=== PATIENT | male | born 1940 | race Caucasian/White ===

== ENCOUNTER 2019-04-24 19:21 | Inpatient (IN) | payer MEDICARE, BC ==
[~2019-04-24] VITALS: Ht 175.3 cm; Wt 87.0 kg
[~2019-04-24 19:21] MED LIST: ACETAMINOPHEN500 M1 PO; BAYER CHEWABLE81 MG PO; DEMADEX20 MG PO; FLOMAX0.4 MG PO; FLORASTOR250 MG PO; GABAPENTIN100 MG PO; HEPARIN SO1000 UNIT/ INJ; HEPARIN SO1000 UNIT/ IV; HYDROCODON-ACE1 EAC7 PO; IMODIUM2 MG PO; IPRAT-ALBUT 0.5-3 ML UPD; K-DUR20 MEQ PO; LOMOTIL TABLET1 TAB PO; LOPERAMIDE HCL2 MG PO; NEPHRO-VITE RX1 TAB PO; NEURONTIN 300300 MG PO; NEURONTIN600 MG PO; NORVASC5 MG PO; PHOSLO667 MG PO; PLAVIX75 MG PO; PRAVACHOL40 MG PO; PREDNISONE10 MG PO; PREDNISONE5 MG PO; PROCRIT/EP3000 UNITS SC; REMERON15 MG PO; RENVELA0.8 GM PO; SALINE FLUSH10 ML IV; SODIUM CL 0.91000 ML IV; TENORMIN100 MG PO; TENORMIN25 MG PO; VALTREX500 MG PO; XANAX0.25 MG PO; ZOVIRAX IV; ZOVIRAX400 MG PO; ZYLOPRIM100 MG PO
[2019-04-24 20:05] LABS: BASOPHILS 0.4 % (0-2); EOSINOPHILS 2.4 % (0-7); HEMATOCRIT 26.3 % (42.0-54.0); HEMOGLOBIN 8.2 g/dL (13.5-17.5); IMMATURE GRANULOCYTES 0.3 % (0-5); LYMPHOCYTES 16.7 % (15-50); MCH 30.6 pg (26.0-34.0); MCHC 31.2 g/dL (31.0-37.0); MCV 98.1 fL (80.0-100.0); MEAN PLATELET VOLUME 8.6 fL (7.4-10.4); MONOCYTES 11.5 % (2-11); NEUTROPHILS 68.7 % (40-80); RBC 2.68 10x6/uL (4.20-6.10); RDW 13.5 % (11.5-14.5); WBC 11.8 10x3/uL (4.8-10.8)
[2019-04-24 20:06] LABS: PLATELET COUNT 282 10x3/uL (130-400)
[2019-04-24 20:15] LABS: APTT 30.7 SECONDS (22.8-39.4); INR 1.21 (0.85-1.17); PROTIME 14.8 SECONDS (11.6-15.0)
[2019-04-24 20:24] VITALS: BP 169/86
[2019-04-24 20:35] LABS: CALC OSMOLALITY 288 mosm/kg (275-300); CALCIUM 9.4 mg/dL (8.5-10.1); CHLORIDE - SERUM 102 mmol/L (98-107); CREATININE - SERUM 8.4 mg/dL (0.6-1.3); GLUCOSE 111 mg/dL (74-106); POTASSIUM - SERUM 4.1 mmol/L (3.5-5.1); SODIUM 139 mmol/L (136-145); UREA NITROGEN 41 mg/dL (7-18); eGFR NON AFRICAN AMERICAN 6 mL/min (90-120)
[2019-04-24 20:52] LABS: ALBUMIN 2.4 g/dL (3.4-5.0); ALKALINE PHOSPHATASE 52 U/L (46-116); ALT (SGPT) 20 U/L (10-68); AMYLASE - SERUM 44 U/L (25-115); BILIRUBIN - TOTAL 0.44 mg/dL (0.2-1.3); CKMB 1.4 U/L (0.0-3.6); CREATINE KINASE 46 UL (21-232); LIPASE 92 U/L (73-393); MAGNESIUM - SERUM 1.8 mg/dL (1.8-2.4); PROTEIN - SERUM 6.2 g/dL (6.4-8.2); THYROID STIMULATING HORMONE 0.79 uIU/mL (0.36-3.74); TROPONIN-I < 0.017 ng/mL (0.000-0.060)
--- NOTE | 2019-04-24 21:05 | NUR ---
REPORT GIVEN TO EVERARDO ABARCA.
[2019-04-24 21:44] LABS: APPEARANCE CLEAR (CLEAR); BILIRUBIN NEGATIVE (NEGATIVE); COLOR YELLOW (YELLOW); GLUCOSE 50 mg/dL (NEGATIVE); KETONE NEGATIVE (NEGATIVE); NITRITE NEGATIVE (NEGATIVE); PROTEIN 1+ mg/dL (NEGATIVE); SPECIFIC GRAVITY 1.005 (1.005-1.020); UROBILINOGEN NORMAL (NORMAL)
[2019-04-24 21:46] LABS: BACTERIA FEW /hpf (NEGATIVE); RED CELLS - URINE 0-5 /hpf (0-5); WHITE CELLS - URINE 0-5 /hpf (NEGATIVE)
[2019-04-24 21:48] LABS: UDS - AMPHET NEGATIVE QUAL (NEGATIVE); UDS - BARB NEGATIVE QUAL (NEGATIVE); UDS - BENZO NEGATIVE QUAL (NEGATIVE); UDS - COCAINE NEGATIVE QUAL (NEGATIVE); UDS - OPIATE NEGATIVE QUAL (NEGATIVE); UDS - PCP NEGATIVE QUAL (NEGATIVE); UDS - THC NEGATIVE QUAL (NEGATIVE)
--- NOTE | 2019-04-24 22:20 | NUR ---
PT ARRIVED TO ROOM VIA STRETCHER. RR EVEN AND TACHYPNEIC AT TIMES. SPO2 93% ON 3L NC. FAMILY AT BEDSIDE. EDUCATED USE OF CALL LIGHT FOR ASSISTANCE. FALL PRECAUTIONS IN PLACE. WILL CTM.
[2019-04-24] MEDS ORDERED: MEGACE40 MG PO (23:16)
[2019-04-24] MEDS ORDERED: ADALAT CC90 MG (23:18)
[2019-04-24] MEDS ORDERED: PROCARDIA10 MG PO (23:20)
[2019-04-25 00:11] VITALS: BP 174/80; BMI 28.4
[2019-04-25 04:30] VITALS: BP 155/58
[2019-04-25 06:00] LABS: BASOPHILS 0.3 % (0-2); EOSINOPHILS 2.1 % (0-7); HEMATOCRIT 22.9 % (42.0-54.0); IMMATURE GRANULOCYTES 0.4 % (0-5); LYMPHOCYTES 14.1 % (15-50); MCH 31.5 pg (26.0-34.0); MCHC 32.8 g/dL (31.0-37.0); MCV 96.2 fL (80.0-100.0); MEAN PLATELET VOLUME 8.1 fL (7.4-10.4); MONOCYTES 11.7 % (2-11); NEUTROPHILS 71.4 % (40-80); PLATELET COUNT 242 10x3/uL (130-400); RBC 2.38 10x6/uL (4.20-6.10); RDW 13.4 % (11.5-14.5)
[2019-04-25 06:11] LABS: HEMOGLOBIN 7.5 g/dL (13.5-17.5)
[2019-04-25 06:50] LABS: ALBUMIN 2.2 g/dL (3.4-5.0); ANION GAP 16.1 mmol/L (8-16); BILIRUBIN - TOTAL 0.4 mg/dL (0.2-1.3); CALCIUM 9.1 mg/dL (8.5-10.1); CARBON DIOXIDE 24.1 mmol/L (21.0-32.0); CREATININE - SERUM 9.6 mg/dL (0.6-1.3); POTASSIUM - SERUM 4.2 mmol/L (3.5-5.1); PROTEIN - SERUM 6.2 g/dL (6.4-8.2)
--- NOTE | 2019-04-25 07:20 | NUR ---
RECIEVE REPORT. ALERT AND ORIENTED X4. MINIMAL ASSISTANCE TO RESTROOM. DENIES ANY OTHER NEEDS AT THIS TIME. CONTINUE PLAN OF CARE AND SAFETY PRECAUTIONS.
[2019-04-25 09:20] VITALS: BP 190/91
--- NOTE | 2019-04-25 13:40 | NUR ---
NOTIFY OF ELEVATED BP AND LOW HGB. DIALYSIS ORDERED. 2 UNITS PRBC ORDERED TO GIVE ON DIALYSIS.
[2019-04-25 13:41] VITALS: BP 195/103
[2019-04-25 14:01] LABS: % SATURATION 14 % (15-55); IRON 14 ug/dl (35-150); TOTAL IRON BIND CAPACITY 98 ug/dl (260-445); UNSAT IRON BIND CAPACITY 84 ug/dl (150-375)
[2019-04-25 14:40] LABS: FERRITIN 2033 ng/mL (3-244)
[2019-04-25 15:33] VITALS: Ht 175.3 cm; Wt 87.0 kg
[2019-04-25 16:32] VITALS: BP 175/86
--- NOTE | 2019-04-25 16:50 | NUR ---
TAKEN TO DIALYSIS VIA BED.
--- NOTE | 2019-04-25 19:00 | NUR ---
PT CURRENTLY IN DIALYSIS.
[2019-04-25 20:00] VITALS: BP 102/60
[2019-04-26] VITALS: BP 123/49
--- NOTE | 2019-04-26 01:01 | NUR ---
UP WITH ASSIST TO BR.
--- NOTE | 2019-04-26 02:13 | NUR ---
RESTING WITH EYES CLOSED, RESPERATOINS EVEN, NO S/S DISTRESS NOTED.
--- NOTE | 2019-04-26 02:43 | NUR ---
I have reviewed this patient and I concur with the Shift Assessment completed by the Licensed Practical Nurse today this shift.
[2019-04-26 04:00] VITALS: BP 125/50
[2019-04-26 05:02] LABS: BASOPHILS 0.3 % (0-2); EOSINOPHILS 1.9 % (0-7); HEMATOCRIT 27.4 % (42.0-54.0); HEMOGLOBIN 8.9 g/dL (13.5-17.5); IMMATURE GRANULOCYTES 0.4 % (0-5); LYMPHOCYTES 12.4 % (15-50); MCH 30.6 pg (26.0-34.0); MCHC 32.5 g/dL (31.0-37.0); MEAN PLATELET VOLUME 8.6 fL (7.4-10.4); MONOCYTES 11.4 % (2-11); NEUTROPHILS 73.6 % (40-80); PLATELET COUNT 250 10x3/uL (130-400); RDW 14.1 % (11.5-14.5); WBC 11.8 10x3/uL (4.8-10.8)
[2019-04-26 05:04] LABS: MCV 94.2 fL (80.0-100.0); RBC 2.91 10x6/uL (4.20-6.10)
[2019-04-26 05:09] LABS: ANION GAP 13.9 mmol/L (8-16); CARBON DIOXIDE 26.7 mmol/L (21.0-32.0); CREATININE - SERUM 7.8 mg/dL (0.6-1.3); PHOSPHOROUS 4.1 mg/dL (2.5-4.9); POTASSIUM - SERUM 3.6 mmol/L (3.5-5.1)
--- NOTE | 2019-04-26 07:20 | NUR ---
RECIEVE REPORT. ALERT AND ORIENTED. SITTING UP ON SIDE OF BED. NO SIGNS OF DISTRESS. CONTINUE PLAN OF CARE AND SAFETY PRECAUTIONS.
[2019-04-26 09:38] VITALS: BP 158/73
[2019-04-26 13:24] VITALS: BP 150/73
[2019-04-26 18:44] VITALS: BP 128/70
[2019-04-26 20:40] VITALS: BP 131/65
--- NOTE | 2019-04-26 20:55 | NUR ---
EVENING ROUNDS COMPLETED. VSS, ALERT WITH MINIMAL CONFUSION. PT STATES HE WANTS TO GET A BATH TONIGHT. GROUP MARKETING VP NOTIFIED. BED ALARM ON DUE TO PT'S OCCASIONAL CONFUSION. PT DENIES ANY FURTHER NEEDS AT THIS TIME. WILL CPOC. CL WITHIN REACH, BED IN LOWEST POSITON, SR X2.
[2019-04-27 00:20] VITALS: BP 134/66
--- NOTE | 2019-04-27 02:22 | NUR ---
PT CONFUSED. TRIE TO GET OOB TWICE. BED ALARM ON. HE STATES HE WANTS TO SIT AT BED EDGE OF THE BED AT THIS TIME. PT ALSO TOOK OFF HIS TELEMETRY. HE ALSO STATES HE DOES NOT NEED NOBODY IN HIS ROOM AT THIS TIME. WILL CTM.
[2019-04-27 04:47] VITALS: BP 123/60
[2019-04-27 05:41] LABS: BASOPHILS 0.2 % (0-2); EOSINOPHILS 2.5 % (0-7); HEMOGLOBIN 10.3 g/dL (13.5-17.5); IMMATURE GRANULOCYTES 0.3 % (0-5); LYMPHOCYTES 14.2 % (15-50); MCH 33.4 pg (26.0-34.0); MCHC 35.5 g/dL (31.0-37.0); MCV 94.2 fL (80.0-100.0); MEAN PLATELET VOLUME 8.3 fL (7.4-10.4); MONOCYTES 12.5 % (2-11); NEUTROPHILS 70.3 % (40-80); PLATELET COUNT 256 10x3/uL (130-400); RBC 3.08 10x6/uL (4.20-6.10); RDW 13.8 % (11.5-14.5); WBC 12.2 10x3/uL (4.8-10.8)
[2019-04-27 05:51] LABS: ANION GAP 16.2 mmol/L (8-16); CARBON DIOXIDE 24.7 mmol/L (21.0-32.0); CREATININE - SERUM 9.5 mg/dL (0.6-1.3); POTASSIUM - SERUM 3.9 mmol/L (3.5-5.1)
[2019-04-27 05:56] LABS: PHOSPHOROUS 5.2 mg/dL (2.5-4.9)
[2019-04-27 08:00] VITALS: BP 149/71
--- NOTE | 2019-04-27 09:32 | NUR ---
AM MEDS GIVEN AT THIS TIME. PT RESTING COMFORTABLY IN BED, A/O X3, RT WRIST IV SL. PT DENIES ANY NEEDS AT THIS TIME. CALL LIGHT IN REACH, NAD NOTED, WILL CONTINUE TO MONITOR.
[2019-04-27 12:16] VITALS: BP 153/77
--- NOTE | 2019-04-27 15:03 | NUR ---
GOT PT IN THE SHOWER, COMPLETE LINEN CHANGE DONE AT THIS TIME. PT DENIES ANY OTHER NEEDS AT THIS TIME. CALL LIGHT IN REACH, NAD NOTED,W ILL CONTINUE TO MONITOR.
--- NOTE | 2019-04-27 17:02 | NUR ---
PT TO DIALYSIS VIA BED, NAD NOTED.
[2019-04-27 17:16] VITALS: BP 148/73
--- NOTE | 2019-04-27 19:26 | NUR ---
PT OUT [facility] AT THIS TIME.
[2019-04-27 20:00] VITALS: BP 153/72
[2019-04-28] VITALS: BP 133/52
[2019-04-28 04:00] VITALS: BP 131/65
[2019-04-28 06:38] LABS: BASOPHILS 0.4 % (0-2); EOSINOPHILS 2.6 % (0-7); HEMATOCRIT 33.6 % (42.0-54.0); IMMATURE GRANULOCYTES 0.6 % (0-5); LYMPHOCYTES 16.3 % (15-50); MCH 31.4 pg (26.0-34.0); MCHC 32.7 g/dL (31.0-37.0); MEAN PLATELET VOLUME 9.1 fL (7.4-10.4); MONOCYTES 12.4 % (2-11); NEUTROPHILS 67.7 % (40-80); RDW 13.9 % (11.5-14.5)
[2019-04-28 06:48] LABS: PLATELET COUNT 370 10x3/uL (130-400)
[2019-04-28 06:49] LABS: ANION GAP 18.4 mmol/L (8-16); CARBON DIOXIDE 25.5 mmol/L (21.0-32.0); CREATININE - SERUM 7.2 mg/dL (0.6-1.3); PHOSPHOROUS 4.3 mg/dL (2.5-4.9); POTASSIUM - SERUM 3.9 mmol/L (3.5-5.1)
--- NOTE | 2019-04-28 07:37 | NUR ---
ALERT AND ORIENTED. NO CONFUSION NOTED AT PRESENT TIME. 02 AT 5 L/M PER NC. RIGHT HAND SL. LEFT ARM AVF. DENIES ANY NEEDS. WILL MONITOR
[2019-04-28 08:50] VITALS: BP 161/84
--- NOTE | 2019-04-28 12:27 | NUR ---
Nutrition Follow-up: Pt reports good appetite and that he is eating more here than he does at home. Drinking some Nepro. HD yesterday. Diet: Renal PO intake: 50-75% Wt: 191# (191.8# on 04/25) Last BM: 04/27 per pt Labs noted: K+ 3.9, PO4 4.3, Ca 10.0 Meds noted: Nephrovite, Phoslo -Continue current diet as tolerated. -Monitor wt. -RD following.
--- NOTE | 2019-04-28 14:13 | NUR ---
UP ON SIDE OF BED. DENIES ANY NEEDS. SR UP WITH CALL LIGHT IN REACH
[2019-04-28 14:17] VITALS: BP 139/76
[2019-04-28 16:00] VITALS: BP 131/65
--- NOTE | 2019-04-28 16:34 | NUR ---
Rehab Note- Acute Inpatient Rehab prescreen order received. The patient is a good inpatient rehab candidate. Spoke with CLAUDE Fisher and the patient is requesting to discharge home at this time. Will follow at this time. Thank you for this referral! Natividad Bardales RN Clinical Liaision, [facility] Re[facility]
--- NOTE | 2019-04-28 17:58 | MORECARE ---
CASE MANAGEMENT DISCHARGE SUMMARY PATIENT: JOHN CARDONA UNIT: [id number] ADM DATE: 04/24/19 AGE: 78 : 39 SEX: M ROOM/BED: D.2124 AUTHOR: ADY IVEY PHYSICIAN: REFERRING PHYSICIAN: ELIZA AUSTIN MD DATE OF SERVICE: 04/28/19 Discharge Plan Patient Name: JOHN CARDONA [facility] [facility] 1940 Planned Disposition: Home Anticipated Discharge Date: 04/29/19 Discharge Date: Expected LOS: 5 Initial Reviewer: [id number] Initial Review Date: 04/29/2019 Generated: 04/28/19 6:57 pm Coverage Notice Reviewer: [email or web address] Liz Albarran Notice Issued Date-Time: 04/28/2019 13:30 Notice Type: Patient Choice Letter Notice Delivered To: Patient Relationship to Patient: Gang Sawyer Name: Delivery Method: HAND - Hand Delivered Malinda Days: Prior Verbal Notification: Recipient Understood Notice: Yes Recipient Signature: Yes Med Rec Note Co-signed by Attending: Coverage Notice Comment: DECLINED REHAB, DECLINED C Reviewer: [id number] Liz Albarran Notice Issued Date-Time: 04/28/2019 13:30 Notice Type: IM Discharge Notice Notice Delivered To: Patient Relationship to Patient: Gang Sawyer Name: Delivery Method: HAND - Hand Delivered Malinda Days: Prior Verbal Notification: Recipient Understood Notice: Yes Recipient Signature: Yes Med Rec Note Co-signed by Attending: Coverage Notice Comment: Patient Name: JOHN CARDONA Page [phone] at 1758 All edits/amendments must be made on the electronic document DICTATION DATE: 04/28/191756 TRANSPLANT CASE MANAGER: PRESTON 04/28/191756 RPT#: [id number] [place] DATE: STATUS: ADM IN [facility] [address] [place] [address] END OF REPORT
--- NOTE | 2019-04-28 18:08 | MORECARE ---
CASE MANAGEMENT DISCHARGE SUMMARY PATIENT: JOHN CARDONA UNIT: [id number] ADM DATE: 04/24/19 AGE: 78 : 39 SEX: M ROOM/BED: D.3747 AUTHOR: UCHEDOC PHYSICIAN: REFERRING PHYSICIAN: ELIZA AUSTIN MD DATE OF SERVICE: 04/28/19 Discharge Plan Patient Name: JOHN CARDONA Facility: [facility]:[place] : 1940 Planned Disposition: Home Anticipated Discharge Date: 04/29/19 Discharge Date: Expected LOS: 5 Initial Reviewer: [id number] Initial Review Date: 04/29/2019 Generated: 04/28/19 7:07 pm Comments DCP- Discharge Planning Updated by [email or web address]: Paulino Albarran on 04/28/19 5:[address] Patient Name: JOHN CARDONA Admission Status: ER Accout number: [id number] Admission Date: 04-24-2019 : 1940 Admission Diagnosis: Attending: ELIZA AUSTIN Current LOS: 4 Anticipated DC Date: 04-29-2019 Planned Disposition: Home Primary Insurance: MEDICARE A & B Discharge Planning Comments: CM RECEIVED ORDER FOR INPATIENT REHAB PRESCREENING AND DISCHARGE PLANNING. CM MET WITH PT IN ROOM TO DISCUSS DISCHARGE PLANNING AND NEEDS. PT REPORTS LIVING AT HOME DEPENDENTLY ON SON WHO ASSISTS WITH MEDICATION MANAGEMENT, PT'S SON AND DAUGHTER IN LAW WHO GROCERY SHOP, DISPATCHER SERVICE CHIEF MEDICATIONS AND CLEAN HOUSE FOR PT. PT STATES THEY LIVE 3 DOORS DOWN. PT HAS CANE, HOME OXYGEN, ROLLATOR WALKER AND WALKER FROM UNKNOWN PROVIDER, PT DOES NOT USE HIS HOME OXYGEN. PT HAS NO OUTSIDE SERVICES ASSISTING IN THE HOME. PT'S SON DRIVES PT TO [facility], [facility] SCHEDULE AT 1100AM. CM DISCUSSED AVAILABILITY OF HOME HEALTH, REHAB SERVICES AND MEDICAL EQUIPMENT. PT DENIES DISCHARGE NEEDS STATING THAT HIS SON AND DAUGHTER IN LAW "ARE CONSTANTLY IN AND OUT" OF PT'S HOME TO ASSIST HIM AND PT REPORTS FEELING SAFE THERE. PT STATES HE IS STRONG ENOUGH TO RETURN HOME. REPORTS HIS SON WILL PICK HIM UP FOR DISCHARGE HOME. IMPORTANT MESSAGE FROM MEDICARE PROVIDED AND EXPLAINED. PT SIGNED REFUSAL. PT DOES NOT WANT CM TO CALL HIS SON AND PT STATES HE WILL TALK TO HIS FAMLY HIMSELF. PT REFUSED REHAB SERVICES, REFUSED HOME HEALTH. PT PLANS TO RETURN HOME ALONE WITH ASSISTANCE OF SON AND DAUGHTER IN LAW THAT LIVE "THREE DOORS DOWN" AND "ARE CONSTANTLY IN AND OUT" OF PT'S HOME. CM TO CONTINUE TO FOLLOW AND ASSIST NEEDED. Transportation Agent: Paulino Albarran DCPIA - Discharge Planning Initial Assessment Updated by FLORENCE: Paulino Albarran on 04/28/19 5:58 pm * Is the patient Alert and Oriented? Yes * How many steps to enter\\exit or inside your home? * PCP JULIO C FRY * Pharmacy [facility], PT'S SON PICKS UP ALL MEDICATIONS * Preadmission Environment Home Alone * ADLs Partial Dependent * Partial ADLs (Assistance needed) Medication Management * Equipment Cane Oxygen Rolling Walker * Other Equipment ROLLATOR WALKER HOME OXYGEN THAT HE DOES NOT USE FROM UNKNOWN PROVIDER * List name and contact numbers for known caregivers / representatives who currently or will assist patient after discharge: CRYSTAL CARDONA, LORRIE, * Verbal permission to speak to the caregivers and representatives has been obtained from the patient. No * Community resources currently utilized Other * Please name any agencies selected above. [facility], [place], [facility], [place], 1100, [facility] * Additional services required to return to the preadmission environment? No * Can the patient safely return to the preadmission environment? Yes * Has this patient been hospitalized within the prior 30 days at any hospital? No Coverage Notice Reviewer: [id number] Albarran Notice Issued Date-Time: 04/28/2019 13:30 Notice Type: Patient Choice Letter Notice Delivered To: Patient Relationship to Patient: Account Service Representative Name: Delivery Method: HAND - Hand Delivered Malinda Days: Prior Verbal Notification: Recipient Understood Notice: Yes Recipient Signature: Yes Med Rec Note Co-signed by Attending: Coverage Notice Comment: DECLINED REHAB, DECLINED C Reviewer: [id number] Liz Albarran Notice Issued Date-Time: 04/28/2019 13:30 Notice Type: IM Discharge Notice Notice Delivered To: Patient Relationship to Patient: Account Service Representative Name: Delivery Method: HAND - Hand Delivered Malinda Days: Prior Verbal Notification: Recipient Understood Notice: Yes Recipient Signature: Yes Med Rec Note Co-signed by Attending: Coverage Notice Comment: Last DP export: 04/28/19 4:58 Patient Name: JOHN CARDONA Page [phone] at 1808 All edits/amendments must be made on the electronic document DICTATION DATE: 04/28/191806 HEAT TREATMENT TECHNICIAN: PRESTON 04/28/191806 RPT#: [id number] DC DATE: STATUS: ADM IN [facility] [address] [place] [address] END OF REPORT
[2019-04-28 20:00] VITALS: BP 127/58
[2019-04-29] VITALS: BP 118/52
[2019-04-29 04:00] VITALS: BP 146/66
[2019-04-29 05:24] LABS: BASOPHILS 0.6 % (0-2); EOSINOPHILS 2.8 % (0-7); HEMATOCRIT 31.5 % (42.0-54.0); HEMOGLOBIN 10.1 g/dL (13.5-17.5); IMMATURE GRANULOCYTES 0.8 % (0-5); MCH 30.8 pg (26.0-34.0); MCHC 32.1 g/dL (31.0-37.0); MEAN PLATELET VOLUME 8.7 fL (7.4-10.4); MONOCYTES 12.8 % (2-11); PLATELET COUNT 350 10x3/uL (130-400); RBC 3.28 10x6/uL (4.20-6.10); RDW 13.5 % (11.5-14.5); WBC 14.1 10x3/uL (4.8-10.8)
[2019-04-29 05:52] LABS: ANION GAP 18.2 mmol/L (8-16); CALCIUM 9.9 mg/dL (8.5-10.1); CARBON DIOXIDE 26.5 mmol/L (21.0-32.0); POTASSIUM - SERUM 3.7 mmol/L (3.5-5.1)
[2019-04-29 05:56] LABS: CREATININE - SERUM 9.3 mg/dL (0.6-1.3)
--- NOTE | 2019-04-29 07:49 | NUR ---
ALERT BUT CONFUSED. TELEMERTY SHOWS SR 72. ON O2 AT 5 L/M PER NC. LEFT AV FISTULA. RIGHT HAND SL. BED ALARM ON. WILL MONITOR
[2019-04-29 09:48] VITALS: BP 159/75
--- NOTE | 2019-04-29 10:07 | NUR ---
I have reviewed this patient and I concur with the Shift Assessment completed by the Licensed Practical Nurse today this shift.
--- NOTE | 2019-04-29 11:16 | MORECARE ---
CASE MANAGEMENT DISCHARGE SUMMARY PATIENT: JOHN CARDONA UNIT: [id number] ADM DATE: 04/24/19 AGE: 78 : 39 SEX: M ROOM/BED: D.3184 AUTHOR: UCHEDOC PHYSICIAN: REFERRING PHYSICIAN: ELIZA AUSTIN MD DATE OF SERVICE: 04/29/19 Discharge Plan Patient Name: JOHN CARDONA [facility]:[place] : 1940 Planned Disposition: Inpatient Rehab Anticipated Discharge Date: 04/29/19 Discharge Date: Expected LOS: 5 Initial Reviewer: [id number] Initial Review Date: 04/29/2019 Generated: 04/29/19 12:15 pm Comments DCP- Discharge Planning Updated by [id number]: Paulino Albarran on 04/28/19 5:[address] Patient Name: JOHN CARDONA Admission Status: ER Accout number: [id number] Admission Date: 04-24-2019 : 1940 Admission Diagnosis: Attending: ELIZA AUSTIN Current LOS: 4 Anticipated DC Date: 04-29-2019 Planned Disposition: Home Primary Insurance: MEDICARE A & B Discharge Planning Comments: CM RECEIVED ORDER FOR INPATIENT REHAB PRESCREENING AND DISCHARGE PLANNING. CM MET WITH PT IN ROOM TO DISCUSS DISCHARGE PLANNING AND NEEDS. PT REPORTS LIVING AT HOME DEPENDENTLY ON SON WHO ASSISTS WITH MEDICATION MANAGEMENT, PT'S SON AND DAUGHTER IN LAW WHO GROCERY SHOP, CLAY PIGEON LOADER MEDICATIONS AND CLEAN HOUSE FOR PT. PT STATES THEY LIVE 3 DO[address] DOWN. PT HAS CANE, HOME OXYGEN, ROLLATOR WALKER AND WALKER FROM UNKNOWN PROVIDER, PT DOES NOT USE HIS HOME OXYGEN. PT HAS NO OUTSIDE SERVICES ASSISTING IN THE HOME. PT'S SON DRIVES PT TO [facility], [facility] SCHEDULE AT 1100AM. CM DISCUSSED AVAILABILITY OF HOME HEALTH, REHAB SERVICES AND MEDICAL EQUIPMENT. PT DENIES DISCHARGE NEEDS STATING THAT HIS SON AND DAUGHTER IN LAW "ARE CONSTANTLY IN AND OUT" OF PT'S HOME TO ASSIST HIM AND PT REPORTS FEELING SAFE THERE. PT STATES HE IS STRONG ENOUGH TO RETURN HOME. REPORTS HIS SON WILL PICK HIM UP FOR DISCHARGE HOME. IMPORTANT MESSAGE FROM MEDICARE PROVIDED AND EXPLAINED. PT SIGNED REFUSAL. PT DOES NOT WANT CM TO CALL HIS SON AND PT STATES HE WILL TALK TO HIS FAMLY HIMSELF. PT REFUSED REHAB SERVICES, REFUSED HOME HEALTH. PT PLANS TO RETURN HOME ALONE WITH ASSISTANCE OF SON AND DAUGHTER IN LAW THAT LIVE "THREE DOORS DOWN" AND "ARE CONSTANTLY IN AND OUT" OF PT'S HOME. CM TO CONTINUE TO FOLLOW AND ASSIST NEEDED. Clinical Laboratory Medical Director: Paulino Albarran DCPIA - Discharge Planning Initial Assessment Updated by FLORENCE: Paulino Albarran on 04/28/19 5:58 pm * Is the patient Alert and Oriented? Yes * How many steps to enter\\exit or inside your home? * PCP JULIO C FRY * Pharmacy [facility], PT'S SON PICKS UP ALL MEDICATIONS * Preadmission Environment Home Alone * ADLs Partial Dependent * Partial ADLs (Assistance needed) Medication Management * Equipment Cane Oxygen Rolling Walker * Other Equipment ROLLATOR WALKER HOME OXYGEN THAT HE DOES NOT USE FROM UNKNOWN PROVIDER * List name and contact numbers for known caregivers / representatives who currently or will assist patient after discharge: CRYSTAL CARDONA, LORRIE, * Verbal permission to speak to the caregivers and representatives has been obtained from the patient. No * Community resources currently utilized Other * Please name any agencies selected above. OUTPATIENT DIALYSIS, [place], [facility], [facility], [place], [facility] * Additional services required to return to the preadmission environment? No * Can the patient safely return to the preadmission environment? Yes * Has this patient been hospitalized within the prior 30 days at any hospital? No Coverage Notice Reviewer: FLORENCE Albarran Notice Issued Date-Time: 04/28/2019 13:30 Notice Type: Patient Choice Letter Notice Delivered To: Patient Relationship to Patient: Assistant Research Scientist Name: Delivery Method: HAND - Hand Delivered Malinda Days: Prior Verbal Notification: Recipient Understood Notice: Yes Recipient Signature: Yes Med Rec Note Co-signed by Attending: Coverage Notice Comment: DECLINED REHAB, DECLINED [facility] Reviewer: FLORENCE Albarran Notice Issued Date-Time: 04/28/2019 13:30 Notice Type: IM Discharge Notice Notice Delivered To: Patient Relationship to Patient: Assistant Research Scientist Name: Delivery Method: HAND - Hand Delivered Malinda Days: Prior Verbal Notification: Recipient Understood Notice: Yes Recipient Signature: Yes Med Rec Note Co-signed by Attending: Coverage Notice Comment: Reviewer: FLORENCE Albarran Notice Issued Date-Time: 04/29/2019 9:35 Notice Type: Patient Choice Letter Notice Delivered To: Patient Relationship to Patient: Assistant Research Scientist Name: Delivery Method: HAND - Hand Delivered Malinda Days: Prior Verbal Notification: Recipient Understood Notice: Yes Recipient Signature: Yes Med Rec Note Co-signed by Attending: Coverage Notice Comment: [facility] inpatient rehab or [facility] in [place] Last DP export: 04/28/19 5:07 Patient Name: JOHN CARDONA Page [phone] at 1116 All edits/amendments must be made on the electronic document DICTATION DATE: 04/29/19 111 [place] OR LUNCHROOM CHECKER: PRESTON 04/29/19 1115 RPT#: [id number] PA DATE: STATUS: ADM IN [facility] [address] [place] [address] END OF REPORT
--- NOTE | 2019-04-29 11:26 | MORECARE ---
CASE MANAGEMENT DISCHARGE SUMMARY PATIENT: JOHN CARDONA UNIT: [id number] ADM DATE: 04/24/19 AGE: 78 : 39 SEX: M ROOM/BED: D.5584 AUTHOR: ADY IVEY PHYSICIAN: REFERRING PHYSICIAN: ELIZA AUSTIN MD DATE OF SERVICE: 04/29/19 Discharge Plan Patient Name: JOHN CARDONA [facility] [facility] 1940 Planned Disposition: Inpatient Rehab Anticipated Discharge Date: 04/29/19 Discharge Date: Expected LOS: 5 Initial Reviewer: [id number] Initial Review Date: 04/29/2019 Generated: 04/29/19 12:25 pm Comments DCP- Discharge Planning Updated by [id number]: Paulino Albarran on 04/29/19 10:[address] Patient Name: JOHN CARDONA Encounter No: [id number] : 1940 Primary Insurance: MEDICARE A & B Anticipated DC Date: 04-29-2019 Planned Disposition: Inpatient Rehab External Planned Provider: [facility] INPATIENT REHAB DCP follow-up note: CM RECEIVED ORDER THAT PT IS OK TO DISCHARGE TO INPATIENT REHAB WHEN PT AGREES AFTER SPEAKING TO SON WHO IS ON HIS WAY TO SPEAK TO PT. CM MET WITH PT IN ROOM, PT HAS DISCUSSED REHAB WITH HIS SON AND IS IN AGREEMENT WITH REHAB AT [facility] AND IF DECLINED, [facility] IN [place]. CHOICE SIGNED. CM SPOKE TO SANIA POSEY WHO IS AWARE, PT TO DISCHARGE TO REHAB TODAY. CM SPOKE TO [facility] OF INPATIENT REHAB, THEY PLAN TO ACCEPT PT TODAY FOR REHAB. PT NOTIFIED, IN AGREEMENT WITH DISCHARGE TO INPATIENT REHAB. [facility] INPATIENT REHAB TO CONTACT MED 2 NURSE WITH ROOM NUMBER WHEN READY TO ACCEPT PT AND NURSE REPORT. MAILE Medel DCP- Discharge Planning Updated by [id number]: Paulino Albarran on 04/28/19 5:[address] Patient Name: JOHN CARDONA Admission Status: ER Accout number: [id number] Admission Date: 04-24-2019 : 1940 Admission Diagnosis: Attending: ELIZA AUSTIN Current LOS: 4 Anticipated DC Date: 04-29-2019 Planned Disposition: Home Primary Insurance: MEDICARE A & B Discharge Planning Comments: CM RECEIVED ORDER FOR INPATIENT REHAB PRESCREENING AND DISCHARGE PLANNING. CM MET WITH PT IN ROOM TO DISCUSS DISCHARGE PLANNING AND NEEDS. PT REPORTS LIVING AT HOME DEPENDENTLY ON SON WHO ASSISTS WITH MEDICATION MANAGEMENT, PT'S SON AND DAUGHTER IN LAW WHO GROCERY SHOP, SCALE MECHANIC MEDICATIONS AND CLEAN HOUSE FOR PT. PT STATES THEY LIVE [address] DO[address] DOWN. PT HAS CANE, HOME OXYGEN, ROLLATOR WALKER AND WALKER FROM UNKNOWN PROVIDER, PT DOES NOT USE HIS HOME OXYGEN. PT HAS NO OUTSIDE SERVICES ASSISTING IN THE HOME. PT'S SON DRIVES PT TO [facility], [facility] SCHEDULE AT 1100AM. CM DISCUSSED AVAILABILITY OF HOME HEALTH, REHAB SERVICES AND MEDICAL EQUIPMENT. PT DENIES DISCHARGE NEEDS STATING THAT HIS SON AND DAUGHTER IN LAW "ARE CONSTANTLY IN AND OUT" OF PT'S HOME TO ASSIST HIM AND PT REPORTS FEELING SAFE THERE. PT STATES HE IS STRONG ENOUGH TO RETURN HOME. REPORTS HIS SON WILL PICK HIM UP FOR DISCHARGE HOME. IMPORTANT MESSAGE FROM MEDICARE PROVIDED AND EXPLAINED. PT SIGNED REFUSAL. PT DOES NOT WANT CM TO CALL HIS SON AND PT STATES HE WILL TALK TO HIS FAMLY HIMSELF. PT REFUSED REHAB SERVICES, REFUSED HOME HEALTH. PT PLANS TO RETURN HOME ALONE WITH ASSISTANCE OF SON AND DAUGHTER IN LAW THAT LIVE "THREE DOORS DOWN" AND "ARE CONSTANTLY IN AND OUT" OF PT'S HOME. CM TO CONTINUE TO FOLLOW AND ASSIST NEEDED. Electrician Helper Automotive: Paulino Albarran DCPIA - Discharge Planning Initial Assessment Updated by [id number]: Paulino Albarran on 04/28/19 5:58 pm * Is the patient Alert and Oriented? Yes * How many steps to enter\\exit or inside your home? * PCP DR. VERGARA [place] * Pharmacy [facility], PT'S SON PICKS UP ALL MEDICATIONS * Preadmission Environment Home Alone * ADLs Partial Dependent * Partial ADLs (Assistance needed) Medication Management * Equipment Cane Oxygen Rolling Walker * Other Equipment ROLLATOR WALKER HOME OXYGEN THAT HE DOES NOT USE FROM UNKNOWN PROVIDER * List name and contact numbers for known caregivers / representatives who currently or will assist patient after discharge: CRYSTAL CARDONA, SON, * Verbal permission to speak to the caregivers and representatives has been obtained from the patient. No * Community resources currently utilized Other * Please name any agencies selected above. OUTPATIENT DIALYSIS, [place], [facility], [place], 1100, [facility] * Additional services required to return to the preadmission environment? No * Can the patient safely return to the preadmission environment? Yes * Has this patient been hospitalized within the prior 30 days at any hospital? No Coverage Notice Reviewer: FLORENCE Albarran Notice Issued Date-Time: 04/28/2019 13:30 Notice Type: Patient Choice Letter Notice Delivered To: Patient Relationship to Patient: Metal Neutralizer Name: Delivery Method: HAND - Hand Delivered Malinda Days: Prior Verbal Notification: Recipient Understood Notice: Yes Recipient Signature: Yes Med Rec Note Co-signed by Attending: Coverage Notice Comment: DECLINED REHAB, DECLINED HHC Reviewer: FLORENCE Albarran Notice Issued Date-Time: 04/28/2019 13:30 Notice Type: IM Discharge Notice Notice Delivered To: Patient Relationship to Patient: Metal Neutralizer Name: Delivery Method: HAND - Hand Delivered Malinda Days: Prior Verbal Notification: Recipient Understood Notice: Yes Recipient Signature: Yes Med Rec Note Co-signed by Attending: Coverage Notice Comment: Reviewer: FLORENCE Albarran Notice Issued Date-Time: 04/29/2019 9:35 Notice Type: Patient Choice Letter Notice Delivered To: Patient Relationship to Patient: Metal Neutralizer Name: Delivery Method: HAND - Hand Delivered Malinda Days: Prior Verbal Notification: Recipient Understood Notice: Yes Recipient Signature: Yes Med Rec Note Co-signed by Attending: Coverage Notice Comment: [facility] inpatient rehab or [facility]-way rehab in [place] Last DP export: 04/29/19 10:16 Patient Name: JOHN CARDONA Page [phone] at 1126 All edits/amendments must be made on the electronic document DICTATION DATE: 04/29/19 1125 FARMWORKER FUR: PRESTON 04/29/19 1125 RPT#: [id number] DC DATE: STATUS: ADM IN [facility] [address] [place] [address] END OF REPORT
--- NOTE | 2019-04-29 11:34 | MORECARE ---
CASE MANAGEMENT DISCHARGE SUMMARY PATIENT: JOHN CARDONA UNIT: [id number] ADM DATE: 04/24/19 AGE: 78 : 39 SEX: M ROOM/BED: D.5074 AUTHOR: ADY IVEY PHYSICIAN: REFERRING PHYSICIAN: ELIZA AUSTIN MD DATE OF SERVICE: 04/29/19 Discharge Plan Patient Name: JOHN CARDONA [facility] [facility] 1940 Planned Disposition: Inpatient Rehab Anticipated Discharge Date: 04/29/19 Discharge Date: Expected LOS: 5 Initial Reviewer: [email or web address] Initial Review Date: 04/29/2019 Generated: 04/29/19 12:34 pm Comments DCP- Discharge Planning Updated by [id number]: Paulino Albarran on 04/29/19 10:[address] Patient Name: JOHN CARDONA Encounter No: [id number] : 1940 Primary Insurance: MEDICARE A & B Anticipated DC Date: 04-29-2019 Planned Disposition: Inpatient Rehab External Planned Provider: [facility] INPATIENT REHAB DCP follow-up note: CM RECEIVED ORDER THAT PT IS OK TO DISCHARGE TO INPATIENT REHAB WHEN PT AGREES AFTER SPEAKING TO SON WHO IS ON HIS WAY TO SPEAK TO PT. CM MET WITH PT IN ROOM, PT HAS DISCUSSED REHAB WITH HIS SON AND IS IN AGREEMENT WITH REHAB AT [facility] AND IF DECLINED, [facility] IN [place]. CHOICE SIGNED. CM SPOKE TO SANIA POSEY WHO IS AWARE, PT TO DISCHARGE TO REHAB TODAY. CM SPOKE TO [facility] OF INPATIENT REHAB, THEY PLAN TO ACCEPT PT TODAY FOR REHAB. PT NOTIFIED, IN AGREEMENT WITH DISCHARGE TO INPATIENT REHAB. [facility] INPATIENT REHAB TO CONTACT MED 2 NURSE WITH ROOM NUMBER WHEN READY TO ACCEPT PT AND NURSE REPORT. MAILE Medel DCP- Discharge Planning Updated by [email or web address]: Paulino Albarran on 04/28/19 5:[address] Patient Name: JOHN CARDONA Admission Status: ER Accout number: [id number] Admission Date: 04-24-2019 : 1940 Admission Diagnosis: Attending: ELIZA AUSTIN Current LOS: 4 Anticipated DC Date: 04-29-2019 Planned Disposition: Home Primary Insurance: MEDICARE A & B Discharge Planning Comments: CM RECEIVED ORDER FOR INPATIENT REHAB PRESCREENING AND DISCHARGE PLANNING. CM MET WITH PT IN ROOM TO DISCUSS DISCHARGE PLANNING AND NEEDS. PT REPORTS LIVING AT HOME DEPENDENTLY ON SON WHO ASSISTS WITH MEDICATION MANAGEMENT, PT'S SON AND DAUGHTER IN LAW WHO GROCERY SHOP, DUMP TRUCK DRIVER MEDICATIONS AND CLEAN HOUSE FOR PT. PT STATES THEY LIVE [address] DOORS DOWN. PT HAS CANE, HOME OXYGEN, ROLLATOR WALKER AND WALKER FROM UNKNOWN PROVIDER, PT DOES NOT USE HIS HOME OXYGEN. PT HAS NO OUTSIDE SERVICES ASSISTING IN THE HOME. PT'S SON DRIVES PT TO [facility] AT 1100AM. CM DISCUSSED AVAILABILITY OF HOME HEALTH, REHAB SERVICES AND MEDICAL EQUIPMENT. PT DENIES DISCHARGE NEEDS STATING THAT HIS SON AND DAUGHTER IN LAW "ARE CONSTANTLY IN AND OUT" OF PT'S HOME TO ASSIST HIM AND PT REPORTS FEELING SAFE THERE. PT STATES HE IS STRONG ENOUGH TO RETURN HOME. REPORTS HIS SON WILL PICK HIM UP FOR DISCHARGE HOME. IMPORTANT MESSAGE FROM MEDICARE PROVIDED AND EXPLAINED. PT SIGNED REFUSAL. PT DOES NOT WANT CM TO CALL HIS SON AND PT STATES HE WILL TALK TO HIS FAMLY HIMSELF. PT REFUSED REHAB SERVICES, REFUSED HOME HEALTH. PT PLANS TO RETURN HOME ALONE WITH ASSISTANCE OF SON AND DAUGHTER IN LAW THAT LIVE "THREE DOORS DOWN" AND "ARE CONSTANTLY IN AND OUT" OF PT'S HOME. CM TO CONTINUE TO FOLLOW AND ASSIST NEEDED. Applications Manager: Paulino Albarran DCPIA - Discharge Planning Initial Assessment Updated by [id number]: Paulino Albarran on 04/28/19 5:58 pm * Is the patient Alert and Oriented? Yes * How many steps to enter\\exit or inside your home? * PCP DR. VERGARA [place] * Pharmacy [facility], PT'S SON PICKS UP ALL MEDICATIONS * Preadmission Environment Home Alone * ADLs Partial Dependent * Partial ADLs (Assistance needed) Medication Management * Equipment Cane Oxygen Rolling Walker * Other Equipment ROLLATOR WALKER HOME OXYGEN THAT HE DOES NOT USE FROM UNKNOWN PROVIDER * List name and contact numbers for known caregivers / representatives who currently or will assist patient after discharge: CRYSTAL CARDONA, SON, * Verbal permission to speak to the caregivers and representatives has been obtained from the patient. No * Community resources currently utilized Other * Please name any agencies selected above. [facility], [facility], MWF, [place], 1100, SON DRIVES * Additional services required to return to the preadmission environment? No * Can the patient safely return to the preadmission environment? Yes * Has this patient been hospitalized within the prior 30 days at any hospital? No Coverage Notice Reviewer: FLORENCE Albarran Notice Issued Date-Time: 04/28/2019 13:30 Notice Type: Patient Choice Letter Notice Delivered To: Patient Relationship to Patient: Manager Asset Name: Delivery Method: HAND - Hand Delivered Malinda Days: Prior Verbal Notification: Recipient Understood Notice: Yes Recipient Signature: Yes Med Rec Note Co-signed by Attending: Coverage Notice Comment: DECLINED REHAB, DECLINED C Reviewer: FLORENCE Albarran Notice Issued Date-Time: 04/28/2019 13:30 Notice Type: IM Discharge Notice Notice Delivered To: Patient Relationship to Patient: Manager Asset Name: Delivery Method: HAND - Hand Delivered Malinda Days: Prior Verbal Notification: Recipient Understood Notice: Yes Recipient Signature: Yes Med Rec Note Co-signed by Attending: Coverage Notice Comment: Reviewer: FLORENCE Albarran Notice Issued Date-Time: 04/29/2019 9:35 Notice Type: Patient Choice Letter Notice Delivered To: Patient Relationship to Patient: Manager Asset Name: Delivery Method: HAND - Hand Delivered Malinda Days: Prior Verbal Notification: Recipient Understood Notice: Yes Recipient Signature: Yes Med Rec Note Co-signed by Attending: Coverage Notice Comment: [facility] [place] Last DP export: 04/29/19 10:26 Patient Name: JOHN CARDONA Page [id number] at 1134 All edits/amendments must be made on the electronic document DICTATION DATE: 04/29/19 1134 VP CLINICAL: PRESTON 04/29/19 1134 RPT#: [id number] DC DATE: STATUS: ADM IN [facility] [address] [place] [address] END OF REPORT
--- NOTE | 2019-04-29 17:27 | NUR ---
PT DCD AND TAKEN TO REHAB. IV DCD WITH TIP INTACT. TO REHAB PER WHEELCHAIR
== END 2019-04-29 17:28 | DRG 291 ==
LOC: D.ER 19:21 → D.M2 21:05
PROVIDERS: Family Medicine; Internal Medicine Nephrology; ADMIT Internal Medicine Nephrology; ATTEND Internal Medicine Nephrology
PROC: 5A1D70Z Performance of Urinary Filtration, Intermittent, Less than 6 Hours Per Day (ICD-10-PCS; principal; 2019-04-25)
DX: I13.2 Hypertensive heart and chronic kidney disease with heart failure and with stage 5 chronic kidney disease, or end stage renal disease (principal); N18.6 End stage renal disease; I50.9 Heart failure, unspecified; Z99.2 Dependence on renal dialysis; D63.1 Anemia in chronic kidney disease; J44.9 Chronic obstructive pulmonary disease, unspecified; R41.82 Altered mental status, unspecified; F03.90 Unspecified dementia, unspecified severity, without behavioral disturbance, psychotic disturbance, mood disturbance, and anxiety; R19.5 Other fecal abnormalities; Z86.73 Personal history of transient ischemic attack (TIA), and cerebral infarction without residual deficits

== ENCOUNTER 2019-04-29 15:59 | Inpatient (IN) | payer MEDICARE, BC ==
[~2019-04-29] VITALS: Ht 175.3 cm; Wt 78.4 kg
[~2019-04-29 15:59] MED LIST changes: +ADALAT CC90 MG; +MEGACE40 MG PO; +PROCARDIA10 MG PO
--- NOTE | 2019-04-29 19:30 | NUR ---
PT IS RESTING IN BED WITH EYES OPEN. ALERT AND ORIENTED X 3. PT VOICED COMPLAINT OF BEING VERY WEAK AND TIRED AFTER FINISHING HIS DIALYSIS TODAY. HE STATES HE GOT TO REHAB @ 1700, AND HAS BEEN WORN OUT ALL THIS TIME. O2 IS ON @4LPM PER NC. NO SOB NTOED. LEFT ARM FISTULA IS VERY PROMINENT. GOOD BRUITT AND THRILL NOTED. SR'S ARE U7P X 2 IN BED. CALL LIGHT AND BEDSIDE TABLE ARE WITHIN EASY REACH.
[2019-04-29 20:30] VITALS: BP 168/83
--- NOTE | 2019-04-29 22:26 | NUR ---
PT IS RESTING IN BED WITH EYES OPEN. NO NEEDS VOICED.
[2019-04-30 01:25] VITALS: BP 163/71; BMI 28.1
--- NOTE | 2019-04-30 04:23 | NUR ---
PT LYING IN BED SUPINE EYES CLOSED RESTING QUIETLY. RR EVEN AND UNLABORED. CL IN REACH
[2019-04-30 07:37] LABS: BASOPHILS 0.5 % (0-2); EOSINOPHILS 2.6 % (0-7); HEMOGLOBIN 10.7 g/dL (13.5-17.5); IMMATURE GRANULOCYTES 0.6 % (0-5); LYMPHOCYTES 22.4 % (15-50); MCH 30.8 pg (26.0-34.0); MCHC 32.4 g/dL (31.0-37.0); MCV 95.1 fL (80.0-100.0); MEAN PLATELET VOLUME 8.6 fL (7.4-10.4); MONOCYTES 15.2 % (2-11); NEUTROPHILS 58.7 % (40-80); PLATELET COUNT 329 10x3/uL (130-400); RBC 3.47 10x6/uL (4.20-6.10); RDW 13.5 % (11.5-14.5)
[2019-04-30 07:50] LABS: CALCIUM 9.6 mg/dL (8.5-10.1); CARBON DIOXIDE 27.4 mmol/L (21.0-32.0); CREATININE - SERUM 7.2 mg/dL (0.6-1.3); POTASSIUM - SERUM 3.4 mmol/L (3.5-5.1)
[2019-04-30 08:00] VITALS: BP 163/86
[2019-04-30 12:24] VITALS: Ht 175.3 cm; Wt 78.4 kg
--- NOTE | 2019-04-30 12:36 | NUR ---
SITTING UP IN WC IN ROOM EATING LUNCH. DENIES NEEDS OR C/O. CALL LIGHT IN REACH
--- NOTE | 2019-04-30 15:22 | NUR ---
C/O SOUR STOMACH FROM LUNCH. ZOFRAN AND TUMS GIVEN. PT RESTING QUIETY WITH EYES CLOSED. NO S/S DISTRESS. NO EMESIS NOTED.
--- NOTE | 2019-04-30 16:52 | NUR ---
RESTING QUIETLY IN BED. EYES CLOSED. NO S/S DISTRESS. CALL LIGHT IN REACH.
--- NOTE | 2019-04-30 19:49 | NUR ---
PT IS RESTING IN BED WATCHING TV. ALERT TO SELF. CONFUSED TO TIME AND PLACE. PT REORIENTS EASILY, BUT DOES NOT RETAIN THE INFORMATION. LEFT AVFISTULA NOTED. GOOD BRUITT AND THRILL. O2 IS ON @ 4 LPM PER NC. NO SOB NOTED. SR'S ARE UP X 3 IN BED. CALL LIGHT AND BEDSIDE TABLE ARE WITHIN EASY REACH. BED ALARM IS ON.
[2019-04-30 20:10] VITALS: BP 172/89
--- NOTE | 2019-04-30 21:34 | NUR ---
PT RESTING IN BED WATCHING TV. NO NEEDS VOICED.
--- NOTE | 2019-05-01 01:13 | NUR ---
I have reviewed this patient and I concur with the Shift Assessment completed by the Licensed Practical Nurse today this shift.
--- NOTE | 2019-05-01 04:30 | NUR ---
PT RESTING IN BED WITH EYES CLOSED. NO ACUTE DISTRESS NOTED.
[2019-05-01 08:00] VITALS: BP 107/53
--- NOTE | 2019-05-01 08:00 | NUR ---
PATIENT VERY CONFUSED. BED ALARM ON. CALL LIGHT WITHIN REACH. PATIENT REFUSED BREAKFAST. STATED THAT HE FELT SICK TO HIS STOMACHE. HAS HAD DIARRHEA THIS AM.
--- NOTE | 2019-05-01 09:10 | NUR ---
THIS NURSE CALLED SABINA POSEY APN IN REGARDS TO PATIENT HAVING DIARRHEA N/V, REFUSED BREAKFAST AND MEDICATIONS THIS AM. NEW ORDERS RECEIVED.
--- NOTE | 2019-05-01 10:24 | NUR ---
PATIENT RESTING WELL. NO MORE C/O N/V
[2019-05-01 12:00] VITALS: BP 107/53
--- NOTE | 2019-05-01 14:34 | NUR ---
FAMILY IN ROOM. PATIENT REFUSED THERAPY. PRN ZOFRAN AND IMMODIUM GIVEN
--- NOTE | 2019-05-01 15:30 | NUR ---
PATIENT HAD AN INCONT OF BOWEL. SAT ON TOILET. SPONGE BATH GIVEN WHILE PATIENT ON IN BATHROOM. LINENS ON BED CHANGED
--- NOTE | 2019-05-01 17:19 | NUR ---
PATIENT REFUSED TO EAT SUPPER. STATED HE JUST WANTED TO SLEEP. FLUIDS ENCOURAGED. PATEINT DRANK SMALL 240CC OF [place].
[2019-05-01 18:00] VITALS: BP 102/61
--- NOTE | 2019-05-01 18:09 | NUR ---
I have reviewed this patient and I concur with the Shift Assessment completed by the Licensed Practical Nurse today this shift.
--- NOTE | 2019-05-01 19:10 | NUR ---
PT RESTING IN BED WITH EYES OPEN. ALERT AND ORIENTED X 3. PT STATES HE HAS HAD A VERY BAD DAY WITH NAUSEA AND DIARRHEA. VSS. LEFT AV FISTULA NOTED WITH GOOD BRUITT AND THRILL. SR'S ARE UP X 2 IN BED. CALL LIGHT AND BEDSIDE TABLE ARE WITHIN EASY REACH.
--- NOTE | 2019-05-01 20:20 | NUR ---
PT UP TO BATHROOM. LARGE WATERY INC. STOOL NOTED IN BED, AND X LARGE AMOUNT OF WATERY STOOL IN TOILET. PT STATES HE IS VERY NAUSIOUS. MEDICATED PER JUL.
--- NOTE | 2019-05-01 21:09 | NUR ---
PT SITTING IN A RECLINER IN HIS ROOM. NO NEEDS VOICED AT THIS TIME.
--- NOTE | 2019-05-01 22:48 | NUR ---
I have reviewed this patient and I concur with the Shift Assessment completed by the Licensed Practical Nurse today this shift.
[2019-05-02 00:01] VITALS: BP 104/42
--- NOTE | 2019-05-02 01:54 | NUR ---
QUIET HOURS. PT LYING IN BED ON LEFT SIDE EYES CLOSED RESTING. RR EVEN AND UNLABORED. CL IN REACH
[2019-05-02 05:50] VITALS: BP 107/61
--- NOTE | 2019-05-02 08:00 | NUR ---
PT RESTING IN BED WITH EYES OPEN CALL LIGHT IN REACH NO PROBLEMS WILL MONITER
[2019-05-02 08:04] LABS: BASOPHILS 0.3 % (0-2); EOSINOPHILS 0.3 % (0-7); HEMATOCRIT 37.9 % (42.0-54.0); HEMOGLOBIN 12.4 g/dL (13.5-17.5); IMMATURE GRANULOCYTES 0.7 % (0-5); LYMPHOCYTES 32.8 % (15-50); MCH 31.4 pg (26.0-34.0); MCHC 32.7 g/dL (31.0-37.0); MCV 95.9 fL (80.0-100.0); MEAN PLATELET VOLUME 8.8 fL (7.4-10.4); MONOCYTES 9.2 % (2-11); NEUTROPHILS 56.7 % (40-80); RBC 3.95 10x6/uL (4.20-6.10); RDW 14.2 % (11.5-14.5); WBC 14.8 10x3/uL (4.8-10.8)
[2019-05-02 08:07] LABS: PLATELET COUNT 422 10x3/uL (130-400)
[2019-05-02 08:11] LABS: ANION GAP 27.1 mmol/L (8-16); CALCIUM 9.8 mg/dL (8.5-10.1); CARBON DIOXIDE 19.9 mmol/L (21.0-32.0); CREATININE - SERUM 12.5 mg/dL (0.6-1.3)
[2019-05-02 13:12] VITALS: BP 89/47
--- NOTE | 2019-05-02 13:30 | NUR ---
PT REFUSING TO GO TO DIALYSIS HE SAID HE COULD NOT GO BECAUSE HE WAS HAVING TO MUCH DIARREHEA AND THAT HE FELT TO BAD I WILL CALL AND LET NEPHROLOGY FOOD SERVICE ORDER CLERK AWARE
--- NOTE | 2019-05-02 14:00 | NUR ---
NEW ORDERS PER RYAN JOHNS APN
--- NOTE | 2019-05-02 14:25 | NUR ---
Nutrition Follow-up: Plan for HD today per nephrology notes. Diet: Renal + Nepro BID PO intake: ~25% average x last 6 meals. Reports that his appetite is "not good." He complains that he does not like the Renal diet. He also states that he is afraid to eat for fear of getting diarrhea. He states that he does not like the Nepro either. Last BM: 05/02/19 x 2. WT: 190# (04/30/19) Meds Noted: megace, remeron, phoslo. Labs noted: GFR 4, Glu 115, BUN 79, Cr 12.5. Continue current diet. Encouraged PO intake. Encouraged patient to ask MD about getting something to help with diarrhea. Hopefully PO intake will improve now that he is on Megace. Will continue to monitor PO intake and wt trend. RD following.
--- NOTE | 2019-05-02 15:17 | NUR ---
PT RESTING IN BED WITH EYES OPEN CALL LIGHT IN REACH NO PROBLEMS WILL MONITER
[2019-05-02 18:17] VITALS: BP 101/56
[2019-05-02 19:25] VITALS: BP 91/48
--- NOTE | 2019-05-02 19:35 | NUR ---
PT IS RESTING IN BED WITH EYES CLOSED. RESPS ARE EVEN AND UNLABORED. NO ACUTE DISTRESS NOTED. LEFT AV FISTULA NOTED. SR'S ARE UP X 2 IN BED. CALL LIGHT AND BEDSIDE TABLE ARE WITHIN EASY REACH.
--- NOTE | 2019-05-02 22:09 | NUR ---
PT RESTING IN BED WITH EYES CLOSED.
[2019-05-03 00:01] VITALS: BP 95/47
--- NOTE | 2019-05-03 01:37 | NUR ---
I have reviewed this patient and I concur with the Shift Assessment completed by the Licensed Practical Nurse today this shift.
--- NOTE | 2019-05-03 04:29 | NUR ---
RESTING IN BED WITH EYES CLOSED.
[2019-05-03 05:41] LABS: BASOPHILS 0.3 % (0-2); EOSINOPHILS 0.7 % (0-7); HEMATOCRIT 36.2 % (42.0-54.0); HEMOGLOBIN 11.8 g/dL (13.5-17.5); IMMATURE GRANULOCYTES 0.8 % (0-5); LYMPHOCYTES 29.8 % (15-50); MCH 30.7 pg (26.0-34.0); MCHC 32.6 g/dL (31.0-37.0); MCV 94.3 fL (80.0-100.0); MEAN PLATELET VOLUME 8.9 fL (7.4-10.4); MONOCYTES 11.9 % (2-11); NEUTROPHILS 56.5 % (40-80); PLATELET COUNT 373 10x3/uL (130-400); RBC 3.84 10x6/uL (4.20-6.10); RDW 14.4 % (11.5-14.5); WBC 14.7 10x3/uL (4.8-10.8)
[2019-05-03 06:09] LABS: ANION GAP 26.3 mmol/L (8-16); CALCIUM 9.5 mg/dL (8.5-10.1); CARBON DIOXIDE 19.4 mmol/L (21.0-32.0); CREATININE - SERUM 14.3 mg/dL (0.6-1.3); POTASSIUM - SERUM 3.7 mmol/L (3.5-5.1)
[2019-05-03 06:12] VITALS: BP 94/54
[2019-05-03 06:35] LABS: PHOSPHOROUS 10.7 mg/dL (2.5-4.9)
--- NOTE | 2019-05-03 08:00 | NUR ---
SHIFT ASSMT COMPLETED.BREAKFAST GIVEN.DENIES TRAY.DENIES ENSURE.BP MEDS WITHELD FOR HD TODAY.
--- NOTE | 2019-05-03 09:20 | NUR ---
PLACED IN ENTERIC ISOLATION FOR POSITIVE CDT ANTIGEN PER INFECTION CONTROL.
[2019-05-03 11:10] VITALS: BP 124/41
--- NOTE | 2019-05-03 11:10 | NUR ---
TO HD PER WC.
--- NOTE | 2019-05-03 11:11 | NUR ---
PATIENT ADMITTED TO REHAB FROM ACUTE FLOOR. PATIENT PCP IS DR. HERNANDEZ. DME AT HOME IS CANE, WALKER, O2 AND A ROLLATER WLAKER. DISCHARGE PLANS ARE FOR PATIENT TO RETURN HOME AT [place]. WILL CONTINUE TO FOLLOW WITH PATIENT
--- NOTE | 2019-05-03 11:20 | NUR ---
CARE TEAM MEETING: PATIENT IS NEW TO UNIT AND WILL BE RA AT NEXT MEETING. WILL CONTINUE TO FOLLOW WITH PATIENT.
[2019-05-03 15:50] VITALS: BP 102/55
--- NOTE | 2019-05-03 15:50 | NUR ---
RECIEVED FROM DIALYSIS IN SLUMPED OVER,EYES OPENED IN A STARE NON RESPONSIVE;RUSHED TO ROOM ;HARD STERNAL RUB GIVEN AND MANUALLY REMOVED FROM WC ONTO BED WITH ASSIST X3;PT RESPONDED WITH I AM OK, ON ARRIVED ON FLOOR AND CANCELLED CODE BLUE.BP RETAKEN AFTER HOB PUT BACK AND FEET RAISED.102/55 NOTED WITH PULSE 72.SATS REGISTARED AFTER PLACED ON O2@2L 94%.ABG'S DRAWN.
--- NOTE | 2019-05-03 16:40 | NUR ---
ALEXI POSEY RECORDS MANAGER WATCH REPAIR TECHNICIAN FOR AND REPORTED TO HER EVENTS.VSIGNS GIVEN WITH RESULTS OF ABG'S.SHE STATED OK.
[2019-05-03 18:00] VITALS: BP 100/52
--- NOTE | 2019-05-03 18:05 | NUR ---
PT HAD GOTTEN UP W/O SUPERVISION AND INTO BATHROOM.HAD INCONTINENT EPISODE OF DIARRHEA.CHANGED HIMSELF.PLACED IN CLEAN GOWN.FAMILY HERE AND INFORMED THEM OF EVENTS TODAY;STATED CONCERN.WHILE UP IN WC.PT WENT INTO ANOTHER STARE AND SLUMPED OVER IN WC AND RUSHED TO BED WITH HELP OF OTHER STAFF.VITAL SIGNS CAME UP AND STABLE.PLACED BACK ON O2@2L AND REPORTED TO ALEXI POSEY APN.ORDERS RECIEVED.SANIA STATED SHE WILL CALL AND TALK TO .
--- NOTE | 2019-05-03 18:45 | NUR ---
REPORT GIVEN TO ONCOMING SHIFT.MOTOR POOL DRIVER NOTIFIED FOR IV PLACEMENT.HAS RESERVED LEFT ARM AND NO SITE FOR ME TO ATTEMT IV PLACEMENT THAT I CAN OBSERVE.
--- NOTE | 2019-05-03 19:45 | NUR ---
PATIENT RECIEVED SITTING UP IN BED. FAMILY IN ROOM. PATIENT WAITING FOR IV TO BED SITED BY ER NURSE. BED LOW. CALL LIGHT WITHIN REACH. WILL CONTINUE TO MONITOR.
--- NOTE | 2019-05-03 21:20 | NUR ---
ER NURSE HERE. IV SITE RIGHT FOREARM. IV VANCOMYCIN STARTED PER ORDER BY CHARGE NURSE. FAMILY IN ROOM. WILL CONTINUE TO MONITOR.
[2019-05-03 22:17] VITALS: BP 94/49
--- NOTE | 2019-05-03 23:45 | NUR ---
PATIENT IV VANCOMYCIN & FLUSH FINISHED & DC'D. IV CATH FLUSHED. NO ADVERSE REACTION TO VANCOMYCIN NOTED AT THIS TIME. BED LOW. ALARM ON. CALL LIGHT WITHIN REACH. WILL CONTINUE TO MONITOR.
[2019-05-04 00:41] VITALS: BP 93/40
[2019-05-04 00:42] VITALS: BP 93/40
--- NOTE | 2019-05-04 03:57 | NUR ---
I have reviewed this patient and I concur with the Shift Assessment completed by the Licensed Practical Nurse today this shift.
--- NOTE | 2019-05-04 05:20 | NUR ---
PATIENT WENT TO BATHROOM ON HIS OWN. PATIENT HAD BM & REFUSED THIS NURSE TO CLEAN PATIENT. PATIENT CLEANED SELF & RETURNED TO BED. ALARM ON. CALL LIGHT WITHIN REACH. WILL CONTINUE TO MONITOR.
[2019-05-04 06:16] VITALS: BP 99/61
[2019-05-04 06:29] VITALS: BP 99/61
[2019-05-04 06:35] LABS: BASOPHILS 0.3 % (0-2); EOSINOPHILS 0.5 % (0-7); HEMOGLOBIN 12.1 g/dL (13.5-17.5); IMMATURE GRANULOCYTES 0.5 % (0-5); LYMPHOCYTES 31.7 % (15-50); MCH 30.9 pg (26.0-34.0); MCHC 32.7 g/dL (31.0-37.0); MCV 94.4 fL (80.0-100.0); MONOCYTES 14.2 % (2-11); NEUTROPHILS 52.8 % (40-80); PLATELET COUNT 378 10x3/uL (130-400); RBC 3.92 10x6/uL (4.20-6.10); RDW 14.4 % (11.5-14.5); WBC 17.6 10x3/uL (4.8-10.8)
[2019-05-04 07:00] LABS: ALBUMIN 2.8 g/dL (3.4-5.0); BILIRUBIN - TOTAL 0.45 mg/dL (0.2-1.3); CARBON DIOXIDE 19.5 mmol/L (21.0-32.0); CREATININE - SERUM 9.9 mg/dL (0.6-1.3); POTASSIUM - SERUM 3.5 mmol/L (3.5-5.1); PROTEIN - SERUM 7.6 g/dL (6.4-8.2)
[2019-05-04 08:00] VITALS: BP 99/52
--- NOTE | 2019-05-04 08:00 | NUR ---
SHIFT ASSMT COMPLETED.DENIES NEEDS.VITAL SIGNS CHECKED.BREAKFAST GIVEN.EATING A LITTLE,
--- NOTE | 2019-05-04 09:00 | NUR ---
AM MEDS GIVEN,WITHELD ANY BP MEDS D/T LOW BP.ALARM ON FOR SAFETY.
--- NOTE | 2019-05-04 09:20 | NUR ---
PLACED INTO ENTERIC ISOLATION FOR POS CDT ANTIGEN PER INFECTION CONTROL.
--- NOTE | 2019-05-04 12:00 | NUR ---
HERE.WILL DISCHARGE UPSTAIRS TO ACUTE FOR PROBABLE SEPSIS.
--- NOTE | 2019-05-04 12:12 | RHP ---
PATIENT: JOHN CARDONA MEDICAL RECORD: [id number] ACCOUNT: [id number] LOCATION:[facility] : [birth year] ADMISSION DATE: 04/29/19 REHABILITATION HISTORY AND PHYSICAL EXAMINATION POST ADMISSION PHYSICIAN EXAMINATION ADMITTING DIAGNOSIS: Uremic myopathy. HISTORY OF PRESENT ILLNESS: The patient is a 78-year-old gentleman who is brought in via EMS with increased confusion over the previous 2-3 days prior to his acute hospital admit. The patient's family was concerned that he might have had a UTI as well as stroke or heart attack. The patient was seen and evaluated. He was found to have interstitial edema on his chest x-ray, a proBNP that was elevated at 96,000. The patient has got a history of coronary artery disease status post stent placement, end-stage renal disease, obstructive sleep apnea, COPD, chronic anemia. He has been receiving IV iron, IV antibiotic therapy. A nipple maker consult was done during his stay. He is currently on telemetry, supplemental O2 at 5-6 liters and does not use home O2. Continues to be on hemodialysis 3 times weekly. He has got a decreased nutritional intake. He has got hypertension, paroxysmal muscle weakness, decrease activity, loss of sensory in his bilateral lower extremities, neuropathy, deconditioning, debility, impaired mobility, gait disturbance, high risk for falls and self-care deficits. These are all barriers to his discharge home. He lives at home alone, was independent with use of single point cane or a rollator walker for his ADLs and mobility. Son drives him to hemodialysis and lives a few houses down from him, checks on him often. He is currently set up for mod assist for ADLs, mod assist for his mobility. The patient has family close by, who plan for him to return home hopefully at his prior level of functioning. COMORBIDITIES: Include anemia, lethargy, leukocytosis, occult positive stool, end-stage renal disease, altered mental status, electrolyte abnormalities, decreased nutritional intake, neuropathy, and hypertension. PAST MEDICAL HISTORY: Significant for TIA in the past, neuropathy, shingles has a history of CHF, syncope, COPD, apnea, arthritis, joint problems, prostate problems. PAST SURGICAL HISTORY: Includes gallbladder surgery, hip surgery, back surgery, cataract, left hip replacement, AV fistula, and right shoulder replacement. ALLERGIES: ATIVAN AND METHADONE. CURRENT MEDICATIONS: Include Procardia 30 mg b.i.d., acetaminophen 325 mg q.6 hours. He is on loperamide 2 mg every 4 hours p.r.n., calcium carbonate 500 mg q.4 hours p.r.n. He is on Flomax 0.4 mg daily, Megace 40 mg daily, folic acid 1 tab daily, atenolol 50 mg daily, aspirin chewable 81 mg daily, Zyloprim 100 mg daily, PhosLo 667 mg b.i.d. with meals, Pravachol 20 mg at bedtime, Remeron 15 mg at bedtime, Neurontin 100 mg b.i.d., Zofran 4 mg every 4 hours p.r.n., and MiraLax 17 grams in 8 ounces of water daily. HABITS: No current alcohol or tobacco use. FAMILY HISTORY: Noncontributory. HISTORY AND PHYSICAL [id number] JOHN CARDONA SOCIAL HISTORY: The patient hopes to return back home and get back to his prior level of functioning. REVIEW OF SYSTEMS: GENERAL: Does complain of some weakness and fatigue. HEENT: Denies cold, cough, or congestion. CARDIOVASCULAR: He denies any chest pain. PHYSICAL EXAMINATION: VITAL SIGNS: Stable, afebrile. GENERAL: Elderly gentleman, in no acute distress, alert upon exam. HEENT: Normocephalic and atraumatic. Mucosa moist. NECK: Supple without adenopathy. LUNGS: Clear at this time with no wheeze, rhonchi or rales. He does have decreased breath sounds in the bases. HEART: Regular rate and rhythm. He does have a holosystolic murmur. ABDOMEN: Soft, benign, and nondistended. Positive bowel sounds times 4. EXTREMITIES: No clubbing, cyanosis or edema. NEUROLOGIC: He does have noted decrease in sensation below his knees on both legs. He has got some decreased proximal muscle strength in his quads on both sides at 3/5. LABORATORY DATA: White count is 14.8, H&H of 12 and 37, and platelet count was noted to be 422. Sodium 139, potassium 4.0, BUN and creatinine of 79 and 12.5, and blood sugar is noted to be 115. ASSESSMENT: This is a 78-year-old gentleman admitted to the rehab with a working diagnosis of uremic myopathy. The patient has potential to make improvement. We instituted the following multidisciplinary therapies including, but not limited to physical, occupational, respiratory, speech, nutritional services, prosthetics and orthotics. Given his complex medical condition and risk for more complications, rehabilitation services cannot be provided at a low level of care such as skilled nurse facility. PLAN: 1. Admit to [facility] for an inpatient therapy to include the following disciplines: A. Physical therapy to improve gait, all transfer skills and bed mobility to a modified independent level. B. Occupational therapy to a modified independent level. C. Case management to assist with discharge planning and placement options. D. Nutrition to assist with nutritional needs. E. Rehabilitation nursing to assist in monitoring the patient's underlying medical conditions and to assist with any type of bowel or bladder management. 2. The patient's current medication and medical care will be continued. 3. The patient will be placed on standard fall precautions. 4. The patient's estimated length of stay is approximately 7-10 days. 5. We will discuss the patient during care team staff meeting this week. TRANSINT:[id number] Voice Confirmation ID: [id number] DOCUMENT ID: [id number] ARMANDO notes whether there has been none or any medical/functional change since admission: - HISTORY AND PHYSICAL [id number] JOHN CARDONA attests patient continues to be appropriate for IRF: - DINA ALCAZAR MD at 1212 CC: [id number] DICTATION DATE: 05/02/19 0902 FUEL CELL BINDER: 05/02/19 1021 ADM IN [facility] [address] [place] [address]
[2019-05-04 12:14] VITALS: BP 98/53
--- NOTE | 2019-05-04 12:20 | NUR ---
WILL DISCHARGE TO 2112.REPORT CALLED TO ZAHRA.
--- NOTE | 2019-05-04 13:15 | NUR ---
DISCHARGED TO ROOM 2113/BED AND PORTABLE O2.
--- NOTE | 2019-05-05 10:03 | NUR ---
DUE TO CHANGE IN MEDICAL CONDTION PATIENT DISCHARGE FROM REHAB AND ADMITTED TO ACUTE FLOOR 05/04/19
[2019-05-09 13:09] LABS: OVA + PARASITE EXAM Final report (())
== END 2019-05-04 13:25 | disposition short-term general hospital (02) | DRG 92 ==
LOC: D.REHAB 15:59
PROVIDERS: Internal Medicine Nephrology; ADMIT Emergency Medicine; ATTEND Emergency Medicine
DX: G72.89 Other specified myopathies (principal); I12.0 Hypertensive chronic kidney disease with stage 5 chronic kidney disease or end stage renal disease; D64.9 Anemia, unspecified; R41.82 Altered mental status, unspecified; E87.8 Other disorders of electrolyte and fluid balance, not elsewhere classified; I10 Essential (primary) hypertension; G62.9 Polyneuropathy, unspecified; J44.9 Chronic obstructive pulmonary disease, unspecified; R53.83 Other fatigue; D72.829 Elevated white blood cell count, unspecified; Z99.2 Dependence on renal dialysis

== ENCOUNTER 2019-05-04 13:10 | Inpatient (IN) | payer MEDICARE, BC ==
[~2019-05-04] VITALS: Ht 175.3 cm; Wt 84.0 kg
--- NOTE | 2019-05-04 13:41 | NUR ---
RECEIVED PT TO ROOM 2112 VIA BED FROM REHAB DX SEPSIS ESRD CDIFF AAOX2 TO SELF AND PLACE RESP UNLABORED SKIN W/D COLOR WNL PT PRESENTS WITH GENERALIZED WEAKNESS WILL CONTINUE TO MONITOR
[2019-05-04 14:31] VITALS: BP 94/45; BMI 27.7
[2019-05-04 15:16] VITALS: BP 92/39
[2019-05-04 20:00] VITALS: BP 128/68
--- NOTE | 2019-05-04 21:58 | NUR ---
PT RESTING IN BED WITH EYES CLOSED. RR EVEN AND UNLABORED. BP-128/68. NO S/S OF DISTRESS. WILL CONTINUE TO MONITOR.
[2019-05-05] VITALS (7 sets, daily range): BP systolic 102–144; BP diastolic 41–67; Ht 175.3 cm; Wt 84.0 kg
--- NOTE | 2019-05-05 03:05 | NUR ---
I have reviewed this patient and I concur with the Shift Assessment completed by the Licensed Practical Nurse today this shift.
[2019-05-05 05:02] LABS: BASOPHILS 0.5 % (0-2); HEMATOCRIT 30.3 % (42.0-54.0); IMMATURE GRANULOCYTES 0.7 % (0-5); LYMPHOCYTES 25.4 % (15-50); MCH 30.5 pg (26.0-34.0); MEAN PLATELET VOLUME 8.3 fL (7.4-10.4); MONOCYTES 12.4 % (2-11); RBC 3.28 10x6/uL (4.20-6.10); RDW 13.9 % (11.5-14.5)
[2019-05-05 05:14] LABS: MCV 92.4 fL (80.0-100.0); PLATELET COUNT 261 10x3/uL (130-400); WBC 12.5 10x3/uL (4.8-10.8)
[2019-05-05 05:28] LABS: ANION GAP 21.4 mmol/L (8-16); CALCIUM 8.1 mg/dL (8.5-10.1); CARBON DIOXIDE 19.7 mmol/L (21.0-32.0); CREATININE - SERUM 12.3 mg/dL (0.6-1.3); POTASSIUM - SERUM 3.1 mmol/L (3.5-5.1)
--- NOTE | 2019-05-05 15:24 | NUR ---
I have reviewed this patient and I concur with the Shift Assessment completed by the Licensed Practical Nurse today this shift.
--- NOTE | 2019-05-05 19:51 | NUR ---
EVENING ROUNDS COMPLETE. PT SITTING UP IN BED, NO SIGNS OF DISTRESS. AAOX4. PT DENIES ANY PAIN OR NEEDS AT THIS TIME. CL IN REACH, BED IN LOWEST POSITION.
[2019-05-06 03:50] VITALS: BP 130/62
[2019-05-06 05:04] LABS: BASOPHILS 0.2 % (0-2); EOSINOPHILS 1.6 % (0-7); HEMATOCRIT 28.5 % (42.0-54.0); HEMOGLOBIN 9.4 g/dL (13.5-17.5); IMMATURE GRANULOCYTES 0.5 % (0-5); LYMPHOCYTES 21.3 % (15-50); MCH 30.8 pg (26.0-34.0); MCV 93.4 fL (80.0-100.0); MEAN PLATELET VOLUME 8.7 fL (7.4-10.4); MONOCYTES 9.8 % (2-11); NEUTROPHILS 66.6 % (40-80); PLATELET COUNT 253 10x3/uL (130-400); RBC 3.05 10x6/uL (4.20-6.10); RDW 14.2 % (11.5-14.5)
[2019-05-06 05:46] LABS: ANION GAP 22.4 mmol/L (8-16); CALCIUM 8.2 mg/dL (8.5-10.1); CARBON DIOXIDE 18.9 mmol/L (21.0-32.0); CREATININE - SERUM 14.7 mg/dL (0.6-1.3); PHOSPHOROUS 7.4 mg/dL (2.5-4.9); POTASSIUM - SERUM 3.3 mmol/L (3.5-5.1)
--- NOTE | 2019-05-06 07:10 | NUR ---
REPORT RECEIVED FROM EXHAUST AND MUFFLER REPAIRER AND PATIENT CARE ASSUMED. PATIENT SITTING UP IN BS CHAIR. PATIENT IS STABLE AND VSS. PATIENT DENIES ANY NEEDS OR PAIN. WILL CONTINUE WITH PLAN OF CARE. CALL LIGHT IN REACH.
--- NOTE | 2019-05-06 07:10 | NUR ---
REPORT RECEIVED FROM UROLOGIST MD ANDPATIENT CARE ASSUMED. PATIENT LAYING IN BED ON BACK AWAKE, ALERT AND ORIENTED X 4. PATIENT IS STABLE AND VSS. PATIENT IS NPO AWAINTING CVL PLACEMENT. WILL CONTINUE WITH PLAN OF CARE. SR UP X 2 BED IN LOW POSITION AND CALL LIGHT IN REACH.
[2019-05-06 09:43] VITALS: BP 149/96
[2019-05-06 16:17] VITALS: BP 113/56
--- NOTE | 2019-05-06 17:01 | MORECARE ---
CASE MANAGEMENT DISCHARGE SUMMARY PATIENT: JOHN CARDONA UNIT: [id number] ADM DATE: 05/04/19 AGE: 78 : 39 SEX: M ROOM/BED: D.[facility] AUTHOR: ADY IVEY PHYSICIAN: REFERRING PHYSICIAN: JERICHO ALVAREZ MD DATE OF SERVICE: 05/06/19 Discharge Plan Patient Name: JOHN CARDONA Facility: [facility]:[place] : 1940 Planned Disposition: Inpatient Rehab Anticipated Discharge Date: Discharge Date: Expected LOS: Initial Reviewer: [id number] Initial Review Date: 05/06/2019 Generated: 05/06/19 6:01 pm DCPIA - Discharge Planning Initial Assessment Updated by [id number]: Paulino Albarran on 05/06/19 4:59 pm * Is the patient Alert and Oriented? Yes * How many steps to enter\exit or inside your home? NONE * PCP JULIO C SHELBY * Pharmacy UNKNOWN - PT REPORTS HIS SON PICKS UP MEDICATIONS * Preadmission Environment Home Alone * ADLs Partial Dependent * Partial ADLs (Assistance needed) Medication Management * Equipment Cane Oxygen Rolling Walker * Other Equipment ROLLATOR WALKER HOME OXYGEN FROM UNKNOWN PROVIDER THAT PT DOES NOT USE * List name and contact numbers for known caregivers / representatives who currently or will assist patient after discharge: LORRIE KILGORE, * Verbal permission to speak to the caregivers and representatives has been obtained from the patient. Yes * Community resources currently utilized None * Please name any agencies selected above. NONE * Additional services required to return to the preadmission environment? Yes * Can the patient safely return to the preadmission environment? Yes * Has this patient been hospitalized within the prior 30 days at any hospital? Yes Coverage Notice Reviewer: [id number] - Paulino Albarran Notice Issued Date-Time: 05/06/2019 16:45 Notice Type: Patient Choice Letter Notice Delivered To: Patient Relationship to Patient: Can Cleaner Name: Delivery Method: HAND - Hand Delivered Malinda Days: Prior Verbal Notification: Recipient Understood Notice: Yes Recipient Signature: Yes Med Rec Note Co-signed by Attending: Coverage Notice Comment: [facility] IN[facility] REHAB Patient Name: JOHN CARDONA Page [phone] at 1701 All edits/amendments must be made on the electronic document DICTATION DATE: 05/06/191700 CARD LACER: PRESTON 05/06/191700 RPT#: [id number] DC DATE: STATUS: ADM IN [facility] [address] [place] [address] END OF REPORT
--- NOTE | 2019-05-06 17:09 | MORECARE ---
CASE MANAGEMENT DISCHARGE SUMMARY PATIENT: JOHN CARDONA UNIT: [id number] ADM DATE: 05/04/19 AGE: 78 : 39 SEX: M ROOM/BED: D.2113 AUTHOR: UCHE,ADY PHYSICIAN: REFERRING PHYSICIAN: JERICHO ALVAREZ MD DATE OF SERVICE: 05/06/19 Discharge Plan Patient Name: JOHN CARDONA Facility: [facility]:[place] : 1940 Planned Disposition: Inpatient Rehab Anticipated Discharge Date: Discharge Date: Expected LOS: Initial Reviewer: [id number] Initial Review Date: 05/06/2019 Generated: 05/06/19 6:08 pm Comments DCP- Discharge Planning Updated by [id number]: Paulino Albarran on 05/06/19 4:[address] Patient Name: JOHN CARDONA Admission Status: Elective Accout number: [id number] Admission Date: 05-04-2019 : 1940 Admission Diagnosis:ENTEROCOLITIS D/T CLOSTRIDIUM DIFFICILE, NOT SPCF RE Attending: JERICHO ALVAREZ Current LOS: 2 Anticipated DC Date: Planned Disposition: Inpatient Rehab Primary Insurance: MEDICARE A & B PLANNED EXTERNAL PROVIDER: [facility] INPATIENT REH[facility] Discharge Planning Comments: CM MET WITH PT IN ROOM TO DISCUSS DISCHARGE PLANNING AND NEEDS. PT REPORTS LIVING AT HOME ALONE; PT'S SON ASSISTS AT HOME WITH MEDICATION MANAGEMENT; PT'S SON AND DAUGHTER LIVE CLOSE BY AND ASSIST NEEDED WITH CLEANING, SHOPPING, ERRANDS AND TRANSPORTATION. PT HAS HOME OXYGEN THAT HE DOES NOT USE, CANE, ROLLATEOR WALKER FROM UNKNOWN MEDICAL EQUIPMENT PROVIDER. PT HAS NO OUTSIDE SERVICES ASSISTING IN THE HOME. CM DISCUSSED AVAILABILITY OF HOME HEALTH, REHAB SERVICES AND MEDICAL EQUIPMENT. PT WAS IN REHAB AT [place] PRIOR TO HOSPITAL STAY THIS TIME AND WOULD LIKE TO RETURN TO GET STRONGER TO RETURN HOME. CHOICE SIGNED FOR [facility] INPATIENT REHAB. PT WOULD LIKE INPATIENT REHAB AT [place] WHEN STABLE FOR DISCHARGE. CM TO CONTINUE TO FOLLOW AND ASSIST NEEDED. Counter Maker: Paulino Albarran DCPIA - Discharge Planning Initial Assessment Updated by [id number]: Paulino Albarran on 05/06/19 4:59 pm * Is the patient Alert and Oriented? Yes * How many steps to enter\exit or inside your home? NONE * PCP DR. HERNANDEZ [facility] * Pharmacy UNKNOWN - PT REPORTS HIS SON PICKS UP MEDICATIONS * Preadmission Environment Home Alone * ADLs Partial Dependent * Partial ADLs (Assistance needed) Medication Management * Equipment Cane Oxygen Rolling Walker * Other Equipment ROLLATOR WALKER HOME OXYGEN FROM UNKNOWN PROVIDER THAT PT DOES NOT USE * List name and contact numbers for known caregivers / representatives who currently or will assist patient after discharge: CRYSTAL CARDONA, SON, * Verbal permission to speak to the caregivers and representatives has been obtained from the patient. Yes * Community resources currently utilized None * Please name any agencies selected above. NONE * Additional services required to return to the preadmission environment? Yes * Can the patient safely return to the preadmission environment? Yes * Has this patient been hospitalized within the prior 30 days at any hospital? Yes Coverage Notice Reviewer: [id number] Liz Albarran Notice Issued Date-Time: 05/06/2019 16:45 Notice Type: Patient Choice Letter Notice Delivered To: Patient Relationship to Patient: Lead Accountant Name: Delivery Method: HAND - Hand Delivered Malinda Days: Prior Verbal Notification: Recipient Understood Notice: Yes Recipient Signature: Yes Med Rec Note Co-signed by Attending: Coverage Notice Comment: [facility] INPT REH[facility] Last DP export: 05/06/19 4:01 Patient Name: JOHN CARDONA Page [phone] at 1709 All edits/amendments must be made on the electronic document DICTATION DATE: 05/06/191707 MIRROR FRAMER: PRESTON 05/06/191707 RPT#: [id number] DC DATE: STATUS: ADM IN [facility] [address] [place] [address] END OF REPORT
--- NOTE | 2019-05-06 18:36 | NUR ---
PATIENT IS STABLE AND VSS.PATIENT DENIES ANY NEEDS OR PAIN. WILL CONTINUE TO MONITOR. SR UP X 2 BED IN LOW POSITION AND CALL LIGHT IN REACH.
[2019-05-06 20:00] VITALS: BP 112/47
--- NOTE | 2019-05-06 20:21 | NUR ---
ASSESSMENT COMPLETED AT 195 HRS. PT RESING WITH EYES CLOSED. RESP EVEN AND REGULAR. AWAKES TO VERBAL STIMULI. LAVF WITH GOOD BRUIT AND THRILL. IV TO R WRIST SL. LUNGS DIMINISHED IN BASES BILAT. DELEON. ABD SOFT WTIH ACTIVE BS NOTED. SR PER CM HR 74. SR UP X2, CALL LIGHT WITHIN REACH AND BED ALARM ON.
--- NOTE | 2019-05-06 22:59 | NUR ---
PT RESTING WITH EYES CLOSED. RESP EVEN AND REGULAR. SR UP X2, CALL LIGHT WITHIN REACH AND BED ALARM ON.
[2019-05-07] VITALS: BP 109/61
--- NOTE | 2019-05-07 00:35 | NUR ---
PT RESTING WITH EYES CLOSED. RESP EVEN AND REGULAR. SR UP X2, CALL LIGHT WITHIN REACH AND BED ALARM ON.
--- NOTE | 2019-05-07 02:33 | NUR ---
PT DENIES ANY DISCOMFORT. SR UP X2, CALL LIGHT WITHIN REACH AND BED ALARM ON. O2 2LNC IN USE.
[2019-05-07 04:00] VITALS: BP 139/64
--- NOTE | 2019-05-07 04:32 | NUR ---
PT RESTING WITH EYES CLOSED. RESP EVEN AND REGULAR. SR UP X2, CALL LIGHT WITHIN REACH AND BED ALARM ON.
[2019-05-07 05:06] LABS: BASOPHILS 0.3 % (0-2); EOSINOPHILS 2.7 % (0-7); HEMATOCRIT 29.7 % (42.0-54.0); HEMOGLOBIN 9.5 g/dL (13.5-17.5); IMMATURE GRANULOCYTES 0.6 % (0-5); LYMPHOCYTES 17.4 % (15-50); MCH 30.6 pg (26.0-34.0); MEAN PLATELET VOLUME 8.8 fL (7.4-10.4); MONOCYTES 12.4 % (2-11); NEUTROPHILS 66.6 % (40-80); PLATELET COUNT 232 10x3/uL (130-400); RDW 14.7 % (11.5-14.5); WBC 11.5 10x3/uL (4.8-10.8)
[2019-05-07 05:07] LABS: MCV 95.8 fL (80.0-100.0)
--- NOTE | 2019-05-07 05:37 | NUR ---
VSS THROUGHOUT NIGHT. PT DENIED ANY DISCOMFORT. NEEDS MET; WILL CONTINUE TO MONITOR.
[2019-05-07 05:40] LABS: CALCIUM 8.4 mg/dL (8.5-10.1); PHOSPHOROUS 5.6 mg/dL (2.5-4.9); POTASSIUM - SERUM 3.6 mmol/L (3.5-5.1); VANCOMYCIN - RANDOM 21.9 ug/mL (10.0-20.0)
[2019-05-07 05:41] LABS: CARBON DIOXIDE 26.6 mmol/L (21.0-32.0); CREATININE - SERUM 9.3 mg/dL (0.6-1.3)
[2019-05-07 08:26] VITALS: BP 115/38
[2019-05-07 12:03] VITALS: BP 126/56
--- NOTE | 2019-05-07 12:07 | NUR ---
RESTING IN BED WITH EYES OPEN, CONSUMING NOON MEAL. NO DISTRESS. CALL LIGHT WITHIN REACH.
[2019-05-07 16:16] VITALS: BP 100/46
[2019-05-07 20:00] VITALS: BP 151/62
[2019-05-08] VITALS: BP 163/66
[2019-05-08 03:53] LABS: BASOPHILS 0.3 % (0-2); EOSINOPHILS 3.4 % (0-7); HEMATOCRIT 29.7 % (42.0-54.0); HEMOGLOBIN 9.4 g/dL (13.5-17.5); IMMATURE GRANULOCYTES 0.6 % (0-5); LYMPHOCYTES 17.5 % (15-50); MCH 30.4 pg (26.0-34.0); MCHC 31.6 g/dL (31.0-37.0); MCV 96.1 fL (80.0-100.0); MEAN PLATELET VOLUME 8.9 fL (7.4-10.4); MONOCYTES 12.9 % (2-11); NEUTROPHILS 65.3 % (40-80); PLATELET COUNT 248 10x3/uL (130-400); RBC 3.09 10x6/uL (4.20-6.10); RDW 14.6 % (11.5-14.5); WBC 13.3 10x3/uL (4.8-10.8)
[2019-05-08 04:00] VITALS: BP 116/63
[2019-05-08 04:12] LABS: ALBUMIN 2.1 g/dL (3.4-5.0); ANION GAP 17.9 mmol/L (8-16); BILIRUBIN - TOTAL 0.33 mg/dL (0.2-1.3); CALCIUM 8.5 mg/dL (8.5-10.1); CARBON DIOXIDE 25.8 mmol/L (21.0-32.0); CREATININE - SERUM 11.2 mg/dL (0.6-1.3); PHOSPHOROUS 5.6 mg/dL (2.5-4.9); POTASSIUM - SERUM 3.7 mmol/L (3.5-5.1); PROTEIN - SERUM 6.4 g/dL (6.4-8.2)
--- NOTE | 2019-05-08 07:00 | NUR ---
RECEIVED REPORT. ASSUMED CARE OF PATIENT. RESTING IN BED WIHT EYES CLOSED. RESP EVEN AND UNLABORED. NO DISTRESS. CALL LIGHT WITHIN REACH.
[2019-05-08 08:19] VITALS: BP 147/72
--- NOTE | 2019-05-08 09:30 | NUR ---
RESTING IN BED. REPORTS BOWEL MOVEMENT. NOT ABLE TO URINATE YET BUT WILL CONTINUE TO TRY. NO DISTRESS.
[2019-05-08 11:48] VITALS: BP 133/77
--- NOTE | 2019-05-08 12:16 | NUR ---
SITTING TO SIDE OF BED CONSUMING NOON MEAL. NO DISTRESS.
--- NOTE | 2019-05-08 14:17 | NUR ---
RESTING IN BED, NO DISTRESS.
--- NOTE | 2019-05-08 15:55 | NUR ---
PATIENTS FAMILY IS HERE AND IS REQUESTING THAT WHEN PATIENT TRANSFERS TO REHAB TOMORROW THAT HE IS PLACED IN A PRIVATE ROOM WHEN HE GOES TO DIALYSIS. THEY STATE THAT HE WAS IN A PRIVATE ROOM LAST TIME.
[2019-05-08 16:44] VITALS: BP 137/95
--- NOTE | 2019-05-08 17:33 | NUR ---
CM RECEIVED A CONSULT REQUESTING TRANSFER BACK TO [facility] ON THURSDAY. TC TO [place], C D STILL OPERATOR REHAB SCREENER. CM LEFT VOICE MAIL STATING REQUEST RECEIVED FOR TRANSFER BACK ON THURSDAY W/ ROOM NUMBER ONLY. AWAIT CB OR NOTE.
[2019-05-08 20:00] VITALS: BP 136/67
[2019-05-09 04:00] VITALS: BP 145/76
[2019-05-09 05:36] LABS: BASOPHILS 0.5 % (0-2); HEMATOCRIT 30.4 % (42.0-54.0); HEMOGLOBIN 9.6 g/dL (13.5-17.5); IMMATURE GRANULOCYTES 0.6 % (0-5); LYMPHOCYTES 19.6 % (15-50); MCH 30.5 pg (26.0-34.0); MCHC 31.6 g/dL (31.0-37.0); MCV 96.5 fL (80.0-100.0); MEAN PLATELET VOLUME 8.9 fL (7.4-10.4); MONOCYTES 9.8 % (2-11); NEUTROPHILS 65.5 % (40-80); PLATELET COUNT 243 10x3/uL (130-400); RBC 3.15 10x6/uL (4.20-6.10); RDW 15.1 % (11.5-14.5)
[2019-05-09 06:14] LABS: ALBUMIN 2.1 g/dL (3.4-5.0); ANION GAP 19.2 mmol/L (8-16); BILIRUBIN - TOTAL 0.31 mg/dL (0.2-1.3); CALCIUM 8.5 mg/dL (8.5-10.1); CARBON DIOXIDE 24.6 mmol/L (21.0-32.0); CREATININE - SERUM 12.9 mg/dL (0.6-1.3); POTASSIUM - SERUM 3.8 mmol/L (3.5-5.1); PROTEIN - SERUM 6.2 g/dL (6.4-8.2); VANCOMYCIN - RANDOM 19.2 ug/mL (10.0-20.0)
--- NOTE | 2019-05-09 07:27 | NUR ---
PT RESTING. RR EVEN AND UNL;BAORED. ENTERIC PRECAUTIONS IN PLACE. NO DISTRESS NOTED. BED IN LOWEST POSITION. CALLL LIGHT WITHIN REACH. WILL CONTINUE TO MONITOR.
[2019-05-09 08:41] VITALS: BP 149/78
--- NOTE | 2019-05-09 10:48 | NUR ---
I have reviewed this patient and I concur with the Shift Assessment completed by the Licensed Practical Nurse today this shift.
--- NOTE | 2019-05-09 11:15 | NUR ---
REHAB PRESCREENING Rehab referral received and chart reviewed. Mr. Moser has not had physical therapy since his return to acute care on 05/04/19. Please obtain PT evaluation in order to assess admission criteria. Thank you for this referral! Flavia Carranza, HOT IRON WORKER Rehab PD
[2019-05-09 13:18] VITALS: BP 133/56
--- NOTE | 2019-05-09 14:24 | MORECARE ---
CASE MANAGEMENT DISCHARGE SUMMARY PATIENT: JOHN CARDONA UNIT: [id number] ADM DATE: 05/04/19 AGE: 78 : 39 SEX: M ROOM/BED: D.4803 AUTHOR: UCHE,ADY PHYSICIAN: REFERRING PHYSICIAN: JERICHO ALVAREZ MD DATE OF SERVICE: 05/09/19 Discharge Plan Patient Name: JOHN CARDONA Facility: [facility]:[place] : 1940 Planned Disposition: Inpatient Rehab Anticipated Discharge Date: 05/09/19 Discharge Date: Expected LOS: 5 Initial Reviewer: [id number] Initial Review Date: 05/06/2019 Generated: 05/09/19 3:24 pm Comments DCP- Discharge Planning Updated by [id number]: Paulino Albarran on 05/06/19 4:[address] Patient Name: JOHN CARDONA Admission Status: Elective Accout number: [id number] Admission Date: 05-04-2019 : 1940 Admission Diagnosis:ENTEROCOLITIS D/T CLOSTRIDIUM DIFFICILE, NOT SPCF RE Attending: JERICHO ALVAREZ Current LOS: 2 Anticipated DC Date: Planned Disposition: Inpatient Rehab Primary Insurance: MEDICARE A & B PLANNED EXTERNAL PROVIDER: [facility] INPAT[facility] REH[facility] Discharge Planning Comments: CM MET WITH PT IN ROOM TO DISCUSS DISCHARGE PLANNING AND NEEDS. PT REPORTS LIVING AT HOME ALONE; PT'S SON ASSISTS AT HOME WITH MEDICATION MANAGEMENT; PT'S SON AND DAUGHTER LIVE CLOSE BY AND ASSIST NEEDED WITH CLEANING, SHOPPING, ERRANDS AND TRANSPORTATION. PT HAS HOME OXYGEN THAT HE DOES NOT USE, CANE, ROLLATEOR WALKER FROM UNKNOWN MEDICAL EQUIPMENT PROVIDER. PT HAS NO OUTSIDE SERVICES ASSISTING IN THE HOME. CM DISCUSSED AVAILABILITY OF HOME HEALTH, REHAB SERVICES AND MEDICAL EQUIPMENT. PT WAS IN REHAB AT [place] PRIOR TO HOSPITAL STAY THIS TIME AND WOULD LIKE TO RETURN TO GET STRONGER TO RETURN HOME. CHOICE SIGNED FOR [facility] INPATIENT REHAB. PT WOULD LIKE INPATIENT REHAB AT [place] WHEN STABLE FOR DISCHARGE. CM TO CONTINUE TO FOLLOW AND ASSIST NEEDED. Wire Welder: Paulino Albarran DCPIA - Discharge Planning Initial Assessment Updated by [email or web address]: Paulino Albarran on 05/06/19 4:59 pm * Is the patient Alert and Oriented? Yes * How many steps to enter\exit or inside your home? NONE * PCP JULIO C SHELBY * Pharmacy UNKNOWN - PT REPORTS HIS SON PICKS UP MEDICATIONS * Preadmission Environment Home Alone * ADLs Partial Dependent * Partial ADLs (Assistance needed) Medication Management * Equipment Cane Oxygen Rolling Walker * Other Equipment ROLLATOR WALKER HOME OXYGEN FROM UNKNOWN PROVIDER THAT PT DOES NOT USE * List name and contact numbers for known caregivers / representatives who currently or will assist patient after discharge: CRYSTAL CARDONA, SON, * Verbal permission to speak to the caregivers and representatives has been obtained from the patient. Yes * Community resources currently utilized None * Please name any agencies selected above. NONE * Additional services required to return to the preadmission environment? Yes * Can the patient safely return to the preadmission environment? Yes * Has this patient been hospitalized within the prior 30 days at any hospital? Yes Coverage Notice Reviewer: [id number] Liz Albarran Notice Issued Date-Time: 05/06/2019 16:45 Notice Type: Patient Choice Letter Notice Delivered To: Patient Relationship to Patient: Insole Beveler Name: Delivery Method: HAND - Hand Delivered Malinda Days: Prior Verbal Notification: Recipient Understood Notice: Yes Recipient Signature: Yes Med Rec Note Co-signed by Attending: Coverage Notice Comment: [facility] Last DP export: 05/06/19 4:09 Patient Name: JOHN CARDONA Page [phone] at 1424 All edits/amendments must be made on the electronic document DICTATION DATE: 05/09/191423 FIRE CREW WORKER: PRESTON 05/09/191423 RPT#: [id number] DC DATE: STATUS: ADM IN [facility] [address] [place] [address] END OF REPORT
--- NOTE | 2019-05-09 14:27 | NUR ---
Nutrition Follow-up: Diarrhea improving. Diet: Renal PO intake: 50-100% Wt: 185# (05/09); 177.5# (05/05) Labs noted: K+ 3.8, Alb 2.1, PO4 5.6 (05/08) Meds noted: Renvela, Nephrovite, Megace, Remeron, Phoslo -Continue current diet as tolerated. -Offer Nepro with meals. -Monitor wt. -RD following.
--- NOTE | 2019-05-09 14:40 | MORECARE ---
CASE MANAGEMENT DISCHARGE SUMMARY PATIENT: JOHN CARDONA UNIT: [id number] ADM DATE: 05/04/19 AGE: 78 : 39 SEX: M ROOM/BED: D.[facility] AUTHOR: ADY IVEY PHYSICIAN: REFERRING PHYSICIAN: JERICHO ALVAREZ MD DATE OF SERVICE: 05/09/19 Discharge Plan Patient Name: JOHN CARDONA Facility: [facility]:[place] : 1940 Planned Disposition: Inpatient Rehab Anticipated Discharge Date: 05/09/19 Discharge Date: Expected LOS: 5 Initial Reviewer: [id number] Initial Review Date: 05/06/2019 Generated: 05/09/19 3:39 pm Comments DCP- Discharge Planning Updated by [email or web address]: Paulino Albarran on 05/09/19 1:[address] Patient Name: JOHN CARDONA Encounter No: [id number] : 1940 Primary Insurance: MEDICARE A & B Anticipated DC Date: 05-09-2019 Planned Disposition: Inpatient Rehab External Planned Provider: [facility] DCP follow-up note: CM REVIEWED CHART, DR. ALTAMIRANO NOTED THAT PT IS READY TO DISCHARGE BACK TO REHAB. CM SPOKE TO PT IN ROOM PT STILL IN AGREEMENT WITH RETURN TO [facility] INPATIENT RE[facility]. CM RECEIVED ORDER FOR INPATIENT REHAB PRESCREENING. CM SPOKE TO [place] OF INPATIENT REHAB, PT NEEDS PHYSICAL THERAPY EVALUATION. CM OBTAINED PHYSICAL THERAPY ORDER. CM WAITING PHYSICAL THERAPY EVALUATION WELL INPATIENT REHAB PRESCREENING FROM [facility] INPAT[facility]. MAILE Medel DCP- Discharge Planning Updated by [id number]: Paulino Albarran on 05/06/19 4:[address] Patient Name: JOHN CARDONA Admission Status: Elective Accout number: [id number] Admission Date: 05-04-2019 : 1940 Admission Diagnosis:ENTEROCOLITIS D/T CLOSTRIDIUM DIFFICILE, NOT SPCF RE Attending: JERICHO ALVAREZ Current LOS: 2 Anticipated DC Date: Planned Disposition: Inpatient Rehab Primary Insurance: MEDICARE A & B PLANNED EXTERNAL PROVIDER: [facility] Discharge Planning Comments: CM MET WITH PT IN ROOM TO DISCUSS DISCHARGE PLANNING AND NEEDS. PT REPORTS LIVING AT HOME ALONE; PT'S SON ASSISTS AT HOME WITH MEDICATION MANAGEMENT; PT'S SON AND DAUGHTER LIVE CLOSE BY AND ASSIST NEEDED WITH CLEANING, SHOPPING, ERRANDS AND TRANSPORTATION. PT HAS HOME OXYGEN THAT HE DOES NOT USE, CANE, ROLLATEOR WALKER FROM UNKNOWN MEDICAL EQUIPMENT PROVIDER. PT HAS NO OUTSIDE SERVICES ASSISTING IN THE HOME. CM DISCUSSED AVAILABILITY OF HOME HEALTH, REHAB SERVICES AND MEDICAL EQUIPMENT. PT WAS IN REHAB AT [place] PRIOR TO HOSPITAL STAY THIS TIME AND WOULD LIKE TO RETURN TO GET STRONGER TO RETURN HOME. CHOICE SIGNED FOR [facility] INPATIENT REH[facility]. PT WOULD LIKE INPATIENT REHAB AT [place] WHEN STABLE FOR DISCHARGE. CM TO CONTINUE TO FOLLOW AND ASSIST NEEDED. Senior Controls Engineer: Paulino Albarran DCPIA - Discharge Planning Initial Assessment Updated by [id number]: Paulino Albarran on 05/06/19 4:59 pm * Is the patient Alert and Oriented? Yes * How many steps to enter\exit or inside your home? NONE * [facility] Pharmacy UN[facility] - PT REPORTS HIS SON PICKS UP MEDICATIONS * Preadmission Environment Home Alone * ADLs Partial Dependent * Partial ADLs (Assistance needed) Medication Management * Equipment Cane Oxygen Rolling Walker * Other Equipment ROLLATOR WALKER HOME OXYGEN FROM UNKNOWN PROVIDER THAT PT DOES NOT USE * List name and contact numbers for known caregivers / representatives who currently or will assist patient after discharge: CRYSTAL CARDONA, SON, * Verbal permission to speak to the caregivers and representatives has been obtained from the patient. Yes * Community resources currently utilized None * Please name any agencies selected above. NONE * Additional services required to return to the preadmission environment? Yes * Can the patient safely return to the preadmission environment? Yes * Has this patient been hospitalized within the prior 30 days at any hospital? Yes Coverage Notice Reviewer: [id number] - Paulino Albarran Notice Issued Date-Time: 05/06/2019 16:45 Notice Type: Patient Choice Letter Notice Delivered To: Patient Relationship to Patient: Cloud Operations Engineer Name: Delivery Method: HAND - Hand Delivered Malinda Days: Prior Verbal Notification: Recipient Understood Notice: Yes Recipient Signature: Yes Med Rec Note Co-signed by Attending: Coverage Notice Comment: [facility] IN[facility] REH[facility] Last DP export: 05/09/19 1:24 Patient Name: DULCE, JOHN Page [phone] at 1440 All edits/amendments must be made on the electronic document DICTATION DATE: 05/09/191438 LIVESTOCK SPECULATOR: PRESTON 05/09/191438 RPT#: [id number] DC DATE: STATUS: ADM IN [facility] [address] [place] [address] END OF REPORT
--- NOTE | 2019-05-09 15:49 | NUR ---
Rehab Note- PT Gelacio jacobs completed. Will accept the patient back to [facility] Acute INpatient Rehab when medically stable and ready for discharge from the acute hospital. Will follow at this time. Thank you for this referral! Natividad Bardales RN Clinical Liaison, [facility] Rehab
[2019-05-09 20:00] VITALS: BP 126/68
--- NOTE | 2019-05-09 23:32 | NUR ---
REPORT RECIEVED AND PATIENT ROUNDING COMPLETE. PATIENT LAYING IN BED IN HIGH FOWLERS. PATIENT STATES HE HAS NO NEEDS AT THIS TIME. PATIENT HAS A RIGHT FOREARM PIV THAT IS SALINE LOCKED. PIV SHOWS NO S/SX OF INFILTRATION. PATIENT STATES HE IS READY TO GET BETTER AND GO HOME. PATINET SHOWS NO S/SX OF DISTRESS AT THIS TIME. ARIC LIGHT WITHIN REACH AND BED IN LOWEST POSITION.
[2019-05-10] VITALS: BP 135/71
--- NOTE | 2019-05-10 01:18 | NUR ---
I have reviewed this patient and I concur with the Shift Assessment completed by the Licensed Practical Nurse today this shift.
[2019-05-10 04:00] VITALS: BP 117/53
[2019-05-10 05:41] LABS: BASOPHILS 0.6 % (0-2); EOSINOPHILS 4.3 % (0-7); HEMATOCRIT 30.9 % (42.0-54.0); HEMOGLOBIN 9.7 g/dL (13.5-17.5); IMMATURE GRANULOCYTES 0.5 % (0-5); LYMPHOCYTES 20.3 % (15-50); MCH 30.5 pg (26.0-34.0); MCHC 31.4 g/dL (31.0-37.0); MCV 97.2 fL (80.0-100.0); MEAN PLATELET VOLUME 8.6 fL (7.4-10.4); MONOCYTES 11.4 % (2-11); NEUTROPHILS 62.9 % (40-80); PLATELET COUNT 254 10x3/uL (130-400); RBC 3.18 10x6/uL (4.20-6.10); RDW 15.1 % (11.5-14.5); WBC 10.1 10x3/uL (4.8-10.8)
[2019-05-10 06:33] LABS: ALBUMIN 2.1 g/dL (3.4-5.0); ANION GAP 13.8 mmol/L (8-16); BILIRUBIN - TOTAL 0.32 mg/dL (0.2-1.3); CALCIUM 8.6 mg/dL (8.5-10.1); CARBON DIOXIDE 27.9 mmol/L (21.0-32.0); CREATININE - SERUM 8.1 mg/dL (0.6-1.3); PHOSPHOROUS 4.1 mg/dL (2.5-4.9); POTASSIUM - SERUM 3.7 mmol/L (3.5-5.1); PROTEIN - SERUM 6.2 g/dL (6.4-8.2); VANCOMYCIN - RANDOM 15.7 ug/mL (10.0-20.0)
--- NOTE | 2019-05-10 07:00 | NUR ---
RECEIVED REPORT. ASSUMED CARE OF PATIENT. CALL LIGHT WITHIN REACH. PATIENT RESTING WITH EYES CLOSED. RESP EVEN AND UNLABORED. NO DISTRESS.
[2019-05-10 07:36] VITALS: BP 146/77
--- NOTE | 2019-05-10 09:35 | NUR ---
PATIENT REPORTS TO THIS NURSE DURING MEDICATION ADMINISTRATION THAT HE DOES NOT FEEL WELL TODAY. THE PATIENT STATES JUST DOESN'T FEEL GOOD ALL OVER. THIS NURSE TOLD HIM THE LONGER YOU STAY IN THIS BED AND DON'T GET TO THERAPY YOU WILL CONTINUE TO FEEL WEAK AND NOT FEEL GOOD. PATIENT VERBALIZED HIS UNDERSTANDING. NO DISTRESS.
[2019-05-10 11:34] VITALS: BP 131/59
[2019-05-10] MEDS ORDERED: FLAGYL250 MG PO (12:20)
[2019-05-10] MEDS ORDERED: TENORMIN25 MG PO (12:20)
[2019-05-10] MEDS ORDERED: Retacrit SC (12:20)
[2019-05-10] MEDS ORDERED: ZOFRAN4 MG PO (12:21)
--- NOTE | 2019-05-10 12:26 | NUR ---
FOOD REQUEST SENT TO DIETARY FOR PATIENTS PM MEAL AT THIS TIME. NO DISTRESS.
[2019-05-10 15:11] VITALS: BP 131/86
--- NOTE | 2019-05-10 17:12 | MORECARE ---
CASE MANAGEMENT DISCHARGE SUMMARY PATIENT: JOHN CARDONA UNIT: [id number] ADM DATE: 05/04/19 AGE: 78 : 39 SEX: M ROOM/BED: D.[facility] AUTHOR: ADY IVEY PHYSICIAN: REFERRING PHYSICIAN: JERICHO ALVAREZ MD DATE OF SERVICE: 05/10/19 Discharge Plan Patient Name: JOHN CARDONA Facility: [facility]:[place] : 1940 Planned Disposition: Inpatient Rehab Anticipated Discharge Date: 05/10/19 Discharge Date: Expected LOS: 6 Initial Reviewer: [email or web address] Initial Review Date: 05/06/2019 Generated: 05/10/19 6:12 pm Comments DCP- Discharge Planning Updated by [id number]: Paulino Albarran on 05/10/19 4:[address] Patient Name: JOHN CARDONA Encounter No: [id number] : 1940 Primary Insurance: MEDICARE A & B Anticipated DC Date: 05-10-2019 Planned Disposition: Inpatient Rehab External Planned Provider: [facility] DCP follow-up note: CM SPOKE TO SANIA JOHNS WHO INFORMED SHE WILL DISCHARGE PT TO REHAB TODAY. CM SPOKE TO [facility] OF INPATIENT REHAB, THEY PLAN TO ACCEPT PT FOR REHAB. PT NOTIFIED, IN AGREEMENT WITH DISCHARGE TO INPATIENT REHAB. IMPORTANT MESSAGE FROM MEDICARE PROVIDED AND EXPLAINED. FLOW COORDINTOR NURSE NOTIFIED. [facility] TO CONTACT MED 2 NURSE WITH ROOM NUMBER WHEN READY TO ACCEPT PT AND NURSE REPORT. Paulino Albarran, CASE MANAGEMENT DCP- Discharge Planning Updated by [id number]: Paulino Albarran on 05/09/19 1:[address] Patient Name: JOHN CARDONA Encounter No: [id number] : 1940 Primary Insurance: MEDICARE A & B Anticipated DC Date: 05-09-2019 Planned Disposition: Inpatient Rehab External Planned Provider: [facility] DCP follow-up note: CM REVIEWED CHART, DR. ALTAMIRANO NOTED THAT PT IS READY TO DISCHARGE BACK TO REHAB. CM SPOKE TO PT IN ROOM PT STILL IN AGREEMENT WITH RETURN TO [facility] IN[facility]. CM RECEIVED ORDER FOR INPATIENT REHAB PRESCREENING. CM SPOKE TO [place] OF INPATIENT REHAB, PT NEEDS PHYSICAL THERAPY EVALUATION. CM OBTAINED PHYSICAL THERAPY ORDER. CM WAITING PHYSICAL THERAPY EVALUATION WELL INPATIENT REHAB PRESCREENING FROM [facility]. Paulino Albarran, CASE MANAGEMENT DCP- Discharge Planning Updated by [id number]: Paulino Albarran on 05/06/19 4:[address] Patient Name: JOHN CARDONA Admission Status: Elective Accout number: [id number] Admission Date: 05-04-2019 : 1940 Admission Diagnosis:ENTEROCOLITIS D/T CLOSTRIDIUM DIFFICILE, NOT SPCF RE Attending: JERICHO ALVAREZ Current LOS: 2 Anticipated DC Date: Planned Disposition: Inpatient Rehab Primary Insurance: MEDICARE A & B PLANNED EXTERNAL PROVIDER: [facility] Discharge Planning Comments: CM MET WITH PT IN ROOM TO DISCUSS DISCHARGE PLANNING AND NEEDS. PT REPORTS LIVING AT HOME ALONE; PT'S SON ASSISTS AT HOME WITH MEDICATION MANAGEMENT; PT'S SON AND DAUGHTER LIVE CLOSE BY AND ASSIST NEEDED WITH CLEANING, SHOPPING, ERRANDS AND TRANSPORTATION. PT HAS HOME OXYGEN THAT HE DOES NOT USE, CANE, ROLLATEOR WALKER FROM UNKNOWN MEDICAL EQUIPMENT PROVIDER. PT HAS NO OUTSIDE SERVICES ASSISTING IN THE HOME. CM DISCUSSED AVAILABILITY OF HOME HEALTH, REHAB SERVICES AND MEDICAL EQUIPMENT. PT WAS IN REHAB AT [place] PRIOR TO HOSPITAL STAY THIS TIME AND WOULD LIKE TO RETURN TO GET STRONGER TO RETURN HOME. CHOICE SIGNED FOR [facility] INPAT[facility]. PT WOULD LIKE INPATIENT REHAB AT [place] WHEN STABLE FOR DISCHARGE. CM TO CONTINUE TO FOLLOW AND ASSIST NEEDED. Brake Holder: Paulino Albarran DCPIA - Discharge Planning Initial Assessment Updated by [id number]: Paulino Alabrran on 05/06/19 4:59 pm * Is the patient Alert and Oriented? Yes * How many steps to enter\exit or inside your home? NONE * PCP JULIO C SHELBY * Pharmacy UNKNOWN - PT REPORTS HIS SON PICKS UP MEDICATIONS * Preadmission Environment Home Alone * ADLs Partial Dependent * Partial ADLs (Assistance needed) Medication Management * Equipment Cane Oxygen Rolling Walker * Other Equipment ROLLATOR WALKER HOME OXYGEN FROM UNKNOWN PROVIDER THAT PT DOES NOT USE * List name and contact numbers for known caregivers / representatives who currently or will assist patient after discharge: CRYSTAL CARDONA, SON, * Verbal permission to speak to the caregivers and representatives has been obtained from the patient. Yes * Community resources currently utilized None * Please name any agencies selected above. NONE * Additional services required to return to the preadmission environment? Yes * Can the patient safely return to the preadmission environment? Yes * Has this patient been hospitalized within the prior 30 days at any hospital? Yes Coverage Notice Reviewer: [id number] Liz Albarran Notice Issued Date-Time: 05/06/2019 16:45 Notice Type: Patient Choice Letter Notice Delivered To: Patient Relationship to Patient: Mining Speculator Name: Delivery Method: HAND - Hand Delivered Malinda Days: Prior Verbal Notification: Recipient Understood Notice: Yes Recipient Signature: Yes Med Rec Note Co-signed by Attending: Coverage Notice Comment: [facility] Reviewer: [id number] Liz Albarran Notice Issued Date-Time: 05/10/2019 11:35 Notice Type: IM Discharge Notice Notice Delivered To: Patient Relationship to Patient: Mining Speculator Name: Delivery Method: HAND - Hand Delivered Malinda Days: Prior Verbal Notification: Recipient Understood Notice: Yes Recipient Signature: Yes Med Rec Note Co-signed by Attending: Coverage Notice Comment: Last DP export: 05/09/19 1:40 Patient Name: OJHN CARDONA Page [id number] at 1712 All edits/amendments must be made on the electronic document DICTATION DATE: 05/10/191711 CAPITAL PROJECT ENGINEER: RPESTON 05/10/191711 RPT#: [id number] DC DATE: STATUS: ADM IN [facility] [address] [place] [address] END OF REPORT
--- NOTE | 2019-05-10 18:24 | NUR ---
DISCHARGE INSTRUCTIONS PROVIDED TO PATIENT AT THIS TIME. NO DISTRESS. PATIENTS PERSONAL BELONGINGS PACKED AND READY TO BE MOVED TO REHAB AT THIS TIME. NO DISTRESS.
--- NOTE | 2019-05-10 19:11 | NUR ---
PATIENT TAKEN DOWN STAIRS TO REHAB, ROOM 1110. PATIENT TRANSFERRED WITH ALL PERSONAL BELONGINGS. PATIENT IN NO DISTRESS UPON LEAVING UNIT. PATIENT THANKED THIS NURSE FOR TAKING HIM DOWNSTAIRS. DISCHARGE PAPERWORK SIGNED AND PLACED ON CHART. COPY OF PAPERWORK PROVIDED TO REHAB NURSE.
--- NOTE | 2019-05-10 19:16 | NUR ---
CALLED PATIENTS SON CRYSTAL AND LET HIM KNOW THAT THE PATIENT HAS BEEN MOVED DOWNSTAIRS TO REHAB IN ROOM 1110. CRYSTAL THANKED THIS CASTING WHEEL OPERATOR FOR CALLING.
== END 2019-05-10 18:57 | DRG 871 ==
LOC: D.M2 13:10
PROVIDERS: Emergency Medicine; Internal Medicine Nephrology; ADMIT Internal Medicine Nephrology; ATTEND Internal Medicine Nephrology
PROC: 5A1D70Z Performance of Urinary Filtration, Intermittent, Less than 6 Hours Per Day (ICD-10-PCS; principal; 2019-05-05)
DX: A41.9 Sepsis, unspecified organism (principal); N18.6 End stage renal disease; A04.72 Enterocolitis due to Clostridium difficile, not specified as recurrent; D63.1 Anemia in chronic kidney disease; I95.9 Hypotension, unspecified

== ENCOUNTER 2019-05-10 14:36 | Inpatient (IN) | payer MEDICARE, BC ==
[~2019-05-10] VITALS: Ht 175.3 cm; Wt 82.0 kg
[~2019-05-10 14:36] MED LIST changes: +FLAGYL250 MG PO; +Retacrit SC; +ZOFRAN4 MG PO
--- NOTE | 2019-05-10 19:44 | NUR ---
ADMITTED TO ROOM 1110 FOR PHYSICAL REHAB AND SERVICES OF DR ALCAZAR. RECIEVED AWAKE AND ALERT. RESPIRATIONS UNLABORED. LEFT ARM FISTULA FOR DIALYSIS INTACT. SALINE LOCK INTACT TO RIGHT FOREARM WITH NO SIGNS OF INFILTRATION. NOTED HARD OF HEARING. WEARING GLASSESS. STATES HE ONLY VOIDS 1-2 TIMES A WEEK. USUAL DIALYSIS DAYS M-W-. PLACED IN ENTERIC PRECAUTIONS FOR C-DIFF. ORIENTED X 4. NO ACUTE DISTRESS NOTED.
[2019-05-10 20:23] VITALS: BP 157/75; BMI 26.6
[2019-05-10 21:13] VITALS: BP 157/75
--- NOTE | 2019-05-11 00:20 | NUR ---
SLEEPING WITH NO RESPIRATORTY DISTRESS NOTED.
--- NOTE | 2019-05-11 03:50 | NUR ---
SLEEPING IN BED WITH RESPIRATIONS UNLABORED. NO ACUTE DISTRESS NOTED.
--- NOTE | 2019-05-11 05:20 | NUR ---
GOT OUT OF BED WITHOUT CALLING. NURSE RAN IN ROOM TO ASSIST HIM TO BATHROOM. REMINDED HIM TO ALWAYS CALL FOR ASSISTANCE BEFORE GETTING OUT OF BED. HE STATED "WELL WHEN IT STARTS I HAVE TO GO QUICK". WAS INCONTINENT PARTIALLY IN BREIF AND IN FLOOR. CLEANED AND CHANGED. REMAINS IN ENTERIC PRECAUTIONS.
[2019-05-11 06:17] LABS: BASOPHILS 0.5 % (0-2); EOSINOPHILS 3.6 % (0-7); HEMATOCRIT 31.2 % (42.0-54.0); HEMOGLOBIN 9.6 g/dL (13.5-17.5); IMMATURE GRANULOCYTES 0.4 % (0-5); LYMPHOCYTES 19.1 % (15-50); MCH 30.2 pg (26.0-34.0); MCHC 30.8 g/dL (31.0-37.0); MCV 98.1 fL (80.0-100.0); MONOCYTES 14.6 % (2-11); NEUTROPHILS 61.8 % (40-80); PLATELET COUNT 254 10x3/uL (130-400); RBC 3.18 10x6/uL (4.20-6.10); RDW 15.3 % (11.5-14.5); WBC 11.8 10x3/uL (4.8-10.8)
[2019-05-11 06:33] LABS: ANION GAP 16.8 mmol/L (8-16); CALCIUM 8.7 mg/dL (8.5-10.1); CARBON DIOXIDE 27.1 mmol/L (21.0-32.0); POTASSIUM - SERUM 3.9 mmol/L (3.5-5.1)
[2019-05-11 06:35] LABS: CREATININE - SERUM 10.6 mg/dL (0.6-1.3)
--- NOTE | 2019-05-11 10:04 | NUR ---
PATIENT ALERT/ORIENT. CONTINUES IN CONTACT ISOLATION FOR C-DIFF. BED ALARM ON. CALL LIGHT WITHIN REACH. VOICES NO NEEDS AT THIS TIME. WILL CONTINUE WITH PLAN OF CARE.
[2019-05-11 12:14] VITALS: BP 160/73
[2019-05-11 18:01] VITALS: BP 154/62
--- NOTE | 2019-05-11 19:42 | NUR ---
AWAKE AND ALERT. RECIEVING DIALYSIS AT THIS TIME. RESPIRATIONS UNLABORED. NO DISTRESS NOTED. RIGHT ARM SALINE LOCK INTACT WITH NO SIGNS OF INFILTRATION. CALL LIGHT IN REACH.
--- NOTE | 2019-05-11 23:16 | NUR ---
DIALYSIS COMPLETE. DIALYSIS NURSE REPORTS SHE REMOVED 1 1/2 LITERS AND CURRENT BLOOD PRESSURE IS 127/62/ AWAKE AND ALERT. RESPIRATIONS UNLABORED. HS MEDS GIVEN. WILL CONTINUE TO MONITOR.
[2019-05-11 23:26] VITALS: BP 149/70
--- NOTE | 2019-05-12 00:23 | NUR ---
RESTING IN BED WITH RESPIRAITONS UNALBORED. NO DISTRESS NOTED. CALL LIGHT IN REACH.
--- NOTE | 2019-05-12 02:27 | NUR ---
RESTING IN BED WITH NO DISTRESS NOTED. CALL LIGHT IN REACH.
--- NOTE | 2019-05-12 05:05 | NUR ---
QUIET HOURS. NO ACUTE CHANGES IN CONDITION THIS SHIFT. RESTING IN BED WITH NO DISTRESS NOTED.
[2019-05-12 05:35] VITALS: BP 127/56
--- NOTE | 2019-05-12 08:06 | NUR ---
PATIENT IS ALERT/ORIENT. PATIENT IS IN CONTACT ISOLATION. CALL LIGHT WITHIN REACH. VOICES NO NEEDS AT THIS TIME. WILL CONTINUE WITH PLAN OF CARE
[2019-05-12 12:15] VITALS: BP 138/66
[2019-05-12 13:21] VITALS: Ht 175.3 cm; Wt 82.0 kg
--- NOTE | 2019-05-12 13:23 | NUR ---
PATIENT HAS SIGNED A RESLEASE OF RESPONSIBILITY FOR BED/CHAIR ALARM WAVOIR.
--- NOTE | 2019-05-12 15:17 | NUR ---
PATIENT ADMITTED TO REHAB FROM ACUTE FLOOR. PATIENT PCP IS DR. HERNANDEZ. DME AT HOME IS A WALKER, CANE AND O2. DISCHARGE PLANS ARE FOR PATIENT TO RETURN HOME. WILL CONTINUE TO FOLLOW WITH PATIENT.
--- NOTE | 2019-05-12 16:09 | NUR ---
SALINE LOCK REMOVED FROM RIGHT FOREARM WITHOUT DIFFICULTY
[2019-05-12 18:18] VITALS: BP 119/58
--- NOTE | 2019-05-12 19:45 | NUR ---
AWAKE AND ALERT. RESTING IN BED WITH NO DISTRESS NOTED. RESPIRATIONS UNLABORED. LEFT ARM FISTULA INTACT. NO C/O DISCOMFORTS AT THIS TIMES. REMAINS IN ENTERIC PRECAUTIONS RELATED TO C-DIFF. CALL LIGHT IN REACH.
[2019-05-12 20:24] VITALS: BP 119/58
--- NOTE | 2019-05-13 00:04 | NUR ---
SLEEPING IN BED WITH RESPIRATIONS UNLABORED. NO DISTRESS NOTED.
[2019-05-13 00:16] VITALS: BP 117/53
--- NOTE | 2019-05-13 05:31 | NUR ---
QUIET HOURS. NO ACUTE CHANGES IN CONDITION THIS SHIFT. NO DISTRESS NOTED. REMAINS IN ISOLATION. NO LOOSE STOOLS THIS SHIFT.
[2019-05-13 05:46] LABS: BASOPHILS 0.8 % (0-2); EOSINOPHILS 2.8 % (0-7); HEMATOCRIT 30.9 % (42.0-54.0); HEMOGLOBIN 9.8 g/dL (13.5-17.5); IMMATURE GRANULOCYTES 0.4 % (0-5); LYMPHOCYTES 24.3 % (15-50); MCHC 31.7 g/dL (31.0-37.0); MCV 97.8 fL (80.0-100.0); MEAN PLATELET VOLUME 8.6 fL (7.4-10.4); MONOCYTES 13.6 % (2-11); NEUTROPHILS 58.1 % (40-80); PLATELET COUNT 237 10x3/uL (130-400); RBC 3.16 10x6/uL (4.20-6.10); RDW 15.4 % (11.5-14.5); WBC 10.8 10x3/uL (4.8-10.8)
[2019-05-13 06:12] LABS: ANION GAP 16.1 mmol/L (8-16); CALCIUM 8.4 mg/dL (8.5-10.1); CARBON DIOXIDE 27.8 mmol/L (21.0-32.0); CREATININE - SERUM 8.7 mg/dL (0.6-1.3); POTASSIUM - SERUM 3.9 mmol/L (3.5-5.1)
[2019-05-13 06:17] VITALS: BP 134/63
--- NOTE | 2019-05-13 09:06 | NUR ---
PT AM MEDS GIVEN. PARTICIPATING IN THERAPY AT THIS TIME, DENIES ANY NEEDS, WCTM.
[2019-05-13 12:10] VITALS: BP 129/63
--- NOTE | 2019-05-13 15:00 | NUR ---
PT UNDERGOING DIALYSIS AT THIS TIME IN ROOM. DENIES NEEDS. WCTM.
[2019-05-13 18:33] VITALS: BP 101/54
--- NOTE | 2019-05-13 19:15 | NUR ---
PT IS RESTING IN BED WITH EYES OPEN. ALERT AND ORIENTED X 3. DENIES ACUTE PAIN OR DISCOMFORT AT THIS TIME. NO NEEDS VOICED. PT IS HARD OF HEARING. LEFT ARM FISTULA NOTED WITH GOOD BRUITT AND THRILL. SR'S ARE UP X 2 IN BED. CALL LIGHT AND BEDSIDE TABLE ARE WITHIN EASY REACH. PT HAS A BED ALARM WAIVER.
--- NOTE | 2019-05-13 21:11 | NUR ---
PT RESTING IN BED WITH EYES OPEN. STATES HE HAS HAD 2 LARGE BOWEL MOVEMENTS TONIGHT. NO NEEDS VOICED AT THIST IIME.
[2019-05-14 00:01] VITALS: BP 104/43
--- NOTE | 2019-05-14 01:52 | NUR ---
I have reviewed this patient and I concur with the Shift Assessment completed by the Licensed Practical Nurse today this shift.
--- NOTE | 2019-05-14 04:57 | NUR ---
RESTING IN BED WITH EYES CLOSED.
[2019-05-14 05:51] VITALS: BP 107/58
[2019-05-14 08:00] VITALS: BP 133/70
[2019-05-14 12:29] VITALS: BP 120/64
[2019-05-14 18:14] VITALS: BP 119/67
--- NOTE | 2019-05-14 19:30 | NUR ---
PT IS RESTING IN BED WITH EYES CLOSED. AWOKE EASILY TO VERBAL STIMULI. ALERT AND ORIENTED X 3. DENIES ACUTE DISCOMFORT AT THIS TIME. CONTACT PRECAUTIONS OBSERVED. LEFT ARM FISTULA HAS GOOD BRUITT AND THRILL. SR'S ARE UP X 2 IN BED. CALL LIGHT AND BEDSIDE TABLE ARE WITHIN EASY REACH.
--- NOTE | 2019-05-14 21:42 | NUR ---
PT IS RESTING QUIETLY IN BED WITH EYES CLOSED. NO ACUTE DISTRESS NOTED.
--- NOTE | 2019-05-14 23:24 | NUR ---
I have reviewed this patient and I concur with the Shift Assessment completed by the Licensed Practical Nurse today this shift.
[2019-05-15 00:02] VITALS: BP 107/61
--- NOTE | 2019-05-15 01:53 | NUR ---
RESTING IN BED WITH EYES CLOSED.
--- NOTE | 2019-05-15 04:55 | NUR ---
PT RESTIN GIN BED WITH EYES CLOSED. NO ACUTE DISTRESS NOTED.
[2019-05-15 06:00] VITALS: BP 105/63
[2019-05-15 12:15] VITALS: BP 155/78
[2019-05-15 17:38] VITALS: BP 137/75
--- NOTE | 2019-05-15 19:33 | NUR ---
PT RESTING IN BED WITH EYES OPEN. NO NEEDS VOICED.
--- NOTE | 2019-05-15 22:09 | NUR ---
PT UAL TO BATHROOM. LARGE SOFT BM NOTED.
[2019-05-16 00:01] VITALS: BP 103/63
--- NOTE | 2019-05-16 02:44 | NUR ---
I have reviewed this patient and I concur with the Shift Assessment completed by the Licensed Practical Nurse today this shift.
[2019-05-16 05:36] VITALS: BP 109/74
[2019-05-16 06:28] LABS: BASOPHILS 0.9 % (0-2); EOSINOPHILS 4.3 % (0-7); HEMATOCRIT 31.5 % (42.0-54.0); IMMATURE GRANULOCYTES 0.3 % (0-5); LYMPHOCYTES 24.7 % (15-50); MCH 31.2 pg (26.0-34.0); MCHC 31.7 g/dL (31.0-37.0); MCV 98.1 fL (80.0-100.0); MEAN PLATELET VOLUME 8.5 fL (7.4-10.4); MONOCYTES 11.6 % (2-11); NEUTROPHILS 58.2 % (40-80); PLATELET COUNT 236 10x3/uL (130-400); RBC 3.21 10x6/uL (4.20-6.10); RDW 16.4 % (11.5-14.5); WBC 10.5 10x3/uL (4.8-10.8)
[2019-05-16 07:00] LABS: CALCIUM 8.3 mg/dL (8.5-10.1); CARBON DIOXIDE 20.7 mmol/L (21.0-32.0); CREATININE - SERUM 11.1 mg/dL (0.6-1.3); POTASSIUM - SERUM 3.7 mmol/L (3.5-5.1)
--- NOTE | 2019-05-16 08:06 | NUR ---
PATIENT REMAINS IN CONTACT ISOLATION. ALERT/ORIENT. CALL LIGHT WITHIN REACH. VOICES NO NEEDS AT THIS TIME. WILL CONTINUE WITH PLAN OF CARE
[2019-05-16 11:27] VITALS: BP 150/70
--- NOTE | 2019-05-16 11:49 | NUR ---
PATIENT HAS SIGNED A BED/CHAIR ALARM WAVIOR. WALKING WITH WHEELED WALKER IN ROOM FROM BED TO BATHROOM. STEADY GIAT WITH WALKER
--- NOTE | 2019-05-16 12:26 | NUR ---
Nutrition Follow-up: Pt remains on HD and is on isolation for +CDT. Diet: Renal PO intake: 75-100% x last 6 meals recorded (05/11/19-05/12/19) Last BM: 05/14/19 x 3. WT: 183# (05/16/19); Admit wt: 180# (05/10/19) Meds noted: megace, phoslo, remeron. Labs noted: Glu 119, renal labs. Continue diet and appetite stimulant as medically feasible. RD following.
--- NOTE | 2019-05-16 17:50 | NUR ---
CYLINDER DEVALVER CALLED AND STATED THAT HE WILL BE DOWN AFTER 6PM FOR TREATMENT
[2019-05-16 17:59] VITALS: BP 149/68
--- NOTE | 2019-05-16 19:31 | NUR ---
REC'D. IN BED EYES CLOSED RESP. DEEP AND EVEN.DURING CHGE OF SHIFT WALKING ROUNDS.ENTERIC ISOLATION REMAINS IN PROGRESS.WILL CONTINUE TO MONITOR FOR ANY CHGES AND FOLLOW CURRENT PLAN OF CARE.
--- NOTE | 2019-05-16 22:23 | NUR ---
BEDSIDE DIALYSIS REMAINS IN PROGRESS AGUS. WELL
[2019-05-17 00:40] VITALS: BP 137/61
--- NOTE | 2019-05-17 03:50 | NUR ---
I have reviewed this patient and I concur with the Shift Assessment completed by the Licensed Practical Nurse today this shift
[2019-05-17 04:45] VITALS: BP 138/70
--- NOTE | 2019-05-17 10:05 | NUR ---
PT AM MEDS ADMINISTERED. PT DENIES NEEDS. WCTM.
[2019-05-17 11:15] VITALS: BP 106/47
[2019-05-17 17:24] VITALS: BP 158/77
[2019-05-17 20:03] VITALS: BP 127/83
--- NOTE | 2019-05-17 20:09 | NUR ---
AWAKE AND ALERT. RESTING IN BED READING NEWSPAPER. NO DISTRESS NOTED. CALL LIGHT IN REACH. REMAINS IN ISOLATION.
[2019-05-17 23:38] VITALS: BP 130/75
--- NOTE | 2019-05-18 00:19 | NUR ---
SLEEPING IN BED WITH RESPRIATIONS UNLABORED. NO DISTRESS NOTED.
--- NOTE | 2019-05-18 02:31 | NUR ---
CONTINUES RESTING IN BED WITH RESPIRATIONS UNLABORED. NO DISTRESS NOTED. REMAINS IN ENTERIC ISOLATION. CALL LIGHT IN REACH.
--- NOTE | 2019-05-18 05:09 | NUR ---
QUIET HOURS. NO ACUTE CHANGES IN CONDITION THIS SHIFT. NO BM'S THIS SHIFT. REMAINS IN ENTERIC ISOLATION. NO DISTRESS NOTED. CALL LIGHT IN REACH.
[2019-05-18 06:09] VITALS: BP 159/81
[2019-05-18 07:57] LABS: BASOPHILS 1.1 % (0-2); EOSINOPHILS 3.7 % (0-7); HEMATOCRIT 33.8 % (42.0-54.0); HEMOGLOBIN 10.7 g/dL (13.5-17.5); IMMATURE GRANULOCYTES 0.1 % (0-5); MCH 31.5 pg (26.0-34.0); MCHC 31.7 g/dL (31.0-37.0); MCV 99.4 fL (80.0-100.0); MEAN PLATELET VOLUME 8.9 fL (7.4-10.4); NEUTROPHILS 50.1 % (40-80); PLATELET COUNT 203 10x3/uL (130-400); RDW 16.7 % (11.5-14.5); WBC 8.3 10x3/uL (4.8-10.8)
[2019-05-18 08:07] LABS: ANION GAP 21.6 mmol/L (8-16); CALCIUM 8.5 mg/dL (8.5-10.1); CARBON DIOXIDE 22.3 mmol/L (21.0-32.0); CREATININE - SERUM 10.5 mg/dL (0.6-1.3); POTASSIUM - SERUM 3.9 mmol/L (3.5-5.1)
--- NOTE | 2019-05-18 08:15 | NUR ---
PT RESTING IN BED EATING BREAKFAST TOLERATING WELL WILL MONITER
[2019-05-18 12:00] VITALS: BP 114/66
--- NOTE | 2019-05-18 16:44 | NUR ---
CARE TEAM MEETING: PATIENT DISCHARGING HOME IN AM. WILL CONTINUE TO FOLLOW WITH PATIENT.
[2019-05-18 18:30] VITALS: BP 139/77
--- NOTE | 2019-05-18 18:44 | NUR ---
PT RESTING IN BED WITH EYES OPEN CALL LIGHT IN REACH NO PROBLEMS WILL MONITER
--- NOTE | 2019-05-18 19:51 | NUR ---
GREETED PATIENT AND INTRODUCED MYSELF HIS NURSE. PT. HAS JUST COMPLETED IN ROOM DIALYSIS AND STATES THAT HE IS FEELING GOOD AT THIS TIME. RESPIRATIONS EVEN. NO S/S OF DISTRESS. DENIES ANY NEEDS AT THIS TIME. CALL LIGHT IN REACH.
[2019-05-19 00:18] VITALS: BP 133/68
--- NOTE | 2019-05-19 00:39 | NUR ---
PT. RESTING QUIETLY WITH EYES CLOSED. RESPIRATIONS EVEN. NO S/S OF DISTRESS. CALL LIGHT IN REACH.
--- NOTE | 2019-05-19 03:38 | NUR ---
PT. RESTING QUIETLY WITH EYES CLOSED. RESPIRATIONS EVEN. NO S/S OF DISTRESS. CALL LIGHT IN REACH.
[2019-05-19 06:13] VITALS: BP 126/56
[2019-05-19 07:07] LABS: BASOPHILS 1.3 % (0-2); EOSINOPHILS 4.1 % (0-7); HEMATOCRIT 31.9 % (42.0-54.0); HEMOGLOBIN 10.1 g/dL (13.5-17.5); IMMATURE GRANULOCYTES 0.2 % (0-5); LYMPHOCYTES 30.3 % (15-50); MCH 31.3 pg (26.0-34.0); MCHC 31.7 g/dL (31.0-37.0); MCV 98.8 fL (80.0-100.0); MEAN PLATELET VOLUME 8.7 fL (7.4-10.4); MONOCYTES 17.3 % (2-11); NEUTROPHILS 46.8 % (40-80); PLATELET COUNT 181 10x3/uL (130-400); RBC 3.23 10x6/uL (4.20-6.10); RDW 16.9 % (11.5-14.5); WBC 6.4 10x3/uL (4.8-10.8)
[2019-05-19 07:31] LABS: ANION GAP 14.1 mmol/L (8-16); CALCIUM 8.6 mg/dL (8.5-10.1); PHOSPHOROUS 7.8 mg/dL (2.5-4.9); POTASSIUM - SERUM 3.4 mmol/L (3.5-5.1)
[2019-05-19 07:32] LABS: CARBON DIOXIDE 30.3 mmol/L (21.0-32.0); CREATININE - SERUM 7.4 mg/dL (0.6-1.3)
[2019-05-19] MEDS ORDERED: MIDODRINE HCL5 MG PO (08:51)
--- NOTE | 2019-05-19 08:53 | RHP ---
PATIENT: JOHN CARDONA MEDICAL RECORD: [id number] ACCOUNT: [id number] [facility] AD[facility]ION DATE: 05/10/19 REHABILITATION HISTORY AND PHYSICAL EXAMINATION POST ADMISSION PHYSICIAN EXAMINATION ADMITTING DIAGNOSES: Uremic myopathy. HISTORY OF PRESENT ILLNESS: The patient is a 78-year-old gentleman who was recently in [place] [facility] with hemodialysis on 05/04/2019. He became hypotensive and a rapid response was called. He was moved up to the acute hospital. He was stabilized with blood pressure and is now returned to the rehab. The patient continues to have hemodialysis. He complained of having diarrhea and was found to be CDT positive. He continues on IV iron and supplemental O2. He has got decreased activity, loss of sensory in both feet, monitoring his lab values closely, monitor his input and output and closely monitoring his nutritional intake. He is deconditioned with proximal muscle, debility, impaired mobility, gait disturbance, fall risk and self-care deficits. These are all barriers to his discharge home. He was admitted to acute hospital on 04/24/2019 and now is in rehabilitation. The patient has been seen and followed by PT throughout his stay. He lives at home alone, was independent with use of a single point cane, roller walker at time of his ADLs and mobility. His son lives a few houses down. He drives him to hemodialysis and checks on him often. He is currently set up for mod assist for ADLs, mod assist for his mobility. He and his family plan for return home at his prior level of functioning or better. COMORBIDITIES: Include falls, hypoxia, shortness of breath, fluid overload, dehydration, electrolyte imbalance, respiratory distress, DVT, loss of appetite, change in cognition, malnutrition, weight loss, incontinence, anxiety, depression, postop pain, postop infection, and postop wound dehiscence. PAST MEDICAL HISTORY: Significant for TIA, got a history of varicella zoster, history of hard of hearing, syncope, dialysis, COPD, apnea, renal failure, arthritis, gout, prostate problems, BPH, and anxiety. PAST SURGICAL HISTORY: Includes gallbladder surgery, back surgery, cataract, hip replacement, fistula creation, and right shoulder replacement. ALLERGIES: ATIVAN AND METHADONE. CURRENT MEDICATIONS: Include Flomax 0.4 mg daily. He is on erythropoietin 4000 units daily. Megace 40 mg daily, folic acid 1 tab daily, atenolol 25 mg daily, aspirin 81 mg daily, PhosLo 667 mg b.i.d. with meals, Pravachol 20 mg at bedtime, Remeron 15 mg at bedtime. He is on Flagyl 250 t.i.d., Neurontin 100 mg b.i.d. and Zofran 4 mg q.4 hours p.r.n. HABITS: No current alcohol or tobacco use. FAMILY HISTORY: Noncontributory. SOCIAL HISTORY: The patient hopes to return back home and get back to his prior level of functioning. REVIEW OF SYSTEMS: HISTORY AND PHYSICAL [id number] JOHN CARDONA GENERAL: Does complain of weakness and fatigue. HEENT: Denies cold, cough, or congestion. CARDIOVASCULAR: Denies any chest pain. PHYSICAL EXAMINATION: VITAL SIGNS: Stable, afebrile. GENERAL: Elderly gentleman in no acute distress, alert upon exam. HEENT: Normocephalic and atraumatic. Mucosa moist. NECK: Supple, with no lymphadenopathy. LUNGS: Clear at this time. HEART: Regular rate and rhythm. No murmurs, rubs, or gallops. ABDOMEN: Soft, benign, and nondistended. Positive bowel sounds times 4. EXTREMITIES: No clubbing, cyanosis, or edema. Does have a fistula. NEUROLOGIC: He does have proximal muscle weakness. LABORATORY DATA: His white count is 11.8, H and H of 9.6 and 31.2 and platelet count is 254. Sodium 142, potassium 3.9, BUN and creatinine of 15 and 10.6 and blood sugar was noted to be 90. ASSESSMENT: This is a 78-year-old gentleman admitted to the rehab with a diagnosis of uremic myopathy. The patient has potential to make improvement. We instituted the following multidisciplinary therapies including, but not limited to physical, occupational, respiratory, speech, nutritional services, prosthetics, and orthotics. Given his complex medical condition and risk for more complications, rehabilitation services cannot be provided at a low level of care such a skilled nurse facility. PLAN: 1. Admit to rehab for inpatient therapy to include the following disciplines: A. Physical therapy to improve gait, all transfer skills and bed mobility to a modified independent level. B. Occupational therapy to a modified independent level. C. Case management to assist with discharge planning and placement options. D. Nutrition to assist with nutritional needs. E. Rehabilitation nursing to assist in monitoring the patient's underlying medical conditions and to assist with any type of bowel or bladder management. 2. The patient's current medication and medical care will be continued. 3. The patient will be placed on standard fall precautions. 4. The patient's estimated length of stay is approximately 7-10 days. 5. We will discuss this patient during care team staff meeting this week. TRANSINT:[id number] Voice Confirmation ID: [id number] DOCUMENT ID: [id number] ARMANDO notes whether there has been none or any medical/functional change since admission: - No change since preadmission screen. ARMANDO attests patient continues to be appropriate for IRF: - Continues to be appropriate. HISTORY AND PHYSICAL [id number] JOHN CARDONA,DINA BABB MD at 0853 CC: [id number] DICTATION DATE: 05/11/191829 SENIOR SEARCH MARKETING ANALYST: 05/11/192012 ADM IN [facility] [address] [place] [address]
--- NOTE | 2019-05-19 09:11 | NUR ---
PATIENT DISCHARGING HOME WITH FAMILY . PATIENT DECLINES HOME HEALTH AT THIS TIME. DECLINATION SIGNED AND FILED IN CHART, [facility] 10[facility]. NO NEW DME NEEDED AT THIS TIME. DR. HERNANDEZ 05/26/2019 @ 2:30. [facility] FORM SIGNED, COPY GIVEN TO PATIENT AND FILED IN CHART. DISCHARGE INSTRUCTIONS FXED TO PCP AND REVIEWED WITH PATIENT.
--- NOTE | 2019-05-19 10:44 | NUR ---
PT DISCHARGE IN STRUCTIONS REV'D AND PT STATES UNDERSTANDING. PT WILL CALL FOR MEDS TO BE CALLED IN IF NEEDED BUT DOES NOT WANT THEM CALLED IN UNLESS HE NEEDS THEM. PT SON WILL ACTIVITIES AIDE. WAITING FOR HIM AT THIS TIME.
[2019-05-19 12:36] VITALS: BP 133/64
--- NOTE | 2019-05-19 13:46 | NUR ---
PT DISCHARGED HOME WITH FAMILY. PT ESCORTED OUT VIA WHEELCHAIR BY HOSPITAL STAFF.
== END 2019-05-19 13:48 | disposition home or self-care (01) | DRG 91 ==
LOC: D.REHAB 14:36
PROVIDERS: Internal Medicine Nephrology; ADMIT Emergency Medicine; ATTEND Emergency Medicine
DX: G72.89 Other specified myopathies (principal); N18.6 End stage renal disease; I82.409 Acute embolism and thrombosis of unspecified deep veins of unspecified lower extremity; E46 Unspecified protein-calorie malnutrition; A04.72 Enterocolitis due to Clostridium difficile, not specified as recurrent; R09.02 Hypoxemia; R06.02 Shortness of breath; E87.70 Fluid overload, unspecified; E86.0 Dehydration; E87.8 Other disorders of electrolyte and fluid balance, not elsewhere classified; R06.03 Acute respiratory distress; R32 Unspecified urinary incontinence; F41.8 Other specified anxiety disorders; G89.18 Other acute postprocedural pain; Z99.2 Dependence on renal dialysis; D64.9 Anemia, unspecified; D72.829 Elevated white blood cell count, unspecified; R53.81 Other malaise; R53.1 Weakness

== ENCOUNTER 2019-06-23 18:50 | Inpatient (IN) | payer MEDICARE, BC ==
[~2019-06-23] VITALS: Ht 175.3 cm; Wt 76.7 kg
[~2019-06-23 18:50] MED LIST changes: +MIDODRINE HCL5 MG PO
--- NOTE | 2019-06-23 19:00 | NUR ---
PT'S FAMILY AT BEDSIDE, CALL LIGHT WITHIN REACH.
--- NOTE | 2019-06-23 19:00 | NUR ---
TRAUMA BAND [id number]
--- NOTE | 2019-06-23 19:07 | NUR ---
REPORT TO EVERARDO ELLIS
--- NOTE | 2019-06-23 19:14 | NUR ---
PT TO RADIOLOGY.
--- NOTE | 2019-06-23 19:25 | NUR ---
PT RETURNED FROM RADIOLOGY.
[2019-06-23] MEDS ORDERED: TENORMIN25 MG PO (19:29)
[2019-06-23] MEDS ORDERED: LOMOTIL 2.5-0.1 EAC1 PO (19:30)
[2019-06-23] MEDS ORDERED: TORSEMIDE20 MG PO (19:31)
[2019-06-23 20:16] LABS: BASOPHILS 0.3 % (0-2); HEMATOCRIT 31.3 % (42.0-54.0); HEMOGLOBIN 9.9 g/dL (13.5-17.5); IMMATURE GRANULOCYTES 0.4 % (0-5); LYMPHOCYTES 13.1 % (15-50); MCH 31.3 pg (26.0-34.0); MCHC 31.6 g/dL (31.0-37.0); MCV 99.1 fL (80.0-100.0); MEAN PLATELET VOLUME 8.7 fL (7.4-10.4); MONOCYTES 12.8 % (2-11); NEUTROPHILS 71.4 % (40-80); PLATELET COUNT 192 10x3/uL (130-400); RBC 3.16 10x6/uL (4.20-6.10); RDW 14.3 % (11.5-14.5); WBC 16.2 10x3/uL (4.8-10.8)
--- NOTE | 2019-06-23 20:18 | NUR ---
PT ALSO REPORTS SKIN TEAR TO LEFT FOREARM, CLEANED WITH MICRO KLENZ AND BANDAID APPLIED. PT TOLERATED WELL.
[2019-06-23 20:21] VITALS: BP 183/89
[2019-06-23 20:33] LABS: CALCIUM 9.2 mg/dL (8.5-10.1); CARBON DIOXIDE 31.9 mmol/L (21.0-32.0); CREATININE - SERUM 6.5 mg/dL (0.6-1.3); POTASSIUM - SERUM 3.9 mmol/L (3.5-5.1)
[2019-06-23 20:39] LABS: ALBUMIN 2.7 g/dL (3.4-5.0); BILIRUBIN - TOTAL 0.24 mg/dL (0.2-1.3); PROTEIN - SERUM 6.2 g/dL (6.4-8.2)
--- NOTE | 2019-06-23 21:06 | NUR ---
STOOL AND URINE SAMPLE TO LAB AT THIS TIME.
[2019-06-23 21:27] LABS: BILIRUBIN NEGATIVE (NEGATIVE); GLUCOSE 250 mg/dL (NEGATIVE); KETONE NEGATIVE (NEGATIVE); NITRITE NEGATIVE (NEGATIVE); SPECIFIC GRAVITY 1.005 (1.005-1.020); UROBILINOGEN NORMAL (NORMAL)
[2019-06-23 21:29] LABS: BACTERIA FEW /hpf (NEGATIVE); RED CELLS - URINE 0-5 /hpf (0-5); WHITE CELLS - URINE 0-5 /hpf (NEGATIVE)
--- NOTE | 2019-06-23 22:33 | NUR ---
PT TO RADIOLOGY.
--- NOTE | 2019-06-23 23:00 | NUR ---
PT RETURNED FROM RADIOLOGY.
[2019-06-24] VITALS: BP 194/94
[2019-06-24 02:49] VITALS: BP 194/94; BMI 26.6
[2019-06-24 04:00] VITALS: BP 131/74
--- NOTE | 2019-06-24 07:26 | NUR ---
PT RECEIVED AWAKE AND ALERT. ASKING FOR URINAL FOR VOID. PAIN TO HIP INHIBITING HIM FROM GETTING UP TO VOID AT PRESENT.
--- NOTE | 2019-06-24 08:50 | NUR ---
PT WITH BLOOD PRESSURE 192/88, STATES PAIN AT 10. HOWEVER HE DOES NOT WANT ANYTHING FOR IT, DOESN'T LIKE TAKING PILLS.
[2019-06-24 10:04] VITALS: BP 192/88
[2019-06-24 14:44] VITALS: BMI 26.5
[2019-06-24 17:34] VITALS: BP 182/90
--- NOTE | 2019-06-24 19:20 | NUR ---
BEDSIDE REPORT RECEIVED FROM DAY SHIFT, PT CARE ASSUMED. INTRODUCED SELF AND WROTE NAME ON BOARD. PT SITTING UP IN BED, WATCHING TV, AAOX4. ASSISTED PT ONTO BEDPAN, CALL LIGHT WITHIN REACH, BED IN LOWEST, SR X2. WILL CONTINUE TO MONITOR.
[2019-06-24 20:00] VITALS: BP 190/84
[2019-06-25 04:30] VITALS: BP 182/78
[2019-06-25 05:59] LABS: BASOPHILS 0.2 % (0-2); EOSINOPHILS 2.2 % (0-7); HEMATOCRIT 29.4 % (42.0-54.0); HEMOGLOBIN 9.3 g/dL (13.5-17.5); IMMATURE GRANULOCYTES 0.2 % (0-5); LYMPHOCYTES 18.4 % (15-50); MCHC 31.6 g/dL (31.0-37.0); MEAN PLATELET VOLUME 8.7 fL (7.4-10.4); MONOCYTES 11.4 % (2-11); NEUTROPHILS 67.6 % (40-80); PLATELET COUNT 187 10x3/uL (130-400); RDW 14.5 % (11.5-14.5)
[2019-06-25 06:12] LABS: WBC 12.1 10x3/uL (4.8-10.8)
[2019-06-25 06:44] LABS: ALBUMIN 2.4 g/dL (3.4-5.0); ANION GAP 15.9 mmol/L (8-16); BILIRUBIN - TOTAL 0.51 mg/dL (0.2-1.3); CALCIUM 9.2 mg/dL (8.5-10.1); CARBON DIOXIDE 23.6 mmol/L (21.0-32.0); POTASSIUM - SERUM 4.5 mmol/L (3.5-5.1); PROTEIN - SERUM 6.4 g/dL (6.4-8.2)
--- NOTE | 2019-06-25 07:30 | NUR ---
PT RECEIVED AWAKE AND ALERT IN BED. HE TRIED TO GET OOB TO BATHROOM AND ALMOST HAD A FALL. EDUCATED CREATIVE INTERN LIGHT, NO UP BY SELF, RISK OF FALL. BED ALARM PLACED AT THIS TIME.
[2019-06-25 09:12] VITALS: BP 191/90
[2019-06-25 10:22] VITALS: Ht 175.3 cm; Wt 76.7 kg
--- NOTE | 2019-06-25 13:16 | NUR ---
PT'S BP STILL ELEVATED, (201/102). JENNIFER LUI NOTIFIED, HOME MEDS ADDRESSED.
[2019-06-25 13:23] VITALS: BP 201/102
--- NOTE | 2019-06-25 15:28 | NUR ---
PT'S BP ELEVATED AT 200/90. JENNIFER LUI AWARE AND WE HAVE STARTED HOME MEDS BACK WHICH WAS JUST GIVEN. WILL CONT TO MONITOR.
--- NOTE | 2019-06-25 15:35 | NUR ---
PT WITH BM EFFORT THAT RESULTED IN BLOOD SMEAR WHEN WIPING. HAS BEEN LIKE THIS FOR VISIT NOW AND HAS HISTORY OF QUESTIONABLE GI BLEED WHICH HE REFUSED TO BE SCOPED FOR PRIOR. SON STATES HE DOES NOT WANT PT APPROACHED RELATED TO SCOPE WITHOUT HIM PRESENT SO HE WONT REFUSE.
[2019-06-25 17:06] VITALS: BP 200/92
--- NOTE | 2019-06-25 19:10 | NUR ---
BEDSIDE REPORT RECEIVED FROM DAY SHIFT, PT CARE ASSUMED. WROTE NAME ON BOARD. PT OUT OF ROOM FOR PROCEDURE AT THIS TIME.
--- NOTE | 2019-06-25 19:50 | NUR ---
PT BACK TO ROOM FROM PROCEDURE VIA HOSPITAL BED ACCOMPANIED BY HOSPITAL STAFF. DENIES ANY NEEDS AT THIS TIME. BED IN LOWEST POSITION, SR X3, CALL LIGHT WITHIN REACH, BED ALARM ON AND FUNCTIONING. WILL CONTINUE TO MONITOR.
[2019-06-25 20:00] VITALS: BP 189/88
[2019-06-26] VITALS: BP 176/78
[2019-06-26 05:53] LABS: BASOPHILS 0.2 % (0-2); EOSINOPHILS 2.6 % (0-7); HEMOGLOBIN 8.7 g/dL (13.5-17.5); IMMATURE GRANULOCYTES 0.2 % (0-5); LYMPHOCYTES 14.4 % (15-50); MCH 31.1 pg (26.0-34.0); MCHC 32.2 g/dL (31.0-37.0); MCV 96.4 fL (80.0-100.0); MEAN PLATELET VOLUME 8.7 fL (7.4-10.4); MONOCYTES 13.5 % (2-11); NEUTROPHILS 69.1 % (40-80); PLATELET COUNT 188 10x3/uL (130-400); RDW 14.6 % (11.5-14.5)
[2019-06-26 06:05] LABS: ANION GAP 15.5 mmol/L (8-16); CALCIUM 9.3 mg/dL (8.5-10.1); CARBON DIOXIDE 23.2 mmol/L (21.0-32.0); POTASSIUM - SERUM 4.7 mmol/L (3.5-5.1)
[2019-06-26 06:06] LABS: CREATININE - SERUM 7.7 mg/dL (0.6-1.3)
[2019-06-26 08:30] VITALS: BP 170/91
[2019-06-26 12:59] VITALS: BP 181/83
--- NOTE | 2019-06-26 16:37 | CN ---
PATIENT NAME:JOHN CARDONA MEDICAL RECORD: [id number] : 38 LOCATION:. D.2138 ADMIT DATE: 06/24/19 ACCOUNT: [id number] CONSULTING PHYSICIAN: IRENE GONZALEZ MD REFERRING PHYSICIAN: YARON ARCE MD DATE OF CONSULTATION: 06/24/2019 RENAL CONSULTATION CONSULTING PHYSICIAN: Dr. Arce REASON FOR CONSULTATION: Assistance in management of renal failure. HISTORY OF PRESENT ILLNESS: This is a 78-year-old gentleman who is with end-stage renal disease, on maintenance dialysis port through a left forearm fistula, was admitted to the hospital after a fall, trauma. The patient said he got up and turned around and fell and could not get up off the ground. He did not want to go to the hospital after he called his son. His son finally brought him into the hospital overnight and the patient was admitted for further evaluation. The patient did report that he has had some loose stools for about 3 days. They attempted to check a C. diff here at the hospital, but unable to have a loose stool since he has been admitted. The patient was evaluated with the nurse present. He was awakened from sleep. However, he does have some recall issues of recent events. He does recall that he dialyzes on Mondays, but whether he is sleepy or his baseline cognition is altered, unable to tell at this time. He had a CT of the head overnight that was unremarkable for any acute changes and a right hip x-ray that did not reveal any significant changes. The patient had reported some pain in the left hip. There was a report that the patient had an admission recently and treated for Clostridium difficile. PAST MEDICAL AND SURGICAL HISTORY: The patient says he is on dialysis support. He did not report any other medical problems and again he is having some recall issues this morning and it is obvious from the evaluation and prompting that he had right shoulder surgery previously. The patient has had cataracts. He has a history also of COPD, sleep apnea, which was observed when awakened this morning, left hip previous surgery, joint replacement right shoulder. End-stage renal disease, Thursday, Thursday and Thursday at [facility], still has some urination. ALLERGIES: REVEALED LORAZEPAM AND METHADONE. MEDICATIONS: At home included folic acid as well as pravastatin, atenolol, gabapentin, Megace, tamsulosin. FAMILY HISTORY: Revealed previously cardiovascular disease and cancer. SOCIAL HISTORY: No tobacco or ethanol use reported. PHYSICAL EXAMINATION: VITAL SIGNS: Blood pressures have been running in the 150s to 180s, pulse ox 95% to 97%, afebrile. GENERAL: He is alert to situation. He does not have any distress at this time. CONSULT REPORT [id number] JOHN CARDONA NECK: Supple. No neck adenopathy. His mucous membranes are dry overall. He does look volume down. CARDIOVASCULAR: No lift or heave. Regular rate. CHEST: He is breathing comfortably; however, but while sleeping he is observed to have apneic spells. GASTROINTESTINAL: Soft, nontender. EXTREMITIES: Reveal no clubbing, cyanosis or edema. Overall, no distress. LABORATORY AND DIAGNOSTIC TEST: Reveal white cell count 16.2, hemoglobin is 9.9, platelet count 192. Sodium 143, potassium 3.9, chloride 104, bicarbonate 31.9, creatinine 6.5, glucose 113, calcium 9.2, albumin 2.7. Imaging results as mentioned previously revealed hip x-ray of the left reveals no acute fracture and a head CT, no acute intracranial abnormality. Chronic small vessel ischemic changes, atrophy, predominantly involving the temporal lobes and parietal lobe. ASSESSMENT AND PLAN: 1. Fall, trauma at home without any evidence of hip fracture. 2. Debilitated state. 3. End-stage renal disease with maintenance dialysis, left forearm fistula with good thrill and bruit, at this time on evaluation. 4. Recent reported history of Clostridium difficile infection. 5. Slowed mentation or cognition this morning, which I am unable to assess that he has chronic cognition issues. 6. Chronic obstructive pulmonary disease. 7. Severe malnutrition. 8. Hyperparathyroidism of renal disease. 9. Anemia of chronic kidney disease and iron deficiency. 10. Leukocytosis, which I am unsure if some of which are related to volume depletion or other contributing factor as his neutrophil count was 71.4%, monocytes were 12.8. RECOMMENDATIONS: 1. Supportive care. As far as the blood pressure elevation, need to look at treatment plan. Would dose adjust his medications. He is on Flagyl, which may need to be looked at changing to vancomycin oral if there is suspicion that this is Clostridium difficile. As far as morphine, I would be cautious with morphine use. 2. End-stage renal disease. This patient with evidence of cognition and falls. 3. I notice he is on Levaquin 500 mg IV every 48 hours. I will also evaluate to see if this needs to be continued with that recent Clostridium difficile infection reported. Further evaluate if there is a way that this can be held and see if something evolves. I am not sure if he was tested for flu, but he is not having fevers or any kind of muscle aches. I do not see blood cultures that were tested, but I can see it from the Emergency Room, so this will need to be further evaluated. Consider a chest x-ray and if he does have urine output, consider urinalysis check, which actually was done and did not reveal any abnormalities or suggesting infection. 4. I notice he has glucosuria. I am not sure if he has had diabetic disease in the past or if this is just from chronic renal disease. 5. I did mention about rehabilitation and so he has been before. He is not encouraged to go back; however, with his falls and debilitation. This is a second hospitalization for the report. Consider rehab evaluation. We will plan for dialysis support this morning. I do not believe that he has fluid only with looking at his overall status. However, we will have to monitor and see how he tolerates therapy in the morning. CONSULT REPORT [id number] JOHN CARDONA TRANSINT:[id number] Voice Confirmation ID: [id number] DOCUMENT ID: [id number] IRENE GONZALEZ MD at 1637 CC: BELLA MONDRAGON MD [phone] DICTATION DATE: 06/24/19 06 DIRECTOR OF TAX SERVICES: 06/24/19 1054 ADM IN [facility] [address] [place] [address]
[2019-06-26 17:25] VITALS: BP 191/96
--- NOTE | 2019-06-26 19:22 | NUR ---
REPORT RECEIVED. PT IN BED RESTING WITH EYES CLOSED. NO S/SX OF DISTRESS OBSERVED AT THIS TIME. CALL LIGHT IN REACH, SR X2, FALL PRECAUTIONS IN PLACE. WILL CTM.
[2019-06-26 22:01] VITALS: BP 184/87
[2019-06-27 01:21] VITALS: BP 181/91
[2019-06-27 05:21] VITALS: BP 177/82
[2019-06-27 06:33] LABS: BASOPHILS 0.4 % (0-2); EOSINOPHILS 3.4 % (0-7); HEMATOCRIT 27.9 % (42.0-54.0); HEMOGLOBIN 9.1 g/dL (13.5-17.5); IMMATURE GRANULOCYTES 0.2 % (0-5); LYMPHOCYTES 19.5 % (15-50); MCH 31.3 pg (26.0-34.0); MCHC 32.6 g/dL (31.0-37.0); MCV 95.9 fL (80.0-100.0); MEAN PLATELET VOLUME 9.1 fL (7.4-10.4); MONOCYTES 10.8 % (2-11); NEUTROPHILS 65.7 % (40-80); PLATELET COUNT 189 10x3/uL (130-400); RBC 2.91 10x6/uL (4.20-6.10); RDW 14.5 % (11.5-14.5); WBC 11.1 10x3/uL (4.8-10.8)
[2019-06-27 06:47] LABS: ANION GAP 21.6 mmol/L (8-16); CARBON DIOXIDE 20.5 mmol/L (21.0-32.0); CREATININE - SERUM 9.3 mg/dL (0.6-1.3); PHOSPHOROUS 8.3 mg/dL (2.5-4.9); POTASSIUM - SERUM 5.1 mmol/L (3.5-5.1)
[2019-06-27 09:01] VITALS: BP 201/102
--- NOTE | 2019-06-27 10:00 | NUR ---
PT ALERT BUT CONFUSED X3. SON STATES THIS IS ABNORMAL. PT CT 06/23/2019 NEGATIVE. WILL CONTINUE TO MONITOR.
--- NOTE | 2019-06-27 10:16 | MORECARE ---
CASE MANAGEMENT DISCHARGE SUMMARY PATIENT: JOHN CARDONA UNIT: [id number] ADM DATE: 06/24/19 AGE: 78 : 39 SEX: M ROOM/BED: D.2138 AUTHOR: ADY IVEY PHYSICIAN: REFERRING PHYSICIAN: YARON GONZALES MD DATE OF SERVICE: 06/27/19 Discharge Plan Patient Name: JOHN CARDONA [facility] [facility] 1940 Planned Disposition: Anticipated Discharge Date: Discharge Date: Expected LOS: Initial Reviewer: [email or web address] Initial Review Date: 06/24/2019 Generated: 06/27/19 11:16 am DCPIA - Discharge Planning Initial Assessment Updated by [email or web address]: Clementina Villanueva on 06/27/19 10:15 am * Is the patient Alert and Oriented? Yes * PCP ADAM * Pharmacy [facility] * Preadmission Environment Home Alone * ADLs Independent * Other Equipment WALKER, 02/PORT, CPAP * List name and contact numbers for known caregivers / representatives who currently or will assist patient after discharge: LORRIE ROJAS AND POA, * Community resources currently utilized None * Please name any agencies selected above. [facility] ALV[facility] * Additional services required to return to the preadmission environment? Yes * Can the patient safely return to the preadmission environment? No * Has this patient been hospitalized within the prior 30 days at any hospital? No Patient Name: JOHN CARDONA Page [phone] at 1016 All edits/amendments must be made on the electronic document DICTATION DATE: 06/27/19 1016 BUTCHER SUPERVISOR: DM 06/27/19 1016 RPT#: [id number] DC DATE: STATUS: ADM IN [facility] [address] [place] [address] END OF REPORT
--- NOTE | 2019-06-27 10:20 | NUR ---
PT TAKEN TO DIALYSIS. MEDS HELD. PT ALERT BUT CONFUSED X3. [id number] SABINA CALLED. PT TO GO TO DIALYSIS EARLY. BED LOW CALL LIGHT WITHIN REACH. WILL CONTINUE TO MONITOR.
--- NOTE | 2019-06-27 10:23 | MORECARE ---
CASE MANAGEMENT DISCHARGE SUMMARY PATIENT: JOHN CARDONA UNIT: [id number] ADM DATE: 06/24/19 AGE: 78 : 39 SEX: M ROOM/BED: D.7634 AUTHOR: UCHE,DOC PHYSICIAN: REFERRING PHYSICIAN: YARON GONZALES MD DATE OF SERVICE: 06/27/19 Discharge Plan Patient Name: JOHN CARDONA Facility: [facility]:[place] : 1940 Planned Disposition: Anticipated Discharge Date: Discharge Date: Expected LOS: Initial Reviewer: [email or web address] Initial Review Date: 06/24/2019 Generated: 06/27/19 11:22 am Comments DCP- Discharge Planning Updated by [id number]: Clementina Villanueva on 06/27/19 9:[address] Patient Name: JOHN CARDONA Admission Status: ER Accout number: [id number] Admission Date: 06-24-2019 : 1940 Admission Diagnosis: Attending: YARON GONZALES Current LOS: 3 Anticipated DC Date: Planned Disposition: Primary Insurance: MEDICARE A & B Discharge Planning Comments: CM MET WITH PATIENT TO DISCUSS DC PLANNING/NEEDS AFTER OBTAINING VERBAL CONSENT. PATIENT IS VERY HARD OF HEARING AND WANTS ME TO TALK TO HIS SON CRYSTAL. I CALLED CRYSTAL AND HE STATES HIS DAD WILL NEED IPRH VS SNF. [facility]H IS FIRST CHOICE, [facility]. IMM SIGNED. CM TO FOLLOW AND ASSIST NEEDED. I WILL FAX REFERRAL TO [facility] TODAY. Client Account Representative: Clementina Villanueva DCPIA - Discharge Planning Initial Assessment Updated by [email or web address]: Clementina Villanueva on 06/27/19 10:15 am * Is the patient Alert and Oriented? Yes * PCP ADAM * Pharmacy [facility] * Preadmission Environment Home Alone * ADLs Independent * Other Equipment WALKER, 02/PORT, CPAP * List name and contact numbers for known caregivers / representatives who currently or will assist patient after discharge: LORRIE ROJAS AND POA, * Community resources currently utilized None * Please name any agencies selected above. [facility] * Additional services required to return to the preadmission environment? Yes * Can the patient safely return to the preadmission environment? No * Has this patient been hospitalized within the prior 30 days at any hospital? No External Providers External Provider: [facility] Bill Contact Date: Service Request Date: Service Type: Resolution: Reviewer: Comments: Coverage Notice Reviewer: [email or web address] Liz Villanueva Notice Issued Date-Time: 06/27/2019 10:21 Notice Type: IM Appeals Notice Notice Delivered To: Patient Relationship to Patient: Roadway Engineer Name: Delivery Method: HAND - Hand Delivered Malinda Days: Prior Verbal Notification: Recipient Understood Notice: Yes Recipient Signature: Yes Med Rec Note Co-signed by Attending: Coverage Notice Comment: Reviewer: [id number] Liz Villanueva Notice Issued Date-Time: 06/27/2019 10:21 Notice Type: Patient Choice Letter Notice Delivered To: Family Member Relationship to Patient: Roadway Engineer Name: CRYSTAL CARDONA Delivery Method: - Malinda Days: Prior Verbal Notification: Recipient Understood Notice: Recipient Signature: Med Rec Note Co-signed by Attending: Coverage Notice Comment: Last DP export: 06/27/19 9:16 a Patient Name: JOHN CARDONA Page [phone] at 1023 All edits/amendments must be made on the electronic document DICTATION DATE: 06/27/19 1022 SENIOR DIRECTOR MARKETING: PRESTON 06/27/19 1022 RPT#: [id number] DC DATE: STATUS: ADM IN [facility] [address] [place] [address] END OF REPORT
--- NOTE | 2019-06-27 10:39 | MORECARE ---
CASE MANAGEMENT DISCHARGE SUMMARY PATIENT: JOHN CARDONA UNIT: [id number] ADM DATE: 06/24/19 AGE: 78 : 39 SEX: M ROOM/BED: D.1004 AUTHOR: UCHE,DOC PHYSICIAN: REFERRING PHYSICIAN: YARON GONZALES MD DATE OF SERVICE: 06/27/19 Discharge Plan Patient Name: JOHN CARDONA Facility: [facility]:[place] : 1940 Planned Disposition: Anticipated Discharge Date: Discharge Date: Expected LOS: Initial Reviewer: [email or web address] Initial Review Date: 06/24/2019 Generated: 06/27/19 11:39 am Comments DCP- Discharge Planning Updated by [email or web address]: Clementina Villanueva on 06/27/19 9:[address] Patient Name: JOHN CARDONA Admission Status: ER Accout number: [id number] Admission Date: 06-24-2019 : 1940 Admission Diagnosis: Attending: YARON GONZALES Current LOS: 3 Anticipated DC Date: Planned Disposition: Primary Insurance: MEDICARE A & B Discharge Planning Comments: CM MET WITH PATIENT TO DISCUSS DC PLANNING/NEEDS AFTER OBTAINING VERBAL CONSENT. PATIENT IS VERY HARD OF HEARING AND WANTS ME TO TALK TO HIS SON CRYSTAL. I CALLED CRYSTAL AND HE STATES HIS DAD WILL NEED IPRH VS SNF. [facility] CHOICE, [facility]. IMM SIGNED. CM TO FOLLOW AND ASSIST NEEDED. I WILL FAX REFERRAL TO [facility] TODAY. Livestock Haulier: Clementina Villanueva DCPIA - Discharge Planning Initial Assessment Updated by [email or web address]: Clementina Villanueva on 06/27/19 10:15 am * Is the patient Alert and Oriented? Yes * PCP ADAM * Pharmacy [facility] * Preadmission Environment Home Alone * ADLs Independent * Other Equipment WALKER, 02/PORT, CPAP * List name and contact numbers for known caregivers / representatives who currently or will assist patient after discharge: LORRIE ROJAS AND POA, * Community resources currently utilized None * Please name any agencies selected above. [facility] * Additional services required to return to the preadmission environment? Yes * Can the patient safely return to the preadmission environment? No * Has this patient been hospitalized within the prior 30 days at any hospital? No Coverage Notice Reviewer: [id number] Liz Villanueva Notice Issued Date-Time: 06/27/2019 10:21 Notice Type: IM Appeals Notice Notice Delivered To: Patient Relationship to Patient: Route Service Manager Name: Delivery Method: HAND - Hand Delivered Malinda Days: Prior Verbal Notification: Recipient Understood Notice: Yes Recipient Signature: Yes Med Rec Note Co-signed by Attending: Coverage Notice Comment: Reviewer: [email or web address] Liz Villanueva Notice Issued Date-Time: 06/27/2019 10:21 Notice Type: Patient Choice Letter Notice Delivered To: Family Member Relationship to Patient: Route Service Manager Name: CRYSTAL CARDONA Delivery Method: PHONE - Phone Malinda Days: Prior Verbal Notification: Yes Recipient Understood Notice: Yes Recipient Signature: Med Rec Note Co-signed by Attending: Coverage Notice Comment: [facility], SECOND CHOICE [facility]. Last DP export: 06/27/19 9:23 a Patient Name: JOHN CARDONA Page [phone] at 1039 All edits/amendments must be made on the electronic document DICTATION DATE: 06/27/19 1039 CORRECTIONAL THERAPY DIRECTOR: PRESTON 06/27/19 1039 RPT#: [id number] DC DATE: STATUS: ADM IN [facility] [address] [place] [address] END OF REPORT
--- NOTE | 2019-06-27 12:36 | NUR ---
Rehab Note- Acute Inpatient Rehab prescreen order received. The patient's son is requesting [facility] Acute Inpatient REhab thank you for this referral! Natividad Bardales RN CLinical Liaison, [facility] Rehab
--- NOTE | 2019-06-27 15:02 | NUR ---
OT NOTE: PT OUT OF ROOM IN AM..STILL IN DIALYSIS IN PM. WILL ATTEMPT EVAL AGAIN TOMORROW. NOLAN SANFORD, OTR/L
--- NOTE | 2019-06-27 15:04 | NUR ---
Nutrition Follow-up: Pt in dialysis at time of visit. Chart reviewed. Diet: Renal PO intake: 50-100% (06/25) No new wt; last wt: 180# (06/24) Last BM: 06/27 per chart (bloody stools per nursing assessment) Labs noted: K+ 5.1, PO4 8.3 Meds noted: Floranex, Remeron, Nephrovite, Phoslo -Continue current diet as tolerated. -Offer Nepro with meals. -Need new wt; noted daily wts ordered. -RD following.
--- NOTE | 2019-06-27 15:39 | NUR ---
ASSISTED PT UP TO BEDSIDE CAMMODE. ON PINK PAD WAS LARGE AMOUNT OF BLOODY STOOL ALSO IN BEDSIDE. SABINA PAGED. SAMPLE SENT TO LAB, VOICE CONSULTED, H&H DRAWN. WILL CONTINUE TO MONITOR
[2019-06-27 15:51] LABS: HEMATOCRIT 31.8 % (42.0-54.0); HEMOGLOBIN 10.5 g/dL (13.5-17.5)
[2019-06-27 16:46] VITALS: BP 169/86
[2019-06-27 20:23] VITALS: BP 164/80
--- NOTE | 2019-06-27 22:02 | NUR ---
EVENING ROUNDS COMPLETED. VSS, ALERT WITH MINIMAL CONFUSION. NO S/S OF RT DISTRESS. ALTHOUGH PT OCCASIONALLY TAKES OF NC. SUPPOSITORY ADMINISTERED. PT CLEANED PT'S BED PROVIDED FRESH GOWN/LINEN. PT DENIES ANY FURTHER NEEDS AT THIS TIME. WILL CTM. CL WITHIN REACH, SIMRAN ALARM ON.
[2019-06-28 00:11] VITALS: BP 149/66
[2019-06-28 05:03] VITALS: BP 169/72
[2019-06-28 05:52] LABS: BASOPHILS 0.4 % (0-2); EOSINOPHILS 3.3 % (0-7); HEMATOCRIT 28.5 % (42.0-54.0); HEMOGLOBIN 9.2 g/dL (13.5-17.5); IMMATURE GRANULOCYTES 0.3 % (0-5); LYMPHOCYTES 20.3 % (15-50); MCH 30.8 pg (26.0-34.0); MCHC 32.3 g/dL (31.0-37.0); MCV 95.3 fL (80.0-100.0); MEAN PLATELET VOLUME 9.2 fL (7.4-10.4); MONOCYTES 14.1 % (2-11); NEUTROPHILS 61.6 % (40-80); PLATELET COUNT 204 10x3/uL (130-400); RBC 2.99 10x6/uL (4.20-6.10); RDW 14.4 % (11.5-14.5); WBC 9.5 10x3/uL (4.8-10.8)
[2019-06-28 06:05] LABS: CREATININE - SERUM 7.1 mg/dL (0.6-1.3); PHOSPHOROUS 7.5 mg/dL (2.5-4.9)
[2019-06-28 06:11] LABS: ANION GAP 14.3 mmol/L (8-16); CARBON DIOXIDE 26.7 mmol/L (21.0-32.0)
--- NOTE | 2019-06-28 07:41 | NUR ---
RECIEVED REPORT. PATIENT IS SLIGHTLY CONFUSED AND FRUSTRATED THIS MORNING. HE HAS GOTTEN UP TO THE BATHROOM WITH STAND BY ASSIST. HE DENIES ANY NEEDS AT THIS TIME.
[2019-06-28 09:01] VITALS: BP 134/83
[2019-06-28 12:00] VITALS: BP 179/95
--- NOTE | 2019-06-28 15:37 | MORECARE ---
CASE MANAGEMENT DISCHARGE SUMMARY PATIENT: JOHN CARDONA UNIT: [id number] ADM DATE: 06/24/19 AGE: 78 : 39 SEX: M ROOM/BED: D.4918 AUTHOR: UCHE,DOC PHYSICIAN: REFERRING PHYSICIAN: YARON GONZALES MD DATE OF SERVICE: 06/28/19 Discharge Plan Patient Name: OJHN CARDONA Facility: [facility]:[place] : 1940 Planned Disposition: Anticipated Discharge Date: Discharge Date: Expected LOS: Initial Reviewer: [id number] Initial Review Date: 06/24/2019 Generated: 06/28/19 4:36 pm Comments DCP- Discharge Planning Updated by [email or web address]: Clementina Villanueva on 06/27/19 9:[address] Patient Name: JOHN CARDONA Admission Status: ER Accout number: [id number] Admission Date: 06-24-2019 : 1940 Admission Diagnosis: Attending: YARON GONZALES Current LOS: 3 Anticipated DC Date: Planned Disposition: Primary Insurance: MEDICARE A & B Discharge Planning Comments: CM MET WITH PATIENT TO DISCUSS DC PLANNING/NEEDS AFTER OBTAINING VERBAL CONSENT. PATIENT IS VERY HARD OF HEARING AND WANTS ME TO TALK TO HIS SON CRYSTAL. I CALLED CRYSTAL AND HE STATES HIS DAD WILL NEED IPRH VS SNF. [facility]H [facility] CHOICE, [facility]. IMM SIGNED. CM TO FOLLOW AND ASSIST NEEDED. I WILL FAX REFERRAL TO [facility] TODAY. Payroll Accounting Manager: Clementina Villanueva DCPIA - Discharge Planning Initial Assessment Updated by [email or web address]: Clementina Villanueva on 06/27/19 10:15 am * Is the patient Alert and Oriented? Yes * PCP ADAM * Pharmacy [facility] * Preadmission Environment Home Alone * ADLs Independent * Other Equipment WALKER, 02/PORT, CPAP * List name and contact numbers for known caregivers / representatives who currently or will assist patient after discharge: LORRIE ROJAS AND POA, * Community resources currently utilized None * Please name any agencies selected above. [facility] * Additional services required to return to the preadmission environment? Yes * Can the patient safely return to the preadmission environment? No * Has this patient been hospitalized within the prior 30 days at any hospital? No Coverage Notice Reviewer: [email or web address] Liz Villanueva Notice Issued Date-Time: 06/27/2019 10:21 Notice Type: IM Appeals Notice Notice Delivered To: Patient Relationship to Patient: Harvest Contractor Name: Delivery Method: HAND - Hand Delivered Malinda Days: Prior Verbal Notification: Recipient Understood Notice: Yes Recipient Signature: Yes Med Rec Note Co-signed by Attending: Coverage Notice Comment: Reviewer: [id number] Liz Villanueva Notice Issued Date-Time: 06/27/2019 10:21 Notice Type: Patient Choice Letter Notice Delivered To: Family Member Relationship to Patient: Harvest Contractor Name: CRYSTAL CARDONA Delivery Method: PHONE - Phone Malinda Days: Prior Verbal Notification: Yes Recipient Understood Notice: Yes Recipient Signature: Med Rec Note Co-signed by Attending: Coverage Notice Comment: [facility], SEC[facility] CHOICE [facility]. Last DP export: 06/27/19 9:39 a Patient Name: JOHN CARDONA Page [phone] at 1537 All edits/amendments must be made on the electronic document DICTATION DATE: 06/28/19 1536 CUBING MACHINE TENDER: PRESTON 06/28/19 1536 RPT#: [id number] DC DATE: STATUS: ADM IN [facility] [address] [place] [address] END OF REPORT
--- NOTE | 2019-06-28 15:46 | MORECARE ---
CASE MANAGEMENT DISCHARGE SUMMARY PATIENT: JOHN CARDONA UNIT: [id number] ADM DATE: 06/24/19 AGE: 78 : 39 SEX: M ROOM/BED: D.7228 AUTHOR: UCHE,DOC PHYSICIAN: REFERRING PHYSICIAN: YARON GONZALES MD DATE OF SERVICE: 06/28/19 Discharge Plan Patient Name: JOHN CARDONA Facility: [facility]:[place] : 1940 Planned Disposition: Inpatient Rehab Anticipated Discharge Date: 06/29/19 Discharge Date: Expected LOS: 5 Initial Reviewer: [id number] Initial Review Date: 06/24/2019 Generated: 06/28/19 4:45 pm Comments DCP- Discharge Planning Updated by [id number]: Clementina Villanueva on 06/27/19 9:[address] Patient Name: JOHN CARDONA Admission Status: ER Accout number: [id number] Admission Date: 06-24-2019 : 1940 Admission Diagnosis: Attending: YARON GONZALES Current LOS: 3 Anticipated DC Date: Planned Disposition: Primary Insurance: MEDICARE A & B Discharge Planning Comments: CM MET WITH PATIENT TO DISCUSS DC PLANNING/NEEDS AFTER OBTAINING VERBAL CONSENT. PATIENT IS VERY HARD OF HEARING AND WANTS ME TO TALK TO HIS SON CRYSTAL. I CALLED CRYSTAL AND HE STATES HIS DAD WILL NEED IPRH VS SNF. [facility] IPRH IS FIRST CHOICE, [facility] SN[facility] IS SECOND CHOICE. IMM SIGNED. CM TO FOLLOW AND ASSIST NEEDED. I WILL FAX REFERRAL TO [facility] TODAY. Manager Workers Compensation: Clementina Villanueva DCPIA - Discharge Planning Initial Assessment Updated by [email or web address]: Clementina Villanueva on 06/27/19 10:15 am * Is the patient Alert and Oriented? Yes * PCP ADAM * Pharmacy [facility] * Preadmission Environment Home Alone * ADLs Independent * Other Equipment WALKER, 02/PORT, CPAP * List name and contact numbers for known caregivers / representatives who currently or will assist patient after discharge: LORRIE ROJAS AND POA, * Community resources currently utilized None * Please name any agencies selected above. [facility] * Additional services required to return to the preadmission environment? Yes * Can the patient safely return to the preadmission environment? No * Has this patient been hospitalized within the prior 30 days at any hospital? No Coverage Notice Reviewer: [id number] Liz Villanueva Notice Issued Date-Time: 06/27/2019 10:21 Notice Type: IM Appeals Notice Notice Delivered To: Patient Relationship to Patient: Dispensary Attendant Name: Delivery Method: HAND - Hand Delivered Malinda Days: Prior Verbal Notification: Recipient Understood Notice: Yes Recipient Signature: Yes Med Rec Note Co-signed by Attending: Coverage Notice Comment: Reviewer: [id number] Liz Villanueva Notice Issued Date-Time: 06/27/2019 10:21 Notice Type: Patient Choice Letter Notice Delivered To: Family Member Relationship to Patient: Dispensary Attendant Name: CRYSTAL CARDONA Delivery Method: PHONE - Phone Malinda Days: Prior Verbal Notification: Yes Recipient Understood Notice: Yes Recipient Signature: Med Rec Note Co-signed by Attending: Coverage Notice Comment: [facility], SEC[facility] CHO[facility]. Last DP export: 06/28/19 2:37 p Patient Name: JOHN CARDONA Page [phone] at 1546 All edits/amendments must be made on the electronic document DICTATION DATE: 06/28/19 1545 MUSIC GRAPHER: PRESTON 06/28/19 1545 RPT#: [id number] DC DATE: STATUS: ADM IN [facility] [address] [place] [address] END OF REPORT
--- NOTE | 2019-06-28 15:54 | MORECARE ---
CASE MANAGEMENT DISCHARGE SUMMARY PATIENT: JOHN CARDONA UNIT: [id number] ADM DATE: 06/24/19 AGE: 78 : 39 SEX: M ROOM/BED: D.2135 AUTHOR: UCHE,DOC PHYSICIAN: REFERRING PHYSICIAN: YARON GONZALES MD DATE OF SERVICE: 06/28/19 Discharge Plan Patient Name: JOHN CARDONA Facility: [facility]:[place] : 1940 Planned Disposition: Inpatient Rehab Anticipated Discharge Date: 06/29/19 Discharge Date: Expected LOS: 5 Initial Reviewer: [id number] Initial Review Date: 06/24/2019 Generated: 06/28/19 4:54 pm Comments DCP- Discharge Planning Updated by [id number]: Paulino Albarran on 06/28/19 2:[address] Patient Name: JOHN CARDONA Encounter No: [id number] : 1940 Primary Insurance: MEDICARE A & B Anticipated DC Date: 06-29-2019 Planned Disposition: Inpatient Rehab External Planned Provider: [facility] DCP follow-up note: CM [facility]CE[facility] CALL FROM [facility], SPOKE TO FRANNIE AT [phone], WHO ADVISED THEY WILL ACCEPT PT FOR INPATIENT REHAB. CM NOTIFIED SANIA ZALDIVAR. CM NOTIFED PT WHO IS IN AGREEMENT WITH DISCHARGE TO REHAB WHEN STABLE. IMPORTANT MESSAGE FROM MEDICARE PROVIDED AND EXPLAINED. FOR DISCHARGE, NOTIFY FRANNIE AT [facility], , FAX CURRENT MAR AND DISCHARGE INFORMATION TO [facility] AT [phone]. [facility] TO ARRANGE TRANSPORTATION. MAILE Medel DCP- Discharge Planning Updated by [id number]: Clementina Villanueva on 06/27/19 9:[address] Patient Name: JOHN CARDONA Admission Status: ER Accout number: [id number] Admission Date: 06-24-2019 : 1940 Admission Diagnosis: Attending: YARON GONZALES Current LOS: 3 Anticipated DC Date: Planned Disposition: Primary Insurance: MEDICARE A & B Discharge Planning Comments: CM MET WITH PATIENT TO DISCUSS DC PLANNING/NEEDS AFTER OBTAINING VERBAL CONSENT. PATIENT IS VERY HARD OF HEARING AND WANTS ME TO TALK TO HIS SON CRYSTAL. I CALLED CRYSTAL AND HE STATES HIS DAD WILL NEED IPRH VS SNF. [facility] IS FIRST CHOICE, [facility] IS SECOND CHOICE. IMM SIGNED. CM TO FOLLOW AND ASSIST NEEDED. I WILL FAX REFERRAL TO [facility] TODAY. School Psychology Specialist: Clementina Villanueva DCPIA - Discharge Planning Initial Assessment Updated by [id number]: Clementina Villanueva on 06/27/19 10:15 am * Is the patient Alert and Oriented? Yes * PCP ADAM * Pharmacy [facility] * Preadmission Environment Home Alone * ADLs Independent * Other Equipment WALKER, 02/PORT, CPAP * List name and contact numbers for known caregivers / representatives who currently or will assist patient after discharge: CRYSTAL, SON AND POA, * Community resources currently utilized None * Please name any agencies selected above. [facility] M[facility] ALV[facility] * Additional services required to return to the preadmission environment? Yes * Can the patient safely return to the preadmission environment? No * Has this patient been hospitalized within the prior 30 days at any hospital? No Coverage Notice Reviewer: [id number] Liz Villanueva Notice Issued Date-Time: 06/27/2019 10:21 Notice Type: IM Appeals Notice Notice Delivered To: Patient Relationship to Patient: Packaging Materials Inspector Name: Delivery Method: HAND - Hand Delivered Malinda Days: Prior Verbal Notification: Recipient Understood Notice: Yes Recipient Signature: Yes Med Rec Note Co-signed by Attending: Coverage Notice Comment: Reviewer: [id number] Liz Villanueva Notice Issued Date-Time: 06/27/2019 10:21 Notice Type: Patient Choice Letter Notice Delivered To: Family Member Relationship to Patient: Packaging Materials Inspector Name: CRYSTAL CARDONA Delivery Method: PHONE - Phone Malinda Days: Prior Verbal Notification: Yes Recipient Understood Notice: Yes Recipient Signature: Med Rec Note Co-signed by Attending: Coverage Notice Comment: [facility], SECOND CHOICE IS [facility]. Reviewer: [id number] - Paulino Albarran Notice Issued Date-Time: 06/28/2019 15:10 Notice Type: IM Discharge Notice Notice Delivered To: Patient Relationship to Patient: Packaging Materials Inspector Name: Delivery Method: HAND - Hand Delivered Malinda Days: Prior Verbal Notification: Recipient Understood Notice: Yes Recipient Signature: Yes Med Rec Note Co-signed by Attending: Coverage Notice Comment: Last DP export: 06/28/19 2:46 p Patient Name: JOHN CARDONA Page 58675 at 1554 All edits/amendments must be made on the electronic document DICTATION DATE: 06/28/191553 TOOL CRIB ATTENDANT: PRESTON 06/28/191553 RPT#: [id number] DC DATE: STATUS: ADM IN [facility] [address] [place] [address] END OF REPORT
[2019-06-28 16:00] VITALS: BP 190/85
--- NOTE | 2019-06-28 16:34 | NUR ---
OT NOTE: PT COMPLETED SUPINE TO SIT WITH MIN A.PT COMPLETED EOB SITTING WITH SBA. PT COMPLETED SIT TO STAND WITH CGA/MIN A. PT COMPLETED TOILET HYGIENE TASKS WITH MIN A. PT COMPLETED HAND HYGIENE WITH SETUP. PT REFUSED TO AMBULATED STATED HE HAS CHRONIC BACK PAIN. [id number] THANK YOU, ODESSA MÉNDEZ
[2019-06-28 17:11] LABS: BILIRUBIN NEGATIVE (NEGATIVE); GLUCOSE 50 mg/dL (NEGATIVE); KETONE NEGATIVE (NEGATIVE); NITRITE NEGATIVE (NEGATIVE); UROBILINOGEN NORMAL (NORMAL)
[2019-06-28 17:13] LABS: BACTERIA FEW /hpf (NEGATIVE); RED CELLS - URINE OCC /hpf (0-5); WHITE CELLS - URINE OCC /hpf (NEGATIVE)
--- NOTE | 2019-06-28 18:20 | NUR ---
CALLED [facility] FOR B/P MEDS TO GIVE. ELEVATED B/P
[2019-06-28 20:50] VITALS: BP 113/57
[2019-06-28 22:06] LABS: OVA + PARASITE EXAM Final report (())
[2019-06-29 00:09] VITALS: BP 143/72
[2019-06-29 06:24] VITALS: BP 151/66
[2019-06-29 07:00] LABS: ANION GAP 21.7 mmol/L (8-16); CALCIUM 8.8 mg/dL (8.5-10.1); CARBON DIOXIDE 20.8 mmol/L (21.0-32.0); CREATININE - SERUM 8.8 mg/dL (0.6-1.3); PHOSPHOROUS 8.8 mg/dL (2.5-4.9); POTASSIUM - SERUM 4.5 mmol/L (3.5-5.1)
--- NOTE | 2019-06-29 07:15 | NUR ---
PT RECEIVED ASLEEP IN BED, AWAKES TO VOICE. ONLY COMPLAINT IS PAIN TO LEFT HIP. FOR DIALYSIS TODAY.
[2019-06-29 07:49] LABS: HEMOGLOBIN 8.7 g/dL (13.5-17.5); LYMPHOCYTES 19.1 % (15-50); MCHC 32.2 g/dL (31.0-37.0); MCV 96.1 fL (80.0-100.0); MEAN PLATELET VOLUME 8.8 fL (7.4-10.4); NEUTROPHILS 66.9 % (40-80); PLATELET COUNT 212 10x3/uL (130-400); RBC 2.81 10x6/uL (4.20-6.10); RDW 13.9 % (11.5-14.5); WBC 9.2 10x3/uL (4.8-10.8)
[2019-06-29 09:32] VITALS: BP 193/92
--- NOTE | 2019-06-29 09:45 | MORECARE ---
CASE MANAGEMENT DISCHARGE SUMMARY PATIENT: JOHN CARDONA UNIT: [id number] ADM DATE: 06/24/19 AGE: 78 : 39 SEX: M ROOM/BED: D.7719 AUTHOR: UCHE,DOC PHYSICIAN: REFERRING PHYSICIAN: YARON GONZALES MD DATE OF SERVICE: 06/29/19 Discharge Plan Patient Name: JOHN CARDONA Facility: [facility]:[place] : 1940 Planned Disposition: Inpatient Rehab Anticipated Discharge Date: 06/29/19 Discharge Date: Expected LOS: 5 Initial Reviewer: [id number] Initial Review Date: 06/24/2019 Generated: 06/29/19 10:44 am Comments DCP- Discharge Planning Updated by [id number]: Paulino Albarran on 06/29/19 8:[address] Patient Name: JOHN CARDONA Encounter No: [id number] : 1940 Primary Insurance: MEDICARE A & B Anticipated DC Date: 06-29-2019 Planned Disposition: Inpatient Rehab External Planned Provider: [facility] DCP follow-up note: CM CALLED [facility], SPOKE TO FRANNIE AT [phone], WHO ADVISED THEY WILL ACCEPT PT FOR INPATIENT REHAB. CM FAXED UPDATE WITH CURRENT MAR TO [facility] AT [phone]. CM NOTIFIED SANIA JOHNS WHO WILL PROVIDE DISCHARGE ORDERS AND WILL NOTIFY DIALYSIS TO ASK FOR EARLY DIALYSIS TODAY. FOR DISCHARGE, FAX DISCHARGE INFORMATION TO [facility] AT [phone]. [facility] TO ARRANGE TRANSPORTATION. Paulino Albarran CASE MANAGEMENT. DCP- Discharge Planning Updated by [email or web address]: Paulino Albarran on 06/28/19 2:[address] Patient Name: JOHN CARDONA Encounter No: [id number] : 1940 Primary Insurance: MEDICARE A & B Anticipated DC Date: 06-29-2019 Planned Disposition: Inpatient Rehab External [facility] DCP follow-up note: CM RECEIVED CALL FROM [facility], SPOKE TO FRANNIE AT [phone], WHO ADVISED THEY WILL ACCEPT PT FOR INPATIENT REHAB. CM NOTIFIED SANIA ZALDIVAR. CM NOTIFED PT WHO IS IN AGREEMENT WITH DISCHARGE TO REHAB WHEN STABLE. IMPORTANT MESSAGE FROM MEDICARE PROVIDED AND EXPLAINED. FOR DISCHARGE, NOTIFY FRANNIE AT [facility], , FAX CURRENT MAR AND DISCHARGE INFORMATION TO [facility] AT [phone]. [facility] TO ARRANGE TRANSPORTATION. Paulino Albarran, CASE MANAGEMENT DCP- Discharge Planning Updated by [id number]: Clementina Villanueva on 06/27/19 9:[address] Patient Name: JOHN CARDONA Admission Status: ER Accout number: [id number] Admission Date: 06-24-2019 : 1940 Admission Diagnosis: Attending: YARON GONZALES Current LOS: 3 Anticipated DC Date: Planned Disposition: Primary Insurance: MEDICARE A & B Discharge Planning Comments: CM MET WITH PATIENT TO DISCUSS DC PLANNING/NEEDS AFTER OBTAINING VERBAL CONSENT. PATIENT IS VERY HARD OF HEARING AND WANTS ME TO TALK TO HIS SON CRYSTAL. I CALLED CRYSTAL AND HE STATES HIS DAD WILL NEED IPRH VS SNF. [facility] IPRH IS FIRST CHOICE, [facility] IS SECOND CHOICE. IMM SIGNED. CM TO FOLLOW AND ASSIST NEEDED. I WILL FAX REFERRAL TO [facility] TODAY. Sales Manager [place]: Clementina Villanueva DCPIA - Discharge Planning Initial Assessment Updated by [email or web address]: Clementina Villanueva on 06/27/19 10:15 am * Is the patient Alert and Oriented? Yes * PCP ADAM * Pharmacy [facility] * Preadmission Environment Home Alone * ADLs Independent * Other Equipment WALKER, 02/PORT, CPAP * List name and contact numbers for known caregivers / representatives who currently or will assist patient after discharge: LORRIE ROJAS AND POA, * Community resources currently utilized None * Please name any agencies selected above. [facility] M[facility] * Additional services required to return to the preadmission environment? Yes * Can the patient safely return to the preadmission environment? No * Has this patient been hospitalized within the prior 30 days at any hospital? No External Providers External Provider: [facility] Next Contact Date: 06/29/2019 Service Request Date: Service Type: Resolution: Reviewer: Comments: Coverage Notice Reviewer: [id number] - Clementina Villanueva Notice Issued Date-Time: 06/27/2019 10:21 Notice Type: IM Appeals Notice Notice Delivered To: Patient Relationship to Patient: Four H Agent Name: Delivery Method: HAND - Hand Delivered Malinda Days: Prior Verbal Notification: Recipient Understood Notice: Yes Recipient Signature: Yes Med Rec Note Co-signed by Attending: Coverage Notice Comment: Reviewer: [id number] Liz Villanueva Notice Issued Date-Time: 06/27/2019 10:21 Notice Type: Patient Choice Letter Notice Delivered To: Family Member Relationship to Patient: Four H Agent Name: CRYSTAL CARDONA Delivery Method: PHONE - Phone Malinda Days: Prior Verbal Notification: Yes Recipient Understood Notice: Yes Recipient Signature: Med Rec Note Co-signed by Attending: Coverage Notice Comment: [facility], SECOND CHOICE IS [facility]. Reviewer: [id number] - Paulino Albarran Notice Issued Date-Time: 06/28/2019 15:10 Notice Type: IM Discharge Notice Notice Delivered To: Patient Relationship to Patient: Four H Agent Name: Delivery Method: HAND - Hand Delivered Malinda Days: Prior Verbal Notification: Recipient Understood Notice: Yes Recipient Signature: Yes Med Rec Note Co-signed by Attending: Coverage Notice Comment: Last DP export: 06/28/19 2:54 p Patient Name: JOHN CARDONA Page [phone] at 0945 All edits/amendments must be made on the electronic document DICTATION DATE: 06/29/19943 INSIDE TESTER: PRESTON 06/29/19943 RPT#: [id number] DC DATE: STATUS: ADM IN [facility] [address] [place] [address] END OF REPORT
--- NOTE | 2019-06-29 12:55 | NUR ---
OT NOTE: PT PERFORMED BETTER TODAY. CONT TO C/O SEVERE PAIN IN HIP..ABLE TO PINPOINT EXACT LOCATION. INCREASED PAIN WITH KNEE FLEX AND WT BEARING, VS ADD/ABD. BED MOB WITH MIN ASSIST; ABLE TO AMB WITH MIN/MOD ASSIST AND USE OF RW. EDUCATION FOR WALKER MGMT AND WT BEARING THROUGH UES WHEN OFF LOADING WT FROM R FOOT. ABLE TO STAND AT SINK X APPROX 15 MIN WHILE PERFORMING ORAL CARE AND SINK HYGIENE; AMB BACK TO BED ( APPROX 10-12') ..RESTED FOR SEVERAL MIN THEN TRANSFERRED TO COMMODE WITH MIN ASSIST AND USE OF WALKER. PERFORMED SEVERAL SIT TO STANDS TO IMPROVE TRICEP STRENGTH TO ASSIST WITH WT BEARING THROUGH WALKER. NOLAN SANFORD, OTR/L [phone]
[2019-06-29 16:00] VITALS: BP 125/70
--- NOTE | 2019-06-29 16:43 | NUR ---
OT NOTE: PT COMPLETED HYGIENE TASKS WITH MOD A. PT COMPLETED LB HYGIENE TASKS WITH MAX A. [phone] THANK YOU,ODESSA MÉNDEZ
[2019-06-29 21:33] VITALS: BP 114/64
--- NOTE | 2019-06-29 22:32 | NUR ---
EVENING ROUNDS COMPLETED. VSS, AAOX3, NO S/S OF DISTRESS. PT FOUND SITTING ON BEDSIDE COMMODE. PT HAD BEEN TAKING GO LIGHLTY. PT STATES "THIS IS MY 10TH CUP, I DON'T THINK I CAN DRINK ANYMORE OF THIS." PT ENCOURAGED TO DRINK MUCH HE CAN A PREP FOR THE PROCEDURE TOMORROW. PT ALSO REFUSED ANUSOL, SUPP. STATES I'VE BEEN "SHITTIN" MYSELF ANYWAY. PT DENIES ANY FURTHER NEEDS AT THIS TIME. WILL CTM. CL WITHIN REACH.
[2019-06-30] VITALS: BP 136/68
[2019-06-30 04:00] VITALS: BP 140/57
[2019-06-30 07:08] LABS: BASOPHILS 0.5 % (0-2); EOSINOPHILS 1.5 % (0-7); HEMATOCRIT 28.3 % (42.0-54.0); HEMOGLOBIN 9.2 g/dL (13.5-17.5); IMMATURE GRANULOCYTES 0.4 % (0-5); LYMPHOCYTES 27.6 % (15-50); MCH 30.9 pg (26.0-34.0); MCHC 32.5 g/dL (31.0-37.0); MEAN PLATELET VOLUME 8.8 fL (7.4-10.4); MONOCYTES 12.7 % (2-11); NEUTROPHILS 57.3 % (40-80); PLATELET COUNT 219 10x3/uL (130-400); RBC 2.98 10x6/uL (4.20-6.10); RDW 14.4 % (11.5-14.5); WBC 9.5 10x3/uL (4.8-10.8)
--- NOTE | 2019-06-30 07:10 | NUR ---
PT ASSISTED TO CHAIR WITH BSC BESIDE HIM FOR FREQUENT STOOL URGES. ALERT AND ORIENTED. WAITING FOR COLONOSCOPY TODAY.
[2019-06-30 08:21] LABS: % SATURATION 59 % (15-55); IRON 61 ug/dl (35-150); TOTAL IRON BIND CAPACITY 102 ug/dl (260-445)
[2019-06-30 08:26] LABS: UNSAT IRON BIND CAPACITY 41 ug/dl (150-375)
[2019-06-30 09:09] VITALS: BP 138/70
[2019-06-30 12:34] VITALS: BP 125/77
--- NOTE | 2019-06-30 15:52 | NUR ---
OT NOTE: PT COMPLAINED OF BACK PAIN. NURSING NOTIFIED. PT COMPLETED ADL MOB WITH RW WITH MIN/MOD A. PT CUED TO STAND UP IN WALKER. PT RESTS HIS FOREARMS ON WALKER. PT COMPLETED SIT TO STAND WITH MIN A. PT COMPLETED TOILETING TASKS WITH MIN A. [phone] THANK YOU,ODESSA MÉNDEZ
--- NOTE | 2019-06-30 19:44 | NUR ---
EVENING ROUNDS COMPLETED. PT AAOX3, VSS, FAMILY AT BEDSIDE. PT SITTING ON BEDSIDE COMMODE. PT PASSED BLOODY BM, PT C/O OF PAIN IN LOWER BACK. CLEAN PT UP AND HELP TRANSFER PT BACK IN BED. PT VOICED THANKS PT DENIES ANY FURTHER NEEDS AT THIS TIME. WILL CTM.
[2019-06-30 20:00] VITALS: BP 133/76
[2019-07-01] VITALS: BP 153/73
[2019-07-01 04:00] VITALS: BP 150/75
[2019-07-01 06:09] LABS: BASOPHILS 0.5 % (0-2); EOSINOPHILS 1.6 % (0-7); HEMATOCRIT 28.6 % (42.0-54.0); HEMOGLOBIN 9.1 g/dL (13.5-17.5); IMMATURE GRANULOCYTES 0.5 % (0-5); LYMPHOCYTES 21.4 % (15-50); MCH 30.4 pg (26.0-34.0); MCHC 31.8 g/dL (31.0-37.0); MCV 95.7 fL (80.0-100.0); MEAN PLATELET VOLUME 8.7 fL (7.4-10.4); MONOCYTES 12.7 % (2-11); NEUTROPHILS 63.3 % (40-80); PLATELET COUNT 231 10x3/uL (130-400); RBC 2.99 10x6/uL (4.20-6.10); RDW 14.3 % (11.5-14.5)
[2019-07-01 06:21] LABS: WBC 12.1 10x3/uL (4.8-10.8)
[2019-07-01 06:31] LABS: ANION GAP 19.2 mmol/L (8-16); CALCIUM 9.1 mg/dL (8.5-10.1); CARBON DIOXIDE 24.3 mmol/L (21.0-32.0); CREATININE - SERUM 9.4 mg/dL (0.6-1.3); PHOSPHOROUS 8.5 mg/dL (2.5-4.9)
[2019-07-01 06:35] LABS: POTASSIUM - SERUM 3.5 mmol/L (3.5-5.1)
--- NOTE | 2019-07-01 07:20 | NUR ---
PT RECEIVED SLEEPING BUT AROUSES TO VOICE. KEEPING NPO FOR CT SCAN, CONTRAST AT BEDSIDE.
--- NOTE | 2019-07-01 09:13 | MORECARE ---
CASE MANAGEMENT DISCHARGE SUMMARY PATIENT: JOHN CARDONA UNIT: [id number] ADM DATE: 06/24/19 AGE: 78 : 39 SEX: M ROOM/BED: D.2130 AUTHOR: UCHE,DOC PHYSICIAN: REFERRING PHYSICIAN: YARON GONZALES MD DATE OF SERVICE: 07/01/19 Discharge Plan Patient Name: JOHN CARDONA Facility: [facility]:[place] : 1940 Planned Disposition: Inpatient Rehab Anticipated Discharge Date: 06/29/19 Discharge Date: Expected LOS: 5 Initial Reviewer: [id number] Initial Review Date: 06/24/2019 Generated: 07/01/19 10:12 am DCP- Discharge Planning Updated by [email or web address]: Paulino Albarran on 06/29/19 8:[address] Patient Name: JOHN CARDONA Encounter No: [id number] : 1940 Primary Insurance: MEDICARE A & B Anticipated DC Date: 06-29-2019 Planned Disposition: Inpatient Rehab External Planned Provider: [facility] DCP follow-up note: CM CALLED [facility], SPOKE TO FRANNIE AT [phone], WHO ADVISED THEY WILL ACCEPT PT FOR INPATIENT REHAB. CM FAXED UPDATE WITH CURRENT MAR TO [facility] AT [phone]. CM NOTIFIED SANIA JOHNS WHO WILL PROVIDE DISCHARGE ORDERS AND WILL NOTIFY DIALYSIS TO ASK FOR EARLY DIALYSIS TODAY. FOR DISCHARGE, FAX DISCHARGE INFORMATION TO [facility] AT [phone]. [facility] TO ARRANGE TRANSPORTATION. Paulino Albarran CASE MANAGEMENT. DCP- Discharge Planning Updated by [id number]: Paulino Albarran on 06/28/19 2:[address] Patient Name: JOHN CARDONA Encounter No: [id number] : 1940 Primary Insurance: MEDICARE A & B Anticipated DC Date: 06-29-2019 Planned Disposition: Inpatient Rehab External [facility] DCP follow-up note: CM RECEIVED CALL FROM [facility], SPOKE TO FRANNIE AT [phone], WHO ADVISED THEY WILL ACCEPT PT FOR INPATIENT REHAB. CM NOTIFIED LOCK MASTERFlaco ZALDIVAR. CM NOTIFED PT WHO IS IN AGREEMENT WITH DISCHARGE TO REHAB WHEN STABLE. IMPORTANT MESSAGE FROM MEDICARE PROVIDED AND EXPLAINED. FOR DISCHARGE, NOTIFY FRANNIE AT [facility], , FAX CURRENT MAR AND DISCHARGE INFORMATION TO [facility] AT [phone]. [facility] TO ARRANGE TRANSPORTATION. Paulino Albarran, CASE MANAGEMENT DCP- Discharge Planning Updated by [id number]: Clementina Villanueva on 06/27/19 9:[address] Patient Name: JOHN CARDONA Admission Status: ER Accout number: [id number] Admission Date: 06-24-2019 : 1940 Admission Diagnosis: Attending: YARON GONZALES Current LOS: 3 Anticipated DC Date: Planned Disposition: Primary Insurance: MEDICARE A & B Discharge Planning Comments: CM MET WITH PATIENT TO DISCUSS DC PLANNING/NEEDS AFTER OBTAINING VERBAL CONSENT. PATIENT IS VERY HARD OF HEARING AND WANTS ME TO TALK TO HIS SON CRYSTAL. I CALLED CRYSTAL AND HE STATES HIS DAD WILL NEED IPRH VS SNF. [facility] IS FIRST CHOICE, [facility] IS SECOND CHOICE. IMM SIGNED. CM TO FOLLOW AND ASSIST NEEDED. I WILL FAX REFERRAL TO [facility] TODAY. Bill Recapitulation Clerk: Clementina Villanueva DCPIA - Discharge Planning Initial Assessment Updated by [id number]: Clementina Villanueva on 06/27/19 10:15 am * Is the patient Alert and Oriented? Yes * PCP ADAM * Pharmacy [facility] * Preadmission Environment Home Alone * ADLs Independent * Other Equipment WALKER, 02/PORT, CPAP * List name and contact numbers for known caregivers / representatives who currently or will assist patient after discharge: LORRIE ROJAS AND POA, * Community resources currently utilized None * Please name any agencies selected above. [facility] * Additional services required to return to the preadmission environment? Yes * Can the patient safely return to the preadmission environment? No * Has this patient been hospitalized within the prior 30 days at any hospital? No Coverage Notice Reviewer: [id number] - Clementina Villanueva Notice Issued Date-Time: 06/27/2019 10:21 Notice Type: IM Appeals Notice Notice Delivered To: Patient Relationship to Patient: Plastic Cnc Machine Operator Name: Delivery Method: HAND - Hand Delivered Malinda Days: Prior Verbal Notification: Recipient Understood Notice: Yes Recipient Signature: Yes Med Rec Note Co-signed by Attending: Coverage Notice Comment: Reviewer: [id number] - Clementina Villanueva Notice Issued Date-Time: 06/27/2019 10:21 Notice Type: Patient Choice Letter Notice Delivered To: Family Member Relationship to Patient: Plastic Cnc Machine Operator Name: CRYSTAL CARDONA Delivery Method: PHONE - Phone Malinda Days: Prior Verbal Notification: Yes Recipient Understood Notice: Yes Recipient Signature: Med Rec Note Co-signed by Attending: Coverage Notice Comment: [facility], SECOND CHOICE [facility]. Reviewer: [id number] - Paulino Albarran Notice Issued Date-Time: 06/28/2019 15:10 Notice Type: IM Discharge Notice Notice Delivered To: Patient Relationship to Patient: Plastic Cnc Machine Operator Name: Delivery Method: HAND - Hand Delivered Malinda Days: Prior Verbal Notification: Recipient Understood Notice: Yes Recipient Signature: Yes Med Rec Note Co-signed by Attending: Coverage Notice Comment: Last DP export: 06/29/19 8:45 a Patient Name: JOHN CARDONA Page [phone] at 0913 All edits/amendments must be made on the electronic document DICTATION DATE: 07/01/19911 BALLOON MAKER: PRESTON 07/01/19911 RPT#: [id number] DC DATE: STATUS: ADM IN [facility] [address] [place] [address] END OF REPORT
--- NOTE | 2019-07-01 09:20 | MORECARE ---
CASE MANAGEMENT DISCHARGE SUMMARY PATIENT: JOHN CARDONA UNIT: [id number] ADM DATE: 06/24/19 AGE: 78 : 38 SEX: M ROOM/BED: D.7126 AUTHOR: UCHE,DOC PHYSICIAN: REFERRING PHYSICIAN: YARON GONZALES MD DATE OF SERVICE: 07/01/19 Discharge Plan Patient Name: JOHN CARDONA Facility: [facility]:[place] : 1940 Planned Disposition: Inpatient Rehab Anticipated Discharge Date: 06/29/19 Discharge Date: Expected LOS: 5 Initial Reviewer: [id number] Initial Review Date: 06/24/2019 Generated: 07/01/19 10:20 am Comments DCP- Discharge Planning Updated by [id number]: Paulino Albarran on 07/01/19 8:[address] Patient Name: JOHN CARDONA Encounter No: [id number] : 1940 Primary Insurance: MEDICARE A & B Anticipated DC Date: 06-29-2019 Planned Disposition: Inpatient Rehab External Planned Provider: [facility] DCP follow-up note: CM RECEIVED CALL FROM [facility], THEY WILL NEED NEW REFERRAL FOR INPATIENT REHAB WHEN PT IS CLOSER TO BEING STABLE FOR DISCHARGE. CM TO CONTINUE TO FOLLOW AND ASSIST NEEDED. MAILE Medel DCP- Discharge Planning Updated by [email or web address]: Paulino Albarran on 06/29/19 8:[address] Patient Name: JOHN CARDONA Encounter No: [id number] : 1940 Primary Insurance: MEDICARE A & B Anticipated DC Date: 06-29-2019 Planned Disposition: Inpatient Rehab External [facility] D[facility] follow-up note: CM CALLED [facility], SPOKE TO FRANNIE AT [phone], WHO ADVISED THEY WILL ACCEPT PT FOR INPATIENT REHAB. CM FAXED UPDATE WITH CURRENT MAR TO [facility] AT [phone]. CM NOTIFIED SANIA JOHNS WHO WILL PROVIDE DISCHARGE ORDERS AND WILL NOTIFY DIALYSIS TO ASK FOR EARLY DIALYSIS TODAY. FOR DISCHARGE, FAX DISCHARGE INFORMATION TO [facility] AT [phone]. [facility] TO ARRANGE TRANSPORTATION. MAILE Medel. DCP- Discharge Planning Updated by [email or web address]: Paulino Albarran on 06/28/19 2:[address] Patient Name: JOHN CARDONA Encounter No: [id number] : 1940 Primary Insurance: MEDICARE A & B Anticipated DC Date: 06-29-2019 Planned Disposition: Inpatient Rehab External Planned Provider: [facility] DCP follow-up note: CM RECEIVED CALL FROM [facility], SPOKE TO FRANNIE AT [phone], WHO ADVISED THEY WILL ACCEPT PT FOR INPATIENT REHAB. CM NOTIFIED SANIA ZALDIVAR. CM NOTIFED PT WHO IS IN AGREEMENT WITH DISCHARGE TO REHAB WHEN STABLE. IMPORTANT MESSAGE FROM MEDICARE PROVIDED AND EXPLAINED. FOR DISCHARGE, [facility], , FAX CURRENT MAR AND DISCHARGE INFORMATION TO [facility] AT [phone]. [facility] TO ARRANGE TRANSPORTATION. MAILE Medel DCP- Discharge Planning Updated by [id number]: Clementina Villanueva on 06/27/19 9:[address] Patient Name: JOHN CARDONA Admission Status: ER Accout number: [id number] Admission Date: 06-24-2019 : 1940 Admission Diagnosis: Attending: YARON GONZALES Current LOS: 3 Anticipated DC Date: Planned Disposition: Primary Insurance: MEDICARE A & B Discharge Planning Comments: CM MET WITH PATIENT TO DISCUSS DC PLANNING/NEEDS AFTER OBTAINING VERBAL CONSENT. PATIENT IS VERY HARD OF HEARING AND WANTS ME TO TALK TO HIS SON CRYSTAL. I CALLED CRYSTAL AND HE STATES HIS DAD WILL NEED IPRH VS SNF. [facility] CHOICE, [facility]. IMM SIGNED. CM TO FOLLOW AND ASSIST NEEDED. I WILL FAX REFERRAL TO [facility] TODAY. Records Management Director: Clementina Villanueva DCPIA - Discharge Planning Initial Assessment Updated by [email or web address]: Clementina Villanueva on 06/27/19 10:15 am * Is the patient Alert and Oriented? Yes * PCP ADAM * Pharmacy [facility] * Preadmission Environment Home Alone * ADLs Independent * Other Equipment WALKER, 02/PORT, CPAP * List name and contact numbers for known caregivers / representatives who currently or will assist patient after discharge: CRYSTAL, SON AND POA, * Community resources currently utilized None * Please name any agencies selected above. [facility] DIAL[facility]IS [facility] ALV[facility] * Additional services required to return to the preadmission environment? Yes * Can the patient safely return to the preadmission environment? No * Has this patient been hospitalized within the prior 30 days at any hospital? No Coverage Notice Reviewer: [id number] Liz Villanueva Notice Issued Date-Time: 06/27/2019 10:21 Notice Type: Patient Choice Letter Notice Delivered To: Family Member Relationship to Patient: Assembler Installer General Name: CRYSTAL CARDONA Delivery Method: PHONE - Phone Malinda Days: Prior Verbal Notification: Yes Recipient Understood Notice: Yes Recipient Signature: Med Rec Note Co-signed by Attending: Coverage Notice Comment: [facility], SECOND CHOICE IS [facility]. Reviewer: [id number] - Paulino Albarran Notice Issued Date-Time: 06/28/2019 15:10 Notice Type: IM Discharge Notice Notice Delivered To: Patient Relationship to Patient: Assembler Installer General Name: Delivery Method: HAND - Hand Delivered Malinda Days: Prior Verbal Notification: Recipient Understood Notice: Yes Recipient Signature: Yes Med Rec Note Co-signed by Attending: Coverage Notice Comment: Reviewer: [id number] Liz Villanueva Notice Issued Date-Time: 06/27/2019 10:21 Notice Type: IM Appeals Notice Notice Delivered To: Patient Relationship to Patient: Assembler Installer General Name: Delivery Method: HAND - Hand Delivered Malinda Days: Prior Verbal Notification: Recipient Understood Notice: Yes Recipient Signature: Yes Med Rec Note Co-signed by Attending: Coverage Notice Comment: Last DP export: 07/01/19 8:13 a Patient Name: JOHN CARDONA Page [phone] at 0920 All edits/amendments must be made on the electronic document DICTATION DATE: 07/01/19919 MULTI OPERATION FORMING MACHINE SETTER: PRESTON 07/01/19919 RPT#: [id number] DC DATE: STATUS: ADM IN [facility] [address] [place] [address] END OF REPORT
[2019-07-01 10:20] VITALS: BP 179/87
[2019-07-01 13:49] VITALS: BP 141/77
--- NOTE | 2019-07-01 13:57 | NUR ---
Nutrition Follow-up: Noted pt had colonoscopy that showed sigmoid colon mass, diverticulosis, and colitis. Ate 50% of breakfast this AM per record. Diet: Renal No new wt; last wt: 180# (06/24) Last BM: 07/01 (diarrhea) Labs noted: K+ 3.5, PO4 8.5 Meds noted: Renagel, Phoslo, Remeron -Continue current diet as tolerated. -Offer Nepro with meals. -Need new wt; noted daily wts ordered. -RD following.
[2019-07-01 16:26] VITALS: BP 132/57
--- NOTE | 2019-07-01 19:10 | NUR ---
BEDSIDE REPORT RECEIVED FROM DAY SHIFT, PT CARE ASSUMED. WROTE NAME ON BOARD. PT OUT OF ROOM IN DIALYSIS.
[2019-07-02] VITALS: BP 130/68
[2019-07-02 04:00] VITALS: BP 145/67
[2019-07-02 04:55] LABS: BASOPHILS 0.5 % (0-2); EOSINOPHILS 1.2 % (0-7); HEMATOCRIT 29.3 % (42.0-54.0); HEMOGLOBIN 9.5 g/dL (13.5-17.5); IMMATURE GRANULOCYTES 0.4 % (0-5); LYMPHOCYTES 20.3 % (15-50); MCHC 32.4 g/dL (31.0-37.0); MCV 95.8 fL (80.0-100.0); MEAN PLATELET VOLUME 8.5 fL (7.4-10.4); MONOCYTES 11.9 % (2-11); NEUTROPHILS 65.7 % (40-80); PLATELET COUNT 226 10x3/uL (130-400); RBC 3.06 10x6/uL (4.20-6.10); RDW 14.4 % (11.5-14.5); WBC 11.7 10x3/uL (4.8-10.8)
[2019-07-02 06:39] LABS: ANION GAP 12.8 mmol/L (8-16); CALCIUM 8.8 mg/dL (8.5-10.1); CARBON DIOXIDE 29.8 mmol/L (21.0-32.0); POTASSIUM - SERUM 3.6 mmol/L (3.5-5.1)
[2019-07-02 06:40] LABS: CREATININE - SERUM 6.5 mg/dL (0.6-1.3)
--- NOTE | 2019-07-02 07:30 | NUR ---
PT SITTING ON BEDSIDE COMMODE UPON WALKING IN. DENIED NEEDING ASSISTANCE BACK TO BED. RR EVEN AND UNLABORED. CALL LIGHT WITHIN REACH. WILL CONTINUE TO MONITOR.
[2019-07-02 09:52] VITALS: BP 123/57
[2019-07-02 12:00] VITALS: BP 125/57
[2019-07-02 17:04] VITALS: BP 133/71
--- NOTE | 2019-07-02 17:53 | NUR ---
CALL LIGHT ANSWERED. PT SITTING IN CHAIR AT SINK. STATED HE WANTED TO SHAVE BUT COULD NOT STAND LONG ENOUGH TO LOOK IN MIRROR AND ASKED IF THERE WAS A SMALLER ONE HE COULD HAVE. WAS TOLD NO SMALLER MIRRORS AND OFFERED TO SHAVE HIM. PT REFUSED, STATED "I DO NOT WANT ANYONE ELSE TO SHAVE ME".
--- NOTE | 2019-07-02 19:10 | NUR ---
BEDSIDE REPORT RECEIVED FROM DAY SHIFT, PT CARE ASSUMED. WROTE NAME ON BOARD. PT LYING IN BED, WATCHING TV. DENIES ANY NEEDS AT THIS TIME. BED IN LOWEST POSITION, SR X2, CALL LIGHT AND URINAL WITHIN REACH. WILL CONTINUE TO MONITOR.
[2019-07-02 20:00] VITALS: BP 153/69
[2019-07-03] VITALS: BP 154/72
[2019-07-03 04:00] VITALS: BP 131/51
[2019-07-03 05:18] LABS: BASOPHILS 0.3 % (0-2); EOSINOPHILS 1.7 % (0-7); HEMATOCRIT 29.9 % (42.0-54.0); HEMOGLOBIN 9.7 g/dL (13.5-17.5); IMMATURE GRANULOCYTES 0.5 % (0-5); LYMPHOCYTES 16.9 % (15-50); MCH 31.2 pg (26.0-34.0); MCHC 32.4 g/dL (31.0-37.0); MCV 96.1 fL (80.0-100.0); MEAN PLATELET VOLUME 8.6 fL (7.4-10.4); MONOCYTES 12.6 % (2-11); PLATELET COUNT 233 10x3/uL (130-400); RBC 3.11 10x6/uL (4.20-6.10); RDW 14.5 % (11.5-14.5); WBC 13.7 10x3/uL (4.8-10.8)
[2019-07-03 05:59] LABS: ANION GAP 16.2 mmol/L (8-16); CALCIUM 9.3 mg/dL (8.5-10.1); CARBON DIOXIDE 27.2 mmol/L (21.0-32.0); MAGNESIUM - SERUM 2.2 mg/dL (1.8-2.4); PHOSPHOROUS 7.2 mg/dL (2.5-4.9); POTASSIUM - SERUM 3.4 mmol/L (3.5-5.1)
[2019-07-03 06:04] LABS: CREATININE - SERUM 8.6 mg/dL (0.6-1.3)
[2019-07-03 08:36] VITALS: BP 132/59
[2019-07-03 12:22] VITALS: BP 181/63
--- NOTE | 2019-07-03 17:00 | NUR ---
I have reviewed this patient and I concur with the Shift Assessment completed by the Licensed Practical Nurse today this shift.
[2019-07-03 17:24] VITALS: BP 128/70
--- NOTE | 2019-07-03 19:25 | NUR ---
REPORT RECEIVED. BEDSIDE SHIFT REPORT COMPLETE. PT UP IN THE RESTROOM AT THIS TIME USING WALKER. ENCOURAGED USE OF CALL LIGHT FOR ASSISTANCE. NO S.SX OF DISTRESS OBSERVED. WILL CTM.
[2019-07-03 20:00] VITALS: BP 152/79
[2019-07-04] VITALS: BP 134/69
[2019-07-04 04:00] VITALS: BP 129/59
[2019-07-04 06:39] LABS: BASOPHILS 0.4 % (0-2); EOSINOPHILS 1.9 % (0-7); HEMATOCRIT 30.1 % (42.0-54.0); HEMOGLOBIN 9.8 g/dL (13.5-17.5); IMMATURE GRANULOCYTES 0.5 % (0-5); LYMPHOCYTES 20.6 % (15-50); MCH 30.8 pg (26.0-34.0); MCHC 32.6 g/dL (31.0-37.0); MCV 94.7 fL (80.0-100.0); MEAN PLATELET VOLUME 8.4 fL (7.4-10.4); MONOCYTES 11.6 % (2-11); PLATELET COUNT 256 10x3/uL (130-400); RBC 3.18 10x6/uL (4.20-6.10); RDW 14.5 % (11.5-14.5); WBC 12.2 10x3/uL (4.8-10.8)
[2019-07-04 06:56] LABS: ANION GAP 18.3 mmol/L (8-16); CALCIUM 9.2 mg/dL (8.5-10.1); CARBON DIOXIDE 25.1 mmol/L (21.0-32.0); CREATININE - SERUM 10.4 mg/dL (0.6-1.3); MAGNESIUM - SERUM 2.1 mg/dL (1.8-2.4); POTASSIUM - SERUM 3.4 mmol/L (3.5-5.1)
--- NOTE | 2019-07-04 10:23 | NUR ---
RIGHT FA 22G IV LEAKING. DC'D WITH CATH INTACT. INSERTED 20G IV IN RIGHT FA ON FIRST ATTEMPT.
[2019-07-04 12:00] VITALS: BP 141/78
--- NOTE | 2019-07-04 12:50 | NUR ---
PT TAKEN TO DIALYSIS VIA BED.
--- NOTE | 2019-07-04 16:02 | NUR ---
PT RETURNED FROM DIALYSIS VIA IBRAHIMA CHAKRABORTY RN IN DIALYSIS STATES SHE TOOK OFF 1.5L.
--- NOTE | 2019-07-04 16:50 | NUR ---
I have reviewed this patient and I concur with the Shift Assessment completed by the Licensed Practical Nurse today this shift.
--- NOTE | 2019-07-04 17:25 | NUR ---
OT NOTE: PT STATED HE WAS NAUSEOUS. PT STATED HE COULD NOT GET OUT OF BED. PT COMPLETED FACE WASH AND HAND HYGIENE TASKS WITH SET UP. [phone] THANK YOU,ODESSA MÉNDEZ
--- NOTE | 2019-07-04 18:24 | NUR ---
PT ASKING FOR EGG CRATE MATTRESS. PLACED ONE ON THE BED.
--- NOTE | 2019-07-04 19:34 | NUR ---
ANISA BEEN IN AND OUT OF ROOM A COUPLE OF TIMES PT UP TO RESTROOM OFTEN BED ALARM IN PLACE BLOOD NOTED IN STOOL BED ALARM BEING USED BUT PT IS VERY BRISK WHEN GETTING OUT OF BED VERY STABLE WITH WALKER BED LOW AND LOCKED CALL LIGHT IN PT REACH
[2019-07-04 20:00] VITALS: BP 108/64
[2019-07-05] VITALS: BP 123/69
[2019-07-05 04:00] VITALS: BP 124/61
[2019-07-05 05:37] LABS: BASOPHILS 0.5 % (0-2); EOSINOPHILS 1.4 % (0-7); HEMOGLOBIN 10.7 g/dL (13.5-17.5); IMMATURE GRANULOCYTES 0.4 % (0-5); LYMPHOCYTES 22.3 % (15-50); MCH 31.6 pg (26.0-34.0); MCHC 32.4 g/dL (31.0-37.0); MEAN PLATELET VOLUME 8.6 fL (7.4-10.4); MONOCYTES 12.9 % (2-11); NEUTROPHILS 62.5 % (40-80); RBC 3.39 10x6/uL (4.20-6.10); RDW 15.2 % (11.5-14.5)
[2019-07-05 05:45] LABS: MCV 97.3 fL (80.0-100.0); PLATELET COUNT 311 10x3/uL (130-400); WBC 16.3 10x3/uL (4.8-10.8)
[2019-07-05 06:05] LABS: ANION GAP 15.1 mmol/L (8-16); CALCIUM 9.1 mg/dL (8.5-10.1); CARBON DIOXIDE 28.3 mmol/L (21.0-32.0); PHOSPHOROUS 6.1 mg/dL (2.5-4.9); POTASSIUM - SERUM 3.4 mmol/L (3.5-5.1)
[2019-07-05 06:13] LABS: CREATININE - SERUM 7.3 mg/dL (0.6-1.3)
[2019-07-05 09:00] VITALS: BP 130/69
--- NOTE | 2019-07-05 10:30 | NUR ---
ALERT, MILDLY CONFUSED, CALM, COMPLAINING ABOUT MEALS, EATING VERY LITTLE. MEDS ADMIN PER ORDERS, PT REFUSED ANNUSOL. FREQUENTLY GETS OUT OF BED UNASSISTED DESPITE MULTIPLE REDIRECTION TO USE CALL LIGHT WITH ASSIST. PT USES WALKER TO AMBULATE FROM BED TO BATHROOM. PATIENT NON-COMPLIANT WITH CALL LIGHT USE. DENIES NEEDS AT THIS TIME. CALL LIGHT AT HAND, INSTRUCTED TO CALL WITH NEEDS.
--- NOTE | 2019-07-05 15:18 | MORECARE ---
CASE MANAGEMENT DISCHARGE SUMMARY PATIENT: JOHN CARDONA UNIT: [id number] ADM DATE: 06/24/19 AGE: 78 : 39 SEX: M ROOM/BED: D.8515 AUTHOR: UCHE,DOC PHYSICIAN: REFERRING PHYSICIAN: YARON GONZALES MD DATE OF SERVICE: 07/05/19 Discharge Plan Patient Name: JOHN CARDONA Facility: [facility]:[place] : 1940 Planned Disposition: Inpatient Rehab Anticipated Discharge Date: 06/29/19 Discharge Date: Expected LOS: 5 Initial Reviewer: [id number] Initial Review Date: 06/24/2019 Generated: 07/05/19 4:18 pm Comments DCP- Discharge Planning Updated by [email or web address]: Paulino Albarran on 07/05/19 2:[address] Patient Name: JOHN CARDONA Encounter No: [id number] : 1940 Primary Insurance: MEDICARE A & B Anticipated DC Date: 06-29-2019 Planned Disposition: Inpatient Rehab External Planned Provider: [facility] DCP follow-up note: CM RECEIVED ORDER TO CALL PT'S SON TO ENSURE HE IS AWARE OF SURGERY. CM CALLED AND SPOKE TO CRYSTAL CARDONA, CRYSTAL, SON AND KAVEH, , WHO REPORTS BEING AT THE HOSPITAL EVERY DAY, SPEAKING TO THE NURSES AND IS AWARE OF SURGERY SCHEDULED FOR THURSDAY. PLAN IS STILL FOR INPATIENT REHAB AT [facility], CM WILL NEED TO SEND ANOTHER REFERRAL WHEN PT IS CLOSER TO DISCHARGE AND STABLE FOR REHAB SERVICES. CM TO CONTINUE TO FOLLOW AND ASSIST IF NEEDED. Paulino Albarran, CASE MANAGEMENT DCP- Discharge Planning Updated by [id number]: Paulino Albarran on 07/01/19 8:[address] Patient Name: JOHN CARDONA Encounter No: [id number] : 1940 Primary Insurance: MEDICARE A & B Anticipated DC Date: 06-29-2019 Planned Disposition: Inpatient Rehab External Planned Provider: [facility] DCP follow-up note: CM RECEIVED CALL FROM [facility], THEY WILL NEED NEW REFERRAL FOR INPATIENT REHAB WHEN PT IS CLOSER TO BEING STABLE FOR DISCHARGE. CM TO CONTINUE TO FOLLOW AND ASSIST NEEDED. MAILE Medel DCP- Discharge Planning Updated by [id number]: Paulino Albarran on 06/29/19 8:[address] Patient Name: JOHN CARDONA Encounter No: [id number] : 1940 Primary Insurance: MEDICARE A & B Anticipated DC Date: 06-29-2019 Planned Disposition: Inpatient Rehab External Planned Provider: [facility] DCP follow-up note: CM CALLED [facility], SPOKE TO FRANNIE AT [phone], WHO ADVISED THEY WILL ACCEPT PT FOR INPATIENT REHAB. CM FAXED UPDATE WITH CURRENT MAR TO [facility] AT [phone]. CM NOTIFIED SANIA JOHNS WHO WILL PROVIDE DISCHARGE ORDERS AND WILL NOTIFY DIALYSIS TO ASK FOR EARLY DIALYSIS TODAY. FOR DISCHARGE, FAX DISCHARGE INFORMATION TO [facility] AT [phone]. [facility] TO ARRANGE TRANSPORTATION. MAILE Medel. DCP- Discharge Planning Updated by [id number]: Paulino Albarran on 06/28/19 2:[address] Patient Name: JOHN CARDONA Encounter No: [id number] : 1940 Primary Insurance: MEDICARE A & B Anticipated DC Date: 06-29-2019 Planned Disposition: Inpatient Rehab External Planned Provider: [facility] DCP follow-up note: CM RECEIVED CALL FROM [facility], SPOKE TO FRANNIE AT [phone], WHO ADVISED THEY WILL ACCEPT PT FOR INPATIENT REHAB. CM NOTIFIED SANIA ZALDIVAR. CM NOTIFED PT WHO IS IN AGREEMENT WITH DISCHARGE TO REHAB WHEN STABLE. IMPORTANT MESSAGE FROM MEDICARE PROVIDED AND EXPLAINED. FOR DISCHARGE, [facility], , FAX CURRENT MAR AND DISCHARGE INFORMATION TO [facility] AT [phone]. [facility] TO ARRANGE TRANSPORTATION. MAILE Medel DCP- Discharge Planning Updated by [id number]: Clementina Villanueva on 06/27/19 9:[address] Patient Name: JOHN CARDONA Admission Status: ER Accout number: [id number] Admission Date: 06-24-2019 : 1940 Admission Diagnosis: Attending: YARON GONZALES Current LOS: 3 Anticipated DC Date: Planned Disposition: Primary Insurance: MEDICARE A & B Discharge Planning Comments: CM MET WITH PATIENT TO DISCUSS DC PLANNING/NEEDS AFTER OBTAINING VERBAL CONSENT. PATIENT IS VERY HARD OF HEARING AND WANTS ME TO TALK TO HIS SON CRYSTAL. I CALLED CRYSTAL AND HE STATES HIS DAD WILL NEED [facility] VS SNF. [facility] IS FIRST CHOICE, [facility] IS SECOND CHOICE. IMM SIGNED. CM TO FOLLOW AND ASSIST NEEDED. I WILL FAX REFERRAL TO [facility] TODAY. Digital Media Designer: Clementina Villanueva DCPIA - Discharge Planning Initial Assessment Updated by [id number]: Clementina Villanueva on 06/27/19 10:15 am * Is the patient Alert and Oriented? Yes * PCP ADAM * Pharmacy [facility] * Preadmission Environment Home Alone * ADLs Independent * Other Equipment WALKER, 02/, CPAP * List name and contact numbers for known caregivers / representatives who currently or will assist patient after discharge: LORRIE ROJAS AND POA, * Community resources currently utilized None * Please name any agencies selected above. [facility] DIALYS[facility] * Additional services required to return to the preadmission environment? Yes * Can the patient safely return to the preadmission environment? No * Has this patient been hospitalized within the prior 30 days at any hospital? No Coverage Notice Reviewer: [id number] Liz Villanueva Notice Issued Date-Time: 06/27/2019 10:21 Notice Type: IM Appeals Notice Notice Delivered To: Patient Relationship to Patient: Professor Of Communication And Writing Name: Delivery Method: HAND - Hand Delivered Malinda Days: Prior Verbal Notification: Recipient Understood Notice: Yes Recipient Signature: Yes Med Rec Note Co-signed by Attending: Coverage Notice Comment: Reviewer: [id number] Liz Villanueva Notice Issued Date-Time: 06/27/2019 10:21 Notice Type: Patient Choice Letter Notice Delivered To: Family Member Relationship to Patient: Professor Of Communication And Writing Name: CRYSTAL CARDONA Delivery Method: PHONE - Phone Malinda Days: Prior Verbal Notification: Yes Recipient Understood Notice: Yes Recipient Signature: Med Rec Note Co-signed by Attending: Coverage Notice Comment: [facility], SECOND CHOICE IS [facility]. Reviewer: [id number] - Paulino Albarran Notice Issued Date-Time: 06/28/2019 15:10 Notice Type: IM Discharge Notice Notice Delivered To: Patient Relationship to Patient: Professor Of Communication And Writing Name: Delivery Method: HAND - Hand Delivered Malinda Days: Prior Verbal Notification: Recipient Understood Notice: Yes Recipient Signature: Yes Med Rec Note Co-signed by Attending: Coverage Notice Comment: Last DP export: 07/01/19 8:20 a Patient Name: JOHN CARDONA Page [phone] at 1518 All edits/amendments must be made on the electronic document DICTATION DATE: 07/05/191517 DEGREE CLERK: PRESTON 07/05/191517 RPT#: [id number] DC DATE: STATUS: ADM IN [facility] [address] [place] [address] END OF REPORT
[2019-07-05 16:00] VITALS: BP 134/68
--- NOTE | 2019-07-05 17:24 | NUR ---
OT NOTE: PT STATED MD SAID HE DOESNT HAVE TO WALK WITH THERAPY. HE ONLY HAS TO SIT UP. SAXENA NOTIFIED NURSING. PT COMPLETED SUPINE TO SIT WITH CGA. PT COMPLETED EOB SITTING WITH SBA. PT COMPLETED BUE AROM EXS AT EOB WITH SBA. [phone]
--- NOTE | 2019-07-05 17:30 | NUR ---
PT. C/O NAUSEA. ZOFRAN 4 MG ADMIN FOR NAUSEA. NO EMESIS NOTED.
--- NOTE | 2019-07-05 19:37 | NUR ---
EVENING ROUNDS COMPLETE, PT LAYING IN BED. NO SIGNS OF DISTRESS. PT IS DISORIENTATED TO TIME. PT DENIES ANY PAIN OR NEEDS AT THIS TIME. CL IN REACH, BED IN LOWEST POSITION.
[2019-07-05 20:00] VITALS: BP 140/70
[2019-07-06] VITALS: BP 151/67
[2019-07-06 04:00] VITALS: BP 141/60
[2019-07-06 06:50] LABS: BASOPHILS 0.4 % (0-2); EOSINOPHILS 2.3 % (0-7); HEMATOCRIT 34.6 % (42.0-54.0); HEMOGLOBIN 10.9 g/dL (13.5-17.5); IMMATURE GRANULOCYTES 0.5 % (0-5); LYMPHOCYTES 24.6 % (15-50); MCH 31.1 pg (26.0-34.0); MCHC 31.5 g/dL (31.0-37.0); MCV 98.6 fL (80.0-100.0); MEAN PLATELET VOLUME 8.3 fL (7.4-10.4); MONOCYTES 10.1 % (2-11); NEUTROPHILS 62.1 % (40-80); PLATELET COUNT 307 10x3/uL (130-400); RBC 3.51 10x6/uL (4.20-6.10); RDW 15.5 % (11.5-14.5); WBC 14.9 10x3/uL (4.8-10.8)
[2019-07-06 09:00] VITALS: BP 135/75
--- NOTE | 2019-07-06 11:08 | NUR ---
PT TAKEN TO DIALYSIS VIA BED.
--- NOTE | 2019-07-06 13:30 | NUR ---
ULTRAM GIVEN TO PT IN DIALYSIS FOR PAIN LEVEL OF 8/10.
--- NOTE | 2019-07-06 15:00 | NUR ---
PT RETURNED FROM DIALYSIS VIA BED. DIALYSIS STATES THEY REMOVED 1L.
--- NOTE | 2019-07-06 15:25 | NUR ---
Nutrition Follow-up: Not eating well. Clear liquid diet now for HALS sigmoid colectomy planned for tomorrow. Reportedly still having diarrhea. HD today (-1 L). Diet: Clear Liquid PO intake: 27% avg x 5 meals Wt: 169# (07/04) Labs reviewed Meds noted: Pepcid, Renagel, Remeron, Nephrovite, Phoslo, lCare -MD may consider nutrition support 2/2 poor PO intake/upcoming GI surgery; RD available for assistance. -Need new wt; noted daily wts ordered. -RD following.
--- NOTE | 2019-07-06 15:50 | NUR ---
OT NOTE: CHECKED ON PT TWICE TODAY, BUT STILL IN DIALYSIS.. WILL ATTEMPT TOMORROW. NOLAN SANFORD, OTR/L
[2019-07-06 16:00] VITALS: BP 123/74
--- NOTE | 2019-07-06 16:39 | NUR ---
PT REFUSING TO DRINK GOLYTELY. STATED TO PT HE CAN NOT HAVE HIS SX TOMORROW IF HE DOES NOT DRINK IT TO HELP CLEAN HIM OUT. HE STATES "ARE YOU SERIOUS?! I DRANK THAT WHOLE GALLON A WEEK AGO!" I STATED "I KNOW YOU DID BUT YOU HAVE TO DRINK IT AGAIN FOR TOMORROW IT DOESN'T LAST FOR A WEEK." PT STATES "WELL I'M NOT DOING IT. I'D RATHER KICK THE BUCKET." I STATED TO PT "NO YOU WOULDN'T. WHAT CAN I DO TO MAKE IT A LITTLE BETTER." PT STATES "NOTHING I'M NOT DOING IT. I CAN GET NASTY." I STATED THAT IS NOT NECCESSARY AND LEFT PT'S ROOM.
--- NOTE | 2019-07-06 17:48 | NUR ---
I have reviewed this patient and I concur with the Shift Assessment completed by the Licensed Practical Nurse today this shift.
--- NOTE | 2019-07-06 18:01 | NUR ---
SPOKE WITH DR. LEMONS AND LET HIM KNOW PT IS REFUSING GOLYTELY. HE VERBALIZED UNDERSTANDING.
--- NOTE | 2019-07-06 19:08 | NUR ---
EVENING ROUNDS COMPLETE. PT LAYING IN BED. NO SIGNS OF DISTRESS. AAOX4. O2 VIA HF NC AT 11L. GAURD AT BEDSIDE. PT DENIES ANY PAIN OR NEEDS AT THIS TIME. CL IN REACH, BED IN LOWEST POSITION.
[2019-07-06 20:00] VITALS: BP 115/68
--- NOTE | 2019-07-06 20:02 | NUR ---
OT NOTE: PT REQUIRED SBA WITH ADL MOB FROM BATHROOM TO BED. PT REQUIRED MAX A WITH POSITIONING IN BED. PT REQUIRED CUES FROM FAMILY FOR INCREASED PARTICIPATION AND SAFETY. PT EXHIBITED SELF LIMITING BEHAVIORS. [phone] THANK YOU,ODESSA MÉNDEZ
[2019-07-07 04:00] VITALS: BP 129/63
[2019-07-07 06:38] LABS: ANION GAP 14.2 mmol/L (8-16); CALCIUM 9.6 mg/dL (8.5-10.1); PHOSPHOROUS 5.6 mg/dL (2.5-4.9); POTASSIUM - SERUM 4.2 mmol/L (3.5-5.1)
[2019-07-07 10:13] VITALS: BP 133/76
--- NOTE | 2019-07-07 13:53 | NUR ---
PT WAS SENT TO OR FROM UNIT WITH UPPER DENTURES WHICH WERE REMOVED & SENT BACK TO UNIT PER HIS NURSE PT LISE. WAS NOT SHAVE PREPPED PRIOR TO SURGERY- WAS DONE IN OR
--- NOTE | 2019-07-07 13:54 | NUR ---
SURGEON REQUESTED HDEZ BUT WAS NOT ABLE TO ADVANCE HDEZ DUE TO OBSTRUCTION POSSIBLY BPH. SURGEON NOTIFIED OF DIFFICULTY AND SAID TO LEAVE OUT- SH
--- NOTE | 2019-07-07 19:30 | NUR ---
PT IN BED, EYES CLOSED, RESP EVEN AND UNLABORED, FAMILY AT BEDSIDE, IV INFUSING TO RIGHT FOREARM, NO REDNESS OR SWELLING NOTED TO SITE, NO C/O PAIN OR DISCOMFORT NOTED.
[2019-07-07 20:00] VITALS: BP 118/56; BP 121/58
[2019-07-08 02:46] VITALS: BP 127/61
--- NOTE | 2019-07-08 03:33 | NUR ---
I have reviewed this patient and I concur with the Shift Assessment completed by the Licensed Practical Nurse today this shift.
[2019-07-08 04:00] VITALS: BP 133/66
[2019-07-08 06:47] LABS: BASOPHILS 0.2 % (0-2); EOSINOPHILS 0.2 % (0-7); HEMOGLOBIN 9.2 g/dL (13.5-17.5); IMMATURE GRANULOCYTES 0.3 % (0-5); LYMPHOCYTES 16.4 % (15-50); MCH 31.3 pg (26.0-34.0); MCHC 31.7 g/dL (31.0-37.0); MCV 98.6 fL (80.0-100.0); MEAN PLATELET VOLUME 8.4 fL (7.4-10.4); MONOCYTES 14.1 % (2-11); NEUTROPHILS 68.8 % (40-80); PLATELET COUNT 247 10x3/uL (130-400); RBC 2.94 10x6/uL (4.20-6.10); RDW 15.6 % (11.5-14.5); WBC 15.2 10x3/uL (4.8-10.8)
[2019-07-08 07:02] LABS: ANION GAP 17.7 mmol/L (8-16); CALCIUM 8.5 mg/dL (8.5-10.1); CREATININE - SERUM 8.8 mg/dL (0.6-1.3); PHOSPHOROUS 8.3 mg/dL (2.5-4.9); POTASSIUM - SERUM 4.7 mmol/L (3.5-5.1)
--- NOTE | 2019-07-08 10:03 | NUR ---
PT TAKEN DOWNSTAIRS VIA BED TO DIALYSIS.
[2019-07-08 10:06] VITALS: BP 160/77
--- NOTE | 2019-07-08 13:01 | NUR ---
Nutrition Follow-up: POD 1 HALS sigmoid colectomy. HD today. Diet: NPO No new wt; last wt 169# (07/04) Labs noted: K+ 4.7, PO4 8.3 Meds noted: Pepcid, Zofran, NS @ 20 -Rec ADAT when medically feasible; RD available for assistance with nutrition support if needed. -Need new wt; noted daily wts ordered. -RD following.
--- NOTE | 2019-07-08 14:57 | NUR ---
PT RETURNED FROM DIALYSIS VIA BED. DIALYSIS DID NOT CALL OR LET ACCOUNTS RECEIVABLE ASSISTANT KNOW HOW MANY LITERS WERE TAKEN OFF. THERE IS NOTHING IN CHART ABOUT DIALYSIS REMOVAL. CALLED 1420 AND COULD NOT GET AN ANSWER IN DIALYSIS.
[2019-07-08 18:09] VITALS: BP 139/74
--- NOTE | 2019-07-08 18:09 | NUR ---
SCD'S PLACED ON PT'S LEGS BILATERALLY.
--- NOTE | 2019-07-08 19:10 | NUR ---
REPORT RECEIVED. BEDSIDE SHIFT REPORT COMPLETE. PT LAYING IN BED, ALERT BUT CONFUSED. FAMILY PRESENT AT BEDSIDE, ASKING MULTIPLE QUESTIONS ABOUT POC. ATTEMPTED TO ANSWER THEM TO THE BEST OF MY ABILITY. PT DENIES NEEDS AT THIS TIME. CALL LIGHT IN REACH. WILL CTM.
[2019-07-08 20:00] VITALS: BP 142/77
[2019-07-09] VITALS: BP 139/75
[2019-07-09 04:00] VITALS: BP 144/76
[2019-07-09 06:13] LABS: BASOPHILS 0.4 % (0-2); EOSINOPHILS 1.2 % (0-7); HEMATOCRIT 32.9 % (42.0-54.0); HEMOGLOBIN 10.5 g/dL (13.5-17.5); IMMATURE GRANULOCYTES 0.4 % (0-5); LYMPHOCYTES 20.3 % (15-50); MCH 31.6 pg (26.0-34.0); MCHC 31.9 g/dL (31.0-37.0); MCV 99.1 fL (80.0-100.0); MEAN PLATELET VOLUME 8.5 fL (7.4-10.4); MONOCYTES 14.2 % (2-11); NEUTROPHILS 63.5 % (40-80); PLATELET COUNT 253 10x3/uL (130-400); RBC 3.32 10x6/uL (4.20-6.10); RDW 15.5 % (11.5-14.5); WBC 13.6 10x3/uL (4.8-10.8)
[2019-07-09 06:29] LABS: CALCIUM 8.9 mg/dL (8.5-10.1); CARBON DIOXIDE 23.7 mmol/L (21.0-32.0); CREATININE - SERUM 7.6 mg/dL (0.6-1.3); POTASSIUM - SERUM 4.7 mmol/L (3.5-5.1)
--- NOTE | 2019-07-09 07:41 | NUR ---
HOB @ 45 DEGREES. PT STATES HE WANTS TO SIT UP. ATTEMPTED TO SIT PT UP AND HE REQUESTED HOB TO BE PUT BACK DOWN. PROCEEDED TO ASK WHY NO ONE WOULD LET HIM SIT UP. CONFUSED TO PLACE, TIME, AND SITUATION. CALL LIGHT WITHIN REACH. BED ALARM IN PLACE AND FUNCTIONING PROPERLY. POSITIONED TO RIGHT SIDE TO COMFORT. BED IN LOWEST POSITION. BED RAILS UP X2. DENIES FURTHER NEEDS OR PAIN AT THIS TIME. WILL CONTINUE TO MONITOR.
[2019-07-09 10:17] VITALS: BP 114/68
--- NOTE | 2019-07-09 10:34 | NUR ---
UPON WALKING INTO ROOM, PT WAS AWAKE AND LAYING OVER TO RIGHT SIDE AND SLUMPED DOWN IN BED. PT REFUSED TO LET ME PULL HIM UP IN BED OR READJUST HIM IN ANY WAY. STATED THIS IS THE ONLY WAY HE WOULD BE COMFORTABLE. CALL LIGHT WITHIN REACH. INSTRUCTED TO CALL WHEN NEEDED READJUSTED. CALL LIGHT WITHIN REACH.
[2019-07-09 13:16] VITALS: BP 128/74
[2019-07-09 16:37] VITALS: BP 126/70
--- NOTE | 2019-07-09 19:10 | NUR ---
BEDSIDE REPORT RECEIVED FROM DAY SHIFT, PT CARE ASSUMED. WROTE NAME ON BOARD. PT LYING IN BED WITH EYES CLOSED, RR EVEN AND NONLABORED, NO S/S OF DISTRESS, AROUSES EASILY TO VOICE. REPORTS ABD PAIN OF 7, ON A SCALE OF 0-10. DENIES ANY OTHER NEEDS AT THIS TIME. BED IN LOWEST POSITION, SR X3, CALL LIGHT WITHIN REACH, SIMRAN ALARM ON AND FUNCTIONING. WILL CONTINUE TO MONITOR.
[2019-07-09 20:00] VITALS: BP 134/75
[2019-07-10] VITALS: BP 141/80
[2019-07-10 04:00] VITALS: BP 143/90
[2019-07-10 06:10] LABS: BASOPHILS 0.4 % (0-2); EOSINOPHILS 3.2 % (0-7); HEMATOCRIT 33.2 % (42.0-54.0); HEMOGLOBIN 10.7 g/dL (13.5-17.5); IMMATURE GRANULOCYTES 0.4 % (0-5); LYMPHOCYTES 19.9 % (15-50); MCH 31.8 pg (26.0-34.0); MCHC 32.2 g/dL (31.0-37.0); MCV 98.5 fL (80.0-100.0); MEAN PLATELET VOLUME 8.3 fL (7.4-10.4); NEUTROPHILS 62.1 % (40-80); PLATELET COUNT 286 10x3/uL (130-400); RBC 3.37 10x6/uL (4.20-6.10); RDW 15.3 % (11.5-14.5); WBC 14.1 10x3/uL (4.8-10.8)
[2019-07-10 06:33] LABS: ANION GAP 21.6 mmol/L (8-16); CALCIUM 8.8 mg/dL (8.5-10.1); CARBON DIOXIDE 22.5 mmol/L (21.0-32.0); POTASSIUM - SERUM 4.1 mmol/L (3.5-5.1)
[2019-07-10 06:35] LABS: CREATININE - SERUM 9.9 mg/dL (0.6-1.3)
--- NOTE | 2019-07-10 09:09 | NUR ---
REPORT RECIEVED. CARE RESUMED. PATIENT IS IN BED RESTING WITH EYES CLOSED. BED IS IN LOW POSITION AND CALL LIGHT IS IN REACH. REORIENTED PATIENT TO TIME AND PLACE. EDUCATED PATIENT ON THE IMPORTANCE OF STAYING IN THE BED AND CALLING IF HELP IS NEEDED. BED ALARM IS ON AND CHECKED. PATIENT DENIES ANY NEEDS AT THIS TIME
[2019-07-10 10:56] VITALS: BP 136/82
--- NOTE | 2019-07-10 14:25 | NUR ---
Rehab Note- REceived another Acute Inpatient Rehab prescreen order. The patient's son has been requesting [facility] for his acute inpatient rehab of choice. THank you for this referral! Natividad Bardales RN Clinical Liaison, [facility] Re[facility]
[2019-07-10 14:31] VITALS: BP 134/68
[2019-07-10 18:37] VITALS: BP 140/76
--- NOTE | 2019-07-10 19:27 | NUR ---
PT UP TO RESTROOM TOLERATES WELL WITH WALKER PT ALERT TO SELF AND PLACE NOT CLEAR ON TIME OR SITUATION BED IS LOW AND LOCKED BED ALARM BEING USED SO I CAN ASSIST PT WITH UP PT WILL NOT USE CALL LIGHT I HAVE ATTEMPTED TO EDUCATE HIM ON USE
[2019-07-10 20:00] VITALS: BP 156/81
[2019-07-11] VITALS: BP 147/81
[2019-07-11 04:00] VITALS: BP 198/81
--- NOTE | 2019-07-11 04:00 | NUR ---
I have reviewed this patient and I concur with the Shift Assessment completed by the Licensed Practical Nurse today this shift.
[2019-07-11 05:48] LABS: BASOPHILS 0.6 % (0-2); EOSINOPHILS 4.6 % (0-7); HEMATOCRIT 34.4 % (42.0-54.0); HEMOGLOBIN 11.1 g/dL (13.5-17.5); IMMATURE GRANULOCYTES 0.4 % (0-5); LYMPHOCYTES 24.4 % (15-50); MCH 31.3 pg (26.0-34.0); MCHC 32.3 g/dL (31.0-37.0); MCV 96.9 fL (80.0-100.0); MEAN PLATELET VOLUME 8.3 fL (7.4-10.4); PLATELET COUNT 303 10x3/uL (130-400); RBC 3.55 10x6/uL (4.20-6.10); RDW 15.1 % (11.5-14.5); WBC 13.6 10x3/uL (4.8-10.8)
[2019-07-11 06:16] LABS: ANION GAP 21.7 mmol/L (8-16); CALCIUM 9.4 mg/dL (8.5-10.1); CARBON DIOXIDE 23.7 mmol/L (21.0-32.0); CREATININE - SERUM 11.7 mg/dL (0.6-1.3); POTASSIUM - SERUM 4.4 mmol/L (3.5-5.1)
[2019-07-11 08:43] VITALS: BP 159/85
--- NOTE | 2019-07-11 12:10 | MORECARE ---
CASE MANAGEMENT DISCHARGE SUMMARY PATIENT: JOHN CADRONA UNIT: [id number] ADM DATE: 06/24/19 AGE: 78 : 39 SEX: M ROOM/BED: D.7802 AUTHOR: UCHE,DOC PHYSICIAN: REFERRING PHYSICIAN: YARON GONZALES MD DATE OF SERVICE: 07/11/19 Discharge Plan Patient Name: JOHN CARDONA Facility: [facility]:[place] : 1940 Planned Disposition: Inpatient Rehab Anticipated Discharge Date: 06/29/19 Discharge Date: Expected LOS: 5 Initial Reviewer: [id number] Initial Review Date: 06/24/2019 Generated: 07/11/19 1:09 pm Comments DCP- Discharge Planning Updated by [email or web address]: Paulino Albarran on 07/11/19 11:[address] Patient Name: JOHN CARDONA Encounter No: [id number] : 1940 Primary Insurance: MEDICARE A & B Anticipated DC Date: 06-29-2019 Planned Disposition: Inpatient Rehab External Planned Provider: [facility] INPATIENT REHAB DCP follow-up note: CM RECEIVED ORDER FOR INPATIENT REHAB PRESCREENING. CM REVIEWED CHART, PHYSICAL THERAPY SIGNED OFF ON 07-06-19 DUE TO NON COMPLIANCE OF PATIENT WITH THERAPY. OCCUPATIONAL THERAPY HAS NOT SIGNED OFF AT THIS TIME AND LAST SEEN PT ON 07-06-19. CM MET WITH PT IN ROOM TO DISCUSS REHAB ORDER AND NEEDS. PT STATES THAT HIS STOMACH HURTS AND ALL HE NEEDS IS FOR THE HOSPITAL TO GET IT SO HE CAN EAT AND HE WILL GO HOME. PT DENIES NEED OF REHAB. CM ENCOURAGED PT TO CONSIDER REHAB SERVICES, PT STATES HE IS GOING HOME AND "THE HOSPITAL NEEDS TO STAIGHTEN OUT HIS STOMACH SO I CAN EAT." CM CALLED CRYSTAL CARDONA, SON AND POA, , WHO REPORTS BEING AT THE HOSPITAL EVERY DAY, THAT PT IS NOT UP ON HIS OWN AND NEEDS REHAB IN ORDER TO GO HOME. CM DISCUSSED THAT PT WILL NEED TO PARTICIPATE WITH THERAPY SERVICES FOR REHAB PLACEMENT. CRYSTAL STATES HE WILL DISCUSS WITH PT AND HAVE PT PARTICIPATE WITH THERAPY SERVICES. CM REQUESTED NEW PHYSICAL THERAPY ORDER. THE PLAN IS STILL FOR INPATIENT REHAB AT [facility], CM WILL NEED TO SEND ANOTHER REFERRAL WHEN AND IF PT PARTICIPATES WITH THERAPY SERVICES. CM TO CONTINUE TO FOLLOW AND ASSIST IF NEEDED. CM WAITING NEW PHYSICAL THERAPY EVALUATION INDICATING PT'S PARTICIPATION FOR REHAB REFERRAL TO [facility] INPATIENT REHAB. Paulino Albarran CASE MANAGEMENT DCP- Discharge Planning Updated by [id number]: Paulino Albarran on 07/05/19 2:[address] Patient Name: JOHN CARDONA Encounter No: [id number] : 1940 Primary Insurance: MEDICARE A & B Anticipated DC Date: 06-29-2019 Planned Disposition: Inpatient Rehab External [facility] DCP follow-up note: CM RECEIVED ORDER TO CALL PT'S SON TO ENSURE HE IS AWARE OF SURGERY. CM CALLED AND SPOKE TO CRYSTAL CARDONA, CRYSTAL, SON AND KAVEH, , WHO REPORTS BEING AT THE HOSPITAL EVERY DAY, SPEAKING TO THE NURSES AND IS AWARE OF SURGERY SCHEDULED FOR THURSDAY. PLAN IS STILL FOR INPATIENT REHAB AT [facility], CM WILL NEED TO SEND ANOTHER REFERRAL WHEN PT IS CLOSER TO DISCHARGE AND STABLE FOR REHAB SERVICES. CM TO CONTINUE TO FOLLOW AND ASSIST IF NEEDED. Paulino Albarran CASE MANAGEMENT DCP- Discharge Planning Updated by [id number]: Paulino Albarran on 07/01/19 8:[address] Patient Name: JOHN CARDONA Encounter No: [id number] : 1940 Primary Insurance: MEDICARE A & B Anticipated DC Date: 06-29-2019 Planned Disposition: Inpatient Rehab External [facility] DCP follow-up note: CM RECEIVED CALL FROM [facility], THEY WILL NEED NEW REFERRAL FOR INPATIENT REHAB WHEN PT IS CLOSER TO BEING STABLE FOR DISCHARGE. CM TO CONTINUE TO FOLLOW AND ASSIST NEEDED. Paulino Albarran CASE MANAGEMENT DCP- Discharge Planning Updated by [id number]: Paulino Albarran on 06/29/19 8:[address] Patient Name: JOHN CARDONA Encounter No: [id number] : 1940 Primary Insurance: MEDICARE A & B Anticipated DC Date: 06-29-2019 Planned Disposition: Inpatient Rehab External [facility] DCP follow-up note: CM CALLED [facility] INPATIENT REHAB, SPOKE TO FRANNIE AT [phone], WHO ADVISED THEY WILL ACCEPT PT FOR INPATIENT REHAB. CM FAXED UPDATE WITH CURRENT MAR TO [facility] AT [phone]. CM NOTIFIED SANIA JOHNS WHO WILL PROVIDE DISCHARGE ORDERS AND WILL NOTIFY DIALYSIS TO ASK FOR EARLY DIALYSIS TODAY. FOR DISCHARGE, FAX DISCHARGE INFORMATION TO [facility] AT [phone]. [facility] TO ARRANGE TRANSPORTATION. MAILE Medel. DCP- Discharge Planning Updated by [id number]: Paulino Albarran on 06/28/19 2:[address] Patient Name: JOHN CARDONA Encounter No: [id number] : 1940 Primary Insurance: MEDICARE A & B Anticipated DC Date: 06-29-2019 Planned Disposition: Inpatient Rehab External Planned Provider: [facility] INPATIENT REHAB DCP follow-up note: CM RECEIVED CALL FROM [facility] INPATIENT RE[facility], SPOKE TO FRANNIE AT [phone], WHO ADVISED THEY WILL ACCEPT PT FOR INPATIENT REHAB. CM NOTIFIED SANIA ZALDIVAR. CM NOTIFED PT WHO IS IN AGREEMENT WITH DISCHARGE TO REHAB WHEN STABLE. IMPORTANT MESSAGE FROM MEDICARE PROVIDED AND EXPLAINED. FOR DISCHARGE, NOTIFY FRANNIE AT [facility], , FAX CURRENT MAR AND DISCHARGE INFORMATION TO [facility] AT [phone]. [facility] TO ARRANGE TRANSPORTATION. MAILE Medel MANAGEMENT DCP- Discharge Planning Updated by [id number]: Clementina Villanueva on 06/27/19 9:[address] Patient Name: JOHN CARDONA Admission Status: ER Accout number: [id number] Admission Date: 06-24-2019 : 1940 Admission Diagnosis: Attending: YARON GONZALES Current LOS: 3 Anticipated DC Date: Planned Disposition: Primary Insurance: MEDICARE A & B Discharge Planning Comments: CM MET WITH PATIENT TO DISCUSS DC PLANNING/NEEDS AFTER OBTAINING VERBAL CONSENT. PATIENT IS VERY HARD OF HEARING AND WANTS ME TO TALK TO HIS SON CRYSTAL. I CALLED CRYSTAL AND HE STATES HIS DAD WILL NEED IPRH VS SNF. [facility] IS FIRST CHOICE, [facility] IS SECOND CHOICE. IMM SIGNED. CM TO FOLLOW AND ASSIST NEEDED. I WILL FAX REFERRAL TO [facility] TODAY. Product Safety Engineer: Clementina Villanueva DCPIA - Discharge Planning Initial Assessment Updated by [email or web address]: Clementina Villanueva on 06/27/19 10:15 am * Is the patient Alert and Oriented? Yes * PCP ADAM * Pharmacy [facility] * Preadmission Environment Home Alone * ADLs Independent * Other Equipment WALKER, 02/PORT, CPAP * List name and contact numbers for known caregivers / representatives who currently or will assist patient after discharge: CRYSTAL, SON AND POA, * Community resources currently utilized None * Please name any agencies selected above. [facility] MWF DR. ALVAREZ * Additional services required to return to the preadmission environment? Yes * Can the patient safely return to the preadmission environment? No * Has this patient been hospitalized within the prior 30 days at any hospital? No Coverage Notice Reviewer: [id number] Liz Villanueva Notice Issued Date-Time: 06/27/2019 10:21 Notice Type: IM Appeals Notice Notice Delivered To: Patient Relationship to Patient: Mother Tester Name: Delivery Method: HAND - Hand Delivered Malinda Days: Prior Verbal Notification: Recipient Understood Notice: Yes Recipient Signature: Yes Med Rec Note Co-signed by Attending: Coverage Notice Comment: Reviewer: [id number] Liz Villanueva Notice Issued Date-Time: 06/27/2019 10:21 Notice Type: Patient Choice Letter Notice Delivered To: Family Member Relationship to Patient: Mother Tester Name: CRYSTAL CARDONA Delivery Method: PHONE - Phone Malinda Days: Prior Verbal Notification: Yes Recipient Understood Notice: Yes Recipient Signature: Med Rec Note Co-signed by Attending: Coverage Notice Comment: [facility], SECOND CHOICE IS [facility]. Reviewer: [id number] - Paulino Albarran Notice Issued Date-Time: 06/28/2019 15:10 Notice Type: IM Discharge Notice Notice Delivered To: Patient Relationship to Patient: Mother Tester Name: Delivery Method: HAND - Hand Delivered Malinda Days: Prior Verbal Notification: Recipient Understood Notice: Yes Recipient Signature: Yes Med Rec Note Co-signed by Attending: Coverage Notice Comment: Last DP export: 07/05/19 2:18 p Patient Name: JOHN CARDONA Page [id number] at 1210 All edits/amendments must be made on the electronic document DICTATION DATE: 07/11/191208 JEWEL STRINGER: DM 07/11/191208 RPT#: [id number] DC DATE: STATUS: ADM IN [facility] [address] [place] [address] END OF REPORT
--- NOTE | 2019-07-11 13:07 | NUR ---
OT NOTE: OBSERVED PT GETTING UP TO GO TO BATHROOM.. ATTEMPTED TO COME ASSIST, HOWEVER, HE STATED THAT HE DIDNT NEED OR WANT ANY HELP. WILL ATTEMPT LATER. NOLAN SANFORD, OTR/L
--- NOTE | 2019-07-11 14:03 | NUR ---
PT BACK FROM DIALYSIS, TIRED. PAIN MED GIVEN. LUNCH AT BEDSIDE.
[2019-07-11 15:47] VITALS: BP 143/83
--- NOTE | 2019-07-11 20:22 | NUR ---
AWAKE IN BED BED LOW AND LOCKED CALL LIGHT IN REACH AND ATTEMPTED TO EDUCATE AGAIN ON USE SRX2 AND BED ALARM IN PLACE AND FUNCTIONING
[2019-07-11 20:34] VITALS: BP 132/70
[2019-07-12 00:31] VITALS: BP 130/66
[2019-07-12 04:50] LABS: BASOPHILS 0.6 % (0-2); EOSINOPHILS 6.4 % (0-7); HEMATOCRIT 32.4 % (42.0-54.0); HEMOGLOBIN 10.4 g/dL (13.5-17.5); IMMATURE GRANULOCYTES 0.4 % (0-5); LYMPHOCYTES 25.3 % (15-50); MCH 31.1 pg (26.0-34.0); MCHC 32.1 g/dL (31.0-37.0); MEAN PLATELET VOLUME 8.3 fL (7.4-10.4); MONOCYTES 15.9 % (2-11); NEUTROPHILS 51.4 % (40-80); PLATELET COUNT 258 10x3/uL (130-400); RBC 3.34 10x6/uL (4.20-6.10); RDW 15.1 % (11.5-14.5); WBC 10.8 10x3/uL (4.8-10.8)
[2019-07-12 05:10] LABS: ANION GAP 16.5 mmol/L (8-16); CALCIUM 8.5 mg/dL (8.5-10.1); CARBON DIOXIDE 26.3 mmol/L (21.0-32.0); CREATININE - SERUM 9.1 mg/dL (0.6-1.3); PHOSPHOROUS 8.5 mg/dL (2.5-4.9); POTASSIUM - SERUM 3.8 mmol/L (3.5-5.1)
[2019-07-12 05:19] VITALS: BP 126/55
--- NOTE | 2019-07-12 07:00 | NUR ---
RECEIVED REPORT. ASSUMED CARE OF PATIENT. RESTING IN BED WITH EYES CLOSED, ALL COVERS KICKED OFF IN FLOOR. FRESH LINEN APPLIED TO PATIENT. RESP EVEN AND UNLABORED. CALL LIGHT WITHIN REACH. BED ALARM PATENT PATIENT GETS UP FREQUENTLY WITHOUT CALLING FOR ASSIST. NO DISTRESS.
[2019-07-12 10:18] VITALS: BP 132/74
--- NOTE | 2019-07-12 11:54 | NUR ---
RESTING IN BED. NO DISTRESS. ATTENTION TOWARD TELEVISION. CALL LIGHT WITHIN REACH.
--- NOTE | 2019-07-12 13:44 | OP ---
PATIENT NAME: JOHN CARDONA MEDICAL RECORD: [id number] :[birth year] LOCATION:D.M2 D.2138 ADMISSION DATE:06/24/19 SURGEON: NEGRO ALMODOVAR MD DATE OF OPERATION: 07/07/2019 PREOPERATIVE DIAGNOSES: 1. Adenocarcinoma of the sigmoid colon. 2. End-stage renal disease. 3. Chronic obstructive pulmonary disease. 4. Hypertension. 5. Anemia of chronic disease. POSTOPERATIVE DIAGNOSES: 1. Adenocarcinoma of the sigmoid colon. 2. End-stage renal disease. 3. Hypertension. 4. Anemia of chronic disease. PROCEDURE: Hand-assisted laparoscopic sigmoid colectomy. SURGEON: Negro Almodovar MD REPORT OF PROCEDURE: The patient's abdomen was prepped and draped in sterile fashion. A skin incision was made in the midline just above this pubis. Electrocautery was used to dissect through the subcutaneous tissues and fascia and we bluntly entered the abdominal cavity. The Gelport was inserted with a 5-mm trocar within it. After insufflation was obtained, then a 5-mm trocar was placed in the right lateral abdomen and a 12-mm trocar was placed just anterior to the right anterior superior iliac crest. The patient's mass could be easily visualized and the distal sigmoid colon. There were some attachments of the sigmoid colon to the inferior aspect of the abdominal wall and these were taken down with electrocautery. We eventually took down the white line of Toldt from the distal aspect of the patient's left colon and sigmoid colon. We then scored the peritoneum of the sigmoid colon and proximal rectum. I was able to make a small window around the proximal rectum well past the palpable mass. With this, we were able to fire a 45 blue load Endo GI stapler through the rectum. We then took down the mesentery of the rectum using multiple fires of a white load of an Endo-PERLITA stapler. We were then able to eviscerate this portion of the bowel through the wound. The mesentery was tied off with multiple 3-0 silk ties. Using a clamp and tie technique and then we transected the proximal sigmoid colon using electrocautery. A 2-0 Prolene was used to make a pursestring around the distal aspect of the proximal sigmoid colon and a 29 EEA anvil was inserted, the pursestring was tied down tightly. The end-to-end anastomosis was then performed from the proximal rectum to the proximal sigmoid colon using a 29 EEA stapler through the rectum. There was good approximation of the tissue with no tension. Two intact rings of tissue were present in the stapler and we checked the staple line under water by instilling air through the rectum and there was no sign of a leak. I then oversewed the staple line using Lemberted 3-0 silks. The abdomen was irrigated out thoroughly with normal saline and any signs of bleeding were treated with ties or electrocautery. We did not have any evidence of any active bleeding at the conclusion of the case. The midline fascia was closed with running #1 loop PDS times 2. The 12 trocar site fascia was closed with a single interrupted 0 Vicryl. The wounds were closed with ham and dressed appropriately. OPERATIVE REPORT [id number] JOHN CARDONA COMPLICATIONS: None. CONDITION: Stable. ANESTHESIA: General endotracheal. BLOOD LOSS: Minimal. TRANSINT:[id number] Voice Confirmation ID: [id number] DOCUMENT ID: [id number] NEGRO ALMODOVAR MD at 1344 CC: JERICHO ALVAREZ MD and JOANA LEMONS DO [id number] DICTATION DATE: 07/07/19 1436 RATE SETTER: 07/07/19 2303 ADM IN [facility] [address] [place] [address]
[2019-07-12 14:29] VITALS: BP 139/78
--- NOTE | 2019-07-12 15:13 | NUR ---
Nutrition Follow-up: POD 5 HALS sigmoid colectomy. Diet advanced this AM; tolerating. Noted pt not eating well but does not like food; Megace started per Dr. Beatty. Diet: Renal, Soft, Nepro BID PO intake: 25-50% yesterday No new wt; last wt: 169# (07/04) Last BM: 07/11 Labs noted: K+ 3.8, PO4 8.5 Meds noted: Megace, Pepcid, Phoslo, Nephrovite -Continue current diet as tolerated. -Encourage PO intake and honor food preferences within diet restrictions. -Need new wt; noted daily wts ordered. -RD following.
[2019-07-12 16:00] VITALS: BP 135/84
--- NOTE | 2019-07-12 16:18 | MORECARE ---
CASE MANAGEMENT DISCHARGE SUMMARY PATIENT: JOHN CARDONA UNIT: [id number] ADM DATE: 06/24/19 AGE: 78 : 39 SEX: M ROOM/BED: D.2166 AUTHOR: UCHEDOC PHYSICIAN: REFERRING PHYSICIAN: YARON GONZALES MD DATE OF SERVICE: 07/12/19 Discharge Plan Patient Name: JOHN CARDONA Facility: [facility]:[place] : 1940 Planned Disposition: Inpatient Rehab Anticipated Discharge Date: 06/29/19 Discharge Date: Expected LOS: 5 Initial Reviewer: [id number] Initial Review Date: 06/24/2019 Generated: 07/12/19 5:18 pm Comments DCP- Discharge Planning Updated by [email or web address]: Paulino Albarran on 07/12/19 3:[address] Patient Name: JOHN CARDONA Encounter No: [id number] : 1940 Primary Insurance: MEDICARE A & B Anticipated DC Date: 06-29-2019 Planned Disposition: Inpatient Rehab External Planned Provider: NO ACCEPTING PROVIDER DCP follow-up note: CM RECEIVED ORDER FOR INPATIENT REHAB. CHART REVIEWED. PT REFUSED PHYSICAL THERAPY LAST EVENING AND THIS MORNING AGAIN. CM SPOKE TO DARNELL OF INPATIENT REHAB AT [facility], THEY ARE NOT ABLE TO ACCEPT PT IS NOT PARTICIPATING IN PHYSICAL THERAPY. CM CALLED AND SPOKE TO FRANNIE OF [facility] INPATIENT REHAB AND WAS ADVISED THAT PT WILL HAVE TO PARTICIPATE WITH THERAPY TO BE CONSIDERED FOR ADMISSION. PT IS NOT PARTICIPATING WITH PHYSICAL THERAPY. PT'S SON SPOKE TO PT LAST EVENING REGARDING NEED TO PARTICIPATE WITH THERAPY. CM WILL DISCUSSED [facility] RE[facility] WITH PT AND PT'S SON PT IS NOT PARTICIPATING CONSISTENTLY WITH THERAPY SERVICES ENOUGH TO BE CONSIDERED FOR INPATIENT REHAB. Paulino Albarran, MAILE WEBER DCP- Discharge Planning Updated by [id number]: Paulino Albarran on 07/11/19 11:[address] Patient Name: JOHN CARDONA Encounter No: [id number] : 1940 Primary Insurance: MEDICARE A & B Anticipated DC Date: 06-29-2019 Planned Disposition: Inpatient Rehab External [facility] DCP follow-up note: CM RECEIVED ORDER FOR INPATIENT REHAB PRESCREENING. CM REVIEWED CHART, PHYSICAL THERAPY SIGNED OFF ON 07-06-19 DUE TO NON COMPLIANCE OF PATIENT WITH THERAPY. OCCUPATIONAL THERAPY HAS NOT SIGNED OFF AT THIS TIME AND LAST SEEN PT ON 07-06-19. CM MET WITH PT IN ROOM TO DISCUSS REHAB ORDER AND NEEDS. PT STATES THAT HIS STOMACH HURTS AND ALL HE NEEDS IS FOR THE HOSPITAL TO GET IT SO HE CAN EAT AND HE WILL GO HOME. PT DENIES NEED OF REHAB. CM ENCOURAGED PT TO CONSIDER REHAB SERVICES, PT STATES HE IS GOING HOME AND "THE HOSPITAL NEEDS TO STAIGHTEN OUT HIS STOMACH SO I CAN EAT." CM CALLED CRYSTAL CARDONA, SON AND KAVEH, , WHO REPORTS BEING AT THE HOSPITAL EVERY DAY, THAT PT IS NOT UP ON HIS OWN AND NEEDS REHAB IN ORDER TO GO HOME. CM DISCUSSED THAT PT WILL NEED TO PARTICIPATE WITH THERAPY SERVICES FOR REHAB PLACEMENT. CRYSTAL STATES HE WILL DISCUSS WITH PT AND HAVE PT PARTICIPATE WITH THERAPY SERVICES. CM REQUESTED NEW PHYSICAL THERAPY ORDER. THE PLAN IS STILL FOR INPATIENT REHAB AT [facility], CM WILL NEED TO SEND ANOTHER REFERRAL WHEN AND IF PT PARTICIPATES WITH THERAPY SERVICES. CM TO CONTINUE TO FOLLOW AND ASSIST IF NEEDED. CM WAITING NEW PHYSICAL THERAPY EVALUATION INDICATING PT'S PARTICIPATION FOR REHAB REFERRAL TO [facility] INPATIENT REHAB. MAILE Medel MANAGEMENT DCP- Discharge Planning Updated by [id number]: Paulino Albarran on 07/05/19 2:[address] Patient Name: JOHN CARDONA Encounter No: [id number] : 1940 Primary Insurance: MEDICARE A & B Anticipated DC Date: 06-29-2019 Planned Disposition: Inpatient Rehab External Planned Provider: [facility] INPATIENT REHAB DCP follow-up note: CM RECEIVED ORDER TO CALL PT'S SON TO ENSURE HE IS AWARE OF SURGERY. CM CALLED AND SPOKE TO CRYSTAL KILGORE, SON AND KAVEH, , WHO REPORTS BEING AT THE HOSPITAL EVERY DAY, SPEAKING TO THE NURSES AND IS AWARE OF SURGERY SCHEDULED FOR THURSDAY. PLAN IS STILL FOR INPATIENT REHAB AT [facility], CM WILL NEED TO SEND ANOTHER REFERRAL WHEN PT IS CLOSER TO DISCHARGE AND STABLE FOR REHAB SERVICES. CM TO CONTINUE TO FOLLOW AND ASSIST IF NEEDED. Paulino Albarran CASE MANAGEMENT DCP- Discharge Planning Updated by [id number]: Paulino Albarran on 07/01/19 8:[address] Patient Name: JOHN CARDONA Encounter No: [id number] : 1940 Primary Insurance: MEDICARE A & B Anticipated DC Date: 06-29-2019 Planned Disposition: Inpatient Rehab External Planned Provider: [facility] DCP follow-up note: CM RECEIVED CALL FROM [facility], THEY WILL NEED NEW REFERRAL FOR INPATIENT REHAB WHEN PT IS CLOSER TO BEING STABLE FOR DISCHARGE. CM TO CONTINUE TO FOLLOW AND ASSIST NEEDED. Paulino Albarran CASE MANAGEMENT DCP- Discharge Planning Updated by [id number]: Paulino Albarran on 06/29/19 8:[address] Patient Name: JOHN CARDONA Encounter No: [id number] : 1940 Primary Insurance: MEDICARE A & B Anticipated DC Date: 06-29-2019 Planned Disposition: Inpatient Rehab External Planned Provider: [facility] DCP follow-up note: CM [facility], SPOKE TO FRANNIE AT [phone], WHO ADVISED THEY WILL ACCEPT PT FOR INPATIENT REHAB. CM FAXED UPDATE WITH CURRENT MAR TO [facility] AT [phone]. CM NOTIFIED SANIA JOHNS WHO WILL PROVIDE DISCHARGE ORDERS AND WILL NOTIFY DIALYSIS TO ASK FOR EARLY DIALYSIS TODAY. FOR DISCHARGE, FAX DISCHARGE INFORMATION TO [facility] AT [phone]. [facility] TO ARRANGE TRANSPORTATION. MAILE Medel MANAGEMENT. DCP- Discharge Planning Updated by [id number]: Paulino Albarran on 06/28/19 2:[address] Patient Name: JOHN CARDONA Encounter No: [id number] : 1940 Primary Insurance: MEDICARE A & B Anticipated DC Date: 06-29-2019 Planned Disposition: Inpatient Rehab External Planned Provider: [facility] DCP follow-up note: CM [facility], SPOKE TO FRANNIE AT [phone], WHO ADVISED THEY WILL ACCEPT PT FOR INPATIENT REHAB. CM NOTIFIED SANIA ZALDIVAR. CM NOTIFED PT WHO IS IN AGREEMENT WITH DISCHARGE TO REHAB WHEN STABLE. IMPORTANT MESSAGE FROM MEDICARE PROVIDED AND EXPLAINED. FOR DISCHARGE, NOTIFY FRANNIE AT [facility], , FAX CURRENT MAR AND DISCHARGE INFORMATION TO [facility] AT [phone]. [facility] TO ARRANGE TRANSPORTATION. Paulino Albarran, CASE MANAGEMENT DCP- Discharge Planning Updated by [email or web address]: Clementina Villanueva on 06/27/19 9:[address] Patient Name: JOHN CARDONA Admission Status: ER Accout number: [id number] Admission Date: 06-24-2019 : 1940 Admission Diagnosis: Attending: YARON GONZALES Current LOS: 3 Anticipated DC Date: Planned Disposition: Primary Insurance: MEDICARE A & B Discharge Planning Comments: CM MET WITH PATIENT TO DISCUSS DC PLANNING/NEEDS AFTER OBTAINING VERBAL CONSENT. PATIENT IS VERY HARD OF HEARING AND WANTS ME TO TALK TO HIS SON CRYSTAL. I CALLED CRYSTAL AND HE STATES HIS DAD WILL NEED IPRH VS SNF. [facility]PRH IS FIRST CHOICE, [facility] SN[facility] IS SECOND CHOICE. IMM SIGNED. CM TO FOLLOW AND ASSIST NEEDED. I WILL FAX REFERRAL TO [facility] TODAY. Clinical Ob: Cleemntina Villanueva DCPIA - Discharge Planning Initial Assessment Updated by [id number]: Clementina Villanueva on 06/27/19 10:15 am * Is the patient Alert and Oriented? Yes * PCP ADAM * Pharmacy [facility] * Preadmission Environment Home Alone * ADLs Independent * Other Equipment WALKER, 02/PORT, CPAP * List name and contact numbers for known caregivers / representatives who currently or will assist patient after discharge: CRYSTAL, LORRIE AND POA, * Community resources currently utilized None * Please name any agencies selected above. [facility] MWF DR. ALVAREZ * Additional services required to return to the preadmission environment? Yes * Can the patient safely return to the preadmission environment? No * Has this patient been hospitalized within the prior 30 days at any hospital? No Coverage Notice Reviewer: [id number] Liz Villanueva Notice Issued Date-Time: 06/27/2019 10:21 Notice Type: IM Appeals Notice Notice Delivered To: Patient Relationship to Patient: Powerhouse Mechanic Apprentice Name: Delivery Method: HAND - Hand Delivered Malinda Days: Prior Verbal Notification: Recipient Understood Notice: Yes Recipient Signature: Yes Med Rec Note Co-signed by Attending: Coverage Notice Comment: Reviewer: [id number] Liz Villanueva Notice Issued Date-Time: 06/27/2019 10:21 Notice Type: Patient Choice Letter Notice Delivered To: Family Member Relationship to Patient: Powerhouse Mechanic Apprentice Name: CRYSTAL CARDONA Delivery Method: PHONE - Phone Malinda Days: Prior Verbal Notification: Yes Recipient Understood Notice: Yes Recipient Signature: Med Rec Note Co-signed by Attending: Coverage Notice Comment: [facility], SECOND CHOICE IS [facility]. Reviewer: [id number] Albarran Notice Issued Date-Time: 06/28/2019 15:10 Notice Type: IM Discharge Notice Notice Delivered To: Patient Relationship to Patient: Powerhouse Mechanic Apprentice Name: Delivery Method: HAND - Hand Delivered Malinda Days: Prior Verbal Notification: Recipient Understood Notice: Yes Recipient Signature: Yes Med Rec Note Co-signed by Attending: Coverage Notice Comment: Reviewer: FLORENCE Albarran Notice Issued Date-Time: 07/11/2019 16:20 Notice Type: IM Discharge Notice Notice Delivered To: Family Member Relationship to Patient: Son Powerhouse Mechanic Apprentice Name: CRYSTAL CARDONA Delivery Method: HAND - Hand Delivered Malinda Days: Prior Verbal Notification: Recipient Understood Notice: Yes Recipient Signature: Yes Med Rec Note Co-signed by Attending: Coverage Notice Comment: Last DP export: 07/11/19 11:10 am Patient Name: JOHN CARDONA Page [id number] at 1618 All edits/amendments must be made on the electronic document DICTATION DATE: 07/12/19 1617 SHADING PAINTER: PRESTON 07/12/19 1617 RPT#: [id number] DC DATE: STATUS: ADM IN [facility] [address] [place] [address] END OF REPORT
--- NOTE | 2019-07-12 16:51 | NUR ---
PATIENT SITTING TO SIDE OF BED. NO DISTRESS. DENIES NEEDS. CALL LIGHT WITHIN REACH.
--- NOTE | 2019-07-12 20:11 | NUR ---
BED LOW AND LOCKED AND CALL LIGHT IS WITH PT PT ASKED FOR ZOFRAN AND DISCOVERED IV IS INFILTRATED NEW IV STARTED WITH 22 TO RT FA AND OLD SITE DCED WITH CATH INTACT I ATTEMPTED TO ASWER QUESTIONS FROM FAMILY
--- NOTE | 2019-07-12 20:13 | NUR ---
PT ALERT IN BED READING PAPER STATES NAUSEA IS BETTER
[2019-07-12 21:17] VITALS: BP 143/92
[2019-07-13 00:26] VITALS: BP 127/75
--- NOTE | 2019-07-13 02:17 | NUR ---
I have reviewed this patient and I concur with the Shift Assessment completed by the Licensed Practical Nurse today this shift.
[2019-07-13 06:00] VITALS: BP 142/58
[2019-07-13 07:25] LABS: BASOPHILS 0.4 % (0-2); EOSINOPHILS 5.4 % (0-7); HEMATOCRIT 32.6 % (42.0-54.0); HEMOGLOBIN 10.5 g/dL (13.5-17.5); IMMATURE GRANULOCYTES 0.2 % (0-5); MCH 31.1 pg (26.0-34.0); MCHC 32.2 g/dL (31.0-37.0); MCV 96.4 fL (80.0-100.0); MEAN PLATELET VOLUME 8.4 fL (7.4-10.4); MONOCYTES 11.8 % (2-11); NEUTROPHILS 55.2 % (40-80); PLATELET COUNT 253 10x3/uL (130-400); RBC 3.38 10x6/uL (4.20-6.10); WBC 9.6 10x3/uL (4.8-10.8)
[2019-07-13 07:41] LABS: ANION GAP 18.3 mmol/L (8-16); CALCIUM 8.8 mg/dL (8.5-10.1); CARBON DIOXIDE 25.4 mmol/L (21.0-32.0); CREATININE - SERUM 11.2 mg/dL (0.6-1.3); POTASSIUM - SERUM 3.7 mmol/L (3.5-5.1)
--- NOTE | 2019-07-13 08:05 | NUR ---
PATIENT IS WLERT AND ORIENTED AND DENIES ANY NEEDS AT THIS TIME.
[2019-07-13 11:29] VITALS: BP 140/79
--- NOTE | 2019-07-13 11:37 | NUR ---
PATIENT IS IN DIALYSIS NOW.
--- NOTE | 2019-07-13 13:41 | MORECARE ---
CASE MANAGEMENT DISCHARGE SUMMARY PATIENT: JOHN CARDONA UNIT: [id number] ADM DATE: 06/24/19 AGE: 78 : 39 SEX: M ROOM/BED: D.2139 AUTHOR: UCHE,DOC PHYSICIAN: REFERRING PHYSICIAN: YARON GONZALES MD DATE OF SERVICE: 07/13/19 Discharge Plan Patient Name: JOHN CARDONA Facility: [facility]:[place] : 1940 Planned Disposition: Care Home Facility Anticipated Discharge Date: 06/29/19 Discharge Date: Expected LOS: 5 Initial Reviewer: [id number] Initial Review Date: 06/24/2019 Generated: 07/13/19 2:40 pm DCP- Discharge Planning Updated by [id number]: Paulino Albarran on 07/12/19 3:[address] Patient Name: JOHN CARDONA Encounter No: [id number] : 1940 Primary Insurance: MEDICARE A & B Anticipated DC Date: 06-29-2019 Planned Disposition: Inpatient Rehab External Planned Provider: NO ACCEPTING PROVIDER DCP follow-up note: CM RECEIVED ORDER FOR INPATIENT REHAB. CHART REVIEWED. PT REFUSED PHYSICAL THERAPY LAST EVENING AND THIS MORNING AGAIN. CM SPOKE TO DARNELL OF INPATIENT REHAB AT [place], THEY ARE NOT ABLE TO ACCEPT PT IS NOT PARTICIPATING IN PHYSICAL THERAPY. CM CALLED AND SPOKE TO FRANNIE OF [facility] INPATIENT REHAB AND WAS ADVISED THAT PT WILL HAVE TO PARTICIPATE WITH THERAPY TO BE CONSIDERED FOR ADMISSION. PT IS NOT PARTICIPATING WITH PHYSICAL THERAPY. PT'S SON SPOKE TO PT LAST EVENING REGARDING NEED TO PARTICIPATE WITH THERAPY. CM WILL DISCUSSED [facility] RE[facility]AB WITH PT AND PT'S SON PT IS NOT PARTICIPATING CONSISTENTLY WITH THERAPY SERVICES ENOUGH TO BE CONSIDERED FOR INPATIENT REHAB. Paulino Albarran, MAILE WEBER DCP- Discharge Planning Updated by [id number]: Paulino Albarran on 07/11/19 11:[address] Patient Name: JOHN CARDONA Encounter No: [id number] : 1940 Primary Insurance: MEDICARE A & B Anticipated DC Date: 06-29-2019 Planned Disposition: Inpatient Rehab External Planned Provider: [facility] DCP follow-up note: CM RECEIVED ORDER FOR INPATIENT REHAB PRESCREENING. CM REVIEWED CHART, PHYSICAL THERAPY SIGNED OFF ON 07-06-19 DUE TO NON COMPLIANCE OF PATIENT WITH THERAPY. OCCUPATIONAL THERAPY HAS NOT SIGNED OFF AT THIS TIME AND LAST SEEN PT ON 07-06-19. CM MET WITH PT IN ROOM TO DISCUSS REHAB ORDER AND NEEDS. PT STATES THAT HIS STOMACH HURTS AND ALL HE NEEDS IS FOR THE HOSPITAL TO GET IT SO HE CAN EAT AND HE WILL GO HOME. PT DENIES NEED OF REHAB. CM ENCOURAGED PT TO CONSIDER REHAB SERVICES, PT STATES HE IS GOING HOME AND "THE HOSPITAL NEEDS TO STAIGHTEN OUT HIS STOMACH SO I CAN EAT." CM CALLED CRYSTAL CARDONA, SON AND TYESHAA, , WHO REPORTS BEING AT THE HOSPITAL EVERY DAY, THAT PT IS NOT UP ON HIS OWN AND NEEDS REHAB IN ORDER TO GO HOME. CM DISCUSSED THAT PT WILL NEED TO PARTICIPATE WITH THERAPY SERVICES FOR REHAB PLACEMENT. CRYSTAL STATES HE WILL DISCUSS WITH PT AND HAVE PT PARTICIPATE WITH THERAPY SERVICES. CM REQUESTED NEW PHYSICAL THERAPY ORDER. THE PLAN IS STILL FOR INPATIENT REHAB AT [facility], CM WILL NEED TO SEND ANOTHER REFERRAL WHEN AND IF PT PARTICIPATES WITH THERAPY SERVICES. CM TO CONTINUE TO FOLLOW AND ASSIST IF NEEDED. CM WAITING NEW PHYSICAL THERAPY EVALUATION INDICATING PT'S PARTICIPATION FOR REHAB REFERRAL TO [facility] INPATIENT REHAB. MAILE Medel MANAGEMENT DCP- Discharge Planning Updated by [id number]: Paulino Albarran on 07/05/19 2:[address] Patient Name: JOHN CARDONA Encounter No: [id number] : 1940 Primary Insurance: MEDICARE A & B Anticipated DC Date: 06-29-2019 Planned Disposition: Inpatient Rehab External Planned Provider: [facility] INPATIENT REHAB DCP follow-up note: CM RECEIVED ORDER TO CALL PT'S SON TO ENSURE HE IS AWARE OF SURGERY. CM CALLED AND SPOKE TO CRYSTAL URBINACRYSTAL Sam, SON AND KAVEH, , WHO REPORTS BEING AT THE HOSPITAL EVERY DAY, SPEAKING TO THE NURSES AND IS AWARE OF SURGERY SCHEDULED FOR THURSDAY. PLAN IS STILL FOR INPATIENT REHAB AT [facility], CM WILL NEED TO SEND ANOTHER REFERRAL WHEN PT IS CLOSER TO DISCHARGE AND STABLE FOR REHAB SERVICES. CM TO CONTINUE TO FOLLOW AND ASSIST IF NEEDED. Paulino Albarran CASE MANAGEMENT DCP- Discharge Planning Updated by [id number]: Paulino Albarran on 07/01/19 8:[address] Patient Name: JOHN CARDONA Encounter No: [id number] : 1940 Primary Insurance: MEDICARE A & B Anticipated DC Date: 06-29-2019 Planned Disposition: Inpatient Rehab External Planned Provider: [facility] DCP follow-up note: CM RECEIVED CALL FROM [facility], THEY WILL NEED NEW REFERRAL FOR INPATIENT REHAB WHEN PT IS CLOSER TO BEING STABLE FOR DISCHARGE. CM TO CONTINUE TO FOLLOW AND ASSIST NEEDED. Paulino Albarran CASE MANAGEMENT DCP- Discharge Planning Updated by [id number]: Paulino Albarran on 06/29/19 8:[address] Patient Name: JOHN CARDONA Encounter No: [id number] : 1940 Primary Insurance: MEDICARE A & B Anticipated DC Date: 06-29-2019 Planned Disposition: Inpatient Rehab External Planned Provider: [facility] DCP follow-up note: CM CALLED [facility], SPOKE TO FRANNIE AT [phone], WHO ADVISED THEY WILL ACCEPT PT FOR INPATIENT REHAB. CM FAXED UPDATE WITH CURRENT MAR TO [facility] AT [phone]. CM NOTIFIED SANIA JOHNS WHO WILL PROVIDE DISCHARGE ORDERS AND WILL NOTIFY DIALYSIS TO ASK FOR EARLY DIALYSIS TODAY. FOR DISCHARGE, FAX DISCHARGE INFORMATION TO [facility] AT [phone]. [facility] TO ARRANGE TRANSPORTATION. MAILE Medel MANAGEMENT. DCP- Discharge Planning Updated by [id number]: Paulino Albarran on 06/28/19 2:[address] Patient Name: JOHN CARDONA Encounter No: [id number] : 1940 Primary Insurance: MEDICARE A & B Anticipated DC Date: 06-29-2019 Planned Disposition: Inpatient Rehab External Planned Provider: [facility] DCP follow-up note: CM RECEIVED CALL FROM [facility], SPOKE TO FRANNIE AT [phone], WHO ADVISED THEY WILL ACCEPT PT FOR INPATIENT REHAB. CM NOTIFIED SANIA ZALDIVAR. CM NOTIFED PT WHO IS IN AGREEMENT WITH DISCHARGE TO REHAB WHEN STABLE. IMPORTANT MESSAGE FROM MEDICARE PROVIDED AND EXPLAINED. FOR DISCHARGE, [facility], , FAX CURRENT MAR AND DISCHARGE INFORMATION TO [facility] AT [phone]. [facility] TO ARRANGE TRANSPORTATION. Paulino Albarran, CASE MANAGEMENT DCP- Discharge Planning Updated by [id number]: Clementina Villanueva on 06/27/19 9:[address] Patient Name: JOHN CARDONA Admission Status: ER Accout number: [id number] Admission Date: 06-24-2019 : 1940 Admission Diagnosis: Attending: YARON GONZALES Current LOS: 3 Anticipated DC Date: Planned Disposition: Primary Insurance: MEDICARE A & B Discharge Planning Comments: CM MET WITH PATIENT TO DISCUSS DC PLANNING/NEEDS AFTER OBTAINING VERBAL CONSENT. PATIENT IS VERY HARD OF HEARING AND WANTS ME TO TALK TO HIS SON CRYSTAL. I CALLED CRYSTAL AND HE STATES HIS DAD WILL NEED IPRH VS SNF. [facility] IS FIRST CHOICE, [facility] IS SECOND CHOICE. IMM SIGNED. CM TO FOLLOW AND ASSIST NEEDED. I WILL FAX REFERRAL TO [facility] TODAY. Equal Opportunity Counselor: Clementina Vilalnueva DCPIA - Discharge Planning Initial Assessment Updated by [id number]: Clementina Villanueva on 06/27/19 10:15 am * Is the patient Alert and Oriented? Yes * PCP ADAM * Pharmacy [facility] * Preadmission Environment Home Alone * ADLs Independent * Other Equipment WALKER, 02/PORT, CPAP * List name and contact numbers for known caregivers / representatives who currently or will assist patient after discharge: LORRIE ROJAS AND POA, * Community resources currently utilized None * Please name any agencies selected above. [facility] MWF DR. ALVAREZ * Additional services required to return to the preadmission environment? Yes * Can the patient safely return to the preadmission environment? No * Has this patient been hospitalized within the prior 30 days at any hospital? No Coverage Notice Reviewer: [id number] Liz Villanueva Notice Issued Date-Time: 06/27/2019 10:21 Notice Type: IM Appeals Notice Notice Delivered To: Patient Relationship to Patient: Newspaper Subscription Solicitor Name: Delivery Method: HAND - Hand Delivered Malinda Days: Prior Verbal Notification: Recipient Understood Notice: Yes Recipient Signature: Yes Med Rec Note Co-signed by Attending: Coverage Notice Comment: Reviewer: [id number] Liz Villanueva Notice Issued Date-Time: 06/27/2019 10:21 Notice Type: Patient Choice Letter Notice Delivered To: Family Member Relationship to Patient: Newspaper Subscription Solicitor Name: CRYSTAL CARDONA Delivery Method: PHONE - Phone Malinda Days: Prior Verbal Notification: Yes Recipient Understood Notice: Yes Recipient Signature: Med Rec Note Co-signed by Attending: Coverage Notice Comment: [facility], SECOND CHOICE IS [facility]. Reviewer: [id number] Albarran Notice Issued Date-Time: 06/28/2019 15:10 Notice Type: IM Discharge Notice Notice Delivered To: Patient Relationship to Patient: Newspaper Subscription Solicitor Name: Delivery Method: HAND - Hand Delivered Malinda Days: Prior Verbal Notification: Recipient Understood Notice: Yes Recipient Signature: Yes Med Rec Note Co-signed by Attending: Coverage Notice Comment: Reviewer: FLORENCE Albarran Notice Issued Date-Time: 07/11/2019 16:20 Notice Type: IM Discharge Notice Notice Delivered To: Family Member Relationship to Patient: Son Newspaper Subscription Solicitor Name: CRYSTAL CARDONA Delivery Method: HAND - Hand Delivered Malinda Days: Prior Verbal Notification: Recipient Understood Notice: Yes Recipient Signature: Yes Med Rec Note Co-signed by Attending: Coverage Notice Comment: Last DP export: 07/12/19 3:18 pm Patient Name: JOHN CARDONA Page [id number] at 1341 All edits/amendments must be made on the electronic document DICTATION DATE: 07/13/19 1340 [place] [employer] [place]: PRESTON 07/13/19 1340 RPT#: [id number] DC DATE: STATUS: ADM IN [facility] [address] [place] [address] END OF REPORT
--- NOTE | 2019-07-13 13:48 | MORECARE ---
CASE MANAGEMENT DISCHARGE SUMMARY PATIENT: JOHN CARDONA UNIT: [id number] ADM DATE: 06/24/19 AGE: 78 : 39 SEX: M ROOM/BED: D.2139 AUTHOR: UCHE,DOC PHYSICIAN: REFERRING PHYSICIAN: YARON GONZALES MD DATE OF SERVICE: 07/13/19 Discharge Plan Patient Name: JOHN CARDONA Facility: [facility]:[place] : 1940 Planned Disposition: Care Home Facility Anticipated Discharge Date: 06/29/19 Discharge Date: Expected LOS: 5 Initial Reviewer: [id number] Initial Review Date: 06/24/2019 Generated: 07/13/19 2:48 pm Comments DCP- Discharge Planning Updated by [id number]: Paulino Albarran on 07/13/19 12:[address] Patient Name: JOHN CARDONA Encounter No: [id number] : 1940 Primary Insurance: MEDICARE A & B Anticipated DC Date: 06-29-2019 Planned Disposition: Care Home Facility External Planned Provider: TO BE DETERMINED DCP follow-up note: CM CALLED AND SPOKE TO CRYSTAL CARDONA, SON AND POA, . CM DISCUSSED PT'S REFUSAL OF THERAPY SERVICES AND NEED FOR [facility] FACILITY PLACEMENT IF PT IS NOT ABLE TO GO HOME IN PRESENT CONDITION. CRYSTAL EXPLAINED THAT PT AND THE NURSE INFORMED HIM YESTERDAY THAT PT HAS NOT REFUSED THERAPY. CM REVIEWED THERAPY NOTES AND INFORMED CRYSTAL THAT PT HAS REFUSED. CRYSTAL WILL COME TO HOSPITAL SHORTLY TO DISCUSS PT'S DISCHARGE NEEDS. CM SPOKE TO JASON OF THERAPY, SHE INDICATED THAT HER NOTES REFLECT ACCURATELY WHAT HER INTERACTIONS WITH PT HAVE BEEN, SHE WILL MAKE HERSELF AVAILABLE TO SPEAK TO PT'S SON WHEN HE ARRIVES TODAY. CM WAITING PT'S SON'S ARRIVAL TO DISCUSS DISCHARGE PLANNING AND NEEDS. MAILE Medel DCP- Discharge Planning Updated by [id number]: Paulino Albarran on 07/12/19 3:[address] Patient Name: JOHN CARDONA Encounter No: [id number] : 1940 Primary Insurance: MEDICARE A & B Anticipated DC Date: 06-29-2019 Planned Disposition: Inpatient Rehab External Planned Provider: NO ACCEPTING PROVIDER DCP follow-up note: CM RECEIVED ORDER FOR INPATIENT REHAB. CHART REVIEWED. PT REFUSED PHYSICAL THERAPY LAST EVENING AND THIS MORNING AGAIN. CM SPOKE TO DARNELL OF INPATIENT REHAB AT [place], THEY ARE NOT ABLE TO ACCEPT PT IS NOT PARTICIPATING IN PHYSICAL THERAPY. CM CALLED AND SPOKE TO FRANNIE OF [facility] INPATIENT REH[facility] AND WAS ADVISED THAT PT WILL HAVE TO PARTICIPATE WITH THERAPY TO BE CONSIDERED FOR ADMISSION. PT IS NOT PARTICIPATING WITH PHYSICAL THERAPY. PT'S SON SPOKE TO PT LAST EVENING REGARDING NEED TO PARTICIPATE WITH THERAPY. CM WILL DISCUSSED [facility] REHAB WITH PT AND PT'S SON PT IS NOT PARTICIPATING CONSISTENTLY WITH THERAPY SERVICES ENOUGH TO BE CONSIDERED FOR INPATIENT REHAB. Paulino Albarran, CASE MANAGEMENT DCP- Discharge Planning Updated by [id number]: Paulino Albarran on 07/11/19 11:[address] Patient Name: JOHN CARDONA Encounter No: [id number] : 1940 Primary Insurance: MEDICARE A & B Anticipated DC Date: 06-29-2019 Planned Disposition: Inpatient Rehab External Planned Provider: [facility] INPAT[facility] DCP follow-up note: CM RECEIVED ORDER FOR INPATIENT REHAB PRESCREENING. CM REVIEWED CHART, PHYSICAL THERAPY SIGNED OFF ON 07-06-19 DUE TO NON COMPLIANCE OF PATIENT WITH THERAPY. OCCUPATIONAL THERAPY HAS NOT SIGNED OFF AT THIS TIME AND LAST SEEN PT ON 07-06-19. CM MET WITH PT IN ROOM TO DISCUSS REHAB ORDER AND NEEDS. PT STATES THAT HIS STOMACH HURTS AND ALL HE NEEDS IS FOR THE HOSPITAL TO GET IT SO HE CAN EAT AND HE WILL GO HOME. PT DENIES NEED OF REHAB. CM ENCOURAGED PT TO CONSIDER REHAB SERVICES, PT STATES HE IS GOING HOME AND "THE HOSPITAL NEEDS TO STAIGHTEN OUT HIS STOMACH SO I CAN EAT." CM CALLED CRYSTAL CARDONA, SON AND POA, , WHO REPORTS BEING AT THE HOSPITAL EVERY DAY, THAT PT IS NOT UP ON HIS OWN AND NEEDS REHAB IN ORDER TO GO HOME. CM DISCUSSED THAT PT WILL NEED TO PARTICIPATE WITH THERAPY SERVICES FOR REHAB PLACEMENT. CRYSTAL STATES HE WILL DISCUSS WITH PT AND HAVE PT PARTICIPATE WITH THERAPY SERVICES. CM REQUESTED NEW PHYSICAL THERAPY ORDER. THE PLAN IS STILL FOR INPATIENT REHAB AT [facility], CM WILL NEED TO SEND ANOTHER REFERRAL WHEN AND IF PT PARTICIPATES WITH THERAPY SERVICES. CM TO CONTINUE TO FOLLOW AND ASSIST IF NEEDED. CM WAITING NEW PHYSICAL THERAPY EVALUATION INDICATING PT'S PARTICIPATION FOR REHAB REFERRAL TO [facility] INPATIENT RE[facility]. Paulino Albarran CASE MANAGEMENT DCP- Discharge Planning Updated by [id number]: Paulino Albarran on 07/05/19 2:[address] Patient Name: JOHN CARDONA Encounter No: [id number] : 1940 Primary Insurance: MEDICARE A & B Anticipated DC Date: 06-29-2019 Planned Disposition: Inpatient Rehab External Planned Provider: [facility] DCP follow-up note: CM RECEIVED ORDER TO CALL PT'S SON TO ENSURE HE IS AWARE OF SURGERY. CM CALLED AND SPOKE TO CRYSTAL CARDONA, CRYSTAL, SON AND KAVEH, , WHO REPORTS BEING AT THE HOSPITAL EVERY DAY, SPEAKING TO THE NURSES AND IS AWARE OF SURGERY SCHEDULED FOR THURSDAY. PLAN IS STILL FOR INPATIENT REHAB AT [facility], CM WILL NEED TO SEND ANOTHER REFERRAL WHEN PT IS CLOSER TO DISCHARGE AND STABLE FOR REHAB SERVICES. CM TO CONTINUE TO FOLLOW AND ASSIST IF NEEDED. Paulino Albarran CASE MANAGEMENT DCP- Discharge Planning Updated by [id number]: Paulino Albarran on 07/01/19 8:[address] Patient Name: JOHN CARDONA Encounter No: [id number] : 1940 Primary Insurance: MEDICARE A & B Anticipated DC Date: 06-29-2019 Planned Disposition: Inpatient Rehab External Planned Provider: [facility] DCP follow-up note: CM RECEIVED CALL FROM [facility], THEY WILL NEED NEW REFERRAL FOR INPATIENT REHAB WHEN PT IS CLOSER TO BEING STABLE FOR DISCHARGE. CM TO CONTINUE TO FOLLOW AND ASSIST NEEDED. Paulino Albarran CASE MANAGEMENT DCP- Discharge Planning Updated by [id number]: Paulino Albarran on 06/29/19 8:[address] Patient Name: JOHN CARDONA Encounter No: [id number] : 1940 Primary Insurance: MEDICARE A & B Anticipated DC Date: 06-29-2019 Planned Disposition: Inpatient Rehab External Planned Provider: [facility] DCP follow-up note: CM CALLED [facility], SPOKE TO FRANNIE AT [phone], WHO ADVISED THEY WILL ACCEPT PT FOR INPATIENT REHAB. CM FAXED UPDATE WITH CURRENT MAR TO [facility] AT [phone]. CM NOTIFIED SANIA JOHNS WHO WILL PROVIDE DISCHARGE ORDERS AND WILL NOTIFY DIALYSIS TO ASK FOR EARLY DIALYSIS TODAY. FOR DISCHARGE, FAX DISCHARGE INFORMATION TO [facility] AT [phone]. [facility] TO ARRANGE TRANSPORTATION. MAILE Medel. DCP- Discharge Planning Updated by [id number]: Paulino Albarran on 06/28/19 2:[address] Patient Name: JOHN CARDONA Encounter No: [id number] : 1940 Primary Insurance: MEDICARE A & B Anticipated DC Date: 06-29-2019 Planned Disposition: Inpatient Rehab External Planned Provider: [facility] DCP follow-up note: CM RECEIVED CALL FROM [facility], SPOKE TO FRANNIE AT [phone], WHO ADVISED THEY WILL ACCEPT PT FOR INPATIENT REHAB. CM NOTIFIED SANIA ZALDIVAR. CM NOTIFED PT WHO IS IN AGREEMENT WITH DISCHARGE TO REHAB WHEN STABLE. IMPORTANT MESSAGE FROM MEDICARE PROVIDED AND EXPLAINED. FOR DISCHARGE, NOTIFY FRANNIE AT [facility], , FAX CURRENT MAR AND DISCHARGE INFORMATION TO [facility] AT [phone]. [facility] TO ARRANGE TRANSPORTATION. MAILE Medel DCP- Discharge Planning Updated by [id number]: Clementina Villanueva on 06/27/19 9:[address] Patient Name: JOHN CARDONA Admission Status: ER Accout number: [id number] Admission Date: 06-24-2019 : 1940 Admission Diagnosis: Attending: YARON GONZALES Current LOS: 3 Anticipated DC Date: Planned Disposition: Primary Insurance: MEDICARE A & B Discharge Planning Comments: CM MET WITH PATIENT TO DISCUSS DC PLANNING/NEEDS AFTER OBTAINING VERBAL CONSENT. PATIENT IS VERY HARD OF HEARING AND WANTS ME TO TALK TO HIS SON CRYSTAL. I CALLED CRYSTAL AND HE STATES HIS DAD WILL NEED [facility] VS SNF. [facility], [facility]. IMM SIGNED. CM TO FOLLOW AND ASSIST NEEDED. I WILL FAX REFERRAL TO [facility] TODAY. Washing Tub Operator: Clementina Villanueva DCPIA - Discharge Planning Initial Assessment Updated by [id number]: Clementina Villanueva on 06/27/19 10:15 am * Is the patient Alert and Oriented? Yes * PCP ADAM * Pharmacy [facility] * Preadmission Environment Home Alone * ADLs Independent * Other Equipment WALKER, 02/PORT, CPAP * List name and contact numbers for known caregivers / representatives who currently or will assist patient after discharge: BRIAN ROJAS AND KAVEH, * Community resources currently utilized None * Please name any agencies selected above. HAS DIALYSIS [facility] MWF DR. ALVAREZ * Additional services required to return to the preadmission environment? Yes * Can the patient safely return to the preadmission environment? No * Has this patient been hospitalized within the prior 30 days at any hospital? No Coverage Notice Reviewer: [id number] Liz Albarran Notice Issued Date-Time: 07/11/2019 16:20 Notice Type: IM Discharge Notice Notice Delivered To: Family Member Relationship to Patient: Brian Veterinarian Poultry Name: CRYSTAL CARDONA Delivery Method: HAND - Hand Delivered Malinda Days: Prior Verbal Notification: Recipient Understood Notice: Yes Recipient Signature: Yes Med Rec Note Co-signed by Attending: Coverage Notice Comment: Reviewer: [id number] Liz Villanueva Notice Issued Date-Time: 06/27/2019 10:21 Notice Type: Patient Choice Letter Notice Delivered To: Family Member Relationship to Patient: Veterinarian Poultry Name: CRYSTAL CARDONA Delivery Method: PHONE - Phone Malinda Days: Prior Verbal Notification: Yes Recipient Understood Notice: Yes Recipient Signature: Med Rec Note Co-signed by Attending: Coverage Notice Comment: [facility], SECOND CHOICE IS [facility]. Reviewer: [id number] Liz Albarran Notice Issued Date-Time: 06/28/2019 15:10 Notice Type: IM Discharge Notice Notice Delivered To: Patient Relationship to Patient: Veterinarian Poultry Name: Delivery Method: HAND - Hand Delivered Malinda Days: Prior Verbal Notification: Recipient Understood Notice: Yes Recipient Signature: Yes Med Rec Note Co-signed by Attending: Coverage Notice Comment: Reviewer: [id number] Liz Villanueva Notice Issued Date-Time: 06/27/2019 10:21 Notice Type: IM Appeals Notice Notice Delivered To: Patient Relationship to Patient: Veterinarian Poultry Name: Delivery Method: HAND - Hand Delivered Malinda Days: Prior Verbal Notification: Recipient Understood Notice: Yes Recipient Signature: Yes Med Rec Note Co-signed by Attending: Coverage Notice Comment: Last DP export: 07/13/19 12:41 pm Patient Name: JOHN CARDONA Page [phone] at 1348 All edits/amendments must be made on the electronic document DICTATION DATE: 07/13/[address] CLERK: PRESTON 07/13/19 1348 RPT#: [id number] DC DATE: STATUS: ADM IN [facility] [address] [place] [address] END OF REPORT
--- NOTE | 2019-07-13 16:07 | NUR ---
PATIENT RETURNED FROM DIALYSIS AND IS SITTING UP EATTING LUNCH. FAMILY AT BEDSIDE. DENIES ANY NEEDS AT THIS TIME.
--- NOTE | 2019-07-13 16:42 | MORECARE ---
CASE MANAGEMENT DISCHARGE SUMMARY PATIENT: JOHN CARDONA UNIT: [id number] ADM DATE: 06/24/19 AGE: 78 : 38 SEX: M ROOM/BED: D.1547 AUTHOR: UCHE,DOC PHYSICIAN: REFERRING PHYSICIAN: YARON GONZALES MD DATE OF SERVICE: 07/13/19 Discharge Plan Patient Name: JOHN CARDONA Facility: [facility]:[place] : 1940 Planned Disposition: Residential Facility Anticipated Discharge Date: 06/29/19 Discharge Date: Expected LOS: 5 Initial Reviewer: [id number] Initial Review Date: 06/24/2019 Generated: 07/13/19 5:42 pm Comments DCP- Discharge Planning Updated by [email or web address]: Judy Pace on 07/13/19 3:[address] Patient Name: JOHN CARDONA Encounter No: [id number] : 1940 Primary Insurance: MEDICARE A & B Anticipated DC Date: 06-29-2019 Planned Disposition: Residential Facility External Planned Provider: TO BE DETERMINED DCP follow-up note: CM CALLED AND SPOKE TO CRYSTAL CARDONA, SON AND POA, . CM DISCUSSED PT'S REFUSAL OF THERAPY SERVICES AND NEED FOR [facility] FACILITY PLACEMENT IF PT IS NOT ABLE TO GO HOME IN PRESENT CONDITION. CRYSTAL EXPLAINED THAT PT AND THE NURSE INFORMED HIM YESTERDAY THAT PT HAS NOT REFUSED THERAPY. CM REVIEWED THERAPY NOTES AND INFORMED CRYSTAL THAT PT HAS REFUSED. CRYSTAL WILL COME TO HOSPITAL SHORTLY TO DISCUSS PT'S DISCHARGE NEEDS. CM SPOKE TO JASON CHURCH THERAPY, SHE INDICATED THAT HER NOTES REFLECT ACCURATELY WHAT HER INTERACTIONS WITH PT HAVE BEEN, SHE WILL MAKE HERSELF AVAILABLE TO SPEAK TO PT'S SON WHEN HE ARRIVES TODAY. CM WAITING PT'S SON'S ARRIVAL TO DISCUSS DISCHARGE PLANNING AND NEEDS. Judy Pace, CASE MANAGEMENT Appended by Judy Pace on 07/13/2019 16:41 BRIDGE INSPECTOR: CM MET WITH PT AND PT'S SON IN ROOM. PT'S SON BELIVES THAT PT WILL PARTICIPATE IN THERAPY BUT MAY NOT HAVE HEARD THE THERAPIST WHEN OFFERED THERAPY SERVICES. CM PAGED AND HAD WILLIAMS SPEAK TO PT AND SON. PT REPORTS HE ONLY REFUSED THERAPY ONCE AFTER DIALYSIS AND WILL PARTICIPATE TO GET INTO REHAB. PT'S SON WANTS FIRST CHOICE TO BE [facility], SECOND TO BE [facility] AND IF NECESSARY, [facility] SKILLED NUSING IN [employer] [facility] [employer] [facility] [facility]. THERAPY SPOKE TO PT WHO AGREED TO PARTICIPATE WITH ALL THERAPY SESSIONS. FAMILY NOTES THAT PT IS GETTING UP TO CHAIR AND TO BATHROOM AND FEELS THIS NEEDS TO BE DOCUMENTED ALSO. THERAPY TO SEE PT IN THE MORNING. CM TO SEND REFERRALS TO [facility], [facility] INPATIENT AND [facility] IN [place]. JUDY PACE CASE MANAGEMENT DCP- Discharge Planning Updated by [id number]: Judy Pace on 07/12/19 3:[address] Patient Name: JOHN CARDONA Encounter No: [id number] : 1940 Primary Insurance: MEDICARE A & B Anticipated DC Date: 06-29-2019 Planned Disposition: Inpatient Rehab External Planned Provider: NO ACCEPTING PROVIDER DCP follow-up note: CM RECEIVED ORDER FOR INPATIENT REHAB. CHART REVIEWED. PT REFUSED PHYSICAL THERAPY LAST EVENING AND THIS MORNING AGAIN. CM SPOKE TO DARNELL OF INPATIENT REHAB AT [facility], THEY ARE NOT ABLE TO ACCEPT PT IS NOT PARTICIPATING IN PHYSICAL THERAPY. CM CALLED AND SPOKE TO FRANNIE OF [facility]PATIENT REH[facility] AND WAS ADVISED THAT PT WILL HAVE TO PARTICIPATE WITH THERAPY TO BE CONSIDERED FOR ADMISSION. PT IS NOT PARTICIPATING WITH PHYSICAL THERAPY. PT'S SON SPOKE TO PT LAST EVENING REGARDING NEED TO PARTICIPATE WITH THERAPY. CM WILL DISCUSSED [facility] WITH PT AND PT'S SON PT IS NOT PARTICIPATING CONSISTENTLY WITH THERAPY SERVICES ENOUGH TO BE CONSIDERED FOR INPATIENT REHAB. MAILE Medel DCP- Discharge Planning Updated by [id number]: Judy Pace on 07/11/19 11:[address] Patient Name: JOHN CARDONA Encounter No: [id number] : 1940 Primary Insurance: MEDICARE A & B Anticipated DC Date: 06-29-2019 Planned Disposition: Inpatient Rehab External Planned Provider: [facility]IENT REH[facility] DCP follow-up note: CM RECEIVED ORDER FOR INPATIENT REHAB PRESCREENING. CM REVIEWED CHART, PHYSICAL THERAPY SIGNED OFF ON 07-06-19 DUE TO NON COMPLIANCE OF PATIENT WITH THERAPY. OCCUPATIONAL THERAPY HAS NOT SIGNED OFF AT THIS TIME AND LAST SEEN PT ON 07-06-19. CM MET WITH PT IN ROOM TO DISCUSS REHAB ORDER AND NEEDS. PT STATES THAT HIS STOMACH HURTS AND ALL HE NEEDS IS FOR THE HOSPITAL TO GET IT SO HE CAN EAT AND HE WILL GO HOME. PT DENIES NEED OF REHAB. CM ENCOURAGED PT TO CONSIDER REHAB SERVICES, PT STATES HE IS GOING HOME AND "THE HOSPITAL NEEDS TO STAIGHTEN OUT HIS STOMACH SO I CAN EAT." CM CALLED CRYSTAL CARDONA SON AND KAVEH, , WHO REPORTS BEING AT THE HOSPITAL EVERY DAY, THAT PT IS NOT UP ON HIS OWN AND NEEDS REHAB IN ORDER TO GO HOME. CM DISCUSSED THAT PT WILL NEED TO PARTICIPATE WITH THERAPY SERVICES FOR REHAB PLACEMENT. CRYSTAL STATES HE WILL DISCUSS WITH PT AND HAVE PT PARTICIPATE WITH THERAPY SERVICES. CM REQUESTED NEW PHYSICAL THERAPY ORDER. THE PLAN IS STILL FOR INPATIENT REHAB AT [facility], CM WILL NEED TO SEND ANOTHER REFERRAL WHEN AND IF PT PARTICIPATES WITH THERAPY SERVICES. CM TO CONTINUE TO FOLLOW AND ASSIST IF NEEDED. CM WAITING NEW PHYSICAL THERAPY EVALUATION INDICATING PT'S PARTICIPATION FOR REHAB REFERRAL TO [facility] INPATIENT REH[facility]. Judy Pace CASE MANAGEMENT DCP- Discharge Planning Updated by [id number]: Judy Pace on 07/05/19 2:[address] Patient Name: JOHN CARDONA Encounter No: [id number] : 1940 Primary Insurance: MEDICARE A & B Anticipated DC Date: 06-29-2019 Planned Disposition: Inpatient Rehab External Planned Provider: [facility]IENT REH[facility] DCP follow-up note: CM RECEIVED ORDER TO CALL PT'S SON TO ENSURE HE IS AWARE OF SURGERY. CM CALLED AND SPOKE TO CRYSTAL KILGORE, LORRIE AND KAVEH, , WHO REPORTS BEING AT THE HOSPITAL EVERY DAY, SPEAKING TO THE NURSES AND IS AWARE OF SURGERY SCHEDULED FOR THURSDAY. PLAN IS STILL FOR INPATIENT REHAB AT [facility], CM WILL NEED TO SEND ANOTHER REFERRAL WHEN PT IS CLOSER TO DISCHARGE AND STABLE FOR REHAB SERVICES. CM TO CONTINUE TO FOLLOW AND ASSIST IF NEEDED. MAILE Medel DCP- Discharge Planning Updated by [id number]: Judy Pace on 07/01/19 8:[address] Patient Name: JOHN CARDONA Encounter No: [id number] : 1940 Primary Insurance: MEDICARE A & B Anticipated DC Date: 06-29-2019 Planned Disposition: Inpatient Rehab External Planned Provider: [facility] INPATIENT [facility] DCP follow-up note: CM RECEIVED CALL FROM [facility], THEY WILL NEED NEW REFERRAL FOR INPATIENT REHAB WHEN PT IS CLOSER TO BEING STABLE FOR DISCHARGE. CM TO CONTINUE TO FOLLOW AND ASSIST NEEDED. MAILE Medel DCP- Discharge Planning Updated by [id number]: Judy Pace on 06/29/19 8:[address] Patient Name: JOHN CARDONA Encounter No: [id number] : 1940 Primary Insurance: MEDICARE A & B Anticipated DC Date: 06-29-2019 Planned Disposition: Inpatient Rehab External Planned Provider: [facility] DCP follow-up note: CM CALLED [facility]IENT [facility], SPOKE TO FRANNIE AT [phone], WHO ADVISED THEY WILL ACCEPT PT FOR INPATIENT REHAB. CM FAXED UPDATE WITH CURRENT MAR TO [facility] AT [phone]. CM NOTIFIED SANIA JOHNS WHO WILL PROVIDE DISCHARGE ORDERS AND WILL NOTIFY DIALYSIS TO ASK FOR EARLY DIALYSIS TODAY. FOR DISCHARGE, FAX DISCHARGE INFORMATION TO [facility] AT [phone]. [facility] TO ARRANGE TRANSPORTATION. MAILE Medel. DCP- Discharge Planning Updated by [id number]: Judy Pace on 06/28/19 2:[address] Patient Name: JOHN CARDONA Encounter No: [id number] : 1940 Primary Insurance: MEDICARE A & B Anticipated DC Date: 06-29-2019 Planned Disposition: Inpatient Rehab External Planned Provider: [facility] DCP follow-up note: CM RECEIVED CALL FROM [facility], SPOKE TO FRANNIE AT [phone], WHO ADVISED THEY WILL ACCEPT PT FOR INPATIENT REHAB. CM NOTIFIED SANIA ZALDIVAR. CM NOTIFED PT WHO IS IN AGREEMENT WITH DISCHARGE TO REHAB WHEN STABLE. IMPORTANT MESSAGE FROM MEDICARE PROVIDED AND EXPLAINED. FOR DISCHARGE, NOT[facility], , FAX CURRENT MAR AND DISCHARGE INFORMATION TO [facility] AT [phone]. [facility] TO ARRANGE TRANSPORTATION. MAILE Medel DCP- Discharge Planning Updated by [id number]: Clementina Villanueva on 06/27/19 9:[address] Patient Name: JOHN CARDONA Admission Status: ER Accout number: [id number] Admission Date: 06-24-2019 : 1940 Admission Diagnosis: Attending: YARON GONZALES Current LOS: 3 Anticipated DC Date: Planned Disposition: Primary Insurance: MEDICARE A & B Discharge Planning Comments: CM MET WITH PATIENT TO DISCUSS DC PLANNING/NEEDS AFTER OBTAINING VERBAL CONSENT. PATIENT IS VERY HARD OF HEARING AND WANTS ME TO TALK TO HIS SON CRYSTAL. I CALLED CRYSTAL AND HE STATES HIS DAD WILL NEED [facility] VS SNF. [facility] IS FIRST CHOICE, [facility] SNF IS SECOND CHOICE. IMM SIGNED. CM TO FOLLOW AND ASSIST NEEDED. I WILL FAX REFERRAL TO [facility] TODAY. Supervisor Steffen House: Clementina Villanueva DCPIA - Discharge Planning Initial Assessment Updated by [id number]: Clementina Villanueva on 06/27/19 10:15 am * Is the patient Alert and Oriented? Yes * PCP ADAM * Pharmacy [facility] * Preadmission Environment Home Alone * ADLs Independent * Other Equipment WALKER, 02/PORT, CPAP * List name and contact numbers for known caregivers / representatives who currently or will assist patient after discharge: LORRIE ROJAS AND POA, * Community resources currently utilized None * Please name any agencies selected above. [facility]IAL[facility] MWF DR. ALVAREZ * Additional services required to return to the preadmission environment? Yes * Can the patient safely return to the preadmission environment? No * Has this patient been hospitalized within the prior 30 days at any hospital? No Coverage Notice Reviewer: [id number] Liz Villanueva Notice Issued Date-Time: 06/27/2019 10:21 Notice Type: IM Appeals Notice Notice Delivered To: Patient Relationship to Patient: Garbage Collector Name: Delivery Method: HAND - Hand Delivered Malinda Days: Prior Verbal Notification: Recipient Understood Notice: Yes Recipient Signature: Yes Med Rec Note Co-signed by Attending: Coverage Notice Comment: Reviewer: [id number] Liz Villanueva Notice Issued Date-Time: 06/27/2019 10:21 Notice Type: Patient Choice Letter Notice Delivered To: Family Member Relationship to Patient: Garbage Collector Name: CRYSTAL CARDONA Delivery Method: PHONE - Phone Malinda Days: Prior Verbal Notification: Yes Recipient Understood Notice: Yes Recipient Signature: Med Rec Note Co-signed by Attending: Coverage Notice Comment: [facility], SECOND CHOICE IS [facility]. Reviewer: FLORENCE Pace Notice Issued Date-Time: 06/28/2019 15:10 Notice Type: IM Discharge Notice Notice Delivered To: Patient Relationship to Patient: Garbage Collector Name: Delivery Method: HAND - Hand Delivered Malinda Days: Prior Verbal Notification: Recipient Understood Notice: Yes Recipient Signature: Yes Med Rec Note Co-signed by Attending: Coverage Notice Comment: Reviewer: FLORENCE Pace Notice Issued Date-Time: 07/11/2019 16:20 Notice Type: IM Discharge Notice Notice Delivered To: Family Member Relationship to Patient: Son Garbage Collector Name: CRYSTAL CARDONA Delivery Method: HAND - Hand Delivered Malinda Days: Prior Verbal Notification: Recipient Understood Notice: Yes Recipient Signature: Yes Med Rec Note Co-signed by Attending: Coverage Notice Comment: Reviewer: FLORENCE Pace Notice Issued Date-Time: 07/13/2019 15:05 Notice Type: Patient Choice Letter Notice Delivered To: Family Member Relationship to Patient: Son Garbage Collector Name: CRYSTAL CARDONA Delivery Method: HAND - Hand Delivered Malinda Days: Prior Verbal Notification: Recipient Understood Notice: Yes Recipient Signature: Yes Med Rec Note Co-signed by Attending: Coverage Notice Comment: [facility], [facility], [facility] [place] Last DP export: 07/13/19 12:48 pm Patient Name: JOHN CARDONA Page [id number] at 1642 All edits/amendments must be made on the electronic document DICTATION DATE: 07/13/191641 CUTTING TABLE OPERATOR: DM 07/13/191641 RPT#: [id number] DC DATE: STATUS: ADM IN [facility] [address] [place] [address] END OF REPORT
[2019-07-13 20:00] VITALS: BP 123/73
--- NOTE | 2019-07-13 20:08 | NUR ---
PT LYING IN BED AWAKE ALERT AND ORIENTED. NO SIGNS OF DISTRESS NOTED. CALL LIGHT WITH IN REACH AND BED IS IN LOWEST POSITION. PT ENCOURAGED TO CALL FOR HELP WHEN GETTING IN AND OUT OF BED. BED ALARM ON AND ACTIVE. WILL CONTINUE TO MONITOR
[2019-07-14] VITALS: BP 137/60
--- NOTE | 2019-07-14 01:39 | NUR ---
LYING IN BED RESTING WITH EYES CLOSED. EASILY AWAKEN WITH VOICE STIMULATION. RESPIRATIONS EVEN AND UNLABORED. BED ALARM ON AND ACTIVE. PT REFUSES TO WEAR YELLOW GOWN. WILL CONTINUE TO MONITOR
--- NOTE | 2019-07-14 02:37 | NUR ---
ASSIST PT TO RESTROOM AND BACK TO BED. CALL LIGHT WITH IN REACH AND BED ALARM ACTIVE. WILL CONTINUE TO MONITOR
--- NOTE | 2019-07-14 03:57 | NUR ---
PT FELL ON FLOOR. SIMRAN BED ALARM SOUNDING AND ACTIVE. FALL SOCKS ARE ON. PT STATES THAT HE WAS SITTING UP ON SIDE OF THE BED WHEN HE SLIDE DOWN OFF BED AND ONTO THE FLOOR. PT HAS BEEN ENCOURAGED TO CALL FOR HELP ALL NIGHT BUT REFUSES. PT WAS SITTING IN AN UPRIGHT POSITION ON FLOOR. NO COMPLAINTS OF PAIN AT THIS TIME. FITO DE OLIVEIRA APN NOTIFIED. AND SON CRYSTAL CARDONA NOTIFIED. NO NEW ORDERS AT THIS TIME. VITAL SIGNS ARE STABLE. NO SIGNS OR SYMPTOMS OF DISTRESS NOTED. RESPIRATIONS EVEN AND UNLABORED. 98.0 18 114/72 93HR 98RA. CALL ALARM WITH IN REACH AND BED IS IN LOWEST POSITION. PT ENCOURAGED TO CALL FOR HELP WHEN GETTING IN AND OUT OF BED. WILL CONTINUE TO MONITOR
[2019-07-14 04:00] VITALS: BP 114/72
--- NOTE | 2019-07-14 06:09 | NUR ---
PT LYING IN BED AWAKE AND ALERT. NO SIGNS OF DISTRESS NOTED. RESPIRATIONS EVEN AND UNLABORED. NO CHANGE INMENTAL STATUS NOTED. NO COMPLAINTS OF PAIN AT THIS TIME. PT ENCOURAGED TO CALL FOR HELP WHEN GETTING IN AND OUT OF BED. CALL LIGHT WITH IN REACH AND BED IS IN LOWEST POSITION. WILL CONTINUE TO MONITOR
[2019-07-14 07:20] LABS: BASOPHILS 0.3 % (0-2); EOSINOPHILS 4.3 % (0-7); IMMATURE GRANULOCYTES 0.3 % (0-5); LYMPHOCYTES 23.7 % (15-50); MCH 31.5 pg (26.0-34.0); MCHC 32.4 g/dL (31.0-37.0); MCV 97.4 fL (80.0-100.0); MEAN PLATELET VOLUME 8.4 fL (7.4-10.4); MONOCYTES 13.3 % (2-11); NEUTROPHILS 58.1 % (40-80); PLATELET COUNT 238 10x3/uL (130-400); RBC 3.49 10x6/uL (4.20-6.10); RDW 14.9 % (11.5-14.5); WBC 9.8 10x3/uL (4.8-10.8)
[2019-07-14 07:22] LABS: ANION GAP 14.1 mmol/L (8-16); CALCIUM 9.3 mg/dL (8.5-10.1); CARBON DIOXIDE 29.3 mmol/L (21.0-32.0); CREATININE - SERUM 7.7 mg/dL (0.6-1.3); POTASSIUM - SERUM 3.4 mmol/L (3.5-5.1)
[2019-07-14 10:00] VITALS: BP 128/75
--- NOTE | 2019-07-14 10:23 | NUR ---
PATIENT IS AWAKE AND ALERT. HE SAT UP AT THE EDGE OF THE BED, AND ATE HIS BREAKFAST. MEDICATIONS GIVEN ORDERED. HE ASKED THAT PHYSICAL THERAPY SEE HIM TODAY, AND THAT HE IS VERY WILLING TO DO THERAPY WITH THEM. HE WANTS TO GO TO REHAB. REPORTED WHAT HE SAID TO PHYSICAL THERAPY.
[2019-07-14 14:04] VITALS: BP 109/66
--- NOTE | 2019-07-14 14:27 | NUR ---
REHAB PRESCREENING Second rehab referral received and chart reviewed. Mr. Moser has not participated in therapy since 06/30/2019 until today. Given his history of continued refusals he will need to show ongoing participation. It is part of the admission criteria that the patient is willing and able to participate in the required 3 hours of therapy. Rehab will continue to follow at this time. Thank you for this referral! Flavia Carranza, VIDEO TAPE TRANSFERRER Rehab PD
--- NOTE | 2019-07-14 16:04 | MORECARE ---
CASE MANAGEMENT DISCHARGE SUMMARY PATIENT: JOHN CARDONA UNIT: [id number] ADM DATE: 06/24/19 AGE: 78 : 38 SEX: M ROOM/BED: D.6699 AUTHOR: UCHE,DOC PHYSICIAN: REFERRING PHYSICIAN: YARON GONZALES MD DATE OF SERVICE: 07/14/19 Discharge Plan Patient Name: JOHN CARDONA Facility: [facility]:[place] : 1940 Planned Disposition: Shelter Facility Anticipated Discharge Date: 06/29/19 Discharge Date: Expected LOS: 5 Initial Reviewer: [id number] Initial Review Date: 06/24/2019 Generated: 07/14/19 5:04 pm Comments DCP- Discharge Planning Updated by [id number]: Judy Pace on 07/14/19 3:[address] Patient Name: JOHN CARDONA Encounter No: [id number] : 1940 Primary Insurance: MEDICARE A & B Anticipated DC Date: 06-29-2019 Planned Disposition: Shelter Facility External Planned Provider: [facility], LONG TERM CARE MEDICAID BED DCP follow-up note: CM RECEIVED CALL FROM HODAN OF [facility], , THEY PLAN TO 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 CM RECEIVED CALL FROM [facility], THEY WILL ACCEPT PT FOR HOSPICE AND WILL ADMIT AFTER PT GETS TO [facility]. CM NOTIFIED PT WHO IS IN AGREEMENT WITH PLAN, DOES WANT A DRAIN AND IS WORKING WITH HIS FRIEND TO PROVIDE [facility] THE FINANCIAL RECORDS THEY NEED. FOR DISCHARGE,VERIFY WITH [facility] THAT THEY WILL ACCEPT, ; IF SO, NURSE REPORT TO BE PROVIDED TO [facility], , FAX DISCHARGE INFORMATION TO [facility] AT [phone]. NOTIFY [facility] AT [phone], FAX DISCHARGE INFORMATION TO [facility] AT [phone]. MAILE Medel MANAGEMENT DCP- Discharge Planning Updated by [id number]: Judy Pace on 07/13/19 3:[address] Patient Name: JOHN CARDONA Encounter No: [id number] : 1940 Primary Insurance: MEDICARE A & B Anticipated DC Date: 06-29-2019 Planned Disposition: Shelter Facility External Planned Provider: TO BE DETERMINED DCP follow-up note: CM CALLED AND SPOKE TO CRYSTAL CARDONA, SON AND POA, . CM DISCUSSED PT'S REFUSAL OF THERAPY SERVICES AND NEED FOR ASSISTED FACILITY PLACEMENT IF PT IS NOT ABLE TO GO HOME IN PRESENT CONDITION. CRYSTAL EXPLAINED THAT PT AND THE NURSE INFORMED HIM YESTERDAY THAT PT HAS NOT REFUSED THERAPY. CM REVIEWED THERAPY NOTES AND INFORMED CRYSTAL THAT PT HAS REFUSED. CRYSTAL WILL COME TO HOSPITAL SHORTLY TO DISCUSS PT'S DISCHARGE NEEDS. CM SPOKE TO JASON OF THERAPY, SHE INDICATED THAT HER NOTES REFLECT ACCURATELY WHAT HER INTERACTIONS WITH PT HAVE BEEN, SHE WILL MAKE HERSELF AVAILABLE TO SPEAK TO PT'S SON WHEN HE ARRIVES TODAY. CM WAITING PT'S SON'S ARRIVAL TO DISCUSS DISCHARGE PLANNING AND NEEDS. Judy Pace, CASE MANAGEMENT Appended by Judy Pace on 07/13/2019 16:41 FURNITURE REPRODUCER: CM MET WITH PT AND PT'S SON IN ROOM. PT'S SON BELIVES THAT PT WILL PARTICIPATE IN THERAPY BUT MAY NOT HAVE HEARD THE THERAPIST WHEN OFFERED THERAPY SERVICES. CM PAGED AND HAD JASON CHURCH THERAPY SPEAK TO PT AND SON. PT REPORTS HE ONLY REFUSED THERAPY ONCE AFTER DIALYSIS AND WILL PARTICIPATE TO GET INTO REHAB. PT'S SON WANTS FIRST CHOICE TO BE [facility], SECOND TO BE [facility] AND IF NECESSARY, [facility] SKILLED NUSING IN [facility]. THERAPY SPOKE TO PT WHO AGREED TO PARTICIPATE WITH ALL THERAPY SESSIONS. FAMILY NOTES THAT PT IS GETTING UP TO CHAIR AND TO BATHROOM AND FEELS THIS NEEDS TO BE DOCUMENTED ALSO. THERAPY TO SEE PT IN THE MORNING. CM TO SEND REFERRALS TO [facility] INPATIENT, [facility] INPATIENT AND [facility] ASSISTED IN [place]. JUDY PACE, CASE MANAGEMENT DCP- Discharge Planning Updated by [id number]: Judy Pace on 07/12/19 3:[address] Patient Name: JOHN CARDONA Encounter No: [id number] : 1940 Primary Insurance: MEDICARE A & B Anticipated DC Date: 06-29-2019 Planned Disposition: Inpatient Rehab External Planned Provider: NO ACCEPTING PROVIDER DCP follow-up note: CM RECEIVED ORDER FOR INPATIENT REHAB. CHART REVIEWED. PT REFUSED PHYSICAL THERAPY LAST EVENING AND THIS MORNING AGAIN. CM SPOKE TO DARNELL OF INPATIENT REHAB AT [facility], THEY ARE NOT ABLE TO ACCEPT PT IS NOT PARTICIPATING IN PHYSICAL THERAPY. CM CALLED AND SPOKE TO FRANNIE OF [facility] INPATIENT REHAB AND WAS ADVISED THAT PT WILL HAVE TO PARTICIPATE WITH THERAPY TO BE CONSIDERED FOR ADMISSION. PT IS NOT PARTICIPATING WITH PHYSICAL THERAPY. PT'S SON SPOKE TO PT LAST EVENING REGARDING NEED TO PARTICIPATE WITH THERAPY. CM WILL DISCUSSED ASSISTED REHAB WITH PT AND PT'S SON PT IS NOT PARTICIPATING CONSISTENTLY WITH THERAPY SERVICES ENOUGH TO BE CONSIDERED FOR INPATIENT REHAB. Judy Pace, CASE MANAGEMENT DCP- Discharge Planning Updated by [id number]: Judy Pace on 07/11/19 11:[address] Patient Name: JOHN CARDONA Encounter No: [id number] : 1940 Primary Insurance: MEDICARE A & B Anticipated DC Date: 06-29-2019 Planned Disposition: Inpatient Rehab External Planned Provider: [facility] INPATIENT REHAB DCP follow-up note: CM RECEIVED ORDER FOR INPATIENT REHAB PRESCREENING. CM REVIEWED CHART, PHYSICAL THERAPY SIGNED OFF ON 07-06-19 DUE TO NON COMPLIANCE OF PATIENT WITH THERAPY. OCCUPATIONAL THERAPY HAS NOT SIGNED OFF AT THIS TIME AND LAST SEEN PT ON 07-06-19. CM MET WITH PT IN ROOM TO DISCUSS REHAB ORDER AND NEEDS. PT STATES THAT HIS STOMACH HURTS AND ALL HE NEEDS IS FOR THE HOSPITAL TO GET IT SO HE CAN EAT AND HE WILL GO HOME. PT DENIES NEED OF REHAB. CM ENCOURAGED PT TO CONSIDER REHAB SERVICES, PT STATES HE IS GOING HOME AND "THE HOSPITAL NEEDS TO STAIGHTEN OUT HIS STOMACH SO I CAN EAT." CM CALLED CRYSTAL CARDONA, SON AND POA, , WHO REPORTS BEING AT THE HOSPITAL EVERY DAY, THAT PT IS NOT UP ON HIS OWN AND NEEDS REHAB IN ORDER TO GO HOME. CM DISCUSSED THAT PT WILL NEED TO PARTICIPATE WITH THERAPY SERVICES FOR REHAB PLACEMENT. CRYSTAL STATES HE WILL DISCUSS WITH PT AND HAVE PT PARTICIPATE WITH THERAPY SERVICES. CM REQUESTED NEW PHYSICAL THERAPY ORDER. THE PLAN IS STILL FOR INPATIENT REHAB AT [facility], CM WILL NEED TO SEND ANOTHER REFERRAL WHEN AND IF PT PARTICIPATES WITH THERAPY SERVICES. CM TO CONTINUE TO FOLLOW AND ASSIST IF NEEDED. CM WAITING NEW PHYSICAL THERAPY EVALUATION INDICATING PT'S PARTICIPATION FOR REHAB REFERRAL TO [facility] RE[facility]. Judy Pace CASE MANAGEMENT DCP- Discharge Planning Updated by [id number]: Judy Pace on 07/05/19 2:[address] Patient Name: JOHN CARDONA Encounter No: [id number] : 1940 Primary Insurance: MEDICARE A & B Anticipated DC Date: 06-29-2019 Planned Disposition: Inpatient Rehab External Planned Provider: [facility] DCP follow-up note: CM RECEIVED ORDER TO CALL PT'S SON TO ENSURE HE IS AWARE OF SURGERY. CM CALLED AND SPOKE TO CRYSTAL CARDONA, CRYSTAL, SON AND KAVEH, , WHO REPORTS BEING AT THE HOSPITAL EVERY DAY, SPEAKING TO THE NURSES AND IS AWARE OF SURGERY SCHEDULED FOR THURSDAY. PLAN IS STILL FOR INPATIENT REHAB AT [facility], CM WILL NEED TO SEND ANOTHER REFERRAL WHEN PT IS CLOSER TO DISCHARGE AND STABLE FOR REHAB SERVICES. CM TO CONTINUE TO FOLLOW AND ASSIST IF NEEDED. Judy Pace CASE TIA DCP- Discharge Planning Updated by [id number]: Judy Pace on 07/01/19 8:[address] Patient Name: JOHN CARDONA Encounter No: [id number] : 1940 Primary Insurance: MEDICARE A & B Anticipated DC Date: 06-29-2019 Planned Disposition: Inpatient Rehab External Planned Provider: [facility] DCP follow-up note: CM RECEIVED CALL FROM [facility] [place], THEY WILL NEED NEW REFERRAL FOR INPATIENT REHAB WHEN PT IS CLOSER TO BEING STABLE FOR DISCHARGE. CM TO CONTINUE TO FOLLOW AND ASSIST NEEDED. Judy Pace CASE TIA DCP- Discharge Planning Updated by [id number]: Judy Pace on 06/29/19 8:[address] Patient Name: JOHN CARDONA Encounter No: [id number] : 1940 Primary Insurance: MEDICARE A & B Anticipated DC Date: 06-29-2019 Planned Disposition: Inpatient Rehab External Planned Provider: [facility] DCP follow-up note: CM CALLED [facility] INPATIENT REHAB, SPOKE TO FRANNIE AT [phone], WHO ADVISED THEY WILL ACCEPT PT FOR INPATIENT REHAB. CM FAXED UPDATE WITH CURRENT MAR TO [facility] AT [phone]. CM NOTIFIED SANIA JOHNS WHO WILL PROVIDE DISCHARGE ORDERS AND WILL NOTIFY DIALYSIS TO ASK FOR EARLY DIALYSIS TODAY. FOR DISCHARGE, FAX DISCHARGE INFORMATION TO [facility] AT [phone]. [facility] TO ARRANGE TRANSPORTATION. MAILE Medel. DCP- Discharge Planning Updated by [id number]: Judy Pace on 06/28/19 2:[address] Patient Name: JOHN CARDONA Encounter No: [id number] : 1940 Primary Insurance: MEDICARE A & B Anticipated DC Date: 06-29-2019 Planned Disposition: Inpatient Rehab External Planned Provider: [facility] INPATIENT REHAB DCP follow-up note: CM RECEIVED CALL FROM [facility] INPATIENT REHAB, SPOKE TO FRANNIE AT [phone], WHO ADVISED THEY WILL ACCEPT PT FOR INPATIENT REHAB. CM NOTIFIED SANIA ZALDIVAR. CM NOTIFED PT WHO IS IN AGREEMENT WITH DISCHARGE TO REHAB WHEN STABLE. IMPORTANT MESSAGE FROM MEDICARE PROVIDED AND EXPLAINED. FOR DISCHARGE, NOTIFY FRANNIE AT [facility] INPATIENT REHAB, , FAX CURRENT MAR AND DISCHARGE INFORMATION TO [facility] AT [phone]. [facility] TO ARRANGE TRANSPORTATION. MAILE Medel DCP- Discharge Planning Updated by [id number]: Clementina Villanueva on 06/27/19 9:[address] Patient Name: JOHN CARDONA Admission Status: ER Accout number: [id number] Admission Date: 06-24-2019 : 1940 Admission Diagnosis: Attending: YARON GONZALES Current LOS: 3 Anticipated DC Date: Planned Disposition: Primary Insurance: MEDICARE A & B Discharge Planning Comments: CM MET WITH PATIENT TO DISCUSS DC PLANNING/NEEDS AFTER OBTAINING VERBAL CONSENT. PATIENT IS VERY HARD OF HEARING AND WANTS ME TO TALK TO HIS SON CRYSTAL. I CALLED CRYSTAL AND HE STATES HIS DAD WILL NEED [facility] VS SNF. [facility]PRH IS FIRST CHOICE, [facility] SNF IS SECOND CHOICE. IMM SIGNED. CM TO FOLLOW AND ASSIST NEEDED. I WILL FAX REFERRAL TO [facility] TODAY. Bark Grinder: Clementina Villanueva DCPIA - Discharge Planning Initial Assessment Updated by [email or web address]: Clementina Villanueva on 06/27/19 10:15 am * Is the patient Alert and Oriented? Yes * PCP ADAM * Pharmacy [facility] * Preadmission Environment Home Alone * ADLs Independent * Other Equipment WALKER, 02/PORT, CPAP * List name and contact numbers for known caregivers / representatives who currently or will assist patient after discharge: CRYSTAL, LORRIE AND POA, * Community resources currently utilized None * Please name any agencies selected above. [facility] MWF DR. ALVAREZ * Additional services required to return to the preadmission environment? Yes * Can the patient safely return to the preadmission environment? No * Has this patient been hospitalized within the prior 30 days at any hospital? No Coverage Notice Reviewer: [id number] Liz Villanueva Notice Issued Date-Time: 06/27/2019 10:21 Notice Type: IM Appeals Notice Notice Delivered To: Patient Relationship to Patient: Solar Business Developer Name: Delivery Method: HAND - Hand Delivered Malinda Days: Prior Verbal Notification: Recipient Understood Notice: Yes Recipient Signature: Yes Med Rec Note Co-signed by Attending: Coverage Notice Comment: Reviewer: [id number] Liz Villanueva Notice Issued Date-Time: 06/27/2019 10:21 Notice Type: Patient Choice Letter Notice Delivered To: Family Member Relationship to Patient: Solar Business Developer Name: CRYSTAL CARDONA Delivery Method: PHONE - Phone Malinda Days: Prior Verbal Notification: Yes Recipient Understood Notice: Yes Recipient Signature: Med Rec Note Co-signed by Attending: Coverage Notice Comment: [facility], SECOND CHOICE IS [facility]. Reviewer: [id number] Liz Pace Notice Issued Date-Time: 06/28/2019 15:10 Notice Type: IM Discharge Notice Notice Delivered To: Patient Relationship to Patient: Solar Business Developer Name: Delivery Method: HAND - Hand Delivered Malinda Days: Prior Verbal Notification: Recipient Understood Notice: Yes Recipient Signature: Yes Med Rec Note Co-signed by Attending: Coverage Notice Comment: Reviewer: [id number] Liz Pace Notice Issued Date-Time: 07/11/2019 16:20 Notice Type: IM Discharge Notice Notice Delivered To: Family Member Relationship to Patient: Son Solar Business Developer Name: CRYSTAL CARDONA Delivery Method: HAND - Hand Delivered Malinda Days: Prior Verbal Notification: Recipient Understood Notice: Yes Recipient Signature: Yes Med Rec Note Co-signed by Attending: Coverage Notice Comment: Reviewer: [id number] - Judy Pace Notice Issued Date-Time: 07/13/2019 15:05 Notice Type: Patient Choice Letter Notice Delivered To: Family Member Relationship to Patient: Son Solar Business Developer Name: CRYSTAL CARDONA Delivery Method: HAND - Hand Delivered Malinda Days: Prior Verbal Notification: Recipient Understood Notice: Yes Recipient Signature: Yes Med Rec Note Co-signed by Attending: Coverage Notice Comment: [facility] IP, [facility] ADAN, RACHEL IN [place] Last DP export: 07/13/19 3:42 pm Patient Name: JOHN CARDONA Page [phone] All edits/amendments must be made on the electronic document DICTATION DATE: 07/14/191603 [employer] LIBRARIAN: PRESTON 07/14/191603 RPT#: [id number] DC DATE: STATUS: ADM IN [facility] [address] [place] [address] END OF REPORT
--- NOTE | 2019-07-14 16:34 | MORECARE ---
CASE MANAGEMENT DISCHARGE SUMMARY PATIENT: JOHN CARDONA UNIT: [id number] ADM DATE: 06/24/19 AGE: 78 : 38 SEX: M ROOM/BED: D.3386 AUTHOR: UCHE,DOC PHYSICIAN: REFERRING PHYSICIAN: YARON GONZALES MD DATE OF SERVICE: 07/14/19 Discharge Plan Patient Name: JOHN CARDONA Facility: [facility]:[place] : 1940 Planned Disposition: Retirement Facility Anticipated Discharge Date: 06/29/19 Discharge Date: Expected LOS: 5 Initial Reviewer: [id number] Initial Review Date: 06/24/2019 Generated: 07/14/19 5:34 pm Comments DCP- Discharge Planning Updated by [id number]: Judy Pace on 07/14/19 3:[address] Patient Name: JOHN CARDONA Encounter No: [id number] : 1940 Primary Insurance: MEDICARE A & B Anticipated DC Date: 06-29-2019 Planned Disposition: Retirement Facility External Planned Provider: [facility] DCP follow-up note: CM RECEIVED PHYSICAL THERAPY NOTE, PT DID PARTICIPATE WITH THERAPY. CM MET WITH PT IN ROOM WHO INFORMED CM THAT HE DOES WANT REHAB AND WILL CONTINUE TO PARTICIPATE WITH THERAPY. CM MET WITH PT'S SON WHO INFORMED CM THAT PT IS NOW PARTICIPATING WITH THERAPY. CM SPOKE TO DENVER OF INPATIENT REHAB WHO REVIEWED CHART AND INFORMED CM THAT SHE WILL HAVE TO WATCH PT FOR A COUPLE OF MORE DAYS FOR THERAPY COMPLIANCE BEFORE GIVING ANY DETERMINATION AND RECOMMEDED REFERRAL ELSEWHERE IF PT IS MEDICALLY STABLE FOR DISCHARGE. CM CALLED AND SPOKE TO FRANNIE AT [facility], , WHO INFORMED CM THAT THEY MAY BE ABLE TO ACCEPT AND WILL REVIEW PT TODAY FOR ADMISSION TO [facility]. CM FAXED REFERRAL TO [facility] AT [phone]. CM FAXED REFERRAL TO [facility] AT [phone]. CM WAITING ADMISSION DETERMINATION FROM [facility]. CM WAITING ADMISSION DETERMINATION FROM [facility]. MAILE Medel DCP- Discharge Planning Updated by [id number]: Judy Pace on 07/13/19 3:[address] Patient Name: JOHN CARDONA Encounter No: [id number] : 1940 Primary Insurance: MEDICARE A & B Anticipated DC Date: 06-29-2019 Planned Disposition: Retirement Facility External Planned Provider: TO BE DETERMINED DCP follow-up note: CM CALLED AND SPOKE TO CRYSTAL CARDONA, SON AND POA, . CM DISCUSSED PT'S REFUSAL OF THERAPY SERVICES AND NEED FOR PENITENTIARY FACILITY PLACEMENT IF PT IS NOT ABLE TO GO HOME IN PRESENT CONDITION. CRYSTAL EXPLAINED THAT PT AND THE NURSE INFORMED HIM YESTERDAY THAT PT HAS NOT REFUSED THERAPY. CM REVIEWED THERAPY NOTES AND INFORMED CRYSTAL THAT PT HAS REFUSED. CRYSTAL WILL COME TO HOSPITAL SHORTLY TO DISCUSS PT'S DISCHARGE NEEDS. CM SPOKE TO JASON OF THERAPY, SHE INDICATED THAT HER NOTES REFLECT ACCURATELY WHAT HER INTERACTIONS WITH PT HAVE BEEN, SHE WILL MAKE HERSELF AVAILABLE TO SPEAK TO PT'S SON WHEN HE ARRIVES TODAY. CM WAITING PT'S SON'S ARRIVAL TO DISCUSS DISCHARGE PLANNING AND NEEDS. Judy Pace, CASE MANAGEMENT Appended by Judy Pace on 07/13/2019 16:41 PATTERN DRUM MAKER: CM MET WITH PT AND PT'S SON IN ROOM. PT'S SON BELIVES THAT PT WILL PARTICIPATE IN THERAPY BUT MAY NOT HAVE HEARD THE THERAPIST WHEN OFFERED THERAPY SERVICES. CM PAGED AND HAD JASON OF THERAPY SPEAK TO PT AND SON. PT REPORTS HE ONLY REFUSED THERAPY ONCE AFTER DIALYSIS AND WILL PARTICIPATE TO GET INTO REHAB. PT'S SON WANTS FIRST CHOICE TO BE [facility], SECOND TO BE [facility] AND IF NECESSARY, [facility]. THERAPY SPOKE TO PT WHO AGREED TO PARTICIPATE WITH ALL THERAPY SESSIONS. FAMILY NOTES THAT PT IS GETTING UP TO CHAIR AND TO BATHROOM AND FEELS THIS NEEDS TO BE DOCUMENTED ALSO. THERAPY TO SEE PT IN THE MORNING. CM TO SEND REFERRALS TO [facility], [facility] AND [facility] [place]. JUDY PACE, CASE MANAGEMENT DCP- Discharge Planning Updated by [id number]: Judy Pace on 07/12/19 3:[address] Patient Name: JOHN CARDONA Encounter No: [id number] : 1940 Primary Insurance: MEDICARE A & B Anticipated DC Date: 06-29-2019 Planned Disposition: Inpatient Rehab External Planned Provider: NO ACCEPTING PROVIDER DCP follow-up note: CM RECEIVED ORDER FOR INPATIENT REHAB. CHART REVIEWED. PT REFUSED PHYSICAL THERAPY LAST EVENING AND THIS MORNING AGAIN. CM SPOKE TO DARNELL OF INPATIENT REHAB AT [facility], THEY ARE NOT ABLE TO ACCEPT PT IS NOT PARTICIPATING IN PHYSICAL THERAPY. CM CALLED AND SPOKE TO FRANNIE OF [facility] AND WAS ADVISED THAT PT WILL HAVE TO PARTICIPATE WITH THERAPY TO BE CONSIDERED FOR ADMISSION. PT IS NOT PARTICIPATING WITH PHYSICAL THERAPY. PT'S SON SPOKE TO PT LAST EVENING REGARDING NEED TO PARTICIPATE WITH THERAPY. CM WILL DISCUSSED PENITENTIARY REHAB WITH PT AND PT'S SON PT IS NOT PARTICIPATING CONSISTENTLY WITH THERAPY SERVICES ENOUGH TO BE CONSIDERED FOR INPATIENT REHAB. Judy Pace, CASE MANAGEMENT DCP- Discharge Planning Updated by [id number]: Judy Pace on 07/11/19 11:[address] Patient Name: JOHN CARDONA Encounter No: [id number] : 1940 Primary Insurance: MEDICARE A & B Anticipated DC Date: 06-29-2019 Planned Disposition: Inpatient Rehab External Planned Provider: [facility] DCP follow-up note: CM RECEIVED ORDER FOR INPATIENT REHAB PRESCREENING. CM REVIEWED CHART, PHYSICAL THERAPY SIGNED OFF ON 07-06-19 DUE TO NON COMPLIANCE OF PATIENT WITH THERAPY. OCCUPATIONAL THERAPY HAS NOT SIGNED OFF AT THIS TIME AND LAST SEEN PT ON 07-06-19. CM MET WITH PT IN ROOM TO DISCUSS REHAB ORDER AND NEEDS. PT STATES THAT HIS STOMACH HURTS AND ALL HE NEEDS IS FOR THE HOSPITAL TO GET IT SO HE CAN EAT AND HE WILL GO HOME. PT DENIES NEED OF REHAB. CM ENCOURAGED PT TO CONSIDER REHAB SERVICES, PT STATES HE IS GOING HOME AND "THE HOSPITAL NEEDS TO STAIGHTEN OUT HIS STOMACH SO I CAN EAT." CM CALLED CRYSTAL CARDONA, SON AND POA, , WHO REPORTS BEING AT THE HOSPITAL EVERY DAY, THAT PT IS NOT UP ON HIS OWN AND NEEDS REHAB IN ORDER TO GO HOME. CM DISCUSSED THAT PT WILL NEED TO PARTICIPATE WITH THERAPY SERVICES FOR REHAB PLACEMENT. CRYSTAL STATES HE WILL DISCUSS WITH PT AND HAVE PT PARTICIPATE WITH THERAPY SERVICES. CM REQUESTED NEW PHYSICAL THERAPY ORDER. THE PLAN IS STILL FOR INPATIENT REHAB AT [facility], CM WILL NEED TO SEND ANOTHER REFERRAL WHEN AND IF PT PARTICIPATES WITH THERAPY SERVICES. CM TO CONTINUE TO FOLLOW AND ASSIST IF NEEDED. CM WAITING NEW PHYSICAL THERAPY EVALUATION INDICATING PT'S PARTICIPATION FOR REHAB REFERRAL TO [facility]. Judy Pace CASE MANAGEMENT DCP- Discharge Planning Updated by [id number]: Judy Pace on 07/05/19 2:[address] Patient Name: JOHN CARDONA Encounter No: [id number] : 1940 Primary Insurance: MEDICARE A & B Anticipated DC Date: 06-29-2019 Planned Disposition: Inpatient Rehab External Planned Provider: [facility] DCP follow-up note: CM RECEIVED ORDER TO CALL PT'S SON TO ENSURE HE IS AWARE OF SURGERY. CM CALLED AND SPOKE TO CRYSTAL CARDONA, CRYSTAL, SON AND KAVEH, , WHO REPORTS BEING AT THE HOSPITAL EVERY DAY, SPEAKING TO THE NURSES AND IS AWARE OF SURGERY SCHEDULED FOR THURSDAY. PLAN IS STILL FOR INPATIENT REHAB AT [facility], CM WILL NEED TO SEND ANOTHER REFERRAL WHEN PT IS CLOSER TO DISCHARGE AND STABLE FOR REHAB SERVICES. CM TO CONTINUE TO FOLLOW AND ASSIST IF NEEDED. Judy Pace CASE MANAGEMENT DCP- Discharge Planning Updated by [id number]: Judy Pace on 07/01/19 8:[address] Patient Name: JOHN CARDONA Encounter No: [id number] : 1940 Primary Insurance: MEDICARE A & B Anticipated DC Date: 06-29-2019 Planned Disposition: Inpatient Rehab External Planned Provider: [facility] DCP follow-up note: CM RECEIVED CALL FROM [facility], THEY WILL NEED NEW REFERRAL FOR INPATIENT REHAB WHEN PT IS CLOSER TO BEING STABLE FOR DISCHARGE. CM TO CONTINUE TO FOLLOW AND ASSIST NEEDED. Judy Pace CASE MANAGEMENT DCP- Discharge Planning Updated by [id number]: Judy Pace on 06/29/19 8:[address] Patient Name: JOHN CARDONA Encounter No: [id number] : 1940 Primary Insurance: MEDICARE A & B Anticipated DC Date: 06-29-2019 Planned Disposition: Inpatient Rehab External Planned Provider: [facility] DCP follow-up note: CM CALLED [facility], SPOKE TO FRANNIE AT [phone], WHO ADVISED THEY WILL ACCEPT PT FOR INPATIENT REHAB. CM FAXED UPDATE WITH CURRENT MAR TO [facility] AT [phone]. CM NOTIFIED SANIA JOHNS WHO WILL PROVIDE DISCHARGE ORDERS AND WILL NOTIFY DIALYSIS TO ASK FOR EARLY DIALYSIS TODAY. FOR DISCHARGE, FAX DISCHARGE INFORMATION TO [facility] AT [phone]. [facility] TO ARRANGE TRANSPORTATION. MAILE Medel MANAGEMENT. DCP- Discharge Planning Updated by [id number]: Judy Pace on 06/28/19 2:[address] Patient Name: JOHN CARDONA Encounter No: [id number] : 1940 Primary Insurance: MEDICARE A & B Anticipated DC Date: 06-29-2019 Planned Disposition: Inpatient Rehab External Planned Provider: [facility] DCP follow-up note: CM RECEIVED CALL FROM [facility], SPOKE TO FRANNIE AT [phone], WHO ADVISED THEY WILL ACCEPT PT FOR INPATIENT REHAB. CM NOTIFIED SANIA ZALDIVAR. CM NOTIFED PT WHO IS IN AGREEMENT WITH DISCHARGE TO REHAB WHEN STABLE. IMPORTANT MESSAGE FROM MEDICARE PROVIDED AND EXPLAINED. FOR DISCHARGE, NOTIFY FRANNIE AT [facility], , FAX CURRENT MAR AND DISCHARGE INFORMATION TO [facility] AT [phone]. [facility] TO ARRANGE TRANSPORTATION. MAILE Medel DCP- Discharge Planning Updated by [id number]: Clementina Villanueva on 06/27/19 9:[address] Patient Name: JOHN CARDONA Admission Status: ER Accout number: [id number] Admission Date: 06-24-2019 : 1940 Admission Diagnosis: Attending: YARON GONZALES Current LOS: 3 Anticipated DC Date: Planned Disposition: Primary Insurance: MEDICARE A & B Discharge Planning Comments: CM MET WITH PATIENT TO DISCUSS DC PLANNING/NEEDS AFTER OBTAINING VERBAL CONSENT. PATIENT IS VERY HARD OF HEARING AND WANTS ME TO TALK TO HIS SON CRYSTAL. I CALLED CRYSTAL AND HE STATES HIS DAD WILL NEED [facility] VS SNF. [facility] FIRST CHOICE, [facility] IS SECOND CHOICE. IMM SIGNED. CM TO FOLLOW AND ASSIST NEEDED. I WILL FAX REFERRAL TO [facility] TODAY. Aircraft Engine Cylinder Mechanic: Clementina Villanueva DCPIA - Discharge Planning Initial Assessment Updated by [id number]: Clementina Villanueva on 06/27/19 10:15 am * Is the patient Alert and Oriented? Yes * PCP ADAM * Pharmacy [facility] * Preadmission Environment Home Alone * ADLs Independent * Other Equipment WALKER, 02/PORT, CPAP * List name and contact numbers for known caregivers / representatives who currently or will assist patient after discharge: BRIAN ROJAS AND KAVEH, * Community resources currently utilized None * Please name any agencies selected above. [facility] MWF [facility]. ALVAREZ * Additional services required to return to the preadmission environment? Yes * Can the patient safely return to the preadmission environment? No * Has this patient been hospitalized within the prior 30 days at any hospital? No External Providers External Provider: [facility] Next Contact Date: 07/14/2019 Service Request Date: Service Type: Resolution: Reviewer: Comments: Coverage Notice Reviewer: [id number] Liz Villanueva Notice Issued Date-Time: 06/27/2019 10:21 Notice Type: IM Appeals Notice Notice Delivered To: Patient Relationship to Patient: Manufacturing Plant Technician Name: Delivery Method: HAND - Hand Delivered Malinda Days: Prior Verbal Notification: Recipient Understood Notice: Yes Recipient Signature: Yes Med Rec Note Co-signed by Attending: Coverage Notice Comment: Reviewer: [id number] Villanueva Notice Issued Date-Time: 06/27/2019 10:21 Notice Type: Patient Choice Letter Notice Delivered To: Family Member Relationship to Patient: Manufacturing Plant Technician Name: CRYSTAL CARDONA Delivery Method: PHONE - Phone Malinda Days: Prior Verbal Notification: Yes Recipient Understood Notice: Yes Recipient Signature: Med Rec Note Co-signed by Attending: Coverage Notice Comment: [facility], SECOND CHOICE IS [facility]. Reviewer: [id number] Liz Pace Notice Issued Date-Time: 06/28/2019 15:10 Notice Type: IM Discharge Notice Notice Delivered To: Patient Relationship to Patient: Manufacturing Plant Technician Name: Delivery Method: HAND - Hand Delivered Malinda Days: Prior Verbal Notification: Recipient Understood Notice: Yes Recipient Signature: Yes Med Rec Note Co-signed by Attending: Coverage Notice Comment: Reviewer: [id number] Liz Pace Notice Issued Date-Time: 07/11/2019 16:20 Notice Type: IM Discharge Notice Notice Delivered To: Family Member Relationship to Patient: Brian Manufacturing Plant Technician Name: CRYSTAL CARDONA Delivery Method: HAND - Hand Delivered Malinda Days: Prior Verbal Notification: Recipient Understood Notice: Yes Recipient Signature: Yes Med Rec Note Co-signed by Attending: Coverage Notice Comment: Reviewer: [id number] - Judy Pace Notice Issued Date-Time: 07/13/2019 15:05 Notice Type: Patient Choice Letter Notice Delivered To: Family Member Relationship to Patient: Son Manufacturing Plant Technician Name: CRYSTAL CARDONA Delivery Method: HAND - Hand Delivered Malinda Days: Prior Verbal Notification: Recipient Understood Notice: Yes Recipient Signature: Yes Med Rec Note Co-signed by Attending: Coverage Notice Comment: [facility] IP, [facility] IP, [facility] [place] Last DP export: 07/14/19 3:04 pm Patient Name: JOHN CARDONA Page [id number] at 1634 All edits/amendments must be made on the electronic document DICTATION DATE: 07/14/19 163 ANIMAL TRAPPER: PRESTON 07/14/19 1634 RPT#: [id number] DC DATE: STATUS: ADM IN [facility] [address] [place] [address] END OF REPORT
--- NOTE | 2019-07-14 16:53 | MORECARE ---
CASE MANAGEMENT DISCHARGE SUMMARY PATIENT: JOHN CARDONA UNIT: [id number] ADM DATE: 06/24/19 AGE: 78 : 38 SEX: M ROOM/BED: D.8486 AUTHOR: UCHE,DOC PHYSICIAN: REFERRING PHYSICIAN: YARON GONZALES MD DATE OF SERVICE: 07/14/19 Discharge Plan Patient Name: JOHN CARDONA Facility: [facility]:[place] : 1940 Planned Disposition: Inpatient Rehab Anticipated Discharge Date: 07/15/19 Discharge Date: Expected LOS: 21 Initial Reviewer: [id number] Initial Review Date: 06/24/2019 Generated: 07/14/19 5:52 pm Comments DCP- Discharge Planning Updated by [id number]: Judy Pace on 07/14/19 3:[address] Patient Name: JOHN CARDONA Encounter No: [id number] : 1940 Primary Insurance: MEDICARE A & B Anticipated DC Date: 06-29-2019 Planned Disposition: [facility] Facility External Planned Provider: [facility] DCP follow-up note: CM RECEIVED PHYSICAL THERAPY NOTE, PT DID PARTICIPATE WITH THERAPY. CM MET WITH PT IN ROOM WHO INFORMED CM THAT HE DOES WANT REHAB AND WILL CONTINUE TO PARTICIPATE WITH THERAPY. CM MET WITH PT'S SON WHO INFORMED CM THAT PT IS NOW PARTICIPATING WITH THERAPY. CM SPOKE TO [place] OF INPATIENT REHAB WHO REVIEWED CHART AND INFORMED CM THAT SHE WILL HAVE TO WATCH PT FOR A COUPLE OF MORE DAYS FOR THERAPY COMPLIANCE BEFORE GIVING ANY DETERMINATION AND RECOMMEDED REFERRAL ELSEWHERE IF PT IS MEDICALLY STABLE FOR DISCHARGE. CM CALLED AND SPOKE TO FRANNIE AT [facility], , WHO INFORMED CM THAT THEY MAY BE ABLE TO ACCEPT AND WILL REVIEW PT TODAY FOR ADMISSION TO [facility]. CM FAXED REFERRAL TO [facility] AT [phone]. CM FAXED REFERRAL TO [facility] AT [phone]. CM WAITING ADMISSION DETERMINATION FROM [facility]. CM WAITING ADMISSION DETERMINATION FROM [facility]. MAILE Medel DCP- Discharge Planning Updated by [id number]: Judy Pace on 07/13/19 3:[address] Patient Name: JOHN CARDONA Encounter No: [id number] : 1940 Primary Insurance: MEDICARE A & B Anticipated DC Date: 06-29-2019 Planned Disposition: [facility] Facility External Planned Provider: TO BE DETERMINED DCP follow-up note: CM CALLED AND SPOKE TO CRYSTAL CARDONA, SON AND POA, . CM DISCUSSED PT'S REFUSAL OF THERAPY SERVICES AND NEED FOR [facility] FACILITY PLACEMENT IF PT IS NOT ABLE TO GO HOME IN PRESENT CONDITION. CRYSTAL EXPLAINED THAT PT AND THE NURSE INFORMED HIM YESTERDAY THAT PT HAS NOT REFUSED THERAPY. CM REVIEWED THERAPY NOTES AND INFORMED CRYSTAL THAT PT HAS REFUSED. CRYSTAL WILL COME TO HOSPITAL SHORTLY TO DISCUSS PT'S DISCHARGE NEEDS. CM SPOKE TO JASON OF THERAPY, SHE INDICATED THAT HER NOTES REFLECT ACCURATELY WHAT HER INTERACTIONS WITH PT HAVE BEEN, SHE WILL MAKE HERSELF AVAILABLE TO SPEAK TO PT'S SON WHEN HE ARRIVES TODAY. CM WAITING PT'S SON'S ARRIVAL TO DISCUSS DISCHARGE PLANNING AND NEEDS. Judy Pace, CASE MANAGEMENT Appended by Judy Pace on 07/13/2019 16:41 TENDER COORDINATOR: CM MET WITH PT AND PT'S SON IN ROOM. PT'S SON BELIVES THAT PT WILL PARTICIPATE IN THERAPY BUT MAY NOT HAVE HEARD THE THERAPIST WHEN OFFERED THERAPY SERVICES. CM PAGED AND HAD JASON OF THERAPY SPEAK TO PT AND SON. PT REPORTS HE ONLY REFUSED THERAPY ONCE AFTER DIALYSIS AND WILL PARTICIPATE TO GET INTO REHAB. PT'S SON WANTS FIRST CHOICE TO BE [facility] [place], SECOND TO BE [facility] AND IF NECESSARY, [facility]. THERAPY SPOKE TO PT WHO AGREED TO PARTICIPATE WITH ALL THERAPY SESSIONS. FAMILY NOTES THAT PT IS GETTING UP TO CHAIR AND TO BATHROOM AND FEELS THIS NEEDS TO BE DOCUMENTED ALSO. THERAPY TO SEE PT IN THE MORNING. CM TO SEND REFERRALS TO [facility], [facility] AND [facility] IN [place]. JUDY PACE, CASE MANAGEMENT DCP- Discharge Planning Updated by [id number]: Judy Pace on 07/12/19 3:[address] Patient Name: JOHN CARDONA Encounter No: [id number] : 1940 Primary Insurance: MEDICARE A & B Anticipated DC Date: 06-29-2019 Planned Disposition: Inpatient Rehab External Planned Provider: NO ACCEPTING PROVIDER DCP follow-up note: CM RECEIVED ORDER FOR INPATIENT REHAB. CHART REVIEWED. PT REFUSED PHYSICAL THERAPY LAST EVENING AND THIS MORNING AGAIN. CM SPOKE TO DARNELL OF INPATIENT REHAB AT [facility], THEY ARE NOT ABLE TO ACCEPT PT IS NOT PARTICIPATING IN PHYSICAL THERAPY. CM CALLED AND SPOKE TO FRANNIE OF [facility] AND WAS ADVISED THAT PT WILL HAVE TO PARTICIPATE WITH THERAPY TO BE CONSIDERED FOR ADMISSION. PT IS NOT PARTICIPATING WITH PHYSICAL THERAPY. PT'S SON SPOKE TO PT LAST EVENING REGARDING NEED TO PARTICIPATE WITH THERAPY. CM WILL DISCUSSED [facility] REHAB WITH PT AND PT'S SON PT IS NOT PARTICIPATING CONSISTENTLY WITH THERAPY SERVICES ENOUGH TO BE CONSIDERED FOR INPATIENT REHAB. Judy Pace, CASE MANAGEMENT DCP- Discharge Planning Updated by [id number]: Judy Pace on 07/11/19 11:[address] Patient Name: JOHN CARDONA Encounter No: [id number] : 1940 Primary Insurance: MEDICARE A & B Anticipated DC Date: 06-29-2019 Planned Disposition: Inpatient Rehab External Planned Provider: [facility] DCP follow-up note: CM RECEIVED ORDER FOR INPATIENT REHAB PRESCREENING. CM REVIEWED CHART, PHYSICAL THERAPY SIGNED OFF ON 07-06-19 DUE TO NON COMPLIANCE OF PATIENT WITH THERAPY. OCCUPATIONAL THERAPY HAS NOT SIGNED OFF AT THIS TIME AND LAST SEEN PT ON 07-06-19. CM MET WITH PT IN ROOM TO DISCUSS REHAB ORDER AND NEEDS. PT STATES THAT HIS STOMACH HURTS AND ALL HE NEEDS IS FOR THE HOSPITAL TO GET IT SO HE CAN EAT AND HE WILL GO HOME. PT DENIES NEED OF REHAB. CM ENCOURAGED PT TO CONSIDER REHAB SERVICES, PT STATES HE IS GOING HOME AND "THE HOSPITAL NEEDS TO STAIGHTEN OUT HIS STOMACH SO I CAN EAT." CM CALLED CRYSTAL CARDONA, SON AND POA, , WHO REPORTS BEING AT THE HOSPITAL EVERY DAY, THAT PT IS NOT UP ON HIS OWN AND NEEDS REHAB IN ORDER TO GO HOME. CM DISCUSSED THAT PT WILL NEED TO PARTICIPATE WITH THERAPY SERVICES FOR REHAB PLACEMENT. CRYSTAL STATES HE WILL DISCUSS WITH PT AND HAVE PT PARTICIPATE WITH THERAPY SERVICES. CM REQUESTED NEW PHYSICAL THERAPY ORDER. THE PLAN IS STILL FOR INPATIENT REHAB AT [facility], CM WILL NEED TO SEND ANOTHER REFERRAL WHEN AND IF PT PARTICIPATES WITH THERAPY SERVICES. CM TO CONTINUE TO FOLLOW AND ASSIST IF NEEDED. CM WAITING NEW PHYSICAL THERAPY EVALUATION INDICATING PT'S PARTICIPATION FOR REHAB REFERRAL TO [facility]. Judy Pace CASE MANAGEMENT DCP- Discharge Planning Updated by [id number]: Judy Pace on 07/05/19 2:[address] Patient Name: JOHN CARDONA Encounter No: [id number] : 1940 Primary Insurance: MEDICARE A & B Anticipated DC Date: 06-29-2019 Planned Disposition: Inpatient Rehab External Planned Provider: [facility] DCP follow-up note: CM RECEIVED ORDER TO CALL PT'S SON TO ENSURE HE IS AWARE OF SURGERY. CM CALLED AND SPOKE TO CRYSTAL CARDONA, CRYSTAL, SON AND KAVEH, , WHO REPORTS BEING AT THE HOSPITAL EVERY DAY, SPEAKING TO THE NURSES AND IS AWARE OF SURGERY SCHEDULED FOR THURSDAY. PLAN IS STILL FOR INPATIENT REHAB AT [facility], CM WILL NEED TO SEND ANOTHER REFERRAL WHEN PT IS CLOSER TO DISCHARGE AND STABLE FOR REHAB SERVICES. CM TO CONTINUE TO FOLLOW AND ASSIST IF NEEDED. Judy Pace CASE MANAGEMENT DCP- Discharge Planning Updated by [id number]: Judy Pace on 07/01/19 8:[address] Patient Name: JOHN CARDONA Encounter No: [id number] : 1940 Primary Insurance: MEDICARE A & B Anticipated DC Date: 06-29-2019 Planned Disposition: Inpatient Rehab External Planned Provider: [facility] DCP follow-up note: CM RECEIVED CALL FROM [facility], THEY WILL NEED NEW REFERRAL FOR INPATIENT REHAB WHEN PT IS CLOSER TO BEING STABLE FOR DISCHARGE. CM TO CONTINUE TO FOLLOW AND ASSIST NEEDED. Judy Pace CASE MANAGEMENT DCP- Discharge Planning Updated by [id number]: Judy Pace on 06/29/19 8:[address] Patient Name: JOHN CARDONA Encounter No: [id number] : 1940 Primary Insurance: MEDICARE A & B Anticipated DC Date: 06-29-2019 Planned Disposition: Inpatient Rehab External Planned Provider: [facility] DCP follow-up note: CM CALLED [facility], SPOKE TO FRANNIE AT [phone], WHO ADVISED THEY WILL ACCEPT PT FOR INPATIENT REHAB. CM FAXED UPDATE WITH CURRENT MAR TO [facility] AT [phone]. CM NOTIFIED SANIA JOHNS WHO WILL PROVIDE DISCHARGE ORDERS AND WILL NOTIFY DIALYSIS TO ASK FOR EARLY DIALYSIS TODAY. FOR DISCHARGE, FAX DISCHARGE INFORMATION TO [facility] AT [phone]. [facility] TO ARRANGE TRANSPORTATION. MAILE Medel MANAGEMENT. DCP- Discharge Planning Updated by [id number]: Judy Pace on 06/28/19 2:[address] Patient Name: JOHN CARDONA Encounter No: [id number] : 1940 Primary Insurance: MEDICARE A & B Anticipated DC Date: 06-29-2019 Planned Disposition: Inpatient Rehab External Planned Provider: [facility] DCP follow-up note: CM RECEIVED CALL FROM [facility], SPOKE TO FRANNIE AT [phone], WHO ADVISED THEY WILL ACCEPT PT FOR INPATIENT REHAB. CM NOTIFIED SANIA ZALDIVAR. CM NOTIFED PT WHO IS IN AGREEMENT WITH DISCHARGE TO REHAB WHEN STABLE. IMPORTANT MESSAGE FROM MEDICARE PROVIDED AND EXPLAINED. FOR DISCHARGE, NOTIFY FRANNIE AT [facility], , FAX CURRENT MAR AND DISCHARGE INFORMATION TO [facility] AT [phone]. [facility] TO ARRANGE TRANSPORTATION. MAILE Medel DCP- Discharge Planning Updated by [id number]: Clementina Villanueva on 06/27/19 9:[address] Patient Name: JOHN CARDONA Admission Status: ER Accout number: [id number] Admission Date: 06-24-2019 : 1940 Admission Diagnosis: Attending: YARON GONZALES Current LOS: 3 Anticipated DC Date: Planned Disposition: Primary Insurance: MEDICARE A & B Discharge Planning Comments: CM MET WITH PATIENT TO DISCUSS DC PLANNING/NEEDS AFTER OBTAINING VERBAL CONSENT. PATIENT IS VERY HARD OF HEARING AND WANTS ME TO TALK TO HIS SON CRYSTAL. I CALLED CRYSTAL AND HE STATES HIS DAD WILL NEED [facility] VS SNF. [facility] CHOICE, [facility]. IMM SIGNED. CM TO FOLLOW AND ASSIST NEEDED. I WILL FAX REFERRAL TO [facility] TODAY. Assistant Boys Track Coach: Clementina Villanueva DCPIA - Discharge Planning Initial Assessment Updated by [id number]: Clementina Villanueva on 06/27/19 10:15 am * Is the patient Alert and Oriented? Yes * PCP ADAM * Pharmacy [facility] * Preadmission Environment Home Alone * ADLs Independent * Other Equipment WALKER, 02/PORT, CPAP * List name and contact numbers for known caregivers / representatives who currently or will assist patient after discharge: BRIAN ROJAS AND KAVEH, * Community resources currently utilized None * Please name any agencies selected above. [facility] M[facility] DR. ALVAREZ * Additional services required to return to the preadmission environment? Yes * Can the patient safely return to the preadmission environment? No * Has this patient been hospitalized within the prior 30 days at any hospital? No Coverage Notice Reviewer: FLORENCE Pace Notice Issued Date-Time: 07/13/2019 15:05 Notice Type: Patient Choice Letter Notice Delivered To: Family Member Relationship to Patient: Brian Choir Teacher Name: CRYSTAL CARDONA Delivery Method: HAND - Hand Delivered Malinda Days: Prior Verbal Notification: Recipient Understood Notice: Yes Recipient Signature: Yes Med Rec Note Co-signed by Attending: Coverage Notice Comment: [facility], [facility], [facility] [place] Reviewer: [id number] Pace Notice Issued Date-Time: 07/11/2019 16:20 Notice Type: IM Discharge Notice Notice Delivered To: Family Member Relationship to Patient: Brian Choir Teacher Name: CRYSTAL CARDONA Delivery Method: HAND - Hand Delivered Malinda Days: Prior Verbal Notification: Recipient Understood Notice: Yes Recipient Signature: Yes Med Rec Note Co-signed by Attending: Coverage Notice Comment: Reviewer: [id number] Liz Villanueva Notice Issued Date-Time: 06/27/2019 10:21 Notice Type: Patient Choice Letter Notice Delivered To: Family Member Relationship to Patient: Choir Teacher Name: CRYSTAL CARDONA Delivery Method: PHONE - Phone Malinda Days: Prior Verbal Notification: Yes Recipient Understood Notice: Yes Recipient Signature: Med Rec Note Co-signed by Attending: Coverage Notice Comment: [facility], SECOND CHOICE IS [facility]. Reviewer: [id number] Pace Notice Issued Date-Time: 06/28/2019 15:10 Notice Type: IM Discharge Notice Notice Delivered To: Patient Relationship to Patient: Choir Teacher Name: Delivery Method: HAND - Hand Delivered Malinda Days: Prior Verbal Notification: Recipient Understood Notice: Yes Recipient Signature: Yes Med Rec Note Co-signed by Attending: Coverage Notice Comment: Reviewer: [email or web address] Liz Villanueva Notice Issued Date-Time: 06/27/2019 10:21 Notice Type: IM Appeals Notice Notice Delivered To: Patient Relationship to Patient: Choir Teacher Name: Delivery Method: HAND - Hand Delivered Malinda Days: Prior Verbal Notification: Recipient Understood Notice: Yes Recipient Signature: Yes Med Rec Note Co-signed by Attending: Coverage Notice Comment: Last DP export: 07/14/19 3:34 pm Patient Name: JOHN CARDONA Page [id number] at 1653 All edits/amendments must be made on the electronic document DICTATION DATE: 07/14/191651 INTENSIVE CARE SPECIALIST: PRESTON 07/14/191651 RPT#: [id number] DC DATE: STATUS: ADM IN [facility] [address] [place] [address] END OF REPORT
[2019-07-14 18:03] VITALS: BP 126/78
--- NOTE | 2019-07-14 18:38 | NUR ---
OT NOTE: PT COMPLETED BED MOB TASKS WITH SBA.PT COMPLETED SIT TO STAND WITH CGA. PT COMPLETED SIT TO SUPINE WITH SBA. PT COMPLETED BUE AROM EXS. PT COMPLETED FACE WASH WITH SET UP. PT IS COOPERATIVE. [phone] THANK YOU,ODESSA MÉNDEZ
--- NOTE | 2019-07-14 19:02 | NUR ---
RESTING WITH EYES CLOSED BED LOW AND LOCKED WITH BED ALARM IN PLACE AND CALL LIGHT IN REACH SR X2 RESP EVEN AND NON LABORED
[2019-07-14 20:30] VITALS: BP 144/84
[2019-07-15 00:30] VITALS: BP 137/77
--- NOTE | 2019-07-15 03:41 | NUR ---
I have reviewed this patient and I concur with the Shift Assessment completed by the Licensed Practical Nurse today this shift.
[2019-07-15 04:30] VITALS: BP 158/86
[2019-07-15 06:38] LABS: BASOPHILS 0.4 % (0-2); EOSINOPHILS 4.3 % (0-7); HEMATOCRIT 33.6 % (42.0-54.0); HEMOGLOBIN 10.9 g/dL (13.5-17.5); IMMATURE GRANULOCYTES 0.2 % (0-5); MCH 31.5 pg (26.0-34.0); MCHC 32.4 g/dL (31.0-37.0); MCV 97.1 fL (80.0-100.0); MEAN PLATELET VOLUME 8.3 fL (7.4-10.4); MONOCYTES 12.4 % (2-11); NEUTROPHILS 59.7 % (40-80); PLATELET COUNT 227 10x3/uL (130-400); RBC 3.46 10x6/uL (4.20-6.10); RDW 14.8 % (11.5-14.5); WBC 10.1 10x3/uL (4.8-10.8)
[2019-07-15 06:47] LABS: ANION GAP 16.6 mmol/L (8-16); CARBON DIOXIDE 27.1 mmol/L (21.0-32.0); CREATININE - SERUM 9.4 mg/dL (0.6-1.3); PHOSPHOROUS 7.7 mg/dL (2.5-4.9); POTASSIUM - SERUM 3.7 mmol/L (3.5-5.1)
--- NOTE | 2019-07-15 08:59 | MORECARE ---
CASE MANAGEMENT DISCHARGE SUMMARY PATIENT: JOHN CARDONA UNIT: [id number] ADM DATE: 06/24/19 AGE: 78 : 38 SEX: M ROOM/BED: D.8555 AUTHOR: UCHE,DOC PHYSICIAN: REFERRING PHYSICIAN: YARON GONZALES MD DATE OF SERVICE: 07/15/19 Discharge Plan Patient Name: JOHN CARDONA Facility: [facility]:[place] : 1940 Planned Disposition: Inpatient Rehab Anticipated Discharge Date: 07/15/19 Discharge Date: Expected LOS: 21 Initial Reviewer: [id number] Initial Review Date: 06/24/2019 Generated: 07/15/19 9:59 am Comments DCP- Discharge Planning Updated by [email or web address]: Judy Pace on 07/14/19 3:[address] Patient Name: JOHN CARDONA Encounter No: [id number] : 1940 Primary Insurance: MEDICARE A & B Anticipated DC Date: 06-29-2019 Planned Disposition: [facility] Facility External Planned Provider: [facility] DCP follow-up note: CM RECEIVED PHYSICAL THERAPY NOTE, PT DID PARTICIPATE WITH THERAPY. CM MET WITH PT IN ROOM WHO INFORMED CM THAT HE DOES WANT REHAB AND WILL CONTINUE TO PARTICIPATE WITH THERAPY. CM MET WITH PT'S SON WHO INFORMED CM THAT PT IS NOW PARTICIPATING WITH THERAPY. CM SPOKE TO DENVER OF INPATIENT REHAB WHO REVIEWED CHART AND INFORMED CM THAT SHE WILL HAVE TO WATCH PT FOR A COUPLE OF MORE DAYS FOR THERAPY COMPLIANCE BEFORE GIVING ANY DETERMINATION AND RECOMMEDED REFERRAL ELSEWHERE IF PT IS MEDICALLY STABLE FOR DISCHARGE. CM CALLED AND SPOKE TO FRANNIE AT [facility], , WHO INFORMED CM THAT THEY MAY BE ABLE TO ACCEPT AND WILL REVIEW PT TODAY FOR ADMISSION TO [facility]. CM FAXED REFERRAL TO [facility] AT [phone]. CM FAXED REFERRAL TO [facility] AT [phone]. CM WAITING ADMISSION DETERMINATION FROM [facility]. CM WAITING ADMISSION DETERMINATION FROM [facility]. MAILE Medel DCP- Discharge Planning Updated by [id number]: Judy Pace on 07/13/19 3:[address] Patient Name: JOHN CARDONA Encounter No: [id number] : 1940 Primary Insurance: MEDICARE A & B Anticipated DC Date: 06-29-2019 Planned Disposition: [facility] Facility External Planned Provider: TO BE DETERMINED DCP follow-up note: CM CALLED AND SPOKE TO CRYSTAL CARDONA, SON AND POA, . CM DISCUSSED PT'S REFUSAL OF THERAPY SERVICES AND NEED FOR [facility] FACILITY PLACEMENT IF PT IS NOT ABLE TO GO HOME IN PRESENT CONDITION. CRYSTAL EXPLAINED THAT PT AND THE NURSE INFORMED HIM YESTERDAY THAT PT HAS NOT REFUSED THERAPY. CM REVIEWED THERAPY NOTES AND INFORMED CRYSTAL THAT PT HAS REFUSED. CRYSTAL WILL COME TO HOSPITAL SHORTLY TO DISCUSS PT'S DISCHARGE NEEDS. CM SPOKE TO JASON OF THERAPY, SHE INDICATED THAT HER NOTES REFLECT ACCURATELY WHAT HER INTERACTIONS WITH PT HAVE BEEN, SHE WILL MAKE HERSELF AVAILABLE TO SPEAK TO PT'S SON WHEN HE ARRIVES TODAY. CM WAITING PT'S SON'S ARRIVAL TO DISCUSS DISCHARGE PLANNING AND NEEDS. Judy Pace, CASE MANAGEMENT Appended by Judy Pace on 07/13/2019 16:41 EXCELLENCE LEADER: CM MET WITH PT AND PT'S SON IN ROOM. PT'S SON BELIVES THAT PT WILL PARTICIPATE IN THERAPY BUT MAY NOT HAVE HEARD THE THERAPIST WHEN OFFERED THERAPY SERVICES. CM PAGED AND HAD JASON OF THERAPY SPEAK TO PT AND SON. PT REPORTS HE ONLY REFUSED THERAPY ONCE AFTER DIALYSIS AND WILL PARTICIPATE TO GET INTO REHAB. PT'S SON WANTS FIRST CHOICE TO BE [facility], SECOND TO BE [facility] AND IF NECESSARY, [facility] THERAPY SPOKE TO PT WHO AGREED TO PARTICIPATE WITH ALL THERAPY SESSIONS. FAMILY NOTES THAT PT IS GETTING UP TO CHAIR AND TO BATHROOM AND FEELS THIS NEEDS TO BE DOCUMENTED ALSO. THERAPY TO SEE PT IN THE MORNING. CM TO SEND REFERRALS TO [facility], [facility] AND [facility] IN [place]. JUDY PACE, CASE MANAGEMENT DCP- Discharge Planning Updated by [id number]: Judy Pace on 07/12/19 3:[address] Patient Name: JOHN CARDONA Encounter No: [id number] : 1940 Primary Insurance: MEDICARE A & B Anticipated DC Date: 06-29-2019 Planned Disposition: Inpatient Rehab External Planned Provider: NO ACCEPTING PROVIDER DCP follow-up note: CM RECEIVED ORDER FOR INPATIENT REHAB. CHART REVIEWED. PT REFUSED PHYSICAL THERAPY LAST EVENING AND THIS MORNING AGAIN. CM SPOKE TO DARNELL OF INPATIENT REHAB AT [facility], THEY ARE NOT ABLE TO ACCEPT PT IS NOT PARTICIPATING IN PHYSICAL THERAPY. CM CALLED AND SPOKE TO FRANNIE OF [facility] AND WAS ADVISED THAT PT WILL HAVE TO PARTICIPATE WITH THERAPY TO BE CONSIDERED FOR ADMISSION. PT IS NOT PARTICIPATING WITH PHYSICAL THERAPY. PT'S SON SPOKE TO PT LAST EVENING REGARDING NEED TO PARTICIPATE WITH THERAPY. CM WILL DISCUSSED [facility] RE[facility] WITH PT AND PT'S SON PT IS NOT PARTICIPATING CONSISTENTLY WITH THERAPY SERVICES ENOUGH TO BE CONSIDERED FOR INPATIENT REHAB. Judy Pace, CASE MANAGEMENT DCP- Discharge Planning Updated by [id number]: Judy Pace on 07/11/19 11:[address] Patient Name: JOHN CARDONA Encounter No: [id number] : 1940 Primary Insurance: MEDICARE A & B Anticipated DC Date: 06-29-2019 Planned Disposition: Inpatient Rehab External Planned Provider: [facility] DCP follow-up note: CM RECEIVED ORDER FOR INPATIENT REHAB PRESCREENING. CM REVIEWED CHART, PHYSICAL THERAPY SIGNED OFF ON 07-06-19 DUE TO NON COMPLIANCE OF PATIENT WITH THERAPY. OCCUPATIONAL THERAPY HAS NOT SIGNED OFF AT THIS TIME AND LAST SEEN PT ON 07-06-19. CM MET WITH PT IN ROOM TO DISCUSS REHAB ORDER AND NEEDS. PT STATES THAT HIS STOMACH HURTS AND ALL HE NEEDS IS FOR THE HOSPITAL TO GET IT SO HE CAN EAT AND HE WILL GO HOME. PT DENIES NEED OF REHAB. CM ENCOURAGED PT TO CONSIDER REHAB SERVICES, PT STATES HE IS GOING HOME AND "THE HOSPITAL NEEDS TO STAIGHTEN OUT HIS STOMACH SO I CAN EAT." CM CALLED CRYSTAL CARDONA, SON AND POA, , WHO REPORTS BEING AT THE HOSPITAL EVERY DAY, THAT PT IS NOT UP ON HIS OWN AND NEEDS REHAB IN ORDER TO GO HOME. CM DISCUSSED THAT PT WILL NEED TO PARTICIPATE WITH THERAPY SERVICES FOR REHAB PLACEMENT. CRYSTAL STATES HE WILL DISCUSS WITH PT AND HAVE PT PARTICIPATE WITH THERAPY SERVICES. CM REQUESTED NEW PHYSICAL THERAPY ORDER. THE PLAN IS STILL FOR INPATIENT REHAB AT [facility], CM WILL NEED TO SEND ANOTHER REFERRAL WHEN AND IF PT PARTICIPATES WITH THERAPY SERVICES. CM TO CONTINUE TO FOLLOW AND ASSIST IF NEEDED. CM WAITING NEW PHYSICAL THERAPY EVALUATION INDICATING PT'S PARTICIPATION FOR REHAB REFERRAL TO [facility]. Judy Pace CASE MANAGEMENT DCP- Discharge Planning Updated by [id number]: Judy Pace on 07/05/19 2:[address] Patient Name: JOHN CARDONA Encounter No: [id number] : 1940 Primary Insurance: MEDICARE A & B Anticipated DC Date: 06-29-2019 Planned Disposition: Inpatient Rehab External Planned Provider: [facility] DCP follow-up note: CM RECEIVED ORDER TO CALL PT'S SON TO ENSURE HE IS AWARE OF SURGERY. CM CALLED AND SPOKE TO CRYSTAL CARDONA, CRYSTAL, SON AND KAVEH, , WHO REPORTS BEING AT THE HOSPITAL EVERY DAY, SPEAKING TO THE NURSES AND IS AWARE OF SURGERY SCHEDULED FOR THURSDAY. PLAN IS STILL FOR INPATIENT REHAB AT [facility], CM WILL NEED TO SEND ANOTHER REFERRAL WHEN PT IS CLOSER TO DISCHARGE AND STABLE FOR REHAB SERVICES. CM TO CONTINUE TO FOLLOW AND ASSIST IF NEEDED. Judy Pace CASE MANAGEMENT DCP- Discharge Planning Updated by [email or web address]: Judy Pace on 07/01/19 8:[address] Patient Name: JOHN CARDONA Encounter No: [id number] : 1940 Primary Insurance: MEDICARE A & B Anticipated DC Date: 06-29-2019 Planned Disposition: Inpatient Rehab External Planned Provider: [facility] DCP follow-up note: CM RECEIVED CALL FROM [facility], THEY WILL NEED NEW REFERRAL FOR INPATIENT REHAB WHEN PT IS CLOSER TO BEING STABLE FOR DISCHARGE. CM TO CONTINUE TO FOLLOW AND ASSIST NEEDED. Judy Pace CASE MANAGEMENT DCP- Discharge Planning Updated by [id number]: Judy Pace on 06/29/19 8:[address] Patient Name: JOHN CARDONA Encounter No: [id number] : 1940 Primary Insurance: MEDICARE A & B Anticipated DC Date: 06-29-2019 Planned Disposition: Inpatient Rehab External Planned Provider: [facility] DCP follow-up note: CM CALLED [facility], SPOKE TO FRANNIE AT [phone], WHO ADVISED THEY WILL ACCEPT PT FOR INPATIENT REHAB. CM FAXED UPDATE WITH CURRENT MAR TO [facility] AT [phone]. CM NOTIFIED SANIA JOHNS WHO WILL PROVIDE DISCHARGE ORDERS AND WILL NOTIFY DIALYSIS TO ASK FOR EARLY DIALYSIS TODAY. FOR DISCHARGE, FAX DISCHARGE INFORMATION TO [facility] AT [phone]. [facility] TO ARRANGE TRANSPORTATION. MAILE Medel MANAGEMENT. DCP- Discharge Planning Updated by [id number]: Judy Pace on 06/28/19 2:[address] Patient Name: JOHN CARDONA Encounter No: [id number] : 1940 Primary Insurance: MEDICARE A & B Anticipated DC Date: 06-29-2019 Planned Disposition: Inpatient Rehab External Planned Provider: [facility] DCP follow-up note: CM RECEIVED CALL FROM [facility], SPOKE TO FRANNIE AT [phone], WHO ADVISED THEY WILL ACCEPT PT FOR INPATIENT REHAB. CM NOTIFIED SANIA ZALDIVAR. CM NOTIFED PT WHO IS IN AGREEMENT WITH DISCHARGE TO REHAB WHEN STABLE. IMPORTANT MESSAGE FROM MEDICARE PROVIDED AND EXPLAINED. FOR DISCHARGE, NOTIFY FRANNIE AT [facility], , FAX CURRENT MAR AND DISCHARGE INFORMATION TO [facility] AT [phone]. [facility] TO ARRANGE TRANSPORTATION. MAILE Medel DCP- Discharge Planning Updated by [email or web address]: Clementina Villanueva on 06/27/19 9:[address] Patient Name: JOHN CARDONA Admission Status: ER Accout number: [id number] Admission Date: 06-24-2019 : 1940 Admission Diagnosis: Attending: YARON GONZALES Current LOS: 3 Anticipated DC Date: Planned Disposition: Primary Insurance: MEDICARE A & B Discharge Planning Comments: CM MET WITH PATIENT TO DISCUSS DC PLANNING/NEEDS AFTER OBTAINING VERBAL CONSENT. PATIENT IS VERY HARD OF HEARING AND WANTS ME TO TALK TO HIS SON CRYSTAL. I CALLED CRYSTAL AND HE STATES HIS DAD WILL NEED [facility] VS SNF. [facility] CHOICE, [facility]. IMM SIGNED. CM TO FOLLOW AND ASSIST NEEDED. I WILL FAX REFERRAL TO [facility] TODAY. Business Unit Manager: Clementina Villanueva DCPIA - Discharge Planning Initial Assessment Updated by [id number]: Clementina Villanueva on 06/27/19 10:15 am * Is the patient Alert and Oriented? Yes * PCP ADAM * Pharmacy [facility] * Preadmission Environment Home Alone * ADLs Independent * Other Equipment WALKER, 02/PORT, CPAP * List name and contact numbers for known caregivers / representatives who currently or will assist patient after discharge: BRIAN ROJAS AND KAVEH, * Community resources currently utilized None * Please name any agencies selected above. [facility] MWF DR. ALVAREZ * Additional services required to return to the preadmission environment? Yes * Can the patient safely return to the preadmission environment? No * Has this patient been hospitalized within the prior 30 days at any hospital? No External Providers External Provider: [facility] Next Contact Date: 06/29/2019 Service Request Date: Service Type: Resolution: Reviewer: Comments: Coverage Notice Reviewer: [id number] Villanueva Notice Issued Date-Time: 06/27/2019 10:21 Notice Type: IM Appeals Notice Notice Delivered To: Patient Relationship to Patient: Athletic Coach Name: Delivery Method: HAND - Hand Delivered Malinda Days: Prior Verbal Notification: Recipient Understood Notice: Yes Recipient Signature: Yes Med Rec Note Co-signed by Attending: Coverage Notice Comment: Reviewer: [id number] Villanueva Notice Issued Date-Time: 06/27/2019 10:21 Notice Type: Patient Choice Letter Notice Delivered To: Family Member Relationship to Patient: Athletic Coach Name: CRYSTAL CARDONA Delivery Method: PHONE - Phone Malinda Days: Prior Verbal Notification: Yes Recipient Understood Notice: Yes Recipient Signature: Med Rec Note Co-signed by Attending: Coverage Notice Comment: [facility], SECOND CHOICE IS [facility]. Reviewer: [email or web address] Liz aPce Notice Issued Date-Time: 06/28/2019 15:10 Notice Type: IM Discharge Notice Notice Delivered To: Patient Relationship to Patient: Athletic Coach Name: Delivery Method: HAND - Hand Delivered Malinda Days: Prior Verbal Notification: Recipient Understood Notice: Yes Recipient Signature: Yes Med Rec Note Co-signed by Attending: Coverage Notice Comment: Reviewer: [id number] Pace Notice Issued Date-Time: 07/11/2019 16:20 Notice Type: IM Discharge Notice Notice Delivered To: Family Member Relationship to Patient: Brian Athletic Coach Name: CRYSTAL CARDONA Delivery Method: HAND - Hand Delivered Malinda Days: Prior Verbal Notification: Recipient Understood Notice: Yes Recipient Signature: Yes Med Rec Note Co-signed by Attending: Coverage Notice Comment: Reviewer: [id number] - Judy Pace Notice Issued Date-Time: 07/13/2019 15:05 Notice Type: Patient Choice Letter Notice Delivered To: Family Member Relationship to Patient: Son Athletic Coach Name: CRYSTAL CARDONA Delivery Method: HAND - Hand Delivered Malinda Days: Prior Verbal Notification: Recipient Understood Notice: Yes Recipient Signature: Yes Med Rec Note Co-signed by Attending: Coverage Notice Comment: [facility], [facility], [facility] IN [place] Last DP export: 07/14/19 3:52 pm Patient Name: JOHN CARDONA Page [id number] at 0859 All edits/amendments must be made on the electronic document DICTATION DATE: 07/15/19858 LENS FABRICATING MACHINE TENDER: PRESTON 07/15/19858 RPT#: [id number] DC DATE: STATUS: ADM IN [place] [address] [place] [address] END OF REPORT
--- NOTE | 2019-07-15 09:07 | MORECARE ---
CASE MANAGEMENT DISCHARGE SUMMARY PATIENT: JOHN CARDONA UNIT: [id number] ADM DATE: 06/24/19 AGE: 78 : 38 SEX: M ROOM/BED: D.7268 AUTHOR: UCHE,DOC PHYSICIAN: REFERRING PHYSICIAN: YARON GONZALES MD DATE OF SERVICE: 07/15/19 Discharge Plan Patient Name: JOHN CARDONA [facility] [facility] 1940 Planned Disposition: Inpatient Rehab Anticipated Discharge Date: 07/15/19 Discharge Date: Expected LOS: 21 Initial Reviewer: [id number] Initial Review Date: 06/24/2019 Generated: 07/15/19 10:07 am Comments DCP- Discharge Planning Updated by [id number]: Judy Pace on 07/15/19 8:[address] Patient Name: JOHN CARDONA Encounter No: [id number] : 1940 Primary Insurance: MEDICARE A & B Anticipated DC Date: 07-15-2019 Planned Disposition: Inpatient Rehab External Planned Provider: [facility] DCP follow-up note: CM RECEIVED CALL FROM FRANNIE [facility] WHO STATES SHE DID NOT RECEIVE REFERRAL YESTERDAY EVENING. CM RE FAXED REFERRAL WITH TODAY'S MAR TO [facility] AT [phone]. [facility] WILL NOT ACCEPT WITHOUT 2 OR 3 MORE DAYS OF DOCUMENTED PARTICIPATION WITH THERAPY SERVICES. CM WAITING ADMISSION DETERMINATION FROM [facility]. CM WAITING ADMISSION DETERMINATION FROM [facility]. Judy Pace CASE MANAGEMENT DCP- Discharge Planning Updated by [id number]: Judy Pace on 07/14/19 3:[address] Patient Name: JOHN CARDONA Encounter No: [id number] : 1940 Primary Insurance: MEDICARE A & B Anticipated DC Date: 06-29-2019 Planned Disposition: Jail Facility External [facility] DCP follow-up note: CM RECEIVED PHYSICAL THERAPY NOTE, PT DID PARTICIPATE WITH THERAPY. CM MET WITH PT IN ROOM WHO INFORMED CM THAT HE DOES WANT REHAB AND WILL CONTINUE TO PARTICIPATE WITH THERAPY. CM MET WITH PT'S SON WHO INFORMED CM THAT PT IS NOW PARTICIPATING WITH THERAPY. CM SPOKE TO [place] OF INPATIENT REHAB WHO REVIEWED CHART AND INFORMED CM THAT SHE WILL HAVE TO WATCH PT FOR A COUPLE OF MORE DAYS FOR THERAPY COMPLIANCE BEFORE GIVING ANY DETERMINATION AND RECOMMEDED REFERRAL ELSEWHERE IF PT IS MEDICALLY STABLE FOR DISCHARGE. CM CALLED AND SPOKE TO FRANNIE AT [facility], , WHO INFORMED CM THAT THEY MAY BE ABLE TO ACCEPT AND WILL REVIEW PT TODAY FOR ADMISSION TO [facility]. CM FAXED REFERRAL TO [facility] AT [phone]. CM FAXED REFERRAL TO [facility]IA [place] AT [phone]. CM WAITING [facility] DET[facility]ATION [facility]. CM WAITING ADMISSION DETERMINATION FROM [facility]. Judy Pace, CASE MANAGEMENT DCP- Discharge Planning Updated by [id number]: Judy Pace on 07/13/19 3:[address] Patient Name: JOHN CARDONA Encounter No: [id number] : 1940 Primary Insurance: MEDICARE A & B Anticipated DC Date: 06-29-2019 Planned Disposition: Jail Facility External Planned Provider: TO BE DETERMINED DCP follow-up note: CM CALLED AND SPOKE TO CRYSTAL CARDONA, SON AND POA, . CM DISCUSSED PT'S REFUSAL OF THERAPY SERVICES AND NEED FOR ASSISTED FACILITY PLACEMENT IF PT IS NOT ABLE TO GO HOME IN PRESENT CONDITION. CRYSTAL EXPLAINED THAT PT AND THE NURSE INFORMED HIM YESTERDAY THAT PT HAS NOT REFUSED THERAPY. CM REVIEWED THERAPY NOTES AND INFORMED CRYSTAL THAT PT HAS REFUSED. CRYSTAL WILL COME TO HOSPITAL SHORTLY TO DISCUSS PT'S DISCHARGE NEEDS. CLAUDE SPOKE TO JASON OF THERAPY, SHE INDICATED THAT HER NOTES REFLECT ACCURATELY WHAT HER INTERACTIONS WITH PT HAVE BEEN, SHE WILL MAKE HERSELF AVAILABLE TO SPEAK TO PT'S SON WHEN HE ARRIVES TODAY. CM WAITING PT'S SON'S ARRIVAL TO DISCUSS DISCHARGE PLANNING AND NEEDS. Judy Pace, CASE MANAGEMENT Appended by Judy Pace on 07/13/2019 16:41 FORESTRY SCIENTIST: CM MET WITH PT AND PT'S SON IN ROOM. PT'S SON BELIVES THAT PT WILL PARTICIPATE IN THERAPY BUT MAY NOT HAVE HEARD THE THERAPIST WHEN OFFERED THERAPY SERVICES. CM PAGED AND HAD WILLIAMS SPEAK TO PT AND SON. PT REPORTS HE ONLY REFUSED THERAPY ONCE AFTER DIALYSIS AND WILL PARTICIPATE TO GET INTO REHAB. PT'S SON WANTS FIRST CHOICE TO BE [place], SECOND TO BE [facility] AND IF NECESSARY, [facility] THERAPY SPOKE TO PT WHO AGREED TO PARTICIPATE WITH ALL THERAPY SESSIONS. FAMILY NOTES THAT PT IS GETTING UP TO CHAIR AND TO BATHROOM AND FEELS THIS NEEDS TO BE DOCUMENTED ALSO. THERAPY TO SEE PT IN THE MORNING. CM TO SEND REFERRALS TO [facility]IENT, [facility] INPATIENT AND [facility] ASSISTED IN [place]. JUDY PACE, CASE MANAGEMENT DCP- Discharge Planning Updated by [id number]: Judy Pace on 07/12/19 3:[address] Patient Name: JOHN CARDONA Encounter No: [id number] : 1940 Primary Insurance: MEDICARE A & B Anticipated DC Date: 06-29-2019 Planned Disposition: Inpatient Rehab External Planned Provider: NO ACCEPTING PROVIDER DCP follow-up note: CM RECEIVED ORDER FOR INPATIENT REHAB. CHART REVIEWED. PT REFUSED PHYSICAL THERAPY LAST EVENING AND THIS MORNING AGAIN. CM SPOKE TO DARNELL OF INPATIENT REHAB AT [facility], THEY ARE NOT ABLE TO ACCEPT PT IS NOT PARTICIPATING IN PHYSICAL THERAPY. CM CALLED AND SPOKE TO FRANNIE OF [facility] INPATIENT REHAB AND WAS ADVISED THAT PT WILL HAVE TO PARTICIPATE WITH THERAPY TO BE CONSIDERED FOR ADMISSION. PT IS NOT PARTICIPATING WITH PHYSICAL THERAPY. PT'S SON SPOKE TO PT LAST EVENING REGARDING NEED TO PARTICIPATE WITH THERAPY. CM WILL DISCUSSED ASSISTED REHAB WITH PT AND PT'S SON PT IS NOT PARTICIPATING CONSISTENTLY WITH THERAPY SERVICES ENOUGH TO BE CONSIDERED FOR INPATIENT REHAB. Judy Pace CASE TIA DCP- Discharge Planning Updated by [id number]: Judy Pace on 07/11/19 11:[address] Patient Name: JOHN CARDONA Encounter No: [id number] : 1940 Primary Insurance: MEDICARE A & B Anticipated DC Date: 06-29-2019 Planned Disposition: Inpatient Rehab External Planned Provider: [facility] INPATIENT REHAB DCP follow-up note: CM RECEIVED ORDER FOR INPATIENT REHAB PRESCREENING. CM REVIEWED CHART, PHYSICAL THERAPY SIGNED OFF ON 07-06-19 DUE TO NON COMPLIANCE OF PATIENT WITH THERAPY. OCCUPATIONAL THERAPY HAS NOT SIGNED OFF AT THIS TIME AND LAST SEEN PT ON 07-06-19. CM MET WITH PT IN ROOM TO DISCUSS REHAB ORDER AND NEEDS. PT STATES THAT HIS STOMACH HURTS AND ALL HE NEEDS IS FOR THE HOSPITAL TO GET IT SO HE CAN EAT AND HE WILL GO HOME. PT DENIES NEED OF REHAB. CM ENCOURAGED PT TO CONSIDER REHAB SERVICES, PT STATES HE IS GOING HOME AND "THE HOSPITAL NEEDS TO STAIGHTEN OUT HIS STOMACH SO I CAN EAT." CM CALLED CRYSTAL CARDONA, SON AND KAVEH, , WHO REPORTS BEING AT THE HOSPITAL EVERY DAY, THAT PT IS NOT UP ON HIS OWN AND NEEDS REHAB IN ORDER TO GO HOME. CM DISCUSSED THAT PT WILL NEED TO PARTICIPATE WITH THERAPY SERVICES FOR REHAB PLACEMENT. CRYSTAL STATES HE WILL DISCUSS WITH PT AND HAVE PT PARTICIPATE WITH THERAPY SERVICES. CM REQUESTED NEW PHYSICAL THERAPY ORDER. THE PLAN IS STILL FOR INPATIENT REHAB AT [facility], CM WILL NEED TO SEND ANOTHER REFERRAL WHEN AND IF PT PARTICIPATES WITH THERAPY SERVICES. CM TO CONTINUE TO FOLLOW AND ASSIST IF NEEDED. CM WAITING NEW PHYSICAL THERAPY EVALUATION INDICATING PT'S PARTICIPATION FOR REHAB REFERRAL TO [facility] INPATIENT REHAB. Judy Pace CASE MANAGEMENT DCP- Discharge Planning Updated by [id number]: Judy Pace on 07/05/19 2:[address] Patient Name: JOHN CARDONA Encounter No: [id number] : 1940 Primary Insurance: MEDICARE A & B Anticipated DC Date: 06-29-2019 Planned Disposition: Inpatient Rehab External Planned Provider: [facility] follow-up note: CM RECEIVED ORDER TO CALL PT'S SON TO ENSURE HE IS AWARE OF SURGERY. CM CALLED AND SPOKE TO CRYSTAL KILGORE, LORRIE AND KAVEH, , WHO REPORTS BEING AT THE HOSPITAL EVERY DAY, SPEAKING TO THE NURSES AND IS AWARE OF SURGERY SCHEDULED FOR THURSDAY. PLAN IS STILL FOR INPATIENT REHAB AT [facility], CM WILL NEED TO SEND ANOTHER REFERRAL WHEN PT IS CLOSER TO DISCHARGE AND STABLE FOR REHAB SERVICES. CM TO CONTINUE TO FOLLOW AND ASSIST IF NEEDED. MAILE Medel MANAGEMENT DCP- Discharge Planning Updated by [id number]: Judy Pace on 07/01/19 8:[address] Patient Name: JOHN CARDONA Encounter No: [id number] : 1940 Primary Insurance: MEDICARE A & B Anticipated DC Date: 06-29-2019 Planned Disposition: Inpatient Rehab External Planned Provider: [facility] DCP follow-up note: CM RECEIVED CALL FROM DHR[facility], THEY WILL NEED NEW REFERRAL FOR INPATIENT REHAB WHEN PT IS CLOSER TO BEING STABLE FOR DISCHARGE. CM TO CONTINUE TO FOLLOW AND ASSIST NEEDED. MAILE Medel DCP- Discharge Planning Updated by [id number]: uJdy Pace on 06/29/19 8:[address] Patient Name: JOHN CARDONA Encounter No: [id number] : 1940 Primary Insurance: MEDICARE A & B Anticipated DC Date: 06-29-2019 Planned Disposition: Inpatient Rehab External Planned Provider: [facility] DCP follow-up note: CM CALLED [facility] RE[facility], SPOKE TO FRANNIE AT [phone], WHO ADVISED THEY WILL ACCEPT PT FOR INPATIENT REHAB. CM FAXED UPDATE WITH CURRENT MAR TO [facility] AT [phone]. CM NOTIFIED SANIA JOHNS WHO WILL PROVIDE DISCHARGE ORDERS AND WILL NOTIFY DIALYSIS TO ASK FOR EARLY DIALYSIS TODAY. FOR DISCHARGE, FAX DISCHARGE INFORMATION TO [facility] AT [phone]. [facility] TO ARRANGE TRANSPORTATION. MAILE Medel. DCP- Discharge Planning Updated by [id number]: Judy Pace on 06/28/19 2:[address] Patient Name: JOHN CARDONA Encounter No: [id number] : 1940 Primary Insurance: MEDICARE A & B Anticipated DC Date: 06-29-2019 Planned Disposition: Inpatient Rehab External Planned Provider: [facility] DCP follow-up note: CM RECEIVED CALL FROM [facility] RE[facility], SPOKE TO FRANNIE AT [phone], WHO ADVISED THEY WILL ACCEPT PT FOR INPATIENT REHAB. CM NOTIFIED SANIA ZALDIVAR. CM NOTIFED PT WHO IS IN AGREEMENT WITH DISCHARGE TO REHAB WHEN STABLE. IMPORTANT MESSAGE FROM MEDICARE PROVIDED AND EXPLAINED. FOR DISCHARGE, NOTIFY [facility], , FAX CURRENT MAR AND DISCHARGE INFORMATION TO [facility] AT [phone]. [facility] TO ARRANGE TRANSPORTATION. MAILE Medel DCP- Discharge Planning Updated by [id number]: Clementina Villanueva on 06/27/19 9:[address] Patient Name: JOHN CARDONA Admission Status: ER Accout number: [id number] Admission Date: 06-24-2019 : 1940 Admission Diagnosis: Attending: YARON GONZALES Current LOS: 3 Anticipated DC Date: Planned Disposition: Primary Insurance: MEDICARE A & B Discharge Planning Comments: CM MET WITH PATIENT TO DISCUSS DC PLANNING/NEEDS AFTER OBTAINING VERBAL CONSENT. PATIENT IS VERY HARD OF HEARING AND WANTS ME TO TALK TO HIS SON CRYSTAL. I CALLED CRYSTAL AND HE STATES HIS DAD WILL NEED IPRH VS SNF. [facility] IS FIRST CHOICE, [facility] IS SECOND CHOICE. IMM SIGNED. CM TO FOLLOW AND ASSIST NEEDED. I WILL FAX REFERRAL TO [facility] TODAY. Diabetes Educator: Clementina Villanueva DCPIA - Discharge Planning Initial Assessment Updated by [id number]: Clementina Villanueva on 06/27/19 10:15 am * Is the patient Alert and Oriented? Yes * PCP ADAM * Pharmacy [facility] * Preadmission Environment Home Alone * ADLs Independent * Other Equipment WALKER, 02/PORT, CPAP * List name and contact numbers for known caregivers / representatives who currently or will assist patient after discharge: LORRIE ROJAS AND POA, * Community resources currently utilized None * Please name any agencies selected above. HAS DIALYSIS [facility] MWF DR. ALVAREZ * Additional services required to return to the preadmission environment? Yes * Can the patient safely return to the preadmission environment? No * Has this patient been hospitalized within the prior 30 days at any hospital? No Coverage Notice Reviewer: [id number] Liz Pace Notice Issued Date-Time: 07/13/2019 15:05 Notice Type: Patient Choice Letter Notice Delivered To: Family Member Relationship to Patient: Son Diamond Mounter Name: CRYSTAL CARDONA Delivery Method: HAND - Hand Delivered Malinda Days: Prior Verbal Notification: Recipient Understood Notice: Yes Recipient Signature: Yes Med Rec Note Co-signed by Attending: Coverage Notice Comment[facility] [place] Reviewer: [id number] Liz Pace Notice Issued Date-Time: 07/11/2019 16:20 Notice Type: IM Discharge Notice Notice Delivered To: Family Member Relationship to Patient: Son Diamond Mounter Name: CRYSTAL CARDONA Delivery Method: HAND - Hand Delivered Malinda Days: Prior Verbal Notification: Recipient Understood Notice: Yes Recipient Signature: Yes Med Rec Note Co-signed by Attending: Coverage Notice Comment: Reviewer: [id number] Liz Villanueva Notice Issued Date-Time: 06/27/2019 10:21 Notice Type: Patient Choice Letter Notice Delivered To: Family Member Relationship to Patient: Diamond Mounter Name: CRYSTAL CARDONA Delivery Method: PHONE - Phone Malinda Days: Prior Verbal Notification: Yes Recipient Understood Notice: Yes Recipient Signature: Med Rec Note Co-signed by Attending: Coverage Notice Comment: [facility], SECOND CHOICE IS [facility]. Reviewer: [id number] - Judy Pace Notice Issued Date-Time: 06/28/2019 15:10 Notice Type: IM Discharge Notice Notice Delivered To: Patient Relationship to Patient: Diamond Mounter Name: Delivery Method: HAND - Hand Delivered Malinda Days: Prior Verbal Notification: Recipient Understood Notice: Yes Recipient Signature: Yes Med Rec Note Co-signed by Attending: Coverage Notice Comment: Reviewer: [email or web address] Liz Villanueva Notice Issued Date-Time: 06/27/2019 10:21 Notice Type: IM Appeals Notice Notice Delivered To: Patient Relationship to Patient: Diamond Mounter Name: Delivery Method: HAND - Hand Delivered Malinda Days: Prior Verbal Notification: Recipient Understood Notice: Yes Recipient Signature: Yes Med Rec Note Co-signed by Attending: Coverage Notice Comment: Last DP export: 07/15/19 8:00 am Patient Name: JOHN CARDONA Page [id number] at 0907 All edits/amendments must be made on the electronic document DICTATION DATE: 07/15/19906 RAISED PRINTER: PRESTON 07/15/19 09 RPT#: [id number] DC DATE: STATUS: ADM IN [facility] [address] [place] [address] END OF REPORT
[2019-07-15 10:46] VITALS: BP 149/85
[2019-07-15] MEDS ORDERED: RENAGEL800 MG PO (11:53)
[2019-07-15] MEDS ORDERED: NORVASC2.5 MG PO (11:53)
--- NOTE | 2019-07-15 12:27 | NUR ---
PT RETURNED FROM DIALYSIS VIA BED. PT STATES HE HAS NO PAIN AT THIS TIME. PT ZION EXHAUSTED FROM DIALYSIS. PULLED PT UP IN BED. SIMRAN ALARM ON. WILL CONTINUE TO MONITOR. BED LOW. CL IN REACH.
--- NOTE | 2019-07-15 13:13 | MORECARE ---
CASE MANAGEMENT DISCHARGE SUMMARY PATIENT: JOHN CARDONA UNIT: [id number] ADM DATE: 06/24/19 AGE: 78 : 38 SEX: M ROOM/BED: D.0686 AUTHOR: UCHE,DOC PHYSICIAN: REFERRING PHYSICIAN: YARON GONZALES MD DATE OF SERVICE: 07/15/19 Discharge Plan Patient Name: JOHN CARDONA [facility] [facility] 1940 Planned Disposition: Inpatient Rehab Anticipated Discharge Date: 07/15/19 Discharge Date: Expected LOS: 21 Initial Reviewer: [id number] Initial Review Date: 06/24/2019 Generated: 07/15/19 2:13 pm Comments DCP- Discharge Planning Updated by [id number]: Judy Pace on 07/15/19 8:[address] Patient Name: JOHN CARDONA Encounter No: [id number] : 1940 Primary Insurance: MEDICARE A & B Anticipated DC Date: 07-15-2019 Planned Disposition: Inpatient Rehab External Planned Provider: [facility] DCP follow-up note: CM RECEIVED CALL FROM FRANNIE [facility] WHO STATES SHE DID NOT RECEIVE REFERRAL YESTERDAY EVENING. CM RE FAXED REFERRAL WITH TODAY'S MAR TO [facility] AT [phone]. [facility] WILL NOT ACCEPT WITHOUT 2 OR 3 MORE DAYS OF DOCUMENTED PARTICIPATION WITH THERAPY SERVICES. CM WAITING ADMISSION DETERMINATION FROM [facility]. CM WAITING ADMISSION DETERMINATION FROM [facility]. Judy Pace CASE MANAGEMENT DCP- Discharge Planning Updated by [id number]: Judy Pace on 07/14/19 3:[address] Patient Name: JOHN CARDONA Encounter No: [id number] : 1940 Primary Insurance: MEDICARE A & B Anticipated DC Date: 06-29-2019 Planned Disposition: Custodial Facility External [facility] DCP follow-up note: CM RECEIVED PHYSICAL THERAPY NOTE, PT DID PARTICIPATE WITH THERAPY. CM MET WITH PT IN ROOM WHO INFORMED CM THAT HE DOES WANT REHAB AND WILL CONTINUE TO PARTICIPATE WITH THERAPY. CM MET WITH PT'S SON WHO INFORMED CM THAT PT IS NOW PARTICIPATING WITH THERAPY. CM SPOKE TO [place] OF INPATIENT REHAB WHO REVIEWED CHART AND INFORMED CM THAT SHE WILL HAVE TO WATCH PT FOR A COUPLE OF MORE DAYS FOR THERAPY COMPLIANCE BEFORE GIVING ANY DETERMINATION AND RECOMMEDED REFERRAL ELSEWHERE IF PT IS MEDICALLY STABLE FOR DISCHARGE. CM CALLED AND SPOKE TO FRANNIE AT [facility], , WHO INFORMED CM THAT THEY MAY BE ABLE TO ACCEPT AND WILL REVIEW PT TODAY FOR ADMISSION TO [facility]. CM FAXED REFERRAL TO [facility] AT [phone]. CM FAXED REFERRAL TO [facility] AT [phone]. CM WAITING [facility]. CM WAITING ADMISSION DETERMINATION FROM [facility]. Judy Pace, CASE MANAGEMENT DCP- Discharge Planning Updated by [id number]: Judy Pace on 07/13/19 3:[address] Patient Name: JOHN CARDONA Encounter No: [id number] : 1940 Primary Insurance: MEDICARE A & B Anticipated DC Date: 06-29-2019 Planned Disposition: Custodial Facility External Planned Provider: TO BE DETERMINED DCP follow-up note: CM CALLED AND SPOKE TO CRYSTAL CARDONA, SON AND POA, . CM DISCUSSED PT'S REFUSAL OF THERAPY SERVICES AND NEED FOR CORRECTION FACILITY PLACEMENT IF PT IS NOT ABLE TO GO HOME IN PRESENT CONDITION. CRYSTAL EXPLAINED THAT PT AND THE NURSE INFORMED HIM YESTERDAY THAT PT HAS NOT REFUSED THERAPY. CM REVIEWED THERAPY NOTES AND INFORMED CRYSTAL THAT PT HAS REFUSED. CRYSTAL WILL COME TO HOSPITAL SHORTLY TO DISCUSS PT'S DISCHARGE NEEDS. CLAUDE SPOKE TO JASON OF THERAPY, SHE INDICATED THAT HER NOTES REFLECT ACCURATELY WHAT HER INTERACTIONS WITH PT HAVE BEEN, SHE WILL MAKE HERSELF AVAILABLE TO SPEAK TO PT'S SON WHEN HE ARRIVES TODAY. CM WAITING PT'S SON'S ARRIVAL TO DISCUSS DISCHARGE PLANNING AND NEEDS. Judy Pace, CASE MANAGEMENT Appended by Judy Pace on 07/13/2019 16:41 GUIDANCE AND CONTROL SYSTEM ENGINEER: CM MET WITH PT AND PT'S SON IN ROOM. PT'S SON BELIVES THAT PT WILL PARTICIPATE IN THERAPY BUT MAY NOT HAVE HEARD THE THERAPIST WHEN OFFERED THERAPY SERVICES. CM PAGED AND HAD WILLIAMS SPEAK TO PT AND SON. PT REPORTS HE ONLY REFUSED THERAPY ONCE AFTER DIALYSIS AND WILL PARTICIPATE TO GET INTO REHAB. PT'S SON WANTS FIRST CHOICE TO BE [place], SECOND TO BE [facility] AND IF NECESSARY, [facility] [place] [place]. THERAPY SPOKE TO PT WHO AGREED TO PARTICIPATE WITH ALL THERAPY SESSIONS. FAMILY NOTES THAT PT IS GETTING UP TO CHAIR AND TO BATHROOM AND FEELS THIS NEEDS TO BE DOCUMENTED ALSO. THERAPY TO SEE PT IN THE MORNING. CM TO SEND REFERRALS TO [facility]IENT, [facility]PATIENT AND [facility] IN [place]. JUDY PACE, CASE MANAGEMENT DCP- Discharge Planning Updated by [id number]: Judy Pace on 07/12/19 3:[address] Patient Name: JOHN CARDONA Encounter No: [id number] : 1940 Primary Insurance: MEDICARE A & B Anticipated DC Date: 06-29-2019 Planned Disposition: Inpatient Rehab External Planned Provider: NO ACCEPTING PROVIDER DCP follow-up note: CM RECEIVED ORDER FOR INPATIENT REHAB. CHART REVIEWED. PT REFUSED PHYSICAL THERAPY LAST EVENING AND THIS MORNING AGAIN. CM SPOKE TO DARNELL OF INPATIENT REHAB AT [facility], THEY ARE NOT ABLE TO ACCEPT PT IS NOT PARTICIPATING IN PHYSICAL THERAPY. CM CALLED AND SPOKE TO FRANNIE OF [facility] INPAT[facility] AND WAS ADVISED THAT PT WILL HAVE TO PARTICIPATE WITH THERAPY TO BE CONSIDERED FOR ADMISSION. PT IS NOT PARTICIPATING WITH PHYSICAL THERAPY. PT'S SON SPOKE TO PT LAST EVENING REGARDING NEED TO PARTICIPATE WITH THERAPY. CM WILL DISCUSSED CORRECTION REHAB WITH PT AND PT'S SON PT IS NOT PARTICIPATING CONSISTENTLY WITH THERAPY SERVICES ENOUGH TO BE CONSIDERED FOR INPATIENT REHAB. Judy Pace CASE TIA DCP- Discharge Planning Updated by [id number]: Judy Pace on 07/11/19 11:[address] Patient Name: JOHN CARDONA Encounter No: [id number] : 1940 Primary Insurance: MEDICARE A & B Anticipated DC Date: 06-29-2019 Planned Disposition: Inpatient Rehab External Planned Provider: [facility]PAT[facility] RE[facility] DCP follow-up note: CM RECEIVED ORDER FOR INPATIENT REHAB PRESCREENING. CM REVIEWED CHART, PHYSICAL THERAPY SIGNED OFF ON 07-06-19 DUE TO NON COMPLIANCE OF PATIENT WITH THERAPY. OCCUPATIONAL THERAPY HAS NOT SIGNED OFF AT THIS TIME AND LAST SEEN PT ON 07-06-19. CM MET WITH PT IN ROOM TO DISCUSS REHAB ORDER AND NEEDS. PT STATES THAT HIS STOMACH HURTS AND ALL HE NEEDS IS FOR THE HOSPITAL TO GET IT SO HE CAN EAT AND HE WILL GO HOME. PT DENIES NEED OF REHAB. CM ENCOURAGED PT TO CONSIDER REHAB SERVICES, PT STATES HE IS GOING HOME AND "THE HOSPITAL NEEDS TO STAIGHTEN OUT HIS STOMACH SO I CAN EAT." CM CALLED CRYSTAL CARDONA, SON AND KAVEH, , WHO REPORTS BEING AT THE HOSPITAL EVERY DAY, THAT PT IS NOT UP ON HIS OWN AND NEEDS REHAB IN ORDER TO GO HOME. CM DISCUSSED THAT PT WILL NEED TO PARTICIPATE WITH THERAPY SERVICES FOR REHAB PLACEMENT. CRYSTAL STATES HE WILL DISCUSS WITH PT AND HAVE PT PARTICIPATE WITH THERAPY SERVICES. CM REQUESTED NEW PHYSICAL THERAPY ORDER. THE PLAN IS STILL FOR INPATIENT REHAB AT [facility], CM WILL NEED TO SEND ANOTHER REFERRAL WHEN AND IF PT PARTICIPATES WITH THERAPY SERVICES. CM TO CONTINUE TO FOLLOW AND ASSIST IF NEEDED. CM WAITING NEW PHYSICAL THERAPY EVALUATION INDICATING PT'S PARTICIPATION FOR REHAB REFERRAL TO [facility] INPATIENT REHAB. Judy Pace CASE MANAGEMENT DCP- Discharge Planning Updated by [id number]: Judy Pace on 07/05/19 2:[address] Patient Name: JOHN CARDONA Encounter No: [id number] : 1940 Primary Insurance: MEDICARE A & B Anticipated DC Date: 06-29-2019 Planned Disposition: Inpatient Rehab External Planned Provider: [facility] follow-up note: CM RECEIVED ORDER TO CALL PT'S SON TO ENSURE HE IS AWARE OF SURGERY. CM CALLED AND SPOKE TO CRYSTAL KILGORE, LORRIE AND KAVEH, , WHO REPORTS BEING AT THE HOSPITAL EVERY DAY, SPEAKING TO THE NURSES AND IS AWARE OF SURGERY SCHEDULED FOR THURSDAY. PLAN IS STILL FOR INPATIENT REHAB AT [facility], CM WILL NEED TO SEND ANOTHER REFERRAL WHEN PT IS CLOSER TO DISCHARGE AND STABLE FOR REHAB SERVICES. CM TO CONTINUE TO FOLLOW AND ASSIST IF NEEDED. MAILE Medel MANAGEMENT DCP- Discharge Planning Updated by [id number]: Judy Pace on 07/01/19 8:[address] Patient Name: JOHN CARDONA Encounter No: [id number] : 1940 Primary Insurance: MEDICARE A & B Anticipated DC Date: 06-29-2019 Planned Disposition: Inpatient Rehab External Planned Provider: [facility] DCP follow-up note: CM RECEIVED CALL FROM DHRUV [facility], THEY WILL NEED NEW REFERRAL FOR INPATIENT REHAB WHEN PT IS CLOSER TO BEING STABLE FOR DISCHARGE. CM TO CONTINUE TO FOLLOW AND ASSIST NEEDED. MAILE Medel DCP- Discharge Planning Updated by [id number]: Judy Pace on 06/29/19 8:[address] Patient Name: JOHN CARDONA Encounter No: [id number] : 1940 Primary Insurance: MEDICARE A & B Anticipated DC Date: 06-29-2019 Planned Disposition: Inpatient Rehab External Planned Provider: [facility] DCP follow-up note: CM CALLED [facility]PAT[facility] RE[facility], SPOKE TO FRANNIE AT [phone], WHO ADVISED THEY WILL ACCEPT PT FOR INPATIENT REHAB. CM FAXED UPDATE WITH CURRENT MAR TO [facility] AT [phone]. CM NOTIFIED SANIA JOHNS WHO WILL PROVIDE DISCHARGE ORDERS AND WILL NOTIFY DIALYSIS TO ASK FOR EARLY DIALYSIS TODAY. FOR DISCHARGE, FAX DISCHARGE INFORMATION TO [facility] AT [phone]. [facility] TO ARRANGE TRANSPORTATION. MAILE Medel. DCP- Discharge Planning Updated by [id number]: Judy Pace on 06/28/19 2:[address] Patient Name: JOHN CARDONA Encounter No: [id number] : 1940 Primary Insurance: MEDICARE A & B Anticipated DC Date: 06-29-2019 Planned Disposition: Inpatient Rehab External Planned Provider: [facility] DCP follow-up note: CM RECEIVED CALL FROM [facility]PAT[facility], SPOKE TO FRANNIE AT [phone], WHO ADVISED THEY WILL ACCEPT PT FOR INPATIENT REHAB. CM NOTIFIED SANIA ZALDIVAR. CM NOTIFED PT WHO IS IN AGREEMENT WITH DISCHARGE TO REHAB WHEN STABLE. IMPORTANT MESSAGE FROM MEDICARE PROVIDED AND EXPLAINED. FOR DISCHARGE, NOT[facility], , FAX CURRENT MAR AND DISCHARGE INFORMATION TO [facility] AT [phone]. [facility] TO ARRANGE TRANSPORTATION. MAILE Medel DCP- Discharge Planning Updated by [id number]: Clementina Villanueva on 06/27/19 9:[address] Patient Name: JOHN CARDONA Admission Status: ER Accout number: [id number] Admission Date: 06-24-2019 : 1940 Admission Diagnosis: Attending: YARON GONZALES Current LOS: 3 Anticipated DC Date: Planned Disposition: Primary Insurance: MEDICARE A & B Discharge Planning Comments: CM MET WITH PATIENT TO DISCUSS DC PLANNING/NEEDS AFTER OBTAINING VERBAL CONSENT. PATIENT IS VERY HARD OF HEARING AND WANTS ME TO TALK TO HIS SON CRYSTAL. I CALLED CRYSTAL AND HE STATES HIS DAD WILL NEED [facility] VS SNF. [facility] CHO[facility], [facility]. IMM SIGNED. CM TO FOLLOW AND ASSIST NEEDED. I WILL FAX REFERRAL TO [facility] TODAY. [employer] Principal Solution Specialist: Clementina Villanueva DCPIA - Discharge Planning Initial Assessment Updated by [id number]: Clementina Villanueva on 06/27/19 10:15 am * Is the patient Alert and Oriented? Yes * PCP ADAM * Pharmacy [facility] * Preadmission Environment Home Alone * ADLs Independent * Other Equipment WALKER, 02/PORT, CPAP * List name and contact numbers for known caregivers / representatives who currently or will assist patient after discharge: LORRIE ROJAS AND POA, * Community resources currently utilized None * Please name any agencies selected above. [facility] MWF DR. ALVAREZ * Additional services required to return to the preadmission environment? Yes * Can the patient safely return to the preadmission environment? No * Has this patient been hospitalized within the prior 30 days at any hospital? No Coverage Notice Reviewer: [id number] Liz Villanueva Notice Issued Date-Time: 06/27/2019 10:21 Notice Type: IM Appeals Notice Notice Delivered To: Patient Relationship to Patient: Floor Clerk Name: Delivery Method: HAND - Hand Delivered Malinda Days: Prior Verbal Notification: Recipient Understood Notice: Yes Recipient Signature: Yes Med Rec Note Co-signed by Attending: Coverage Notice Comment: Reviewer: [id number] Liz Villanueva Notice Issued Date-Time: 06/27/2019 10:21 Notice Type: Patient Choice Letter Notice Delivered To: Family Member Relationship to Patient: Floor Clerk Name: CRYSTAL CARDONA Delivery Method: PHONE - Phone Malinda Days: Prior Verbal Notification: Yes Recipient Understood Notice: Yes Recipient Signature: Med Rec Note Co-signed by Attending: Coverage Notice Comment: [facility], SECOND CHOICE IS [facility]. Reviewer: [id number] Pace Notice Issued Date-Time: 06/28/2019 15:10 Notice Type: IM Discharge Notice Notice Delivered To: Patient Relationship to Patient: Floor Clerk Name: Delivery Method: HAND - Hand Delivered Malinda Days: Prior Verbal Notification: Recipient Understood Notice: Yes Recipient Signature: Yes Med Rec Note Co-signed by Attending: Coverage Notice Comment: Reviewer: FLORENCE Pace Notice Issued Date-Time: 07/11/2019 16:20 Notice Type: IM Discharge Notice Notice Delivered To: Family Member Relationship to Patient: Son Floor Clerk Name: CRYSTAL CARDONA Delivery Method: HAND - Hand Delivered Malinda Days: Prior Verbal Notification: Recipient Understood Notice: Yes Recipient Signature: Yes Med Rec Note Co-signed by Attending: Coverage Notice Comment: Reviewer: FLORENCE Pace Notice Issued Date-Time: 07/13/2019 15:05 Notice Type: Patient Choice Letter Notice Delivered To: Family Member Relationship to Patient: Son Floor Clerk Name: CRYSTAL CARDONA Delivery Method: HAND - Hand Delivered Malinda Days: Prior Verbal Notification: Recipient Understood Notice: Yes Recipient Signature: Yes Med Rec Note Co-signed by Attending: Coverage Notice Comment: [facility] IP, [facility] IP, [facility] [place] Last DP export: 07/15/19 8:07 am Patient Name: JOHN CARDONA Page [id number] at 1313 All edits/amendments must be made on the electronic document DICTATION DATE: 07/15/19 1313 ENVIRONMENTAL CONTROL ADMINISTRATOR: PRESTON 07/15/19 1313 RPT#: [id number] DC DATE: STATUS: ADM IN [facility] [address] [place] [address] END OF REPORT
--- NOTE | 2019-07-15 13:28 | MORECARE ---
CASE MANAGEMENT DISCHARGE SUMMARY PATIENT: JOHN CARDONA UNIT: [id number] ADM DATE: 06/24/19 AGE: 78 : 38 SEX: M ROOM/BED: D.213 AUTHOR: UCHE,DOC PHYSICIAN: REFERRING PHYSICIAN: YARON GONZALES MD DATE OF SERVICE: 07/15/19 Discharge Plan Patient Name: JOHN CARDONA Facility: [facility]:Mobile : 1940 Planned Disposition: Inpatient Rehab Anticipated Discharge Date: 07/15/19 Discharge Date: Expected LOS: 21 Initial Reviewer: [id number] Initial Review Date: 06/24/2019 Generated: 07/15/19 2:27 pm Comments DCP- Discharge Planning Updated by [id number]: Judy Pcae on 07/15/19 12:[address] Patient Name: JOHN CARDONA Encounter No: [id number] : 1940 Primary Insurance: MEDICARE A & B Anticipated DC Date: 07-15-2019 Planned Disposition: Inpatient Rehab External Planned Provider: [facility] INPATIENT REHAB DCP follow-up note: CM RECEIVED CALL FROM FRANNIE OF [facility], THEY WILL ACCEPT PT TODAY. CM NOTIFIED PT IN ROOM WHO IS IN AGREEMENT WITH DISCHARGE TO [facility] TODAY. IMPORTANT MESSAGE FROM MEDICARE PROVIDED AND EXPLAINED. CM RECEIVED CALL FROM CRYSTAL SEEN, PT'S SON, , WHO INFORMED CM THAT HE RECEIVED CALL FROM [facility] AND THEY DO NOT WANT PT GOING TO [facility]; THEY WOULD AGREE FOR PT TO GO TO [facility] IF DECLINED BY INPATIENT REHAB. CM EXPLAINED THAT [facility] WILL NOT ACCEPT, THAT [facility] WILL ACCEPT TODAY AND THAT CM WILL CANCEL REFERRAL TO [facility] THAT CM SENT IN ERROR. CRYSTAL IN AGREEMENT WITH THIS PLAN. 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 CM RECEIVED DISCHARGE ORDERS. CM NOTIFIED FRANNIE AT [facility], FAXED DISCHARGE INFORMATION WITH TODAY'S MAR TO [facility] AT [phone]. NURSE REPORT TO BE CALLED TO [facility] AT [phone]. [facility] TO ARRANGE TRANSPORTATION. Judy Pace, CASE MANAGEMENT DCP- Discharge Planning Updated by [id number]: Judy Pace on 07/15/19 8:[address] Patient Name: JOHN CARDONA Encounter No: [id number] : 1940 Primary Insurance: MEDICARE A & B Anticipated DC Date: 07-15-2019 Planned Disposition: Inpatient Rehab External Planned Provider: [facility] DCP follow-up note: CM RECEIVED CALL FROM FRANNIE OF [facility] WHO STATES SHE DID NOT RECEIVE REFERRAL YESTERDAY EVENING. CM RE FAXED REFERRAL WITH TODAY'S MAR TO [facility] AT [phone]. [facility] WILL NOT ACCEPT WITHOUT 2 OR 3 MORE DAYS OF DOCUMENTED PARTICIPATION WITH THERAPY SERVICES. CM WAITING ADMISSION DETERMINATION FROM [facility] INPATIENT REHAB. CM WAITING ADMISSION DETERMINATION FROM [facility]. Judy Pace CASE MANAGEMENT DCP- Discharge Planning Updated by [id number]: Judy Pace on 07/14/19 3:[address] Patient Name: JOHN CARDONA Encounter No: [id number] : 1940 Primary Insurance: MEDICARE A & B Anticipated DC Date: 06-29-2019 Planned Disposition: Correction Facility External Planned Provider: [facility] DCP follow-up note: CM RECEIVED PHYSICAL THERAPY NOTE, PT DID PARTICIPATE WITH THERAPY. CM MET WITH PT IN ROOM WHO INFORMED CM THAT HE DOES WANT REHAB AND WILL CONTINUE TO PARTICIPATE WITH THERAPY. CM MET WITH PT'S SON WHO INFORMED CM THAT PT IS NOW PARTICIPATING WITH THERAPY. CM SPOKE TO DENVER OF INPATIENT REHAB WHO REVIEWED CHART AND INFORMED CM THAT SHE WILL HAVE TO WATCH PT FOR A COUPLE OF MORE DAYS FOR THERAPY COMPLIANCE BEFORE GIVING ANY DETERMINATION AND RECOMMEDED REFERRAL ELSEWHERE IF PT IS MEDICALLY STABLE FOR DISCHARGE. CM CALLED AND SPOKE TO FRANNIE AT [facility], , WHO INFORMED CM THAT THEY MAY BE ABLE TO ACCEPT AND WILL REVIEW PT TODAY FOR ADMISSION TO [facility]. CM FAXED REFERRAL TO [facility] AT [phone]. CM FAXED REFERRAL TO [facility] VIA [facility] AT [phone]. CM WAITING ADMISSION DETERMINATION FROM [facility] INPATIENT REHAB. CM WAITING ADMISSION DETERMINATION FROM [facility]. Judy Pace CASE MANAGEMENT DCP- Discharge Planning Updated by [id number]: Judy Pace on 07/13/19 3:[address] Patient Name: JOHN CARDONA Encounter No: [id number] : 1940 Primary Insurance: MEDICARE A & B Anticipated DC Date: 06-29-2019 Planned Disposition: Correction Facility External Planned Provider: TO BE DETERMINED DCP follow-up note: CM CALLED AND SPOKE TO CRYSTAL CARDONA, SON AND POA, . CM DISCUSSED PT'S REFUSAL OF THERAPY SERVICES AND NEED FOR ASSISTED FACILITY PLACEMENT IF PT IS NOT ABLE TO GO HOME IN PRESENT CONDITION. CRYSTAL EXPLAINED THAT PT AND THE NURSE INFORMED HIM YESTERDAY THAT PT HAS NOT REFUSED THERAPY. CM REVIEWED THERAPY NOTES AND INFORMED CRYSTAL THAT PT HAS REFUSED. CRYSTAL WILL COME TO HOSPITAL SHORTLY TO DISCUSS PT'S DISCHARGE NEEDS. CM SPOKE TO JASON OF THERAPY, SHE INDICATED THAT HER NOTES REFLECT ACCURATELY WHAT HER INTERACTIONS WITH PT HAVE BEEN, SHE WILL MAKE HERSELF AVAILABLE TO SPEAK TO PT'S SON WHEN HE ARRIVES TODAY. CM WAITING PT'S SON'S ARRIVAL TO DISCUSS DISCHARGE PLANNING AND NEEDS. 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 PT'S SON BELIVES THAT PT WILL PARTICIPATE IN THERAPY BUT MAY NOT HAVE HEARD THE THERAPIST WHEN OFFERED THERAPY SERVICES. CM PAGED AND HAD JASON OF THERAPY SPEAK TO PT AND SON. PT REPORTS HE ONLY REFUSED THERAPY ONCE AFTER DIALYSIS AND WILL PARTICIPATE TO GET INTO REHAB. PT'S SON WANTS FIRST CHOICE TO BE [place], SECOND [facility] AND IF NECESSARY, [facility]. THERAPY SPOKE TO PT WHO AGREED TO PARTICIPATE WITH ALL THERAPY SESSIONS. FAMILY NOTES THAT PT IS GETTING UP TO CHAIR AND TO BATHROOM AND FEELS THIS NEEDS TO BE DOCUMENTED ALSO. THERAPY TO SEE PT IN THE MORNING. CM TO SEND REFERRALS TO [facility]IENT, [facility] AND [facility] IN [place]. JUDY PACE, CASE MANAGEMENT DCP- Discharge Planning Updated by [id number]: Judy Pace on 07/12/19 3:[address] Patient Name: JOHN CARDONA Encounter No: [id number] : 1940 Primary Insurance: MEDICARE A & B Anticipated DC Date: 06-29-2019 Planned Disposition: Inpatient Rehab External Planned Provider: NO ACCEPTING PROVIDER DCP follow-up note: CM RECEIVED ORDER FOR INPATIENT REHAB. CHART REVIEWED. PT REFUSED PHYSICAL THERAPY LAST EVENING AND THIS MORNING AGAIN. CM SPOKE TO DARNELL OF INPATIENT REHAB AT [facility], THEY ARE NOT ABLE TO ACCEPT PT IS NOT PARTICIPATING IN PHYSICAL THERAPY. CM CALLED AND SPOKE TO FRANNIE OF [facility] INPATIENT REHAB AND WAS ADVISED THAT PT WILL HAVE TO PARTICIPATE WITH THERAPY TO BE CONSIDERED FOR ADMISSION. PT IS NOT PARTICIPATING WITH PHYSICAL THERAPY. PT'S SON SPOKE TO PT LAST EVENING REGARDING NEED TO PARTICIPATE WITH THERAPY. CM WILL DISCUSSED ASSISTED REHAB WITH PT AND PT'S SON PT IS NOT PARTICIPATING CONSISTENTLY WITH THERAPY SERVICES ENOUGH TO BE CONSIDERED FOR INPATIENT REHAB. Judy Pace, CASE MANAGEMENT DCP- Discharge Planning Updated by [id number]: Judy Pace on 07/11/19 11:[address] Patient Name: JOHN CARDONA Encounter No: [id number] : 1940 Primary Insurance: MEDICARE A & B Anticipated DC Date: 06-29-2019 Planned Disposition: Inpatient Rehab External Planned Provider: [facility] INPATIENT REHAB DCP follow-up note: CM RECEIVED ORDER FOR INPATIENT REHAB PRESCREENING. CM REVIEWED CHART, PHYSICAL THERAPY SIGNED OFF ON 07-06-19 DUE TO NON COMPLIANCE OF PATIENT WITH THERAPY. OCCUPATIONAL THERAPY HAS NOT SIGNED OFF AT THIS TIME AND LAST SEEN PT ON 07-06-19. CM MET WITH PT IN ROOM TO DISCUSS REHAB ORDER AND NEEDS. PT STATES THAT HIS STOMACH HURTS AND ALL HE NEEDS IS FOR THE HOSPITAL TO GET IT SO HE CAN EAT AND HE WILL GO HOME. PT DENIES NEED OF REHAB. CM ENCOURAGED PT TO CONSIDER REHAB SERVICES, PT STATES HE IS GOING HOME AND "THE HOSPITAL NEEDS TO STAIGHTEN OUT HIS STOMACH SO I CAN EAT." CM CALLED CRYSTAL CARDONA, SON AND POA, , WHO REPORTS BEING AT THE HOSPITAL EVERY DAY, THAT PT IS NOT UP ON HIS OWN AND NEEDS REHAB IN ORDER TO GO HOME. CM DISCUSSED THAT PT WILL NEED TO PARTICIPATE WITH THERAPY SERVICES FOR REHAB PLACEMENT. CRYSTAL STATES HE WILL DISCUSS WITH PT AND HAVE PT PARTICIPATE WITH THERAPY SERVICES. CM REQUESTED NEW PHYSICAL THERAPY ORDER. THE PLAN IS STILL FOR INPATIENT REHAB AT [facility], CM WILL NEED TO SEND ANOTHER REFERRAL WHEN AND IF PT PARTICIPATES WITH THERAPY SERVICES. CM TO CONTINUE TO FOLLOW AND ASSIST IF NEEDED. CM WAITING NEW PHYSICAL THERAPY EVALUATION INDICATING PT'S PARTICIPATION FOR REHAB REFERRAL TO [facility] INPATIENT REHAB. Judy Pace CASE MANAGEMENT DCP- Discharge Planning Updated by [id number]: Judy Pace on 07/05/19 2:[address] Patient Name: JOHN CARDONA Encounter No: [id number] : 1940 Primary Insurance: MEDICARE A & B Anticipated DC Date: 06-29-2019 Planned Disposition: Inpatient Rehab External Planned Provider: [facility] DCP follow-up note: CM RECEIVED ORDER TO CALL PT'S SON TO ENSURE HE IS AWARE OF SURGERY. CM CALLED AND SPOKE TO CRYSTAL CARDONA, CRYSTAL, SON AND KAVEH, , WHO REPORTS BEING AT THE HOSPITAL EVERY DAY, SPEAKING TO THE NURSES AND IS AWARE OF SURGERY SCHEDULED FOR THURSDAY. PLAN IS STILL FOR INPATIENT REHAB AT [facility], CM WILL NEED TO SEND ANOTHER REFERRAL WHEN PT IS CLOSER TO DISCHARGE AND STABLE FOR REHAB SERVICES. CM TO CONTINUE TO FOLLOW AND ASSIST IF NEEDED. Judy Pace CASE MANAGEMENT DCP- Discharge Planning Updated by [id number]: Judy Pace on 07/01/19 8:[address] Patient Name: JOHN CARDONA Encounter No: [id number] : 1940 Primary Insurance: MEDICARE A & B Anticipated DC Date: 06-29-2019 Planned Disposition: Inpatient Rehab External Planned Provider: [facility] DCP follow-up note: CM RECEIVED CALL FROM [facility], THEY WILL NEED NEW REFERRAL FOR INPATIENT REHAB WHEN PT IS CLOSER TO BEING STABLE FOR DISCHARGE. CM TO CONTINUE TO FOLLOW AND ASSIST NEEDED. Judy Pace CASE MANAGEMENT DCP- Discharge Planning Updated by [id number]: Judy Pace on 06/29/19 8:[address] Patient Name: JOHN CARDONA Encounter No: [id number] : 1940 Primary Insurance: MEDICARE A & B Anticipated DC Date: 06-29-2019 Planned Disposition: Inpatient Rehab External Planned Provider: [facility] DCP follow-up note: CM CALLED [facility] INPATIENT REHAB, SPOKE TO FRANNIE AT [phone], WHO ADVISED THEY WILL ACCEPT PT FOR INPATIENT REHAB. CM FAXED UPDATE WITH CURRENT MAR TO [facility] AT [phone]. CM NOTIFIED SANIA JOHNS WHO WILL PROVIDE DISCHARGE ORDERS AND WILL NOTIFY DIALYSIS TO ASK FOR EARLY DIALYSIS TODAY. FOR DISCHARGE, FAX DISCHARGE INFORMATION TO [facility] AT [phone]. [facility] TO ARRANGE TRANSPORTATION. MAILE Medel. DCP- Discharge Planning Updated by [id number]: Judy Pace on 06/28/19 2:[address] Patient Name: JOHN CARDONA Encounter No: [id number] : 1940 Primary Insurance: MEDICARE A & B Anticipated DC Date: 06-29-2019 Planned Disposition: Inpatient Rehab External Planned Provider: [facility] INPATIENT REHAB DCP follow-up note: CM RECEIVED CALL FROM [facility] INPATIENT REHAB, SPOKE TO FRANNIE AT [phone], WHO ADVISED THEY WILL ACCEPT PT FOR INPATIENT REHAB. CM NOTIFIED SANIA ZALDIVAR. CM NOTIFED PT WHO IS IN AGREEMENT WITH DISCHARGE TO REHAB WHEN STABLE. IMPORTANT MESSAGE FROM MEDICARE PROVIDED AND EXPLAINED. FOR DISCHARGE, NOTIFY FRANNIE AT [facility] INPATIENT REHAB, , FAX CURRENT MAR AND DISCHARGE INFORMATION TO [facility] AT [phone]. [facility] TO ARRANGE TRANSPORTATION. MAILE Medel MANAGEMENT DCP- Discharge Planning Updated by [id number]: Clementina Villanueva on 06/27/19 9:[address] Patient Name: JOHN CARDONA Admission Status: ER Accout number: [id number] Admission Date: 06-24-2019 : 1940 Admission Diagnosis: Attending: YARON GONZALES Current LOS: 3 Anticipated DC Date: Planned Disposition: Primary Insurance: MEDICARE A & B Discharge Planning Comments: CM MET WITH PATIENT TO DISCUSS DC PLANNING/NEEDS AFTER OBTAINING VERBAL CONSENT. PATIENT IS VERY HARD OF HEARING AND WANTS ME TO TALK TO HIS SON CRYSTAL. I CALLED CRYSTAL AND HE STATES HIS DAD WILL NEED [facility] VS SNF. [facility] IS FIRST CHOICE, [facility] IS SECOND CHOICE. IMM SIGNED. CM TO FOLLOW AND ASSIST NEEDED. I WILL FAX REFERRAL TO [facility] TODAY. Checker In: Clementina Villanueva DCPIA - Discharge Planning Initial Assessment Updated by [id number]: Judy Pace on 07/15/19 1:23 pm * Is the patient Alert and Oriented? Yes * PCP ADAM * Pharmacy [facility] * Preadmission Environment Home Alone * ADLs Independent * Other Equipment WALKER, 02/PORT, CPAP * List name and contact numbers for known caregivers / representatives who currently or will assist patient after discharge: BRIAN ROJAS AND KAVEH, * Community resources currently utilized None * Please name any agencies selected above. [facility] [place] MWF [address] * Additional services required to return to the preadmission environment? Yes * Can the patient safely return to the preadmission environment? No * Has this patient been hospitalized within the prior 30 days at any hospital? No Coverage Notice Reviewer: FLORENCE Pace Notice Issued Date-Time: 07/13/2019 15:05 Notice Type: Patient Choice Letter Notice Delivered To: Family Member Relationship to Patient: Brian Mechanism Inspector Name: CRYSTAL CARDONA Delivery Method: HAND - Hand Delivered Malinda Days: Prior Verbal Notification: Recipient Understood Notice: Yes Recipient Signature: Yes Med Rec Note Co-signed by Attending: Coverage Notice Comment: [facility] [place] Reviewer: [id number] Pace Notice Issued Date-Time: 07/11/2019 16:20 Notice Type: IM Discharge Notice Notice Delivered To: Family Member Relationship to Patient: Son Mechanism Inspector Name: CRYSTAL CARDONA Delivery Method: HAND - Hand Delivered Malinda Days: Prior Verbal Notification: Recipient Understood Notice: Yes Recipient Signature: Yes Med Rec Note Co-signed by Attending: Coverage Notice Comment: Reviewer: [id number] Liz Villanueva Notice Issued Date-Time: 06/27/2019 10:21 Notice Type: Patient Choice Letter Notice Delivered To: Family Member Relationship to Patient: Mechanism Inspector Name: CRYSTAL CARDONA Delivery Method: PHONE - Phone Malinda Days: Prior Verbal Notification: Yes Recipient Understood Notice: Yes Recipient Signature: Med Rec Note Co-signed by Attending: Coverage Notice Comment: [facility], SECOND CHOICE IS [facility]. Reviewer: [id number] Liz Pace Notice Issued Date-Time: 07/15/2019 13:00 Notice Type: IM Discharge Notice Notice Delivered To: Patient Relationship to Patient: Mechanism Inspector Name: Delivery Method: HAND - Hand Delivered Malinda Days: Prior Verbal Notification: Recipient Understood Notice: Yes Recipient Signature: Yes Med Rec Note Co-signed by Attending: Coverage Notice Comment: Reviewer: [id number] - Judy Pace Notice Issued Date-Time: 06/28/2019 15:10 Notice Type: IM Discharge Notice Notice Delivered To: Patient Relationship to Patient: Mechanism Inspector Name: Delivery Method: HAND - Hand Delivered Malinda Days: Prior Verbal Notification: Recipient Understood Notice: Yes Recipient Signature: Yes Med Rec Note Co-signed by Attending: Coverage Notice Comment: Reviewer: [id number] - Clementina Villanueva Notice Issued Date-Time: 06/27/2019 10:21 Notice Type: IM Appeals Notice Notice Delivered To: Patient Relationship to Patient: Mechanism Inspector Name: Delivery Method: HAND - Hand Delivered Malinda Days: Prior Verbal Notification: Recipient Understood Notice: Yes Recipient Signature: Yes Med Rec Note Co-signed by Attending: Coverage Notice Comment: Last DP export: 07/15/19 12:13 pm Patient Name: JOHN CARDONA Page [id number] at 1328 All edits/amendments must be made on the electronic document DICTATION DATE: 07/15/19 1327 ARTIST'S REPRESENTATIVE: PRESTON 07/15/19 1327 RPT#: [id number] DC DATE: STATUS: ADM IN [facility] [address] [place] [address] END OF REPORT
--- NOTE | 2019-07-15 13:35 | NUR ---
Nutrition Follow-up: Pt unavailable at time of visit this AM. PO intake improving; 100% of breakfast eaten this AM per record. Noted plans to d/c to rehab today. Diet: Renal, Soft, Nepro BID PO intake: 64% avg x 7 meals No new wt; last wt: 169# (07/04) Last BM: 07/11 per chart Labs noted: K+ 3.7, PO4 7.7 Meds noted: Renagel, Phoslo, Nephrovite, Pepcid, Megace -Continue current diet as tolerated. -Need new wt; noted daily wts ordered. -RD following.
--- NOTE | 2019-07-15 14:51 | NUR ---
CALLED REPORT TO [facility]. THEY STATE HIP XR NEEDS TO GET DONE BEFORE PT IS DISCHARGED. I VERBALIZED UNDETSTANDING. CALLED XR AND STATED TO THEM THEY NEED TO COME DO XR AND THEY STATED THEY WOULD.
--- NOTE | 2019-07-15 15:18 | MORECARE ---
CASE MANAGEMENT DISCHARGE SUMMARY PATIENT: JOHN CARDONA UNIT: [id number] ADM DATE: 06/24/19 AGE: 78 : 38 SEX: M ROOM/BED: D.2135 AUTHOR: UCHE,DOC PHYSICIAN: REFERRING PHYSICIAN: YARON GONZALES MD DATE OF SERVICE: 07/15/19 Discharge Plan Patient Name: JOHN CARDONA Facility: [facility]:[place] : 1940 Planned Disposition: Inpatient Rehab Anticipated Discharge Date: 07/15/19 Discharge Date: Expected LOS: 21 Initial Reviewer: [id number] Initial Review Date: 06/24/2019 Generated: 07/15/19 4:17 pm Comments DCP- Discharge Planning Updated by [id number]: Judy Pace on 07/15/19 2:[address] Patient Name: JOHN CARDONA Encounter No: [id number] : 1940 Primary Insurance: MEDICARE A & B Anticipated DC Date: 07-15-2019 Planned Disposition: Inpatient Rehab External Planned Provider: [facility] INPATIENT REHAB DCP follow-up note: CM RECEIVED CALL FROM FRANNIE OF [facility], THEY WILL ACCEPT PT TODAY. CM NOTIFIED PT IN ROOM WHO IS IN AGREEMENT WITH DISCHARGE TO [facility] TODAY. IMPORTANT MESSAGE FROM MEDICARE PROVIDED AND EXPLAINED. CM RECEIVED CALL FROM CRYSTAL ANNE, PT'S SON, , WHO INFORMED CM THAT HE RECEIVED CALL FROM [facility] AND THEY DO NOT WANT PT GOING TO [facility]; THEY WOULD AGREE FOR PT TO GO TO [facility] IF DECLINED BY INPATIENT REHAB. CM EXPLAINED THAT [facility] WILL NOT ACCEPT, THAT [facility] WILL ACCEPT TODAY AND THAT CM WILL CANCEL REFERRAL TO [facility] THAT CM SENT IN ERROR. CRYSTAL IN AGREEMENT WITH THIS PLAN. CM NOTIFIED PROCESS MAINTENANCE TECHNICIAN NURSE AND SANIA JEFFRIES. CM RECEIVED DISCHARGE ORDERS. CM NOTIFIED FRANNIE AT [facility], FAXED DISCHARGE INFORMATION WITH TODAY'S MAR TO [facility] AT [phone]. NURSE REPORT TO BE CALLED TO [facility] AT [phone]. [facility] TO ARRANGE TRANSPORTATION. Judy Pace, CASE MANAGEMENT Appended by Judy Pace on 07/15/2019 15:16 MAMMOGRAPHY SUPERVISOR: CM RECEIVED CALL FROM SH[facility], PT WILL ADMIT TO ROOM 115, REPORT TO [facility] AT [phone]. [facility] AT 1630 HOURS. CM RECEIVED CALLFRANNIE [facility] WHO INFORMED CM THAT THE NURSE REPORTED THAT PT HAS AN XRAY THAT HAS NOT YET RESULTED DUE TO A FALL. THIS WILL NEED TO BE DONE AND RESULTS TO [facility] PRIOR TO ACCEPTANCE TODAY. CM DIRECTOR TAMMY CALLED RADIOLOGY, THE XRAY WAS ATTEMPTED BUT PT WAS IN DIALYSIS THIS MORNING. THEY WILL DO IT SOON POSSIBLE. CM TO NOTIFY FRANNIE AT [facility] OF RESULTS, . JUDY PACE CASE MANAGEMENT DCP- Discharge Planning Updated by [id number]: Judy Pace on 07/15/19 8:[address] Patient Name: JOHN CARDONA Encounter No: [id number] : 1940 Primary Insurance: MEDICARE A & B Anticipated DC Date: 07-15-2019 Planned Disposition: Inpatient Rehab External Planned Provider: [facility] DCP follow-up note: CM RECEIVED CALL FROM FRANNIE [facility] WHO STATES SHE DID NOT RECEIVE REFERRAL YESTERDAY EVENING. CM RE FAXED REFERRAL WITH TODAY'S MAR TO [facility] AT [phone]. [facility] WILL NOT ACCEPT WITHOUT 2 OR 3 MORE DAYS OF DOCUMENTED PARTICIPATION WITH THERAPY SERVICES. CM WAITING ADMISSION DETERMINATION FROM [facility]. CM WAITING ADMISSION DETERMINATION FROM [facility]. Judy Pace CASE TIA DCP- Discharge Planning Updated by [id number]: Judy Pace on 07/14/19 3:[address] Patient Name: JOHN CARDONA Encounter No: [id number] : 1940 Primary Insurance: MEDICARE A & B Anticipated DC Date: 06-29-2019 Planned Disposition: [facility] Facility External Planned Provider: [facility] DCP follow-up note: CM RECEIVED PHYSICAL THERAPY NOTE, PT DID PARTICIPATE WITH THERAPY. CM MET WITH PT IN ROOM WHO INFORMED CM THAT HE DOES WANT REHAB AND WILL CONTINUE TO PARTICIPATE WITH THERAPY. CM MET WITH PT'S SON WHO INFORMED CM THAT PT IS NOW PARTICIPATING WITH THERAPY. CM SPOKE TO [place] OF INPATIENT REHAB WHO REVIEWED CHART AND INFORMED CM THAT SHE WILL HAVE TO WATCH PT FOR A COUPLE OF MORE DAYS FOR THERAPY COMPLIANCE BEFORE GIVING ANY DETERMINATION AND RECOMMEDED REFERRAL ELSEWHERE IF PT IS MEDICALLY STABLE FOR DISCHARGE. CM CALLED AND SPOKE TO FRANNIE AT [facility], , WHO INFORMED CM THAT THEY MAY BE ABLE TO ACCEPT AND WILL REVIEW PT TODAY FOR ADMISSION TO [facility]. CM FAXED REFERRAL TO [facility] AT [phone]. CM FAXED REFERRAL TO [facility] [place] AT [phone]. CM WAITING ADMISSION DETERMINATION FROM [facility] INPATIENT REHAB. CM WAITING ADMISSION DETERMINATION FROM [facility]. Judy Pace, CASE MANAGEMENT DCP- Discharge Planning Updated by [id number]: Judy Pace on 07/13/19 3:[address] Patient Name: JOHN CARDONA Encounter No: [id number] : 1940 Primary Insurance: MEDICARE A & B Anticipated DC Date: 06-29-2019 Planned Disposition: [facility] Facility External Planned Provider: TO BE DETERMINED DCP follow-up note: CLAUDE CALLED AND SPOKE TO CRYSTLA CARDONA, SON AND POA, . CM DISCUSSED PT'S REFUSAL OF THERAPY SERVICES AND NEED FOR [facility] FACILITY PLACEMENT IF PT IS NOT ABLE TO GO HOME IN PRESENT CONDITION. CRYSTAL EXPLAINED THAT PT AND THE NURSE INFORMED HIM YESTERDAY THAT PT HAS NOT REFUSED THERAPY. CM REVIEWED THERAPY NOTES AND INFORMED CRYSTAL THAT PT HAS REFUSED. CRYSTAL WILL COME TO HOSPITAL SHORTLY TO DISCUSS PT'S DISCHARGE NEEDS. CM SPOKE TO JASON OF THERAPY, SHE INDICATED THAT HER NOTES REFLECT ACCURATELY WHAT HER INTERACTIONS WITH PT HAVE BEEN, SHE WILL MAKE HERSELF AVAILABLE TO SPEAK TO PT'S SON WHEN HE ARRIVES TODAY. CM WAITING PT'S SON'S ARRIVAL TO DISCUSS DISCHARGE PLANNING AND NEEDS. Judy Pace, CASE MANAGEMENT Appended by Judy Pace on 07/13/2019 16:41 MAMMOGRAPHY SUPERVISOR: CM MET WITH PT AND PT'S SON IN ROOM. PT'S SON BELIVES THAT PT WILL PARTICIPATE IN THERAPY BUT MAY NOT HAVE HEARD THE THERAPIST WHEN OFFERED THERAPY SERVICES. CM PAGED AND HAD JASON [facility]URCH THERAPY SPEAK TO PT AND SON. PT REPORTS HE ONLY REFUSED THERAPY ONCE AFTER DIALYSIS AND WILL PARTICIPATE TO GET INTO REHAB. PT'S SON WANTS FIRST CHOICE TO BE [facility], SECOND TO BE [facility] AND IF NECESSARY, [facility] IN [facility] [place]. THERAPY SPOKE TO PT WHO AGREED TO PARTICIPATE WITH ALL THERAPY SESSIONS. FAMILY NOTES THAT PT IS GETTING UP TO CHAIR AND TO BATHROOM AND FEELS THIS NEEDS TO BE DOCUMENTED ALSO. THERAPY TO SEE PT IN THE MORNING. CM TO SEND REFERRALS TO [facility], [facility] INPATIENT AND [facility] IN [place]. JUDY PACE, CASE MANAGEMENT DCP- Discharge Planning Updated by [id number]: Judy Pace on 07/12/19 3:[address] Patient Name: JOHN CARDONA Encounter No: [id number] : 1940 Primary Insurance: MEDICARE A & B Anticipated DC Date: 06-29-2019 Planned Disposition: Inpatient Rehab External Planned Provider: NO ACCEPTING PROVIDER DCP follow-up note: CM RECEIVED ORDER FOR INPATIENT REHAB. CHART REVIEWED. PT REFUSED PHYSICAL THERAPY LAST EVENING AND THIS MORNING AGAIN. CM SPOKE TO DARNELL OF INPATIENT REHAB AT [facility], THEY ARE NOT ABLE TO ACCEPT PT IS NOT PARTICIPATING IN PHYSICAL THERAPY. CM CALLED AND SPOKE TO FRANNIE OF [facility] INPATIENT REHAB AND WAS ADVISED THAT PT WILL HAVE TO PARTICIPATE WITH THERAPY TO BE CONSIDERED FOR ADMISSION. PT IS NOT PARTICIPATING WITH PHYSICAL THERAPY. PT'S SON SPOKE TO PT LAST EVENING REGARDING NEED TO PARTICIPATE WITH THERAPY. CM WILL DISCUSSED [facility] REHAB WITH PT AND PT'S SON PT IS NOT PARTICIPATING CONSISTENTLY WITH THERAPY SERVICES ENOUGH TO BE CONSIDERED FOR INPATIENT REHAB. Judy Pace, CASE MANAGEMENT DCP- Discharge Planning Updated by [id number]: Judy Pcae on 07/11/19 11:[address] Patient Name: JOHN CARDONA Encounter No: [id number] : 1940 Primary Insurance: MEDICARE A & B Anticipated DC Date: 06-29-2019 Planned Disposition: Inpatient Rehab External Planned Provider: [facility] DCP follow-up note: CM RECEIVED ORDER FOR INPATIENT REHAB PRESCREENING. CM REVIEWED CHART, PHYSICAL THERAPY SIGNED OFF ON 07-06-19 DUE TO NON COMPLIANCE OF PATIENT WITH THERAPY. OCCUPATIONAL THERAPY HAS NOT SIGNED OFF AT THIS TIME AND LAST SEEN PT ON 07-06-19. CM MET WITH PT IN ROOM TO DISCUSS REHAB ORDER AND NEEDS. PT STATES THAT HIS STOMACH HURTS AND ALL HE NEEDS IS FOR THE HOSPITAL TO GET IT SO HE CAN EAT AND HE WILL GO HOME. PT DENIES NEED OF REHAB. CM ENCOURAGED PT TO CONSIDER REHAB SERVICES, PT STATES HE IS GOING HOME AND "THE HOSPITAL NEEDS TO STAIGHTEN OUT HIS STOMACH SO I CAN EAT." CM CALLED CRYSTAL CARDONA SON AND KAVEH, , WHO REPORTS BEING AT THE HOSPITAL EVERY DAY, THAT PT IS NOT UP ON HIS OWN AND NEEDS REHAB IN ORDER TO GO HOME. CM DISCUSSED THAT PT WILL NEED TO PARTICIPATE WITH THERAPY SERVICES FOR REHAB PLACEMENT. CRYSTAL STATES HE WILL DISCUSS WITH PT AND HAVE PT PARTICIPATE WITH THERAPY SERVICES. CM REQUESTED NEW PHYSICAL THERAPY ORDER. THE PLAN IS STILL FOR INPATIENT REHAB AT [facility], CM WILL NEED TO SEND ANOTHER REFERRAL WHEN AND IF PT PARTICIPATES WITH THERAPY SERVICES. CM TO CONTINUE TO FOLLOW AND ASSIST IF NEEDED. CM WAITING NEW PHYSICAL THERAPY EVALUATION INDICATING PT'S PARTICIPATION FOR REHAB REFERRAL TO [facility] INPATIENT REHAB. Judy Pace CASE MANAGEMENT DCP- Discharge Planning Updated by [id number]: Judy Pace on 07/05/19 2:[address] Patient Name: JOHN CARDONA Encounter No: [id number] : 1940 Primary Insurance: MEDICARE A & B Anticipated DC Date: 06-29-2019 Planned Disposition: Inpatient Rehab External Planned Provider: [facility] INPATIENT REHAB DCP follow-up note: CM RECEIVED ORDER TO CALL PT'S SON TO ENSURE HE IS AWARE OF SURGERY. CM CALLED AND SPOKE TO CRYSTAL KILGORE, LORRIE AND KAVEH, , WHO REPORTS BEING AT THE HOSPITAL EVERY DAY, SPEAKING TO THE NURSES AND IS AWARE OF SURGERY SCHEDULED FOR THURSDAY. PLAN IS STILL FOR INPATIENT REHAB AT [facility], CM WILL NEED TO SEND ANOTHER REFERRAL WHEN PT IS CLOSER TO DISCHARGE AND STABLE FOR REHAB SERVICES. CM TO CONTINUE TO FOLLOW AND ASSIST IF NEEDED. Judy Pace CASE MANAGEMENT DCP- Discharge Planning Updated by [email or web address]: Judy Pace on 07/01/19 8:[address] Patient Name: JOHN CARDONA Encounter No: [id number] : 1940 Primary Insurance: MEDICARE A & B Anticipated DC Date: 06-29-2019 Planned Disposition: Inpatient Rehab External Planned Provider: [facility] INPATIENT REHAB DCP follow-up note: CM RECEIVED CALL FROM [facility], THEY WILL NEED NEW REFERRAL FOR INPATIENT REHAB WHEN PT IS CLOSER TO BEING STABLE FOR DISCHARGE. CM TO CONTINUE TO FOLLOW AND ASSIST NEEDED. MAILE Medel DCP- Discharge Planning Updated by [id number]: Judy Pace on 06/29/19 8:[address] Patient Name: JOHN CARDONA Encounter No: [id number] : 1940 Primary Insurance: MEDICARE A & B Anticipated DC Date: 06-29-2019 Planned Disposition: Inpatient Rehab External [facility] DCP follow-up note: CM CALLED [facility] INPATIENT REHAB, SPOKE TO FRANNIE AT [phone], WHO ADVISED THEY WILL ACCEPT PT FOR INPATIENT REHAB. CM FAXED UPDATE WITH CURRENT MAR TO [facility] AT [phone]. CM NOTIFIED SANIA JOHNS WHO WILL PROVIDE DISCHARGE ORDERS AND WILL NOTIFY DIALYSIS TO ASK FOR EARLY DIALYSIS TODAY. FOR DISCHARGE, FAX DISCHARGE INFORMATION TO [facility] AT [phone]. [facility] TO ARRANGE TRANSPORTATION. MAILE Medel. DCP- Discharge Planning Updated by [id number]: Judy Pace on 06/28/19 2:[address] Patient Name: JOHN CARDONA Encounter No: [id number] : 1940 Primary Insurance: MEDICARE A & B Anticipated DC Date: 06-29-2019 Planned Disposition: Inpatient Rehab External Planned Provider: [facility] DCP follow-up note: CM RECEIVED CALL FROM [facility] INPATIENT REHAB, SPOKE TO FRANNIE AT [phone], WHO ADVISED THEY WILL ACCEPT PT FOR INPATIENT REHAB. CM NOTIFIED SANIA ZALDIVAR. CM NOTIFED PT WHO IS IN AGREEMENT WITH DISCHARGE TO REHAB WHEN STABLE. IMPORTANT MESSAGE FROM MEDICARE PROVIDED AND EXPLAINED. FOR DISCHARGE, NOT[facility], , FAX CURRENT MAR AND DISCHARGE INFORMATION TO [facility] AT [phone]. [facility] TO ARRANGE TRANSPORTATION. MAILE Medel DCP- Discharge Planning Updated by [id number]: Clementina Villanueva on 06/27/19 9:[address] Patient Name: JOHN CARDONA Admission Status: ER Accout number: [id number] Admission Date: 06-24-2019 : 1940 Admission Diagnosis: Attending: YARON GONZALES Current LOS: 3 Anticipated DC Date: Planned Disposition: Primary Insurance: MEDICARE A & B Discharge Planning Comments: CM MET WITH PATIENT TO DISCUSS DC PLANNING/NEEDS AFTER OBTAINING VERBAL CONSENT. PATIENT IS VERY HARD OF HEARING AND WANTS ME TO TALK TO HIS SON CRYSTAL. I CALLED CRYSTAL AND HE STATES HIS DAD WILL NEED [facility] VS SNF. [facility] IS FIRST CHOICE, [facility] IS SECOND CHOICE. IMM SIGNED. CM TO FOLLOW AND ASSIST NEEDED. I WILL FAX REFERRAL TO [facility] TODAY. Special Trackwork Blacksmith: Clementina Villanueva DCPIA - Discharge Planning Initial Assessment Updated by FLORENCE: Judy Pace on 07/15/19 1:23 pm * Is the patient Alert and Oriented? Yes * PCP ADAM * Pharmacy [facility] * Preadmission Environment Home Alone * ADLs Independent * Other Equipment WALKER, 02/PORT, CPAP * List name and contact numbers for known caregivers / representatives who currently or will assist patient after discharge: CRYSTAL, LORRIE AND POA, * Community resources currently utilized None * Please name any agencies selected above. [facility] [place] MWF [address] * Additional services required to return to the preadmission environment? Yes * Can the patient safely return to the preadmission environment? No * Has this patient been hospitalized within the prior 30 days at any hospital? No Coverage Notice Reviewer: [id number] Liz Villanueva Notice Issued Date-Time: 06/27/2019 10:21 Notice Type: IM Appeals Notice Notice Delivered To: Patient Relationship to Patient: Composite Laminator Name: Delivery Method: HAND - Hand Delivered Malinda Days: Prior Verbal Notification: Recipient Understood Notice: Yes Recipient Signature: Yes Med Rec Note Co-signed by Attending: Coverage Notice Comment: Reviewer: [id number] Liz Villanueva Notice Issued Date-Time: 06/27/2019 10:21 Notice Type: Patient Choice Letter Notice Delivered To: Family Member Relationship to Patient: Composite Laminator Name: CRYSTAL CARDONA Delivery Method: PHONE - Phone Malinda Days: Prior Verbal Notification: Yes Recipient Understood Notice: Yes Recipient Signature: Med Rec Note Co-signed by Attending: Coverage Notice Comment: [facility], SECOND CHOICE IS [facility]. Reviewer: [id number] Liz Pace Notice Issued Date-Time: 06/28/2019 15:10 Notice Type: IM Discharge Notice Notice Delivered To: Patient Relationship to Patient: Composite Laminator Name: Delivery Method: HAND - Hand Delivered Malinda Days: Prior Verbal Notification: Recipient Understood Notice: Yes Recipient Signature: Yes Med Rec Note Co-signed by Attending: Coverage Notice Comment: Reviewer: FLORENCE Pace Notice Issued Date-Time: 07/11/2019 16:20 Notice Type: IM Discharge Notice Notice Delivered To: Family Member Relationship to Patient: Son Composite Laminator Name: CRYSTAL CARDONA Delivery Method: HAND - Hand Delivered Malinda Days: Prior Verbal Notification: Recipient Understood Notice: Yes Recipient Signature: Yes Med Rec Note Co-signed by Attending: Coverage Notice Comment: Reviewer: FLORENCE Pace Notice Issued Date-Time: 07/13/2019 15:05 Notice Type: Patient Choice Letter Notice Delivered To: Family Member Relationship to Patient: Son Composite Laminator Name: CRYSTAL CARDONA Delivery Method: HAND - Hand Delivered Malinda Days: Prior Verbal Notification: Recipient Understood Notice: Yes Recipient Signature: Yes Med Rec Note Co-signed by Attending: Coverage Notice Comment: [facility], [facility] [place] Reviewer: [id number] Pace Notice Issued Date-Time: 07/15/2019 13:00 Notice Type: IM Discharge Notice Notice Delivered To: Patient Relationship to Patient: Composite Laminator Name: Delivery Method: HAND - Hand Delivered Malinda Days: Prior Verbal Notification: Recipient Understood Notice: Yes Recipient Signature: Yes Med Rec Note Co-signed by Attending: Coverage Notice Comment: Last DP export: 07/15/19 12:28 pm Patient Name: JOHN CARDONA Page [id number] at 1518 All edits/amendments must be made on the electronic document DICTATION DATE: 07/15/19 1517 OPERATOR CATALYST CONCENTRATION: PRESTON 07/15/19 151 RPT#: [id number] DC DATE: STATUS: ADM IN [place] [address] [place] [address] END OF REPORT
--- NOTE | 2019-07-15 16:05 | NUR ---
LEFT HIP XR CAME BACK CLEAR. CALLED AND STATED THIS TO [facility].
--- NOTE | 2019-07-15 16:22 | NUR ---
DC'D TELEMETRY. RIGHT FA IV DC'D WITH CATH INTACT. DISCHARGE INSTRUCTIONS GIVEN TO PT. CHART COPY SIGNED. FAMILY AT BEDSIDE.
--- NOTE | 2019-07-15 16:59 | NUR ---
PT LEFT VIA EMS BY STRETCHER.
--- NOTE | 2019-07-15 17:34 | NUR ---
OT NOTE: PT COMPLETED BED MOB WITH SBA.PT COMPLETED BUE AROM EXS. 1-116 THANK YOU,ODESSA MÉNDEZ
--- NOTE | 2019-07-18 09:55 | MORECARE ---
CASE MANAGEMENT DISCHARGE SUMMARY PATIENT: JOHN CARDONA UNIT: [id number] ADM DATE: 06/24/19 AGE: 78 : 38 SEX: M ROOM/BED: D.8318 AUTHOR: UCHE,DOC PHYSICIAN: REFERRING PHYSICIAN: YARON GONZALES MD DATE OF SERVICE: 07/18/19 Discharge Plan Patient Name: JOHN CARDONA Facility: [facility]:[place] : 1940 Planned Disposition: Inpatient Rehab Anticipated Discharge Date: 07/15/19 Discharge Date: 07/15/2019 Expected LOS: 21 Initial Reviewer: [id number] Initial Review Date: 06/24/2019 Generated: 07/18/19 10:54 am Comments DCP- Discharge Planning Updated by [id number]: Judy Pace on 07/15/19 1:[address] Patient Name: JOHN CARDONA Encounter No: [id number] : 1940 Primary Insurance: MEDICARE A & B Anticipated DC Date: 07-15-2019 Planned Disposition: Inpatient Rehab External Planned Provider: [facility] INPATIENT REHAB DCP follow-up note: CM RECEIVED CALL FROM FRANNIE OF [facility], THEY WILL ACCEPT PT TODAY. CM NOTIFIED PT IN ROOM WHO IS IN AGREEMENT WITH DISCHARGE TO [facility] TODAY. IMPORTANT MESSAGE FROM MEDICARE PROVIDED AND EXPLAINED. CM RECEIVED CALL FROM CRYSTAL ANNE, PT'S SON, , WHO INFORMED CM THAT HE RECEIVED CALL FROM [facility] AND THEY DO NOT WANT PT GOING TO [facility]; THEY WOULD AGREE FOR PT TO GO TO [facility] IF DECLINED BY INPATIENT REHAB. CM EXPLAINED THAT [facility] WILL NOT ACCEPT, THAT [facility] WILL ACCEPT TODAY AND THAT CM WILL CANCEL REFERRAL TO [facility] THAT CM SENT IN ERROR. CRYSTAL IN AGREEMENT WITH THIS PLAN. CM NOTIFIED TELLERS SUPERVISOR NURSE AND SANIA JEFFRIES. CM RECEIVED DISCHARGE ORDERS. CM NOTIFIED FRANNIE AT [facility], FAXED DISCHARGE INFORMATION WITH TODAY'S MAR TO [facility] AT [phone]. NURSE REPORT TO BE CALLED TO [facility] AT [phone]. [facility] TO ARRANGE TRANSPORTATION. Judy Pace, CASE MANAGEMENT Appended by Judy Pace on 07/15/2019 15:16 DIGITAL MEDIA SALES CONSULTANT: CM RECEIVED CALL FROM [facility], PT WILL ADMIT TO ROOM 115, REPORT TO [facility] AT [phone]. [employer] ENGINEER AT 1630 HOURS. CM RECEIVED CALLFRANNIE [facility] WHO INFORMED CM THAT THE NURSE REPORTED THAT PT HAS AN XRAY THAT HAS NOT YET RESULTED DUE TO A FALL. THIS WILL NEED TO BE DONE AND RESULTS TO [facility] PRIOR TO ACCEPTANCE TODAY. CM DIRECTOR TAMMY CALLED RADIOLOGY, THE XRAY WAS ATTEMPTED BUT PT WAS IN DIALYSIS THIS MORNING. THEY WILL DO IT SOON POSSIBLE. CM TO NOTIFY FRANNIE AT [facility] OF RESULTS, . JUDY PACE CASE MANAGEMENT DCP- Discharge Planning Updated by [id number]: Judy Pace on 07/15/19 7:[address] Patient Name: JOHN CARDONA Encounter No: [id number] : 1940 Primary Insurance: MEDICARE A & B Anticipated DC Date: 07-15-2019 Planned Disposition: Inpatient Rehab External Planned Provider: [facility] DCP follow-up note: CM RECEIVED CALL FROM FRANNIE [facility] WHO STATES SHE DID NOT RECEIVE REFERRAL YESTERDAY EVENING. CM RE FAXED REFERRAL WITH TODAY'S MAR TO [facility] AT [phone]. [facility] WILL NOT ACCEPT WITHOUT 2 OR 3 MORE DAYS OF DOCUMENTED PARTICIPATION WITH THERAPY SERVICES. CM WAITING ADMISSION DETERMINATION FROM [facility]. CM WAITING ADMISSION DETERMINATION FROM [facility]. Judy Pace CASE TIA DCP- Discharge Planning Updated by [id number]: Judy Pace on 07/14/19 2:[address] Patient Name: JOHN CARDONA Encounter No: [id number] : 1940 Primary Insurance: MEDICARE A & B Anticipated DC Date: 06-29-2019 Planned Disposition[facility] External [facility] DCP follow-up note: CM RECEIVED PHYSICAL THERAPY NOTE, PT DID PARTICIPATE WITH THERAPY. CM MET WITH PT IN ROOM WHO INFORMED CM THAT HE DOES WANT REHAB AND WILL CONTINUE TO PARTICIPATE WITH THERAPY. CLAUDE MET WITH PT'S SON WHO INFORMED CM THAT PT IS NOW PARTICIPATING WITH THERAPY. CM SPOKE TO DENVER OF INPATIENT REHAB WHO REVIEWED CHART AND INFORMED CM THAT SHE WILL HAVE TO WATCH PT FOR A COUPLE OF MORE DAYS FOR THERAPY COMPLIANCE BEFORE GIVING ANY DETERMINATION AND RECOMMEDED REFERRAL ELSEWHERE IF PT IS MEDICALLY STABLE FOR DISCHARGE. CM CALLED AND SPOKE TO FRANNIE AT [facility], , WHO INFORMED CM THAT THEY MAY BE ABLE TO ACCEPT AND WILL REVIEW PT TODAY FOR ADMISSION TO [facility]. CM FAXED REFERRAL TO [facility] AT [phone]. CM FAXED REFERRAL TO [facility] VIA [place] AT [phone]. CM WAITING ADMISSION DETERMINATION FROM [facility] INPATIENT REHAB. CM WAITING ADMISSION DETERMINATION FROM [facility]. Judy Pace, CASE MANAGEMENT DCP- Discharge Planning Updated by [id number]: Judy Pace on 07/13/19 2:[address] Patient Name: JOHN CARDONA Encounter No: [id number] : 1940 Primary Insurance: MEDICARE A & B Anticipated DC Date: 06-29-2019 Planned Disposition: [facility] Facility External Planned Provider: TO BE DETERMINED DCP follow-up note: CM CALLED AND SPOKE TO CRYSTAL CARDONA, SON AND POA, . CM DISCUSSED PT'S REFUSAL OF THERAPY SERVICES AND NEED FOR SHELTER FACILITY PLACEMENT IF PT IS NOT ABLE TO GO HOME IN PRESENT CONDITION. CRYSTAL EXPLAINED THAT PT AND THE NURSE INFORMED HIM YESTERDAY THAT PT HAS NOT REFUSED THERAPY. CM REVIEWED THERAPY NOTES AND INFORMED CRYSTAL THAT PT HAS REFUSED. CRYSTAL WILL COME TO HOSPITAL SHORTLY TO DISCUSS PT'S DISCHARGE NEEDS. CM SPOKE TO JASON OF THERAPY, SHE INDICATED THAT HER NOTES REFLECT ACCURATELY WHAT HER INTERACTIONS WITH PT HAVE BEEN, SHE WILL MAKE HERSELF AVAILABLE TO SPEAK TO PT'S SON WHEN HE ARRIVES TODAY. CM WAITING PT'S SON'S ARRIVAL TO DISCUSS DISCHARGE PLANNING AND NEEDS. Judy Pace, CASE MANAGEMENT Appended by Judy Pace on 07/13/2019 16:41 DIGITAL MEDIA SALES CONSULTANT: CM MET WITH PT AND PT'S SON IN ROOM. PT'S SON BELIVES THAT PT WILL PARTICIPATE IN THERAPY BUT MAY NOT HAVE HEARD THE THERAPIST WHEN OFFERED THERAPY SERVICES. CM PAGED AND HAD WILLIAMS SPEAK TO PT AND SON. PT REPORTS HE ONLY REFUSED THERAPY ONCE AFTER DIALYSIS AND WILL PARTICIPATE TO GET INTO REHAB. PT'S SON WANTS FIRST CHOICE TO BE [facility], SECOND TO BE [facility] AND IF NECESSARY, [facility]. THERAPY SPOKE TO PT WHO AGREED TO PARTICIPATE WITH ALL THERAPY SESSIONS. FAMILY NOTES THAT PT IS GETTING UP TO CHAIR AND TO BATHROOM AND FEELS THIS NEEDS TO BE DOCUMENTED ALSO. THERAPY TO SEE PT IN THE MORNING. CM TO SEND REFERRALS TO [facility], [facility] INPATIENT AND [facility] IN [place]. JUDY PACE, CASE MANAGEMENT DCP- Discharge Planning Updated by [id number]: Judy Pace on 07/12/19 2:[address] Patient Name: JOHN CARDONA Encounter No: [id number] : 1940 Primary Insurance: MEDICARE A & B Anticipated DC Date: 06-29-2019 Planned Disposition: Inpatient Rehab External Planned Provider: NO ACCEPTING PROVIDER DCP follow-up note: CM RECEIVED ORDER FOR INPATIENT REHAB. CHART REVIEWED. PT REFUSED PHYSICAL THERAPY LAST EVENING AND THIS MORNING AGAIN. CM SPOKE TO DARNELL OF INPATIENT REHAB AT [facility], THEY ARE NOT ABLE TO ACCEPT PT IS NOT PARTICIPATING IN PHYSICAL THERAPY. CM CALLED AND SPOKE TO FRANNIE OF [facility] INPATIENT REHAB AND WAS ADVISED THAT PT WILL HAVE TO PARTICIPATE WITH THERAPY TO BE CONSIDERED FOR ADMISSION. PT IS NOT PARTICIPATING WITH PHYSICAL THERAPY. PT'S SON SPOKE TO PT LAST EVENING REGARDING NEED TO PARTICIPATE WITH THERAPY. CM WILL DISCUSSED SHELTER REHAB WITH PT AND PT'S SON PT IS NOT PARTICIPATING CONSISTENTLY WITH THERAPY SERVICES ENOUGH TO BE CONSIDERED FOR INPATIENT REHAB. Judy Pace, CASE MANAGEMENT DCP- Discharge Planning Updated by [id number]: Judy Pace on 07/11/19 10:[address] Patient Name: JOHN CARDONA Encounter No: [id number] : 1940 Primary Insurance: MEDICARE A & B Anticipated DC Date: 06-29-2019 Planned Disposition: Inpatient Rehab External Planned Provider: [facility] INPATIENT REHAB DCP follow-up note: CM RECEIVED ORDER FOR INPATIENT REHAB PRESCREENING. CM REVIEWED CHART, PHYSICAL THERAPY SIGNED OFF ON 07-06-19 DUE TO NON COMPLIANCE OF PATIENT WITH THERAPY. OCCUPATIONAL THERAPY HAS NOT SIGNED OFF AT THIS TIME AND LAST SEEN PT ON 07-06-19. CM MET WITH PT IN ROOM TO DISCUSS REHAB ORDER AND NEEDS. PT STATES THAT HIS STOMACH HURTS AND ALL HE NEEDS IS FOR THE HOSPITAL TO GET IT SO HE CAN EAT AND HE WILL GO HOME. PT DENIES NEED OF REHAB. CM ENCOURAGED PT TO CONSIDER REHAB SERVICES, PT STATES HE IS GOING HOME AND "THE HOSPITAL NEEDS TO STAIGHTEN OUT HIS STOMACH SO I CAN EAT." CM CALLED CRYSTAL CARDONA SON AND KAVEH, , WHO REPORTS BEING AT THE HOSPITAL EVERY DAY, THAT PT IS NOT UP ON HIS OWN AND NEEDS REHAB IN ORDER TO GO HOME. CM DISCUSSED THAT PT WILL NEED TO PARTICIPATE WITH THERAPY SERVICES FOR REHAB PLACEMENT. CRYSTAL STATES HE WILL DISCUSS WITH PT AND HAVE PT PARTICIPATE WITH THERAPY SERVICES. CM REQUESTED NEW PHYSICAL THERAPY ORDER. THE PLAN IS STILL FOR INPATIENT REHAB AT [facility], CM WILL NEED TO SEND ANOTHER REFERRAL WHEN AND IF PT PARTICIPATES WITH THERAPY SERVICES. CM TO CONTINUE TO FOLLOW AND ASSIST IF NEEDED. CM WAITING NEW PHYSICAL THERAPY EVALUATION INDICATING PT'S PARTICIPATION FOR REHAB REFERRAL TO [facility] INPATIENT REHAB. Judy Pace, CASE MANAGEMENT DCP- Discharge Planning Updated by [id number]: Judy Pace on 07/05/19 1:[address] Patient Name: JOHN CARDONA Encounter No: [id number] : 1940 Primary Insurance: MEDICARE A & B Anticipated DC Date: 06-29-2019 Planned Disposition: Inpatient Rehab External [facility] DCP follow-up note: CM RECEIVED ORDER TO CALL PT'S SON TO ENSURE HE IS AWARE OF SURGERY. CM CALLED AND SPOKE TO CRYSTAL KILGORE, SON AND KAVEH, , WHO REPORTS BEING AT THE HOSPITAL EVERY DAY, SPEAKING TO THE NURSES AND IS AWARE OF SURGERY SCHEDULED FOR THURSDAY. PLAN IS STILL FOR INPATIENT REHAB AT [facility], CM WILL NEED TO SEND ANOTHER REFERRAL WHEN PT IS CLOSER TO DISCHARGE AND STABLE FOR REHAB SERVICES. CM TO CONTINUE TO FOLLOW AND ASSIST IF NEEDED. Judy Pace CASE MANAGEMENT DCP- Discharge Planning Updated by [id number]: Judy Pace on 07/01/19 7:[address] Patient Name: JOHN CARDONA Encounter No: [id number] : 1940 Primary Insurance: MEDICARE A & B Anticipated DC Date: 06-29-2019 Planned Disposition: Inpatient Rehab External Planned Provider: [facility] INPATIENT REHAB DCP follow-up note: CM RECEIVED CALL FROM [facility], THEY WILL NEED NEW REFERRAL FOR INPATIENT REHAB WHEN PT IS CLOSER TO BEING STABLE FOR DISCHARGE. CM TO CONTINUE TO FOLLOW AND ASSIST NEEDED. MAILE Medel DCP- Discharge Planning Updated by [id number]: Judy Pace on 06/29/19 7:[address] Patient Name: JOHN CARDONA Encounter No: [id number] : 1940 Primary Insurance: MEDICARE A & B Anticipated DC Date: 06-29-2019 Planned Disposition: Inpatient Rehab External Planned Provider: [facility] INPATIENT [facility] DCP follow-up note: CM CALLED [facility] INPATIENT REHAB, SPOKE TO FRANNIE AT [phone], WHO ADVISED THEY WILL ACCEPT PT FOR INPATIENT REHAB. CM FAXED UPDATE WITH CURRENT MAR TO [facility] AT [phone]. CM NOTIFIED SANIA JOHNS WHO WILL PROVIDE DISCHARGE ORDERS AND WILL NOTIFY DIALYSIS TO ASK FOR EARLY DIALYSIS TODAY. FOR DISCHARGE, FAX DISCHARGE INFORMATION TO [facility] AT [phone]. [facility] TO ARRANGE TRANSPORTATION. MAILE Medel. DCP- Discharge Planning Updated by [id number]: Judy Pace on 06/28/19 1:[address] Patient Name: JOHN CARDONA Encounter No: [id number] : 1940 Primary Insurance: MEDICARE A & B Anticipated DC Date: 06-29-2019 Planned Disposition: Inpatient Rehab External Planned Provider: [facility] DCP follow-up note: CM RECEIVED CALL FROM [facility] INPATIENT REHAB, SPOKE TO FRANNIE AT [phone], WHO ADVISED THEY WILL ACCEPT PT FOR INPATIENT REHAB. CM NOTIFIED SANIA ZALDIVAR. CM NOTIFED PT WHO IS IN AGREEMENT WITH DISCHARGE TO REHAB WHEN STABLE. IMPORTANT MESSAGE FROM MEDICARE PROVIDED AND EXPLAINED. FOR DISCHARGE, NOT[facility], , FAX CURRENT MAR AND DISCHARGE INFORMATION TO [facility] AT [phone]. [facility] TO ARRANGE TRANSPORTATION. MAILE Medel DCP- Discharge Planning Updated by [id number]: Clementina Villanueva on 06/27/19 8:[address] Patient Name: JOHN CARDONA Admission Status: ER Accout number: [id number] Admission Date: 06-24-2019 : 1940 Admission Diagnosis: Attending: YARON GONZALES Current LOS: 3 Anticipated DC Date: Planned Disposition: Primary Insurance: MEDICARE A & B Discharge Planning Comments: CM MET WITH PATIENT TO DISCUSS DC PLANNING/NEEDS AFTER OBTAINING VERBAL CONSENT. PATIENT IS VERY HARD OF HEARING AND WANTS ME TO TALK TO HIS SON CRYSTAL. I CALLED CRYSTAL AND HE STATES HIS DAD WILL NEED [facility] VS SNF. [facility] IS FIRST CHOICE, [facility] IS SECOND CHOICE. IMM SIGNED. CM TO FOLLOW AND ASSIST NEEDED. I WILL FAX REFERRAL TO [facility] TODAY. Rod Buster: Clementina Villanueva DCPIA - Discharge Planning Initial Assessment Updated by [id number]: Judy Pace on 07/15/19 1:23 pm * Is the patient Alert and Oriented? Yes * PCP ADAM * Pharmacy [facility] * Preadmission Environment Home Alone * ADLs Independent * Other Equipment WALKER, 02/PORT, CPAP * List name and contact numbers for known caregivers / representatives who currently or will assist patient after discharge: LORRIE ROJAS AND POA, * Community resources currently utilized None * Please name any agencies selected above. [facility] [place] MWF [address] * Additional services required to return to the preadmission environment? Yes * Can the patient safely return to the preadmission environment? No * Has this patient been hospitalized within the prior 30 days at any hospital? No Coverage Notice Reviewer: [id number] Liz Villanueva Notice Issued Date-Time: 06/27/2019 10:21 Notice Type: IM Appeals Notice Notice Delivered To: Patient Relationship to Patient: Sausage Inspector Name: Delivery Method: HAND - Hand Delivered Malinda Days: Prior Verbal Notification: Recipient Understood Notice: Yes Recipient Signature: Yes Med Rec Note Co-signed by Attending: Coverage Notice Comment: Reviewer: [id number] Liz Villanueva Notice Issued Date-Time: 06/27/2019 10:21 Notice Type: Patient Choice Letter Notice Delivered To: Family Member Relationship to Patient: Sausage Inspector Name: CRYSTAL CARDONA Delivery Method: PHONE - Phone Malinda Days: Prior Verbal Notification: Yes Recipient Understood Notice: Yes Recipient Signature: Med Rec Note Co-signed by Attending: Coverage Notice Comment: [facility], SECOND CHOICE IS [facility]. Reviewer: [id number] Pace Notice Issued Date-Time: 06/28/2019 15:10 Notice Type: IM Discharge Notice Notice Delivered To: Patient Relationship to Patient: Sausage Inspector Name: Delivery Method: HAND - Hand Delivered Malinda Days: Prior Verbal Notification: Recipient Understood Notice: Yes Recipient Signature: Yes Med Rec Note Co-signed by Attending: Coverage Notice Comment: Reviewer: FLORENCE Pace Notice Issued Date-Time: 07/11/2019 16:20 Notice Type: IM Discharge Notice Notice Delivered To: Family Member Relationship to Patient: Son Sausage Inspector Name: CRYSTAL CARDONA Delivery Method: HAND - Hand Delivered Malinda Days: Prior Verbal Notification: Recipient Understood Notice: Yes Recipient Signature: Yes Med Rec Note Co-signed by Attending: Coverage Notice Comment: Reviewer: FLORENCE Pace Notice Issued Date-Time: 07/13/2019 15:05 Notice Type: Patient Choice Letter Notice Delivered To: Family Member Relationship to Patient: Son Sausage Inspector Name: CRYSTAL CARDONA Delivery Method: HAND - Hand Delivered Malinda Days: Prior Verbal Notification: Recipient Understood Notice: Yes Recipient Signature: Yes Med Rec Note Co-signed by Attending: Coverage Notice Comment: [facility], [facility], [facility] [place] Reviewer: [id number] Pace Notice Issued Date-Time: 07/15/2019 13:00 Notice Type: IM Discharge Notice Notice Delivered To: Patient Relationship to Patient: Sausage Inspector Name: Delivery Method: HAND - Hand Delivered Malinda Days: Prior Verbal Notification: Recipient Understood Notice: Yes Recipient Signature: Yes Med Rec Note Co-signed by Attending: Coverage Notice Comment: Last DP export: 07/15/19 1:18 pm Patient Name: JOHN CARDONA Page [id number] at 0955 All edits/amendments must be made on the electronic document DICTATION DATE: 07/18/19953 BROKERAGE OFFICE MANAGER: PRESTON 07/18/19953 RPT#: [id number] DC DATE:07/15/19 STATUS: DIS IN [address] [address] END OF REPORT
== END 2019-07-15 17:03 | DRG 329 ==
LOC: D.ER 18:50 → D.M2 06-24 00:11
PROVIDERS: Family Medicine; Internal Medicine Nephrology; Surgery; ADMIT Internal Medicine Nephrology; ATTEND Internal Medicine Nephrology
PROC: 5A1D70Z Performance of Urinary Filtration, Intermittent, Less than 6 Hours Per Day (ICD-10-PCS; 2019-06-24)
PROC: 0DBN8ZX Excision of Sigmoid Colon, Via Natural or Artificial Opening Endoscopic, Diagnostic (ICD-10-PCS; 2019-06-30)
PROC: 0DBL8ZZ Excision of Transverse Colon, Via Natural or Artificial Opening Endoscopic (ICD-10-PCS; 2019-06-30)
PROC: 0DTN0ZZ Resection of Sigmoid Colon, Open Approach (ICD-10-PCS; principal; 2019-07-07 12:00)
DX: K51.90 Ulcerative colitis, unspecified, without complications (principal); N18.6 End stage renal disease; E43 Unspecified severe protein-calorie malnutrition; C18.4 Malignant neoplasm of transverse colon; I13.2 Hypertensive heart and chronic kidney disease with heart failure and with stage 5 chronic kidney disease, or end stage renal disease; I50.32 Chronic diastolic (congestive) heart failure; Z99.2 Dependence on renal dialysis; W19.XXXA Unspecified fall, initial encounter; J44.9 Chronic obstructive pulmonary disease, unspecified; D63.1 Anemia in chronic kidney disease; D50.9 Iron deficiency anemia, unspecified; M25.552 Pain in left hip; I25.10 Atherosclerotic heart disease of native coronary artery without angina pectoris; K57.90 Diverticulosis of intestine, part unspecified, without perforation or abscess without bleeding

== ENCOUNTER 2019-10-31 12:03 | Inpatient (IN) | payer MEDICARE, BC ==
--- NOTE | 2019-10-30 22:35 | NUR ---
ENTERED ROOM IN RESPONSE TO SIMRAN ALARM SOUNDING. PT STANDING, LEANING TOWARDS BEDSIDE CHAIR, STILL CONNECTED TO SCD MACHINE, COMPLETELY UNCLOTHED. RETURNED TO BED. PT PULLED OUT IV TO RIGHT FOREARM, CATHETER IS INTACT. REFUSING TO PUT ON CLOTHING. 18G IV RESITED TO RIGHT FOREARM, 1ST ATTEMPT. PATENT. SIMRAN IN PLACE. CONTINUE PLAN OF CARE.
[~2019-10-31] VITALS: Ht 175.3 cm; Wt 122.5 kg
[~2019-10-31 12:03] MED LIST changes: +LOMOTIL 2.5-0.1 EAC1 PO; +NORVASC2.5 MG PO; +RENAGEL800 MG PO; +TORSEMIDE20 MG PO
[2019-10-31 14:28] LABS: BASOPHILS 0.5 % (0-2); EOSINOPHILS 0.8 % (0-7); HEMATOCRIT 33.8 % (42.0-54.0); HEMOGLOBIN 10.5 g/dL (13.5-17.5); IMMATURE GRANULOCYTES 0.3 % (0-5); LYMPHOCYTES 21.3 % (15-50); MCH 29.6 pg (26.0-34.0); MCHC 31.1 g/dL (31.0-37.0); MCV 95.2 fL (80.0-100.0); MEAN PLATELET VOLUME 8.6 fL (7.4-10.4); MONOCYTES 11.5 % (2-11); NEUTROPHILS 65.6 % (40-80); PLATELET COUNT 192 10x3/uL (130-400); RBC 3.55 10x6/uL (4.20-6.10); RDW 16.4 % (11.5-14.5); WBC 11.7 10x3/uL (4.8-10.8)
[2019-10-31 14:39] LABS: ALBUMIN 2.9 g/dL (3.4-5.0); ALKALINE PHOSPHATASE 75 U/L (30-120); ALT (SGPT) 24 U/L (10-68); BILIRUBIN - TOTAL 0.73 mg/dL (0.2-1.3); CALC OSMOLALITY 287 mosm/kg (275-300); CALCIUM 9.4 mg/dL (8.5-10.1); CHLORIDE - SERUM 100 mmol/L (98-107); CKMB 1.7 U/L (0.0-3.6); CREATINE KINASE 40 UL (21-232); CREATININE - SERUM 10.2 mg/dL (0.6-1.3); GLUCOSE 103 mg/dL (74-106); PROTEIN - SERUM 6.6 g/dL (6.4-8.2); SODIUM 136 mmol/L (136-145); TROPONIN-I 0.057 ng/mL (0.000-0.060); UREA NITROGEN 57 mg/dL (7-18); eGFR NON AFRICAN AMERICAN 5 mL/min (90-120)
[2019-10-31 14:45] LABS: POTASSIUM - SERUM 6.7 mmol/L (3.5-5.1)
--- NOTE | 2019-10-31 14:47 | NUR ---
CRITICAL LAB: K+ 6.7 DR DESHPANDE AND EVERARDO HINKLE NOTIFIED
[2019-10-31 15:00] VITALS: BP 191/110
[2019-10-31] MEDS ORDERED: BAYER CHEWABLE81 MG PO (15:22)
[2019-10-31] MEDS ORDERED: REMERON15 MG PO (15:22)
[2019-10-31 16:02] VITALS: BP 172/92
--- NOTE | 2019-10-31 16:02 | NUR ---
PATIENT TO HD
[2019-10-31 16:04] VITALS: BP 165/81
--- NOTE | 2019-10-31 19:00 | NUR ---
LEFT SIDE LYING IN BED. ORIENTED TO SELF. CONFUSED. LETHARGIC. DENIES PAIN. FISTULA NOTED TO LEFT FOREARM. RESERVE ARM SIGN PLACE ON DOOR AND ABOVE BED. SON AT BEDSIDE, MED REC COMPLETED. ATTEMPTING TO ENCOURAGE PT TO EAT. 05/12 [facility] CONSUMED. WILL CONTINUE TO MONITOR.
[2019-10-31 20:13] VITALS: BP 117/57
[2019-10-31 20:41] VITALS: BP 117/57
[2019-11-01 00:36] VITALS: BP 142/81
[2019-11-01 04:00] VITALS: BP 153/48
[2019-11-01 05:23] LABS: BASOPHILS 0.5 % (0-2); EOSINOPHILS 1.1 % (0-7); HEMATOCRIT 30.6 % (42.0-54.0); HEMOGLOBIN 9.5 g/dL (13.5-17.5); IMMATURE GRANULOCYTES 0.1 % (0-5); LYMPHOCYTES 22.4 % (15-50); MCH 29.2 pg (26.0-34.0); MCV 94.2 fL (80.0-100.0); MEAN PLATELET VOLUME 8.4 fL (7.4-10.4); MONOCYTES 12.8 % (2-11); NEUTROPHILS 63.1 % (40-80); PLATELET COUNT 203 10x3/uL (130-400); RBC 3.25 10x6/uL (4.20-6.10); RDW 16.3 % (11.5-14.5)
[2019-11-01 05:27] LABS: WBC 7.9 10x3/uL (4.8-10.8)
[2019-11-01 06:01] LABS: ALBUMIN 2.5 g/dL (3.4-5.0); ALKALINE PHOSPHATASE 61 U/L (30-120); ALT (SGPT) 19 U/L (10-68); BILIRUBIN - TOTAL 0.66 mg/dL (0.2-1.3); CALCIUM 9.5 mg/dL (8.5-10.1); CARBON DIOXIDE 24.2 mmol/L (21.0-32.0); CHLORIDE - SERUM 101 mmol/L (98-107); CKMB 1.8 U/L (0.0-3.6); CREATINE KINASE 42 UL (21-232); CREATININE - SERUM 8.1 mg/dL (0.6-1.3); GLUCOSE 85 mg/dL (74-106); MAGNESIUM - SERUM 2.1 mg/dL (1.8-2.4); PROTEIN - SERUM 6.7 g/dL (6.4-8.2); SODIUM 137 mmol/L (136-145); eGFR NON AFRICAN AMERICAN 7 mL/min (90-120)
[2019-11-01 06:06] LABS: CALC OSMOLALITY 283 mosm/kg (275-300); POTASSIUM - SERUM 5.6 mmol/L (3.5-5.1); UREA NITROGEN 42 mg/dL (7-18)
--- NOTE | 2019-11-01 07:18 | NUR ---
I have reviewed this patient and I concur with the Shift Assessment completed by the Licensed Practical Nurse today this shift.
--- NOTE | 2019-11-01 07:37 | NUR ---
ALERT AND ORIENTED TO SELF. LUNGS CLEAR BILATERALLY. O2 IN PLACE AT 2LNC. HEART SOUNDS S1 AND S2 HEARD IN ALL LUU. BOWEL SOUNDS ACTIVE X 4. IV TO RFA SL PATENT WITHOUT REDNESS. DENIES NEEDS. BED LOW. BED ALARM ON. CALL ZAMORA AND PERSONAL ITEMS IN REACH. WILL CONTINUE TO MONITOR.
[2019-11-01 08:00] VITALS: BP 136/80
--- NOTE | 2019-11-01 10:42 | NUR ---
SPOKE TO DIALYSIS NURSE TO SEE IF PATIENT GOING TO DIALYSIS TODAY. STATES WILL CLARIFY AND CALL BACK.
[2019-11-01 12:00] VITALS: BP 169/93
--- NOTE | 2019-11-01 13:07 | NUR ---
PATIENT WITH LARGE FORMED STOOL. CDIFF CANCELLED PER VERBAL ORDER FROM DR AUSTIN ON UNIT.
[2019-11-01 14:34] VITALS: BMI 39.8
--- NOTE | 2019-11-01 14:51 | NUR ---
DR JUDY YUNG FOR CONSULT.
[2019-11-01 16:00] VITALS: BP 159/89
--- NOTE | 2019-11-01 18:29 | NUR ---
DR KIM ON FLOOR ATTEMPTING TO SEE PATIENT. PATIENT IN DIALYSIS. STATES WILL SEE TOMORROW.
[2019-11-01 20:30] VITALS: BP 167/93
--- NOTE | 2019-11-01 20:30 | NUR ---
PT RECEIVED TO ROOM FROM DIALYSIS. NURSE STATES HE HAS 2 INCONTINENT, LOOSE, WATERY STOOLS. PT WOULD NOT ALLOW COMPLETION OF DIALYSIS. NURSE REPORTS 600CC REMOVED. PT IN BED, CONFUSED. SIMRAN ALARM IN USE. SCDs IN USE. CTM.
--- NOTE | 2019-11-01 21:20 | NUR ---
PTs SIMRAN ALARM HAS SOUNDED 3 TIME SINCE RETURN FROM DIALYSIS. PT GETTING UP WITHOUT CALLING FOR ASSISTANCE. REORIENED TO PLACE, TIME, AND SITUATION. SIMRAN IN PLACE, WILL MONITOR CLOSELY. SONCRYSTAL CALLED TO CHECK ON PT POST-DIALYSIS. INFORMED HIM PT SEEMS MORE CONFUSED AND LESS EASILY REORIENTED THAT HE DID THE PREVIOUS NIGHT. SON SEEMS CONCERNED. WILL NOTIFY HIM OF ANY SIGNIFICANT CHANGES. SON WOULD LIKE ONE OF MR. Joanne Kolb TO CALL HIM WITH UPDATE, RESULTS, AND PLAN OF CARE. CTM.
[2019-11-02 00:14] VITALS: BP 153/91
--- NOTE | 2019-11-02 02:20 | NUR ---
I have reviewed this patient and I concur with the Shift Assessment completed by the Licensed Practical Nurse today this shift.
[2019-11-02 06:10] VITALS: BP 148/82
--- NOTE | 2019-11-02 07:22 | NUR ---
ALERT AND ORIENTED TO SELF. SITTING UP IN CHAIR. LUNGS CLEAR BILATERALLY. O2 IN PLACE AT 2LNC. HEART SOUNDS S1 AND S2 HEARD IN ALL LUU. BOWEL SOUNDS ACTIVE X 4. IV TO RFA PATENT WITHOUT REDNESS. DENIES NEEDS. CALL ZAMORA AND PERSONAL ITEMS IN REACH. WILL CONTINUE TO MONITOR.
[2019-11-02 08:45] VITALS: BP 164/85
--- NOTE | 2019-11-02 09:45 | NUR ---
PATIENT REPEATEDLY ATTEMPTING TO GET OOB. SPOKE WITH SON WHO STATES NO ONE AVAILBLE AT THIS TIME TO COME SIT WITH PATIENT. MD MEDICAL ASSEMBLY PAGED.
--- NOTE | 2019-11-02 10:52 | NUR ---
SPOKE WITH DR [facility] PHYSICAL FITNESS TRAINER WHO STATES WILL CALL BACK WITH ORDERS FOR PRN AGGITATION MEDICATION FOR PATIENT D/T PATIENT CONTINUING TO TRY TO GET OOB AND PULL OUT LINES.
--- NOTE | 2019-11-02 11:24 | NUR ---
PATIENT REFUSES TO GO TO DIALYSIS. DR AUSTIN ON FLOOR AWARE. STATES "THEY MAY JUST HAVE TO DIALYZE HIM IN THE ROOM LATER." WILL NOTIFY DIALYSIS.
--- NOTE | 2019-11-02 11:27 | NUR ---
SPOKE WITH DIALYSIS NURSE TO NOTIFY THAT PATIENT REFUSING TO COME TO DIALYSIS AND THAT DR AUSTIN STATED MAY HAVE TO DO IN ROOM. DIALYSIS NURSE STATES DOES NOT HAVE ENOUGH NURSES BUT WILL TRY.
[2019-11-02 12:00] VITALS: BP 160/93
--- NOTE | 2019-11-02 13:01 | NUR ---
SITTING ON SIDE OF BED EATING LUNCH. WILL CONTINUE TO MONITOR.
[2019-11-02 16:00] VITALS: BP 154/94
--- NOTE | 2019-11-02 18:02 | NUR ---
SITTING IN CHAIR AT BEDSIDE. DENIES NEEDS. WILL CONTINUE TO MONITOR.
[2019-11-02 20:00] VITALS: BP 158/86
--- NOTE | 2019-11-02 22:00 | NUR ---
CHAIR ALARM SOUNDING. PT FOUND SITTING ON [facility] DRINKING WATER. LARGE LOOSE BM EVIDENT ON BLANKET ON BEDSIDE CHAIR, WITH TISSUES HE USED TO WIPE LEFT IN CHAIR. ASKED PT WHAT HAPPENED, PT STATES, "I JUST USED THE BATHROOM." INFORMED PT HE WAS CURRENTLY SITTING ON THE COMMODE AND THAT THE USED THE RECLINER. PT REPLIED, "DID I?" PADDING ON CHAIR REMOVED, CLEANED AND NEW LINENS APPLIED. TRANSFERRED PT TO BED. REQUESTS TO STAY SITTING UP ON THE SIDE. SIMRAN ALARM ON AND FUNCTIONING, CTM.
--- NOTE | 2019-11-02 23:00 | NUR ---
SIMRAN ALARM SOUNDING, PT SCOOTED TO END OF BED, INCONTINENT BM EVIDENT ON SHEETS. GOWN CHANGED, STANLEY CARE PROVIDED, TRANSFERRED TO CHAIR, LINENS REPLACED. PT WISHES TO STAY IN CHAIR, CHAIR ALARM ATTATCHED TO IRA KHALIL.
[2019-11-03] VITALS: BP 155/88
--- NOTE | 2019-11-03 03:00 | NUR ---
PT IN ROOM. HE HAS REMOVED ALL OF HIS CLOTHING, BUT IS CHEWING ON HIS GOWN. ASKED WHAT HE WAS DOING, REPLIED, "SITTING. WATCHING T.V.. IS THAT OKAY?" PT REFUSES TO PUT GOWN ON, CTM.
[2019-11-03 04:00] VITALS: BP 149/90
[2019-11-03 11:05] VITALS: BP 146/82
--- NOTE | 2019-11-03 13:38 | NUR ---
Nutrition follow-up: Pt sitting on side of bed eating lunch; no clothes on; pt very confused per nursing Diet: Renal/Nepro with meals PO intake ~70% average of last 9-6 meals Multiple, losse BM's Wt: not correct; please get a current standing wt PO intake is fair to good at most meals RDN following.
[2019-11-03 15:07] VITALS: BP 154/90
[2019-11-03 20:00] VITALS: BP 111/59
--- NOTE | 2019-11-03 22:27 | NUR ---
ASSESSED AT THE BEGINNING OF THE SHIFT. PT IS CONFUSED AND UNABLE TO STAY IN BED. HE HAS A SIMRAN ALARM IN PLACE THAT IS GOING OFF FREQUENTLY. WE GOT HIM TO SIT UP AND EAT ABOUT 40% OF HIS DINNER. THE THEN WENT TO SLEEP FOR A SHORT TIME BUT HAD TO BE AWAKEN FOR VITAL SIGNS AND MEDS. SIMRAN REMAINS IN PLACE.
[2019-11-04] VITALS: BP 137/89
[2019-11-04 04:00] VITALS: BP 139/76
--- NOTE | 2019-11-04 09:00 | NUR ---
ALERT AND OREINTED TO SELF ONLY. PATIENT HAS A RESERVE LEFT ARM DUE TO FISTULA. FALL PRECAUTIONS IN PLACE AND REFUSES TO WEAR SCD'S. ENCOURAGED TO USE CALL LIGHT FOR ASSSIT.
[2019-11-04 09:07] VITALS: BP 150/69
--- NOTE | 2019-11-04 12:52 | NUR ---
PATIENT ADMITTED TO ROOM WITH DRESSINGS INTACT TO ANTERIOR AND POSTERIOR CERVICAL SPINE. PATINET COMPLAINS FOF NECK PAIN 8/10 WITH NORCO GIVEN FOR PAIN MANAGEMENT
[2019-11-04 14:09] LABS: EHRLICHIA CHAFF IGG Negative (Neg:<1:64); EHRLICHIA CHAFF IGM Negative (Neg:<1:20); HGE IGG TITER Negative (Neg:<1:64); HGE IGM TITER Negative (Neg:<1:20)
[2019-11-04 14:19] VITALS: BP 127/79
[2019-11-04 20:00] VITALS: BP 133/71
--- NOTE | 2019-11-04 22:23 | NUR ---
ASSESSED AFTER PT RETURNED FROM DIALYSIS. HE WAS HUNGRY AND GIVEN DINNER WHICH HE DID VERY WELL WITH. HE REMAINS CONFUSED BUT FAIRLY COOPERATIVE. O2 IS AT [address]
[2019-11-05 03:07] LABS: RMSF IGM 0.12 index (0.00-0.89)
[2019-11-05 04:00] VITALS: BP 116/53
[2019-11-05 07:43] LABS: BASOPHILS 0.5 % (0-2); HEMOGLOBIN 9.7 g/dL (13.5-17.5); IMMATURE GRANULOCYTES 0.1 % (0-5); LYMPHOCYTES 27.9 % (15-50); MCHC 30.3 g/dL (31.0-37.0); MCV 95.8 fL (80.0-100.0); MEAN PLATELET VOLUME 8.9 fL (7.4-10.4); MONOCYTES 14.8 % (2-11); NEUTROPHILS 54.7 % (40-80); PLATELET COUNT 204 10x3/uL (130-400); RBC 3.34 10x6/uL (4.20-6.10); RDW 15.7 % (11.5-14.5); WBC 7.9 10x3/uL (4.8-10.8)
[2019-11-05 08:08] LABS: CALCIUM 9.4 mg/dL (8.5-10.1); CARBON DIOXIDE 26.2 mmol/L (21.0-32.0); CREATININE - SERUM 5.9 mg/dL (0.6-1.3); POTASSIUM - SERUM 4.2 mmol/L (3.5-5.1)
[2019-11-05 08:27] VITALS: BP 122/77
--- NOTE | 2019-11-05 09:00 | NUR ---
ALERT AND OREITNED TO NAME ONLY. FISTULA NTOED TO LEFT FOREARM WITH BRUIE NOTED. LUNGS CTA WITH FALL PRECAUTIONS IN PLACE. NO PERIPHERAL EDEMA NOTED WITH PATIENT ANURIC. DENIES ANY PAIN OR DISCOMFORT AT THIS TIME.
[2019-11-05 13:15] VITALS: BP 118/68
[2019-11-05 17:46] VITALS: BP 127/73
[2019-11-05 20:00] VITALS: BP 125/78
[2019-11-06 04:00] VITALS: BP 178/82
--- NOTE | 2019-11-06 04:26 | NUR ---
I have reviewed this patient and I concur with the Shift Assessment completed by the Licensed Practical Nurse today this shift.
[2019-11-06 05:54] LABS: BASOPHILS 0.7 % (0-2); EOSINOPHILS 2.3 % (0-7); HEMATOCRIT 29.6 % (42.0-54.0); HEMOGLOBIN 9.1 g/dL (13.5-17.5); IMMATURE GRANULOCYTES 0.1 % (0-5); LYMPHOCYTES 29.6 % (15-50); MCH 29.1 pg (26.0-34.0); MCHC 30.7 g/dL (31.0-37.0); MCV 94.6 fL (80.0-100.0); MEAN PLATELET VOLUME 8.7 fL (7.4-10.4); MONOCYTES 11.7 % (2-11); NEUTROPHILS 55.6 % (40-80); PLATELET COUNT 213 10x3/uL (130-400); RBC 3.13 10x6/uL (4.20-6.10); RDW 15.5 % (11.5-14.5); WBC 7.4 10x3/uL (4.8-10.8)
[2019-11-06 06:25] LABS: ANION GAP 15.9 mmol/L (8-16); CARBON DIOXIDE 24.3 mmol/L (21.0-32.0); POTASSIUM - SERUM 4.2 mmol/L (3.5-5.1)
[2019-11-06 06:26] LABS: CREATININE - SERUM 8.3 mg/dL (0.6-1.3)
[2019-11-06 09:35] VITALS: BP 129/91
[2019-11-06 12:31] VITALS: BP 137/98
[2019-11-06 16:34] VITALS: BP 130/80
[2019-11-06 21:23] VITALS: BP 132/92
[2019-11-07 00:56] VITALS: BP 140/83
--- NOTE | 2019-11-07 03:42 | NUR ---
I have reviewed this patient and I concur with the Shift Assessment completed by the Licensed Practical Nurse today this shift.
[2019-11-07 05:02] LABS: BASOPHILS 0.6 % (0-2); EOSINOPHILS 3.4 % (0-7); HEMOGLOBIN 9.3 g/dL (13.5-17.5); IMMATURE GRANULOCYTES 0.3 % (0-5); LYMPHOCYTES 28.1 % (15-50); MCH 29.2 pg (26.0-34.0); MEAN PLATELET VOLUME 8.5 fL (7.4-10.4); MONOCYTES 10.7 % (2-11); NEUTROPHILS 56.9 % (40-80); PLATELET COUNT 231 10x3/uL (130-400); RBC 3.19 10x6/uL (4.20-6.10); RDW 15.3 % (11.5-14.5); WBC 7.1 10x3/uL (4.8-10.8)
[2019-11-07 05:34] LABS: ANION GAP 17.5 mmol/L (8-16); CALCIUM 8.9 mg/dL (8.5-10.1); CARBON DIOXIDE 22.9 mmol/L (21.0-32.0); CREATININE - SERUM 10.4 mg/dL (0.6-1.3); POTASSIUM - SERUM 4.4 mmol/L (3.5-5.1)
--- NOTE | 2019-11-07 06:31 | NUR ---
LATE ENTRY: CALCIUM WAS STOPPED AT 1636
[2019-11-07 06:47] VITALS: BP 115/66
[2019-11-07 08:38] VITALS: BP 167/104
[2019-11-07 14:02] VITALS: BP 147/100
--- NOTE | 2019-11-07 15:52 | NUR ---
I have reviewed this patient and I concur with the Shift Assessment completed by the Licensed Practical Nurse today this shift.
--- NOTE | 2019-11-07 15:58 | NUR ---
FOUND PATIENT HAVING IRREGULAR HEARTBEAT ON DIALYSIS TREATMENT TODAY, LUCILA DICKEY WAS TAKING MANUAL BLOOD PRESSURES BECAUSE OUR MACHINES WOULD NOT READ HIS BLOOD PRESSURE, PATIENT ALSO REPORTING NOT FEELING WELL DURING THIS TIME. DR. AUSTIN NOTIFIED AND TELEMETRY ORDERED
--- NOTE | 2019-11-07 16:10 | MORECARE ---
CASE MANAGEMENT DISCHARGE SUMMARY PATIENT: JOHN CARDONA UNIT: [id number] ADM DATE: 10/31/19 AGE: 79 : 39 SEX: M ROOM/BED: D.2228 AUTHOR: ADY IVEY PHYSICIAN: REFERRING PHYSICIAN: ELIZA AUSTIN MD DATE OF SERVICE: 11/07/19 Discharge Plan Patient Name: JOHN CARDONA [facility] [facility] 1940 Planned Disposition: Anticipated Discharge Date: Discharge Date: Expected LOS: Initial Reviewer: [email or web address] Initial Review Date: 11/07/2019 Generated: 11/07/19 5:09 pm Patient Name: JOHN CARDONA Page [phone] at 1610 All edits/amendments must be made on the electronic document DICTATION DATE: 11/07/199 HIGH SCHOOL SOCIAL STUDIES TEACHER: PRESTON 11/07/19 1609 RPT#: [id number] DC DATE: STATUS: ADM IN [facility] [address] [place] [address] END OF REPORT
--- NOTE | 2019-11-07 16:17 | MORECARE ---
CASE MANAGEMENT DISCHARGE SUMMARY PATIENT: JOHN CARDONA UNIT: [id number] ADM DATE: 10/31/19 AGE: 79 : 39 SEX: M ROOM/BED: D.2228 AUTHOR: UCHEDOC PHYSICIAN: REFERRING PHYSICIAN: ELIZA AUSTIN MD DATE OF SERVICE: 11/07/19 Discharge Plan Patient Name: JOHN CARDONA Facility: [facility]:[place] : 1940 Planned Disposition: Anticipated Discharge Date: Discharge Date: Expected LOS: Initial Reviewer: [id number] Initial Review Date: 11/07/2019 Generated: 11/07/19 5:16 pm Comments DCP- Discharge Planning Updated by [id number]: Clementina Villanueva on 11/07/19 3:[address] Patient Name: JOHN CARDONA Admission Status: ER Accout number: [id number] Admission Date: 10-31-2019 : 1940 Admission Diagnosis:ALTERED MENTAL STATUS, UNSPECIFIED Attending: ELIZA AUSTIN Current LOS: 7 Anticipated DC Date: Planned Disposition: Primary Insurance: MEDICARE A & B Discharge Planning Comments: CM met with patient at bedside after explaining CM role and obtaining verbal consent. PATIENT IS VERY HARD OF HEARING. I CALLED AND SPOKE WITH HIS SON CRYSTAL CARDONA. HE SAID HIS DAD LIVES ALONE BUT IS BESIDE HIM. STATES HE DOESN'T KNOW IF HIS DAD CAN CARE FOR HIMSELF ANYMORE. SON IS INTERESTED IN [facility] IF POSSIBLE. IF NOT APPROPRIATE FOR [facility] SON REQUESTS [facility] IN [place]. PT ORDERED TODAY. CM WILL FOLLOW UP AFTER PT MAKES THEIR RECOMMENDATIONS. KUMAR SIGNED FOR INPATIENT REHAB VS [facility]. Chlorobutadiene Scrubber Operator: Clementina Villanueva DCPIA - Discharge Planning Initial Assessment Updated by [id number]: Clementina Villanueva on 11/07/19 4:10 pm * Is the patient Alert and Oriented? Yes * PCP CAZ * Preadmission Environment Home with Family * ADLs Independent * Other Equipment WALKER * Additional services required to return to the preadmission environment? No * Can the patient safely return to the preadmission environment? Yes * Has this patient been hospitalized within the prior 30 days at any hospital? No Coverage Notice Reviewer: [id number] - Clementina Villanueva Notice Issued Date-Time: 11/07/2019 16:15 Notice Type: Patient Choice Letter Notice Delivered To: Family Member Relationship to Patient: Son Garage Door Service Technician Name: CRYSTAL Delivery Method: PHONE - Phone Malinda Days: Prior Verbal Notification: Recipient Understood Notice: Yes Recipient Signature: Med Rec Note Co-signed by Attending: Coverage Notice Comment: KUMAR FOR [facility] VS [facility]. Last DP export: 11/07/19 3:10 p Patient Name: JOHN CARDONA Page [id number] at 1617 All edits/amendments must be made on the electronic document DICTATION DATE: 11/07/19 1616 GLAZIER HELPER: PRESTON 11/07/19 1616 RPT#: [id number] DC DATE: STATUS: ADM IN [facility] [address] [place] [address] END OF REPORT
[2019-11-07 21:00] VITALS: BP 145/108
[2019-11-08] VITALS (7 sets, daily range): BP systolic 117–152; BP diastolic 82–101
--- NOTE | 2019-11-08 01:45 | NUR ---
REC'D. SITTING ON BEDSIDE COMMODE.MONITOR SHOWING HEART RATE 140 ENCOURAGED BREATHING EXERCISES NOSE OUT THRU MOUTH PRE BILLING CLINICIAN SAYS HR COMING BACK DOWN 120.STATES I'M SICK OF ALWAYS LANDING BACK IN HOSPITAL ALL THE TIME.WILL CONTINUE TO MONITOR FOR ANY CHGES AND FOLLOW CURRENT PLAN OF CARE.
[2019-11-08 05:11] LABS: BASOPHILS 0.6 % (0-2); EOSINOPHILS 1.4 % (0-7); HEMATOCRIT 30.8 % (42.0-54.0); HEMOGLOBIN 9.5 g/dL (13.5-17.5); IMMATURE GRANULOCYTES 0.2 % (0-5); LYMPHOCYTES 27.8 % (15-50); MCH 28.9 pg (26.0-34.0); MCHC 30.8 g/dL (31.0-37.0); MCV 93.6 fL (80.0-100.0); MEAN PLATELET VOLUME 8.9 fL (7.4-10.4); MONOCYTES 12.6 % (2-11); NEUTROPHILS 57.4 % (40-80); PLATELET COUNT 267 10x3/uL (130-400); RBC 3.29 10x6/uL (4.20-6.10); RDW 15.3 % (11.5-14.5)
[2019-11-08 05:23] LABS: ANION GAP 17.9 mmol/L (8-16); CALCIUM 9.3 mg/dL (8.5-10.1); CARBON DIOXIDE 24.5 mmol/L (21.0-32.0); CREATININE - SERUM 8.8 mg/dL (0.6-1.3); POTASSIUM - SERUM 4.4 mmol/L (3.5-5.1)
--- NOTE | 2019-11-08 06:58 | NUR ---
I have reviewed this patient and I concur with the Shift Assessment completed by the Licensed Practical Nurse today this shift.
--- NOTE | 2019-11-08 07:15 | NUR ---
REC'D SITTING ON SIDE OF BED AWAKE AND ALERT. RESP EVEN AND UNLABORED WITH NO DISTRESS NOTED. CAN EXPRESS NEEDS AND WANTS. NO C/O NOTED OR VOICED. ASSESSMENT COMPLETED. C/L IN REACH AT BEDSIDE.
--- NOTE | 2019-11-08 12:04 | NUR ---
I have reviewed this patient and I concur with the Shift Assessment completed by the Licensed Practical Nurse today this shift.
--- NOTE | 2019-11-08 13:35 | MORECARE ---
CASE MANAGEMENT DISCHARGE SUMMARY PATIENT: JOHN CARDONA UNIT: [id number] ADM DATE: 10/31/19 AGE: 79 : 39 SEX: M ROOM/BED: D.2228 AUTHOR: UCHE,DOC PHYSICIAN: REFERRING PHYSICIAN: ELIZA AUSTIN MD DATE OF SERVICE: 11/08/19 Discharge Plan Patient Name: JOHN CARDONA Facility: [facility]:[place] : 1940 Planned Disposition: Anticipated Discharge Date: Discharge Date: Expected LOS: Initial Reviewer: [id number] Initial Review Date: 11/07/2019 Generated: 11/08/19 2:35 pm Comments DCP- Discharge Planning Updated by [id number]: Clementina Villanueva on 11/07/19 3:[address] Patient Name: JOHN CARDONA Admission Status: ER Accout number: [id number] Admission Date: 10-31-2019 : 1940 Admission Diagnosis:ALTERED MENTAL STATUS, UNSPECIFIED Attending: ELIZA AUSTIN Current LOS: 7 Anticipated DC Date: Planned Disposition: Primary Insurance: MEDICARE A & B Discharge Planning Comments: CM met with patient at bedside after explaining CM role and obtaining verbal consent. PATIENT IS VERY HARD OF HEARING. I CALLED AND SPOKE WITH HIS SON CRYSTAL CARDONA. HE SAID HIS DAD LIVES ALONE BUT IS BESIDE HIM. STATES HE DOESN'T KNOW IF HIS DAD CAN CARE FOR HIMSELF ANYMORE. SON IS INTERESTED IN [facility] IF POSSIBLE. [facility] SON REQUEST[facility] IN [place]. PT ORDERED TODAY. CM WILL FOLLOW UP AFTER PT MAKES THEIR RECOMMENDATIONS. KUMAR SIGNED FOR INPATIENT REHAB VS [facility]. Countersinker Balance Screw Hole: Clementina Villanueva DCPIA - Discharge Planning Initial Assessment Updated by [id number]: Clementina Villanueva on 11/07/19 4:10 pm * Is the patient Alert and Oriented? Yes * PCP CAZ * Preadmission Environment Home with Family * ADLs Independent * Other Equipment WALKER * Additional services required to return to the preadmission environment? No * Can the patient safely return to the preadmission environment? Yes * Has this patient been hospitalized within the prior 30 days at any hospital? No External Providers External Provider: [facility] Next Contact Date: Service Request Date: Service Type: Resolution: Reviewer: Comments: Coverage Notice Reviewer: [email or web address] Liz Clementina Kay Notice Issued Date-Time: 11/07/2019 16:15 Notice Type: Patient Choice Letter Notice Delivered To: Family Member Relationship to Patient: Son Strapper Name: CRYSTAL Delivery Method: PHONE - Phone Malinda Days: Prior Verbal Notification: Recipient Understood Notice: Yes Recipient Signature: Med Rec Note Co-signed by Attending: Coverage Notice Comment: [facility] FOR [facility] VS [facility]. Last DP export: 11/07/19 3:17 p Patient Name: JOHN CARDONA Page [phone] at 1335 All edits/amendments must be made on the electronic document DICTATION DATE: 11/08/19 1335 CONTACT ACID PLANT OPERATOR HELPER: PRESTON 11/08/19 1335 RPT#: [id number] DC DATE: STATUS: ADM IN [facility] [address] [place] [address] END OF REPORT
--- NOTE | 2019-11-08 13:43 | MORECARE ---
CASE MANAGEMENT DISCHARGE SUMMARY PATIENT: JOHN CARDONA UNIT: [id number] ADM DATE: 10/31/19 AGE: 79 : 39 SEX: M ROOM/BED: D.2228 AUTHOR: UCHEDOC PHYSICIAN: REFERRING PHYSICIAN: ELIZA AUSTIN MD DATE OF SERVICE: 11/08/19 Discharge Plan Patient Name: JOHN CARDONA Facility: [facility]:[place] : 1940 Planned Disposition: Anticipated Discharge Date: Discharge Date: Expected LOS: Initial Reviewer: [id number] Initial Review Date: 11/07/2019 Generated: 11/08/19 2:42 pm Comments DCP- Discharge Planning Updated by [email or web address]: Clementina Villanueva on 11/08/19 12:[address] Patient Name: JOHN CARDONA Admission Status: ER Accout number: [id number] Admission Date: 10-31-2019 : 1940 Admission Diagnosis:ALTERED MENTAL STATUS, UNSPECIFIED Attending: ELIZA AUSTIN Current LOS: 8 Anticipated DC Date: Planned Disposition: Primary Insurance: MEDICARE A & B Discharge Planning Comments: REFERRAL FAXED TO [facility]. Lead Person: Clementina Villanueva DCP- Discharge Planning Updated by [id number]: Clementina Villanueva on 11/07/19 3:[address] Patient Name: JOHN CARDONA Admission Status: ER Accout number: [id number] Admission Date: 10-31-2019 : 1940 Admission Diagnosis:ALTERED MENTAL STATUS, UNSPECIFIED Attending: ELIZA AUSTIN Current LOS: 7 Anticipated DC Date: Planned Disposition: Primary Insurance: MEDICARE A & B Discharge Planning Comments: CM met with patient at bedside after explaining CM role and obtaining verbal consent. PATIENT IS VERY HARD OF HEARING. I CALLED AND SPOKE WITH HIS SON CRYSTAL CARDONA. HE SAID HIS DAD LIVES ALONE BUT IS BESIDE HIM. STATES HE DOESN'T KNOW IF HIS DAD CAN CARE FOR HIMSELF ANYMORE. SON IS INTERESTED IN IPRH IF POSSIBLE. IF NOT APPROPRIATE FOR IPRH SON REQUESTS [facility] IN [place]. PT ORDERED TODAY. CM WILL FOLLOW UP AFTER PT MAKES THEIR RECOMMENDATIONS. KUMAR SIGNED FOR INPATIENT REHAB VS [facility]. Lead Person: Clementina Kay DCPIA - Discharge Planning Initial Assessment Updated by [email or web address]: Clementina Villanueva on 11/07/19 4:10 pm * Is the patient Alert and Oriented? Yes * PCP CAZ * Preadmission Environment Home with Family * ADLs Independent * Other Equipment WALKER * Additional services required to return to the preadmission environment? No * Can the patient safely return to the preadmission environment? Yes * Has this patient been hospitalized within the prior 30 days at any hospital? No Coverage Notice Reviewer: [id number] - Clementina Villanueva Notice Issued Date-Time: 11/07/2019 16:15 Notice Type: Patient Choice Letter Notice Delivered To: Family Member Relationship to Patient: Son Rug Sizer Name: CRYSTAL Delivery Method: PHONE - Phone Malinda Days: Prior Verbal Notification: Recipient Understood Notice: Yes Recipient Signature: Med Rec Note Co-signed by Attending: Coverage Notice Comment: [facility] FOR [facility] VS [facility]. Last DP export: 11/08/19 12:35 p Patient Name: JOHN CARDONA Page [phone] at 1343 All edits/amendments must be made on the electronic document DICTATION DATE: 11/08/19 1343 RESOURCE MANAGER: PRESTON 11/08/19 1343 RPT#: [id number] DC DATE: STATUS: ADM IN [facility] [address] [place] [address] END OF REPORT
--- NOTE | 2019-11-08 15:56 | NUR ---
Nutrition Follow-up: ESRD on HD on MWF. Diet: Renal 2400cal PO intake: ~67% average x last 3 meals recorded (11/06/19), 0% for breakfast today. He states that he doesn't have an appetite. He doesn't like the diet. He couldn't give me any food preferences. He states that he does not like Nepro and would not drink it. Last BM: 11/06/19 x 2. WT: 270# (11/01/19), no new weight Meds reviewed. Labs noted: K 4.4(WNL), BUN 46(H), Cr 8.8(H), GFR 6(L) Needs new weight. Recommend liberalizing diet to Regular to help encouraged PO intake as K is WNL, may consider checking a new PO4. RD following.
--- NOTE | 2019-11-08 19:23 | NUR ---
PT SITTING UP IN RECLINER CL IN REACH. A/O X3. CONFUSED AT TIMES. DENIES NEEDS AT THIS TIME. RESP EVEN AND UNLABORED. LUNGS CLEAR. BOWEL ACTIVE X4. WILL CONTINUE TO MONITOR.
--- NOTE | 2019-11-09 04:27 | NUR ---
PT VITALS THIS AM 190/[address] ALTAMIRANO VIA TELEPHONE ORDER FOR CLONIDINE 0.1 MG Q4HPRN FOR SBP GREATER THAN 170 AND DBP GREATER THAN 90 ORDERED. WILL CONTINUE TO MONITOR.
--- NOTE | 2019-11-09 04:28 | NUR ---
I have reviewed this patient and I concur with the Shift Assessment completed by the Licensed Practical Nurse today this shift.
--- NOTE | 2019-11-09 05:11 | NUR ---
VITALS NOW 137/91 AND PULSE 74 AFTER CLONIDINE GIVEN
[2019-11-09 05:25] VITALS: BP 190/100
[2019-11-09 06:36] LABS: BASOPHILS 0.6 % (0-2); EOSINOPHILS 0.8 % (0-7); HEMATOCRIT 31.9 % (42.0-54.0); HEMOGLOBIN 9.8 g/dL (13.5-17.5); IMMATURE GRANULOCYTES 0.2 % (0-5); LYMPHOCYTES 32.9 % (15-50); MCH 29.2 pg (26.0-34.0); MCHC 30.7 g/dL (31.0-37.0); MCV 94.9 fL (80.0-100.0); MEAN PLATELET VOLUME 9.2 fL (7.4-10.4); MONOCYTES 11.6 % (2-11); NEUTROPHILS 53.9 % (40-80); PLATELET COUNT 311 10x3/uL (130-400); RBC 3.36 10x6/uL (4.20-6.10); RDW 15.4 % (11.5-14.5)
[2019-11-09 07:04] LABS: ANION GAP 22.6 mmol/L (8-16); CALCIUM 9.1 mg/dL (8.5-10.1); CARBON DIOXIDE 20.7 mmol/L (21.0-32.0); POTASSIUM - SERUM 4.3 mmol/L (3.5-5.1)
[2019-11-09 07:11] LABS: PHOSPHOROUS 10.2 mg/dL (2.5-4.9)
[2019-11-09 08:00] VITALS: BP 130/86
--- NOTE | 2019-11-09 10:35 | NUR ---
PT PLEASANTLY CONFUSED SITTING UP IN CHAIR, HAD EATEN ALL OF BREAKFAST BUT STATED HE WANTED SOMETHING DIFFERENT TOMMOROW OTHER THAN " THE SAME OL' STUFF" ASSISTED PT IN COMPLETING MENU OPTIONS, NO TOEHR NEEDS AT THIS TIME. CONTINUE WITH PLAN OF CARE
[2019-11-09 12:42] VITALS: BP 143/99
--- NOTE | 2019-11-09 12:46 | NUR ---
I have reviewed this patient and I concur with the Shift Assessment completed by the Licensed Practical Nurse today this shift.
--- NOTE | 2019-11-09 16:13 | MORECARE ---
CASE MANAGEMENT DISCHARGE SUMMARY PATIENT: JOHN CARDONA UNIT: [id number] ADM DATE: 10/31/19 AGE: 79 : 39 SEX: M ROOM/BED: D.2228 AUTHOR: ADY IVEY PHYSICIAN: REFERRING PHYSICIAN: ELIZA AUSTIN MD DATE OF SERVICE: 11/09/19 Discharge Plan Patient Name: JOHN CARDONA Facility: [facility]:[place] : 1940 Planned Disposition: Anticipated Discharge Date: Discharge Date: Expected LOS: Initial Reviewer: [id number] Initial Review Date: 11/07/2019 Generated: 11/09/19 5:13 pm Comments DCP- Discharge Planning Updated by [id number]: Clementina Villanueva on 11/09/19 3:[address] Patient Name: JOHN CARDONA Admission Status: ER Accout number: [id number] Admission Date: 10-31-2019 : 1940 Admission Diagnosis:ALTERED MENTAL STATUS, UNSPECIFIED Attending: ELIZA AUSTIN Current LOS: 9 Anticipated DC Date: Planned Disposition: Primary Insurance: MEDICARE A & B Discharge Planning Comments: SPOKE WITH LEONARD AT [facility], IT LOOKS LIKE THEY CAN ACCEPT THE PATIENT BUT WILL NEED NEGATIVE COVID TEST FIRST. COVID ORDERED AND ANTICIPATE RESULTS SOMETIME TOMORROW. Social Research Assistant: Clementina Villanueva DCP- Discharge Planning Updated by [id number]: Clementina Villanueva on 11/08/19 12:[address] Patient Name: JOHN CARDONA Admission Status: ER Accout number: [id number] Admission Date: 10-31-2019 : 1940 Admission Diagnosis:ALTERED MENTAL STATUS, UNSPECIFIED Attending: ELIZA AUSTIN Current LOS: 8 Anticipated DC Date: Planned Disposition: Primary Insurance: MEDICARE A & B Discharge Planning Comments: REFERRAL FAXED TO [facility]. Social Research Assistant: Clementina Villanueva DCP- Discharge Planning Updated by [email or web address]: Clementina Villanueva on 11/07/19 3:[address] Patient Name: JOHN CARDONA Admission Status: ER Accout number: [id number] Admission Date: 10-31-2019 : 1940 Admission Diagnosis:ALTERED MENTAL STATUS, UNSPECIFIED Attending: ELIZA AUSTIN Current LOS: 7 Anticipated DC Date: Planned Disposition: Primary Insurance: MEDICARE A & B Discharge Planning Comments: CM met with patient at bedside after explaining CM role and obtaining verbal consent. PATIENT IS VERY HARD OF HEARING. I CALLED AND SPOKE WITH HIS SON CRYSTAL CARDONA. HE SAID HIS DAD LIVES ALONE BUT IS BESIDE HIM. STATES HE DOESN'T KNOW IF HIS DAD CAN CARE FOR HIMSELF ANYMORE. SON IS INTERESTED IN IPRH IF POSSIBLE. IF NOT APPROPRIATE FOR I[facility] SON REQUESTS [facility] IN [place]. PT ORDERED TODAY. CM WILL FOLLOW UP AFTER PT MAKES THEIR RECOMMENDATIONS. KUMAR SIGNED FOR INPATIENT REHAB VS [facility]. Social Research Assistant: Clementina Villanueva DCPIA - Discharge Planning Initial Assessment Updated by [id number]: Clementina Villanueva on 11/07/19 4:10 pm * Is the patient Alert and Oriented? Yes * PCP CAZ * Preadmission Environment Home with Family * ADLs Independent * Other Equipment WALKER * Additional services required to return to the preadmission environment? No * Can the patient safely return to the preadmission environment? Yes * Has this patient been hospitalized within the prior 30 days at any hospital? No Coverage Notice Reviewer: [id number] - Clementina Villanueva Notice Issued Date-Time: 11/07/2019 16:15 Notice Type: Patient Choice Letter Notice Delivered To: Family Member Relationship to Patient: Son Drum Reel Cutter Name: CRYSTAL Delivery Method: PHONE - Phone [place] Days: Prior Verbal Notification: Recipient Understood Notice: Yes Recipient Signature: Rogers Rec Note Co-signed by Attending: Coverage Notice Comment: [facility] FOR [facility] VS [facility]. Last DP export: 11/08/19 12:43 p Patient Name: JOHN CARDONA Page [id number] at 1613 All edits/amendments must be made on the electronic document DICTATION DATE: 11/09/19 1613 CANAL SUPERINTENDENT: PRESTON 11/09/19 1613 RPT#: [id number] DC DATE: STATUS: ADM IN [facility] [address] [place] [address] END OF REPORT
--- NOTE | 2019-11-09 19:30 | NUR ---
PT UP IN CHAIR, RESP EVEN AND UNLABORED. NO DISTRESS NOTED, CL IN REACH.
[2019-11-09 20:00] VITALS: BP 122/83
--- NOTE | 2019-11-10 03:11 | NUR ---
I have reviewed this patient and I concur with the Shift Assessment completed by the Licensed Practical Nurse today this shift.
[2019-11-10 04:00] VITALS: BP 135/89
[2019-11-10 05:42] LABS: BASOPHILS 0.8 % (0-2); EOSINOPHILS 7.3 % (0-7); HEMATOCRIT 30.6 % (42.0-54.0); HEMOGLOBIN 9.5 g/dL (13.5-17.5); IMMATURE GRANULOCYTES 2.1 % (0-5); LYMPHOCYTES 32.6 % (15-50); MCH 29.1 pg (26.0-34.0); MCV 93.9 fL (80.0-100.0); MEAN PLATELET VOLUME 9.4 fL (7.4-10.4); MONOCYTES 11.3 % (2-11); NEUTROPHILS 45.9 % (40-80); RBC 3.26 10x6/uL (4.20-6.10); RDW 15.4 % (11.5-14.5); WBC 7.7 10x3/uL (4.8-10.8)
[2019-11-10 05:46] LABS: PLATELET COUNT 248 10x3/uL (130-400)
[2019-11-10 09:15] VITALS: BP 141/94
--- NOTE | 2019-11-10 10:31 | NUR ---
CALL TO RYAN WITH RENALFOR HR 150'S ,ORDERS RECIEVED AND INITIATED.
--- NOTE | 2019-11-10 11:15 | NUR ---
IV RESITED TO RIGHT FOREARM X2 STICKS 22G.
--- NOTE | 2019-11-10 11:34 | NUR ---
MEDS ORDERED PER JUL.CALL FROM SON PASSWORD CONFIRMED. UPDATE GIVEN TO SON THAT PATIENT WOULD BE MOVED TO PCU ROOM 2118.
--- NOTE | 2019-11-10 11:35 | NUR ---
REPORT CALLED NICOLASA BRYANT RN.
--- NOTE | 2019-11-10 12:00 | NUR ---
CALLED REPORT TO NICOLASA BRYANT RN ON MED 2.
--- NOTE | 2019-11-10 12:15 | NUR ---
TO ROOM 2119 ON PCU. PATIENT PLACED IN BED WITH BED ALARM ON. CALL LIGHT IN REACH
[2019-11-10 14:10] LABS: F. TULARENSIS - IGG Negative (Negative); F. TULARENSIS - IGM Negative (Negative)
[2019-11-10 20:00] VITALS: BP 135/66
--- NOTE | 2019-11-10 22:13 | NUR ---
NOTIFIED BY MEDICARE INTERVIEWER THAT PTS HR HAS BEEN IN THE 50'S AND 60'S. CARDIZEM DRIP DROPPED TO 5 CC/HR.
[2019-11-11] VITALS: BP 135/67
[2019-11-11 04:00] VITALS: BP 150/78
[2019-11-11 05:11] LABS: BASOPHILS 0.6 % (0-2); EOSINOPHILS 1.8 % (0-7); HEMATOCRIT 29.5 % (42.0-54.0); HEMOGLOBIN 9.2 g/dL (13.5-17.5); IMMATURE GRANULOCYTES 0.3 % (0-5); LYMPHOCYTES 27.5 % (15-50); MCH 29.6 pg (26.0-34.0); MCHC 31.2 g/dL (31.0-37.0); MCV 94.9 fL (80.0-100.0); MEAN PLATELET VOLUME 8.8 fL (7.4-10.4); NEUTROPHILS 57.8 % (40-80); PLATELET COUNT 264 10x3/uL (130-400); RBC 3.11 10x6/uL (4.20-6.10); RDW 15.4 % (11.5-14.5); WBC 6.7 10x3/uL (4.8-10.8)
--- NOTE | 2019-11-11 07:15 | NUR ---
RECEIVED PT IN BED EYES CLOSED RESP UNLABORED SKIN W/D COLOR WNL RT ARM RESERVED AVF NOTED WITH +BRUIT + THRILL WILL CONTINUE TO MONITOR
[2019-11-11 09:26] VITALS: BP 188/90
[2019-11-11 10:01] VITALS: Ht 175.3 cm; Wt 122.5 kg
[2019-11-11] MEDS ORDERED: METOPROLOL TART50 MG PO (12:20)
[2019-11-11] MEDS ORDERED: AMIODARONE HCL200 MG PO (12:20)
[2019-11-11] MEDS ORDERED: CATAPRES0.1 MG PO (12:21)
[2019-11-11] MEDS ORDERED: SEROQUEL25 MG PO (12:21)
--- NOTE | 2019-11-11 12:32 | NUR ---
Nutrition Follow-up: Pt reports eating >=50% of breakfast this AM but c/o nausea at time of visit. Denies vomiting. Unsure of last BM. HD today. Diet: Renal No new wt; last wt: 270# (10/31) Labs noted: PO4 9.1 Meds reviewed -Encourage PO intake and honor food preferences within diet restrictions. -Pt may benefit from appetite stimulant. -Need new wt; noted daily wts ordered. -PO4 9.1; MD may consider PO4 binder. -RD following.
--- NOTE | 2019-11-11 14:30 | NUR ---
received pt back from DIALYSIS VIA BED IN STABLE CONDITION
--- NOTE | 2019-11-11 14:39 | NUR ---
REVIEWED DISCHARGE INSTRUCTIONS WITH SON AND PT STATE UNDERSTANDING COPY GIVEN DCD SALINE LOCK TO RFA WITH IV CATHETER INTACT SITE FREE OF REDNESS OR EDEMA AWAITING ENCOR VAN FOR TRANSFER
--- NOTE | 2019-11-11 15:25 | NUR ---
PT DISCHARGED TO [facility] LEFT VIA W/C WITH ALL PERSONAL BELONGINGS IN STABLE CONDITION LEFT WITH [facility] STAFF SON HERE LEFT TO MEET PT AT [facility]
--- NOTE | 2019-11-12 09:08 | MORECARE ---
CASE MANAGEMENT DISCHARGE SUMMARY PATIENT: JOHN CARDONA UNIT: [id number] ADM DATE: 10/31/19 AGE: 79 : 39 SEX: M ROOM/BED: D.2110 AUTHOR: ADY IVEY PHYSICIAN: REFERRING PHYSICIAN: ELIZA AUSTIN MD DATE OF SERVICE: 11/12/19 Discharge Plan Patient Name: JOHN CARDONA Facility: [facility]:[place] : 1940 Planned Disposition: Anticipated Discharge Date: Discharge Date: 11/11/2019 Expected LOS: Initial Reviewer: [id number] Initial Review Date: 11/07/2019 Generated: 11/12/19 10:07 am Comments DCP- Discharge Planning Updated by [email or web address]: Clementina Villanueva on 11/09/19 3:[address] Patient Name: JOHN CARDONA Admission Status: ER Accout number: [id number] Admission Date: 10-31-2019 : 1940 Admission Diagnosis:ALTERED MENTAL STATUS, UNSPECIFIED Attending: ELIZA AUSTIN Current LOS: 9 Anticipated DC Date: Planned Disposition: Primary Insurance: MEDICARE A & B Discharge Planning Comments: SPOKE WITH LEONARD AT [facility], IT LOOKS LIKE THEY CAN ACCEPT THE PATIENT BUT WILL NEED NEGATIVE COVID TEST FIRST. COVID ORDERED AND ANTICIPATE RESULTS SOMETIME TOMORROW. Napping Machine Operator: Clementina Villanueva DCP- Discharge Planning Updated by [id number]: Clementina Villanueva on 11/08/19 12:[address] Patient Name: JOHN CARDONA Admission Status: ER Accout number: [id number] Admission Date: 10-31-2019 : 1940 Admission Diagnosis:ALTERED MENTAL STATUS, UNSPECIFIED Attending: ELIZA AUSTIN Current LOS: 8 Anticipated DC Date: Planned Disposition: Primary Insurance: MEDICARE A & B Discharge Planning Comments: REFERRAL FAXED TO [facility]. Napping Machine Operator: Clementina Villanueva DCP- Discharge Planning Updated by [email or web address]: Clementina Villanueva on 11/07/19 3:[address] Patient Name: JOHN CARDONA Admission Status: ER Accout number: [id number] Admission Date: 10-31-2019 : 1940 Admission Diagnosis:ALTERED MENTAL STATUS, UNSPECIFIED Attending: ELIZA AUSTIN Current LOS: 7 Anticipated DC Date: Planned Disposition: Primary Insurance: MEDICARE A & B Discharge Planning Comments: CM met with patient at bedside after explaining CM role and obtaining verbal consent. PATIENT IS VERY HARD OF HEARING. I CALLED AND SPOKE WITH HIS SON CRYSTAL CARDONA. HE SAID HIS DAD LIVES ALONE BUT IS BESIDE HIM. STATES HE DOESN'T KNOW IF HIS DAD CAN CARE FOR HIMSELF ANYMORE. SON IS INTERESTED IN IPRH IF POSSIBLE. IF NOT APPROPRIATE FOR IPR[facility] SON REQUESTS [facility] IN [place]. PT ORDERED TODAY. CM WILL FOLLOW UP AFTER PT MAKES THEIR RECOMMENDATIONS. KUMAR SIGNED FOR INPATIENT REHAB VS [facility]. Napping Machine Operator: Clementina Villanueva DCPIA - Discharge Planning Initial Assessment Updated by [id number]: Clementina Villanueva on 11/07/19 4:10 pm * Is the patient Alert and Oriented? Yes * PCP CAZ * Preadmission Environment Home with Family * ADLs Independent * Other Equipment WALKER * Additional services required to return to the preadmission environment? No * Can the patient safely return to the preadmission environment? Yes * Has this patient been hospitalized within the prior 30 days at any hospital? No Coverage Notice Reviewer: [id number] - Clementina Villanueva Notice Issued Date-Time: 11/07/2019 16:15 Notice Type: Patient Choice Letter Notice Delivered To: Family Member Relationship to Patient: Son Supervisor Winding Department Name: CRYSTAL Delivery Method: PHONE - Phone Malinda Days: Prior Verbal Notification: Recipient Understood Notice: Yes Recipient Signature: Med Rec Note Co-signed by Attending: Coverage Notice Comment: [facility] FOR [facility] VS [facility]. Last DP export: 11/09/19 3:13 pm Patient Name: JOHN CARDONA Page [phone] at 0908 All edits/amendments must be made on the electronic document DICTATION DATE: 11/12/19906 PRODUCT DEVELOPMENT WORKER: PRESTON 11/12/19906 RPT#: [id number] DC DATE:11/11/19 STATUS: DIS IN [facility] [address] [facility] [place] [address] END OF REPORT
== END 2019-11-11 15:25 | DRG 291 ==
LOC: D.ER 12:03 → D.MS 16:09 → D.M2 11-10 12:23
PROVIDERS: Family Medicine; Internal Medicine Nephrology; ADMIT Internal Medicine Nephrology; ATTEND Internal Medicine Nephrology
DX: I13.2 Hypertensive heart and chronic kidney disease with heart failure and with stage 5 chronic kidney disease, or end stage renal disease (principal); N18.6 End stage renal disease; G93.40 Encephalopathy, unspecified; E87.5 Hyperkalemia; I66.9 Occlusion and stenosis of unspecified cerebral artery; I50.9 Heart failure, unspecified; J44.9 Chronic obstructive pulmonary disease, unspecified; R41.0 Disorientation, unspecified; F03.90 Unspecified dementia, unspecified severity, without behavioral disturbance, psychotic disturbance, mood disturbance, and anxiety; I48.91 Unspecified atrial fibrillation; I25.10 Atherosclerotic heart disease of native coronary artery without angina pectoris